=== PATIENT | male | born 1980 | race Caucasian/White ===

== ENCOUNTER → 2016-07-23 | Outpatient (CLI) | payer OTHER ==
[~2016-07-23] MED LIST: CATHETER FLUSH 10 ML SYR IV PRN; CYCL10TA9 PO; FAMO-119 PO; HYDR-3816 PO; IOHEXOL 350 MG/ML 100 ML (OMNIPAQUE 350) VIAL IV ONE; LEVO100T PO; LEVO150T6 PO; LEVO175T5 PO; NAPR-243 PO; NS 100 ML (IVPB) BAG IV ONE; OMEP20CA6 PO; ONDA8TAB13 PO; TRM50T PO
--- NOTE | 2016-07-23 12:20 | Diagnostic Imaging Report ---
PROCEDURE: CT abdomen and pelvis with contrast. TECHNIQUE: Multiple contiguous axial images were obtained through the abdomen and pelvis after administration of intravenous contrast. INDICATION: Pain, reflux. Exam compared to 04/06/2015. FINDINGS: Minute punctate calculi nonobstructing within the lower pole of the right kidney showed no change. The kidneys otherwise normal. There is no hydronephrosis or perinephric edema. The adrenals are negative. Liver, gallbladder, bile ducts, spleen, adrenals and pancreas unremarkable. Aortoiliac and mesenteric vessels patent and nonaneurysmal.. Tiny hemorrhagic cyst off the lower pole cortex of left kidney stable from 2014. There is no appendicitis or diverticulitis. Prostate, seminal vesicles and urinary bladder normal. There is no bowel obstruction. No focal inflammatory process. No mass or adenopathy. Vascular structures patent. Osseous structures and lung bases clear. IMPRESSION: Nonobstructing right renal calculus. Stable left renal cyst. No bowel, biliary or urinary tract obstruction. No inflammatory process or acute-appearing abnormality. Dictated by: Dictated on workstation # [id number]
--- OUTSIDE RECORDS SUMMARY | 2016-07-23 13:31 | XMS REPORT | Continuity of Care Document ---
Author Author [facility] Organization [facility] Address Unknown Phone Unavailable Care Team Providers Care Brass Molder Name Role Phone No Pcp, Na PCP Unavailable Source Comments Some departments are not documenting in the electronic medical record. If you do not see the information that you expected, contact Release of Information in the Health Information Management department at [phone] for further assistance in locating additional records.[facility] Active Allergies and Adverse Reactions Not on File Current Medications Not on file Active Problems Not on file Social History Tobacco Use Types Packs/Day Years Used Date Never Assessed Plan of Care Health Maintenance Due Date Last Done Comments Physical (Comprehensive) 1989 Exam Pertussis Vaccine 1993 Tetanus Vaccine 08/12/1999 Influenza Vaccine 02/01/2016 Results from Last 3 Months Not on file
== END ==
LOC: RAD 10:57
PROVIDERS: ATTEND Nurse Practitioner Family
DX: N20.0 Calculus of kidney (principal); N28.1 Cyst of kidney, acquired
CPT/HCPCS: 74177

== ENCOUNTER 2016-10-17 05:46 | Outpatient (CLI) | payer BC ==
[~2016-10-17] VITALS: Ht 190.5 cm; Wt 91.9 kg
[~2016-10-17 05:46] MED LIST changes: -CATHETER FLUSH 10 ML SYR IV PRN; -IOHEXOL 350 MG/ML 100 ML (OMNIPAQUE 350) VIAL IV ONE; -NS 100 ML (IVPB) BAG IV ONE
== END 2016-10-17 13:14 ==
LOC: PREOP 05:46
PROVIDERS: ATTEND Surgery
DX: Z01.818 Encounter for other preprocedural examination (principal); K21.9 Gastro-esophageal reflux disease without esophagitis; R13.10 Dysphagia, unspecified

== ENCOUNTER → 2016-10-21 | Day surgery (SDC) | payer BC ==
[~2016-10-21] MED LIST changes: +FLUMAZENIL (ROMAZICON) 0.1 MG/ML 5 ML VIAL INJ PRN; +HURRICAINE EXT TUBE (BENZOCAINE) ONE; +HURRICAINE EXT TUBE (BENZOCAINE) XX PRN; +MIDAZOLAM 2 MG/2 ML (VERSED) VIAL ONE; +NALOXONE 0.4 MG/ML 1 ML (NARCAN) VIAL IVP PRN; +NS IV 500 ML 500 ML IV PRN; +NS IV 500 ML 500 ML ONE; +SUCR1TAB36 PO; +fentaNYL INJECTION 100 MCG/2 ML AMP IVP PRN; +fentaNYL INJECTION 100 MCG/2 ML AMP ONE
--- NOTE | 2016-10-21 10:46 | Conscious Sedation/ASA ---
Conscious Sedation Pre-Proced Time Reviewed: 10:46 ASA Class: 2 Airway Mallampati Classification: ([place] mountain appropriate class) I. II. III, IV Lungs Heart ASA score ASA 1: a normal healthy patient ASA 2: a patient with a mild systemic disease (mid diabetes, controlled hypertension, obesity ASA 3: a patient with a severe systemic disease that limits activity (angina , COPD, prior Myocardial infarction) ASA 4: a patient with an incapacitating disease that is a constant threat to life (CHF, renal failure) ASA 5: a moribund patient not expected to survive 24 hrs. (ruptured aneurysm) ASA 6: a declared brain patient whose organs are being harvested. For emergent operations, add the letter E after the classification Grade 2 Sedation Plan: Discussed options with patient/fam Note The patient is an appropriate candidate to undergo the planned procedure, sedation, and anesthesia. The patient immediately re-assessed prior to indication. DURAN AQUINO MD October 21, 2016 10:46 am
[2016-10-21 11:21] VITALS: BP 126/99
[2016-10-21] MEDS: MIDAZOLAM 2 MG/2 ML (VERSED) VIAL IVP PRN ×3 (11:32→11:38)
--- NOTE | 2016-10-21 11:51 | Endoscopy Procedure Report ---
Endoscopy Report Date: October 21, 2016 Preoperative Diagnosis: GERD Study Performed: Upper Endoscopy Procedure Instrument: Endoscope Endo Procedure/Findings Findings 1.: Gastric Ulcer, Ryan's Esophagus Copy Copies To 1: TRACEY GALLEGOS MD, XAVIER M MD October 21, 2016 11:51 am
--- NOTE | 2016-10-21 11:53 | Discharge Inst-Simple/Standard ---
Discharge Inst-Standard Discharge Medications New, Converted or Re-Newed RX: RX on Chart Patient Instructions/Follow Up Plan of Care/Instructions/FU: tto increase omeprazole to twice a day. Follow-up with me in 3 weeks. To avoid nonsteroidals and aspirin Activity as Tolerated: Yes Discharge Diet: No Restrictions DURAN AQUINO MD October 21, 2016 11:53 am
[2016-10-21 12:15] VITALS: BP 129/91
[2016-10-21 13:45] VITALS: BP 129/91
[2016-10-21 13:52] VITALS: BP 116/87
--- NOTE | 2016-10-22 05:43 | OPERATIVE REPORT ---
DATE OF SERVICE: 10/21/2016 PROCEDURE: Upper GI endoscopy with antral biopsy. SURGEON: Duran Aquino. INDICATION FOR PROCEDURE: This gentleman came in for an endoscopic assessment of symptoms of severe reflux disease despite using maximal medical therapy. Informed consent was obtained after reviewing the procedures in detail. DESCRIPTION OF PROCEDURE: He was placed in left lateral decubitus position and his vital signs were monitored. Conscious sedation was achieved using Versed and fentanyl. The flexible gastroscope was then introduced down the esophagus and passed into the stomach, into the proximal duodenum. FINDINGS: ESOPHAGUS: Grade III esophagitis with linear ulcers along the distal end of the esophagus. Photodocumentation was obtained. STOMACH: Multiple ulcers and erosions were found at the antrum. These varied in diameter from 2 to 3 mm. DUODENUM: Changes of severe duodenitis were found along the 1st part. An antral biopsy was obtained for Helicobacter status. He tolerated the procedure well and was taken back to the nursing area in a stable condition. IMPRESSION: Symptoms of reflux. Severe esophagitis. Gastric ulcers and erosions. Duodenitis. Helicobacter status pending. NOTE: If medical therapy continues to be ineffective, consideration for fundoplication would be made. Job ID: [id number] DocumentID: [id number] Dictated Date: 10/21/2016 11:46:59 General Production Laborer Date: 10/22/2016 03:33:34 Dictated By: DURAN AQUINO MD [facility]
== END ==
LOC: ENDO 10:40
PROVIDERS: ATTEND Surgery
DX: K21.0 Gastro-esophageal reflux disease with esophagitis (principal); K25.9 Gastric ulcer, unspecified as acute or chronic, without hemorrhage or perforation; K29.80 Duodenitis without bleeding; I10 Essential (primary) hypertension; E03.9 Hypothyroidism, unspecified; G40.909 Epilepsy, unspecified, not intractable, without status epilepticus; Z79.899 Other long term (current) drug therapy

== ENCOUNTER → 2016-10-29 | Outpatient (CLI) | payer BC ==
[~2016-10-29] MED LIST changes: -FLUMAZENIL (ROMAZICON) 0.1 MG/ML 5 ML VIAL INJ PRN; -HURRICAINE EXT TUBE (BENZOCAINE) ONE; -HURRICAINE EXT TUBE (BENZOCAINE) XX PRN; -MIDAZOLAM 2 MG/2 ML (VERSED) VIAL ONE; -NALOXONE 0.4 MG/ML 1 ML (NARCAN) VIAL IVP PRN; -NS IV 500 ML 500 ML IV PRN; -NS IV 500 ML 500 ML ONE; -fentaNYL INJECTION 100 MCG/2 ML AMP IVP PRN; -fentaNYL INJECTION 100 MCG/2 ML AMP ONE
--- NOTE | 2016-10-29 09:20 | Diagnostic Imaging Report ---
PROCEDURE: US Gallbladder. TECHNIQUE: Multiple real-time grayscale images were obtained over the right upper quadrant in various projections. INDICATION: Right upper quadrant pain. FINDINGS: The visualized portions of the pancreas appear unremarkable. The liver is fairly homogeneous with no focal lesion. It is enlarged, however, measuring in craniocaudal diagonal dimension 23 CM. The portal vein demonstrates hepatopetal flow. The CBD is obscured by bowel gas. No intrahepatic biliary dilatation is evident. The gallbladder demonstrate no stones or wall thickening. The right kidney is 10.4 CM in length with no hydronephrosis or focal lesion. No fluid collection in the upright quadrant seen. Sonographic Ruano sign is reportedly negative. IMPRESSION: Hepatomegaly. Dictated by: Dictated on workstation # [id number]
== END ==
LOC: RAD 07:38
PROVIDERS: ATTEND Surgery
DX: R10.11 Right upper quadrant pain (principal); R16.0 Hepatomegaly, not elsewhere classified
CPT/HCPCS: 76705

== ENCOUNTER 2016-12-18 05:30 | Outpatient (CLI) | payer BC ==
[~2016-12-18] VITALS: Ht 190.5 cm; Wt 91.6 kg
[2016-12-18] MEDS ORDERED: LORA0.5T PO (10:44)
[2016-12-18] MEDS ORDERED: PROP60TA17 PO (10:44)
[2016-12-18] MEDS ORDERED: SUCR1TAB PO (10:44)
== END 2016-12-18 10:50 ==
LOC: PREOP 05:30
PROVIDERS: ATTEND Surgery
DX: Z01.818 Encounter for other preprocedural examination (principal); K21.9 Gastro-esophageal reflux disease without esophagitis

== ENCOUNTER 2016-12-25 08:08 | Inpatient (IN) | payer BC ==
[~2016-12-25] VITALS: Ht 190.5 cm; Wt 91.6 kg
[~2016-12-25 08:08] MED LIST changes: +LORA0.5T PO; +PROP60TA17 PO; +SUCR1TAB PO
[2016-12-25 08:37] LABS: BASOPHILS # (AUTO) 0.1 10^3/uL (0.0-0.1); BASOPHILS % (AUTO) 1 % (0-10); EOSINOPHILS # (AUTO) 0.2 10^3/uL (0.0-0.3); EOSINOPHILS % (AUTO) 3 % (0-10); LYMPHOCYTES # (AUTO) 2.5 X 10^3 (1.0-4.0); LYMPHOCYTES % (AUTO) 37 % (12-44); MEAN CORPUSCULAR HEMOGLOBIN 32 PG (25-34); MEAN CORPUSCULAR HGB CONC 34 G/DL (32-36); MEAN CORPUSCULAR VOLUME 95 FL (80-99); MEAN PLATELET VOLUME 9.4 FL (7.4-10.4); MONOCYTES # (AUTO) 0.6 X 10^3 (0.0-1.0); MONOCYTES % (AUTO) 9 % (0-12); NEUTROPHILS # (AUTO) 3.3 X 10^3 (1.8-7.8); NEUTROPHILS % (AUTO) 50 % (42-75); PLATELET COUNT 321 10^3/uL (130-400); RED BLOOD COUNT 4.46 10^6/uL (4.35-5.85); RED CELL DISTRIBUTION WIDTH 14.3 % (10.0-14.5); WHITE BLOOD COUNT 6.7 10^3/uL (4.3-11.0)
[2016-12-25] MEDS ORDERED: FAMOTIDINE 20MG/2ML IV (PEPCID) ONE (08:39)
[2016-12-25] MEDS ORDERED: ceFAZolin 2 GM/NS 50 ML IV ONE (08:45)
[2016-12-25 08:51] LABS: CALCIUM 8.9 MG/DL (8.5-10.1); CREATININE SERUM 1.69 MG/DL (0.60-1.30); POTASSIUM 4.3 MMOL/L (3.6-5.0)
[2016-12-25 09:03] VITALS: BP 134/101
[2016-12-25] MEDS ORDERED: FAMOTIDINE 20MG/2ML IV (PEPCID) IV ONE (09:15)
[2016-12-25] MEDS: LACTATED RINGERS 1,000 ML IV PRN ×4 (09:23→15:10)
--- NOTE | 2016-12-25 09:54 | Progress Note-Pre Operative ---
Pre-Operative Progress Note H&P Reviewed The H&P was reviewed, patient examined and no changes noted. Date Seen by Provider: Dec 25, 2016 Time Seen by Provider: :53 Date H&P Reviewed: Dec 25, 2016 Time H&P Reviewed: :53 Pre-Operative Diagnosis: iintractable GERD DURAN AQUINO MD Dec 25, 2016 9:54 am
[2016-12-25] MEDS ORDERED: BUP/EPI 0.25% 1:200,000 (MARCAINE) 10 ML VIAL IJ ONE (10:28)
[2016-12-25] MEDS ORDERED: DILTIAZEM 25 MG/5 ML INJ (CARDIZEM) VIAL ONE (10:38)
[2016-12-25] MEDS ORDERED: DEXMEDETOMIDINE 200 MCG/2 ML (PRECEDEX) VIAL IV ONE ×4 (10:41→14:40)
[2016-12-25] MEDS ORDERED: proPOfol 200 MG/20 ML (DIPRIVAN) VIAL IV ONE ×2 (10:45→13:26)
[2016-12-25] MEDS ORDERED: LIDOCAINE PF 2% 5 ML (XYLOCAINE) VIAL ONE (10:45)
[2016-12-25] MEDS ORDERED: ROCURONIUM 50 MG/5 ML (ZEMURON) VIAL IV ONE ×3 (10:45→13:26)
[2016-12-25] MEDS ORDERED: LIDOCAINE JELLY 2% (XYLOCAINE) 5 ML TUBE ONE (10:45)
[2016-12-25] MEDS ORDERED: ONDANSETRON 4 MG/2 ML (SDV) Z0FRAN ONE (10:45)
[2016-12-25] MEDS ORDERED: LACTATED RINGERS 1,000 ML IV ONE ×3 (10:45→13:26)
[2016-12-25] MEDS ORDERED: fentaNYL INJECTION 250 MCG/5 ML AMP ONE (10:47)
[2016-12-25] MEDS ORDERED: SEVOFLURANE (ULTANE) 15 ML INHAL SOLN ONE ×9 (13:27→15:41)
[2016-12-25] MEDS ORDERED: morphine INJ 10 MG/ML 1ML (SYR OR VIAL) ONE (14:50)
--- NOTE | 2016-12-25 15:35 | Operative Report ---
Operative Report Date of Procedure/Surgery Dec 25, 2016 Surgeon (s) DURAN AQUINO MD Appeals Reviewer Veteran (s): not applicable Post-Operative Diagnosis same Procedure Performed robotic assisted fundoplication Description of Procedure Anesthesia Type: General Estimated blood loss (mL): 50 mL Specimen(s) collected/removed none Description of the Procedure Indication for procedure:This gentleman presented with severe and intractable symptoms of gastroesophageal reflux, resistant to maximal medical therapy. Manometry confirmed normal esophageal motility with a shortened distal esophageal sphincter. It was therefore felt reasonable to offer surgical therapy by fundoplication using minimally invasive robotic technique.informed consent was obtained after reviewing the operative details and complications of bleeding, wound infection, cardiorespiratory dysfunction and persistence of symptoms. Description of the procedure: He was placed supine on the operating table and general anesthesia induced using an endotracheal tube. Ancef was administered intravenously as prophylaxis against wound infection. Sequential compression devices were placed around his legs, to minimize the risk of venous thrombosis. A Dumont catheter was placed during surgery. It was removed at the end of the operation. Abdomen was prepared and draped in the usual sterile manner. Pneumoperitoneum was established using a Veress needle introduced along the upper midline, 4 cm cephalad to the umbilicus. Intra-abdominal pressure was maintained at 15 mmHg, using carbon dioxide insufflation. A 12 mm trocar was placed and anatomy visualized using the high definition, 3-dimensional laparoscope associated with [employer] system. Under direct view, I placed an 8 mm trocar over the right side followed by 2 additional 8 mm trocars over the left side to facilitate instrumentation. An additional 12 mm trocar was placed over the right lower quadrant to facilitate using a grasper for passing sutures. As the procedure cart underway, I placed another 5 mm trocar over the right upper quadrant for additional instrumentation.initially, the left lobe of the liver was retracted using a self-retaining Melvin's retractor. However, as would be described later, due to the large nature of the left lobe of the liver, a paddle retractor had to be used twice a day for millimeter trocar over the right lower quadrant quadrant. Patient was then turned into steep reverse Trendelenburg position and the robotic system docked in place. Gastrohepatic omentum was incised using hook cautery, entering the lesser sac. Mobilization of the lesser curve, preserving the vascular arcade was continued in a cephalad fashion using the vessel sealing device. Right vidhya of the diaphragm was identified and delineated. Peritoneum over the gastroesophageal junction was incised using the vessel sealing device, defining the distal end of the esophagus. Fundus of the stomach was then mobilized by controlling the short gastric vessels with the vessel sealing device. It was continued around the cardia, exposing the left vidhya of the diaphragm. Subsequently, an adequate retro-esophageal window was created and the floppy fundus of the stomach brought across, performing the shoeshine maneuver, conforming floppiness of the wrap. Since the crura where rather close enough, I avoided crural repair.fundoplication was performed using 0 Ethibond sutures, one of the sutures incorporating the periesophageal tissue, without any tension. FloSeal was placed over a capsular tear of the left lobe of the liver. The trocars were then removed and the operation was concluded. Incisions were closed using 4-0 Vicryl, in a subcuticular fashion. 0.25 percent Marcaine with epinephrine was infiltrated along the incisions, both pre-M Valeria and at the conclusion of the operation. He tolerated the procedure well, was extubated in the operating room and taken to the recovery room in a stable condition. [place], sponges and instruments were correct at the end of the operation Findings of the Procedure see operative report Allergies and Home Medications Allergies Coded Allergies: No Known Drug Allergies (Verified , 10/21/16) Home Medications Levothyroxine Sodium 175 Mcg Tablet, 175 MCG PO DAILY, (Reported) Lorazepam 0.5 Mg Tablet, 0.5 MG PO DAILY PRN for ANXIETY, (Reported) Omeprazole 20 Mg Capsule.dr, 20 MG PO DAILY, (Reported) Propranolol HCl 60 Mg Tablet, 60 MG PO DAILY, (Reported) Sucralfate 1 Gm Tablet, 1 GM PO TIDAC, (Reported) DURAN AQUINO MD Dec 25, 2016 3:35 pm
[2016-12-25] MEDS ORDERED: GLYCOPYRROLATE 0.2 MG/ML (ROBINUL) 2 ML VIAL ONE (15:42)
[2016-12-25] MEDS ORDERED: NEOSTIGMINE (BLOXIVERZ ) 1 MG/1ML 10 ML VIAL ONE (15:42)
[2016-12-25] MEDS ORDERED: ONDANSETRON 4 MG/2 ML (SDV) Z0FRAN IVP PRN (15:45)
[2016-12-25] MEDS ORDERED: morphine INJ 10 MG/ML 1ML (SYR OR VIAL) IVP PRN (15:45)
[2016-12-25 16:25] VITALS: BP 134/101
[2016-12-25] MEDS: LACTATED RINGERS 1,000 ML IV SCH ×2 (16:50→22:06)
[2016-12-25] MEDS: ONDANSETRON 4 MG/2 ML (SDV) Z0FRAN IVP PRN (16:50)
[2016-12-25 17:00] VITALS: BP 121/80
[2016-12-25] MEDS ORDERED: PROP60CA PO (17:01)
[2016-12-25] MEDS ORDERED: ceFAZolin INJECTION 1,000 MG in NS (IVPB) 50 ML IV SCH (17:15)
[2016-12-25] MEDS: fentaNYL INJECTION 100 MCG/2 ML AMP IV PRN ×5 (17:20→23:10)
[2016-12-25] MEDS: ceFAZolin INJECTION 1,000 MG in NS (IVPB) 50 ML IV SCH (18:56)
[2016-12-25 19:09] VITALS: BP 146/94
[2016-12-25] MEDS ORDERED: KETOROLAC 30 MG/ML VIAL ONE (22:42)
[2016-12-25] MEDS: KETOROLAC 30 MG/ML VIAL IVP PRN (22:50)
[2016-12-26] VITALS: BP 163/91
[2016-12-26] MEDS: ONDANSETRON 4 MG/2 ML (SDV) Z0FRAN IVP PRN ×3 (00:44→14:00)
[2016-12-26] MEDS: fentaNYL INJECTION 100 MCG/2 ML AMP IV PRN ×2 (00:45→02:10)
[2016-12-26] MEDS: ceFAZolin INJECTION 1,000 MG in NS (IVPB) 50 ML IV SCH (02:13)
[2016-12-26] MEDS: HYDROmorphone (DILAUDID) 2 MG/ML VIAL IVP PRN ×8 (03:31→22:31)
[2016-12-26 04:56] VITALS: BP 167/99
[2016-12-26] MEDS: LEVOTHYROXINE 75 MCG (LEVOTHROID) TABLET PO SCH (05:32)
[2016-12-26] MEDS: LEVOTHYROXINE 100 MCG (LEVOTHROID) TAB PO SCH (05:32)
[2016-12-26] MEDS: LACTATED RINGERS 1,000 ML IV SCH ×3 (06:47→22:31)
[2016-12-26 08:00] VITALS: BP 136/83
--- NOTE | 2016-12-26 08:14 | Anesthesia-General Post-Op ---
General Patient Condition Mental Status/LOC: Same as Preop Cardiovascular: Satisfactory Nausea/Vomiting: Absent Respiratory: Satisfactory Pain: Uncontrolled Complications: Absent Post Op Complications Complications None Follow Up Care/Instructions Patient Instructions None needed. Anesthesia/Patient Condition Patient Condition No apparent adverse anesthesia problems. Severe post operative pain reported and observed during rounds. Nursing notified. No complications reported per nursing. DOMINICK VALENTINO CRNA Dec 26, 2016 08:14
[2016-12-26] MEDS: PANTOPRAZOLE 40 MG/10 ML (PROTONIX) VIAL IVP SCH (08:15)
[2016-12-26] MEDS: KETOROLAC 30 MG/ML VIAL IVP PRN (08:16)
[2016-12-26] MEDS ORDERED: NON-FORMULARY MEDICATION 1 EA EA (Propranolol HCl 60 MG) PO SCH (09:00)
--- NOTE | 2016-12-26 10:27 | Progress Note-Standard ---
Standard Progress Note Progress Notes/Assess & Plan Date Seen by Provider: Dec 26, 2016 Time Seen by Provider: 10:26 Progress/Assessment & Plan Reports severe abdominal and L shoulder pain. No tachycardia or fever. Will obtain a CT with oral gastrografin to rule out esophageal disruption Final Diagnosis GERD DURAN AQUINO MD Dec 26, 2016 10:27 am
--- NOTE | 2016-12-26 11:40 | Diagnostic Imaging Report ---
PROCEDURE: CT abdomen without IV, and with oral contrast. TECHNIQUE: Multiple contiguous axial images were obtained through the abdomen without the use of intravenous and with the use of oral contrast. INDICATION: Abdominal pain after recent fundoplication surgery. The study is performed with oral contrast. FINDINGS: There is bibasilar atelectasis in the lung bases and subtle pleural effusion. There is an area of thickening and air bubble around the GE junction probably representing the fundoplication flap around the GE junction. The stomach is moderately distended with air fluid level seen. Oral contrast is seen passing through the GE junction into the stomach without evidence of leakage. The liver, the gallbladder, the spleen, the adrenal glands and the pancreas appear unremarkable. The kidneys demonstrate nonobstructive stones up to 2 mm in size. There is no hydronephrosis. There is an inferiorly projecting exophytic lesion measuring 8 mm from the lower pole of the left kidney, too small to accurately characterize. The abdominal aorta is normal in caliber. The osseous structures appear grossly unremarkable. IMPRESSION: 1. Contrast passes normally through GE junction lumen without evidence of leakage or abnormal fluid collection. 2. There is a significant distention of the stomach with prominent air-fluid level. 3. There are nonobstructive stones up to 2 mm in size in both kidneys with no hydronephrosis. 4. Minimal pleural effusions with bibasilar atelectasis seen. Dictated by: Dictated on workstation # [id number]
--- NOTE | 2016-12-26 11:45 | Progress Note-Standard ---
Standard Progress Note Progress Notes/Assess & Plan Date Seen by Provider: Dec 26, 2016 Time Seen by Provider: 11:44 Progress/Assessment & Plan Reports severe abdominal and L shoulder pain. No tachycardia or fever. Will obtain a CT with oral gastrografin to rule out esophageal disruption. CT negative for any esophageal perforation. Bilateral atelectasis and distended stomach. We'll use Toradol to control his pain and encourage incentive spirometry use. Nasogastric tube to decompress the stomach. Final Diagnosis GERD. Postoperative gastric distention. DURAN AQUINO MD Dec 26, 2016 11:45 am
[2016-12-26 12:00] VITALS: BP 136/88
[2016-12-26] MEDS: METOCLOPRAMIDE INJ 10 MG/2 ML (REGLAN) IVP SCH ×2 (13:07→18:43)
[2016-12-26 16:20] VITALS: BP 138/86
[2016-12-26 20:00] VITALS: BP 146/85
[2016-12-27] VITALS: BP 127/82
[2016-12-27] MEDS: METOCLOPRAMIDE INJ 10 MG/2 ML (REGLAN) IVP SCH ×4 (00:42→17:57)
[2016-12-27] MEDS: HYDROmorphone (DILAUDID) 2 MG/ML VIAL IVP PRN ×5 (02:03→21:42)
[2016-12-27 04:10] VITALS: BP 138/88
[2016-12-27] MEDS: LEVOTHYROXINE 100 MCG (LEVOTHROID) TAB PO SCH (06:20)
[2016-12-27] MEDS: LEVOTHYROXINE 75 MCG (LEVOTHROID) TABLET PO SCH (06:20)
[2016-12-27] MEDS: LACTATED RINGERS 1,000 ML IV SCH ×2 (06:29→15:25)
[2016-12-27 07:40] VITALS: BP 131/84
[2016-12-27] MEDS: PANTOPRAZOLE 40 MG/10 ML (PROTONIX) VIAL IVP SCH (08:25)
[2016-12-27 12:00] VITALS: BP 158/93
--- NOTE | 2016-12-27 15:43 | Progress Note-Standard ---
Standard Progress Note Progress Notes/Assess & Plan Date Seen by Provider: Dec 27, 2016 Time Seen by Provider: 15:42 Progress/Assessment & Plan Reports severe abdominal and L shoulder pain. No tachycardia or fever. Will obtain a CT with oral gastrografin to rule out esophageal disruption. CT negative for any esophageal perforation. Bilateral atelectasis and distended stomach. We'll use Toradol to control his pain and encourage incentive spirometry use. Nasogastric tube to decompress the stomach. pain control much better. Blisters around all the incisions possibly due to allergy to Band-Aids. This will be documented. Tolerating liquid diet. Poor motivation with incentive spirometry and I have encouraged him. Nausea has resolved. Mild postoperative tenderness with no distention. Final Diagnosis GERD. DURAN AQUINO MD Dec 27, 2016 3:43 pm
[2016-12-27 16:37] VITALS: BP 155/88
[2016-12-27] MEDS: HYDROcodone/APAP 7.5MG-325 MG/15 ML (LORTAB) UDC PO PRN (19:42)
[2016-12-27 20:00] VITALS: BP 131/88
[2016-12-28] VITALS: BP 145/88
[2016-12-28] MEDS: METOCLOPRAMIDE INJ 10 MG/2 ML (REGLAN) IVP SCH ×2 (00:17→06:12)
[2016-12-28] MEDS: HYDROmorphone (DILAUDID) 2 MG/ML VIAL IVP PRN (00:21)
[2016-12-28] MEDS: LACTATED RINGERS 1,000 ML IV SCH (02:01)
[2016-12-28 04:00] VITALS: BP 147/90
[2016-12-28] MEDS: KETOROLAC 30 MG/ML VIAL IVP PRN (05:18)
[2016-12-28] MEDS: LEVOTHYROXINE 75 MCG (LEVOTHROID) TABLET PO SCH (06:12)
[2016-12-28] MEDS: LEVOTHYROXINE 100 MCG (LEVOTHROID) TAB PO SCH (06:12)
[2016-12-28] MEDS: HYDROcodone/APAP 7.5MG-325 MG/15 ML (LORTAB) UDC PO PRN (06:15)
[2016-12-28] MEDS ORDERED: PANTOPRAZOLE 40 MG (PROTONIX) TAB PO SCH (07:00)
[2016-12-28 08:00] VITALS: BP 133/86
--- NOTE | 2016-12-28 10:04 | Progress Note-Standard ---
Standard Progress Note Progress Notes/Assess & Plan Date Seen by Provider: Dec 28, 2016 Time Seen by Provider: 09:32 Progress/Assessment & Plan Reports severe abdominal and L shoulder pain. No tachycardia or fever. Will obtain a CT with oral gastrografin to rule out esophageal disruption. CT negative for any esophageal perforation. Bilateral atelectasis and distended stomach. We'll use Toradol to control his pain and encourage incentive spirometry use. Nasogastric tube to decompress the stomach. pain control much better. Blisters around all the incisions possibly due to allergy to Band-Aids. This will be documented. Tolerating liquid diet. Poor motivation with incentive spirometry and I have encouraged him. Nausea has resolved. Mild postoperative tenderness with no distention. much improved. Blistering around the incisions contained. Tolerating liquid diet. Pain control adequate and could be discharged home. Final Diagnosis GERD. DURAN AQUINO MD Dec 28, 2016 10:04 am
--- NOTE | 2016-12-28 10:07 | Discharge Summary ---
Diagnosis/Chief Complaint Date of Admission Dec 26, 2016 at 2:14 pm Date of Discharge Discharge Date: Dec 28, 2016 Discharge Time: 10:05 Admission Diagnosis Admission Diagnosis intractable gastroesophageal reflux disease Discharge Diagnosis same Reason Hospital Visit came in to undergo an elective Esmer fundoplication using robotic assistance. Discharge Summary Procedures uneventful operative procedure. Slow recovery due to gastric distention. CT scan negative for any disruption of the esophagus. Discharge Physical Examination Allergies: Uncoded Allergies: band aids (Allergy, Intermediate, 12/27/16) blisters skin Vitals & I&Os Vital Signs Date Time Temp Pulse Resp B/P (MAP) Pulse Ox O2 Delivery O2 Flow Rate FiO2 12/28/16 08:00 96.8 81 20 133/86 96 Room Air General Appearance: Alert, Oriented X3 Cardiovascular: Regular Rate Abdominal: Soft Hospital Course Labs (last 24 hrs) Laboratory Tests 12/25/16 08:30: White Blood Count 6.7, Red Blood Count 4.46, Hemoglobin 14.3, Hematocrit 42, Mean Corpuscular Volume 95, Mean Corpuscular Hemoglobin 32, Mean Corpuscular Hemoglobin Concent 34, Red Cell Distribution Width 14.3, Platelet Count 321, Mean Platelet Volume 9.4, Neutrophils (%) (Auto) 50, Lymphocytes (%) (Auto) 37, Monocytes (%) (Auto) 9, Eosinophils (%) (Auto) 3, Basophils (%) (Auto) 1, Neutrophils # (Auto) 3.3, Lymphocytes # (Auto) 2.5, Monocytes # (Auto) 0.6, Eosinophils # (Auto) 0.2, Basophils # (Auto) 0.1, Sodium Level 138, Potassium Level 4.3, Chloride Level 109H, Carbon Dioxide Level 21, Anion Gap 8, Blood Urea Nitrogen 19H, Creatinine 1.69H, Estimat Glomerular Filtration Rate 47, BUN/ Creatinine Ratio 11, Glucose Level 117H, Calcium Level 8.9 Microbiology 12/25/16 MRSA Screen - Final, Complete MRSA not isolated Pending Labs Microbiology Date/Time Source Procedure Growth Status 12/25/16 08:25 Nasal MRSA Screen - Final MRSA not isolated Complete Laboratory Tests 12/25/16 08:30: White Blood Count 6.7, Red Blood Count 4.46, Hemoglobin 14.3, Hematocrit 42, Mean Corpuscular Volume 95, Mean Corpuscular Hemoglobin 32, Mean Corpuscular Hemoglobin Concent 34, Red Cell Distribution Width 14.3, Platelet Count 321, Mean Platelet Volume 9.4, Neutrophils (%) (Auto) 50, Lymphocytes (%) (Auto) 37, Monocytes (%) (Auto) 9, Eosinophils (%) (Auto) 3, Basophils (%) (Auto) 1, Neutrophils # (Auto) 3.3, Lymphocytes # (Auto) 2.5, Monocytes # (Auto) 0.6, Eosinophils # (Auto) 0.2, Basophils # (Auto) 0.1, Sodium Level 138, Potassium Level 4.3, Chloride Level 109, Carbon Dioxide Level 21, Anion Gap 8, Blood Urea Nitrogen 19, Creatinine 1.69, Estimat Glomerular Filtration Rate 47, BUN/ Creatinine Ratio 11, Glucose Level 117, Calcium Level 8.9 Discussion & Recommendations the time of discharge, he is tolerating a soft diet and pain is adequately controlled with liquid Lortab. He'll be followed up in the office in about 2 weeks. Discharge Home Medications: Active Scripts Active Reported Propranolol HCl ER (Propranolol HCl) 60 Mg Cap.sa.24h 60 Mg PO DAILY Sucralfate 1 Gm Tablet 1 Gm PO TIDAC LAST FILLED 10/31/16 #30 Lorazepam 0.5 Mg Tablet 0.5 Mg PO DAILY PRN Prilosec (Omeprazole) 20 Mg Capsule.dr 20 Mg PO DAILY Levothyroxine Sodium 175 Mcg Tablet 175 Mcg PO DAILY Instructions to patient/family Please see electonic discharge instructions given to patient. Clinical Quality Measures DVT/VTE Risk/Contraindication: Risk Factor Score Per Nursin RFS Level Per Nursing on Admit: 4+=Very High DURAN AQUINO MD Dec 28, 2016 10:07 am
[2016-12-28] MEDS ORDERED: HYDR473S50 PO (10:08)
--- NOTE | 2016-12-28 10:09 | Discharge Inst-Simple/Standard ---
Discharge Inst-Standard Discharge Medications New, Converted or Re-Newed RX: RX on Chart Patient Instructions/Follow Up Plan of Care/Instructions/FU: triple antibiotic to blisters on his abdomen. Soft diet. Continue using incentive spirometry. Follow-up with me in 3 weeks. Please leave a message at [phone] Activity as Tolerated: Yes Discharge Diet: Soft Diet DURAN AQUINO MD Dec 28, 2016 10:09 am
== END 2016-12-28 11:10 | disposition home or self-care (01) | DRG 327 ==
LOC: SDC 08:08 → 4TH 16:30 → SDC 12-26 14:25 → ENPENDDIS 12-28 10:05
PROVIDERS: ADMIT Surgery; ATTEND Surgery
PROC: 8E0WXCZ Robotic Assisted Procedure of Trunk Region (ICD-10-PCS; 2016-12-25)
PROC: 0DV44ZZ Restriction of Esophagogastric Junction, Percutaneous Endoscopic Approach (ICD-10-PCS; principal; 2016-12-25 11:12)
DX: K21.0 Gastro-esophageal reflux disease with esophagitis (principal); K44.9 Diaphragmatic hernia without obstruction or gangrene; J98.11 Atelectasis; R14.0 Abdominal distension (gaseous); I10 Essential (primary) hypertension; J45.909 Unspecified asthma, uncomplicated; K72.90 Hepatic failure, unspecified without coma; R23.8 Other skin changes
CPT/HCPCS: 36415; 74150; 80048; 85025; 87081; 93005; 94664

== ENCOUNTER 2017-01-05 14:14 | Inpatient (IN) | payer BC ==
[~2017-01-05] VITALS: Ht 188 cm; Wt 110.4 kg
[~2017-01-05 14:14] MED LIST changes: +HYDR473S50 PO; +PROP60CA PO
[2017-01-05] MEDS ORDERED: LACTATED RINGERS 1,000 ML IV ONE (15:30)
[2017-01-05] MEDS ORDERED: fentaNYL INJECTION 100 MCG/2 ML AMP IVP STA ×2 (15:30→17:22)
[2017-01-05] MEDS ORDERED: IOHEXOL 350 MG/ML 150 ML (OMNIPAQUE 350) VIAL IV ONE (15:45)
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
[2017-01-05 15:50] LABS: BASOPHILS # (AUTO) 0.1 10^3/uL (0.0-0.1); BASOPHILS % (AUTO) 1 % (0-10); EOSINOPHILS # (AUTO) 0.4 10^3/uL (0.0-0.3); EOSINOPHILS % (AUTO) 4 % (0-10); LYMPHOCYTES # (AUTO) 2.1 X 10^3 (1.0-4.0); LYMPHOCYTES % (AUTO) 23 % (12-44); MEAN CORPUSCULAR HEMOGLOBIN 32 PG (25-34); MEAN CORPUSCULAR HGB CONC 33 G/DL (32-36); MEAN CORPUSCULAR VOLUME 96 FL (80-99); MEAN PLATELET VOLUME 9.5 FL (7.4-10.4); MONOCYTES # (AUTO) 0.7 X 10^3 (0.0-1.0); MONOCYTES % (AUTO) 8 % (0-12); NEUTROPHILS # (AUTO) 6.1 X 10^3 (1.8-7.8); NEUTROPHILS % (AUTO) 65 % (42-75); PLATELET COUNT 427 10^3/uL (130-400); RED BLOOD COUNT 4.59 10^6/uL (4.35-5.85); RED CELL DISTRIBUTION WIDTH 13.6 % (10.0-14.5); WHITE BLOOD COUNT 9.4 10^3/uL (4.3-11.0)
--- NOTE | 2017-01-05 15:56 | Diagnostic Imaging Report ---
INDICATION: Postoperative fever. EXAMINATION: PA and lateral chest at 4:03 p.m. FINDINGS: The heart size is within normal limits and stable when compared to 05/08/16. In the interval since the prior study, mild atelectasis/infiltrate has developed in the left lung base. There are also two thin strands of increased density about the right hilum and these may be related to atelectasis/infiltrate as well. The upper lungs are clear. The mediastinum is not widened. The osseous structures are intact. IMPRESSION: 1. Mild bibasilar atelectasis/infiltrate has developed since the prior exam. There is greater involvement on the left. 2. There is no acute abnormality identified otherwise. Dictated by: Dictated on workstation # [id number]
[2017-01-05 16:08] LABS: PROTHROMBIN TIME PATIENT 13.2 SEC (12.2-14.7)
[2017-01-05 16:12] LABS: ALBUMIN 4.8 GM/DL (3.2-4.5); BILIRUBIN,TOTAL 0.7 MG/DL (0.1-1.0); CALCIUM 9.9 MG/DL (8.5-10.1); CREATININE SERUM 1.75 MG/DL (0.60-1.30); MAGNESIUM 2.4 MG/DL (1.8-2.4); POTASSIUM 4.2 MMOL/L (3.6-5.0); TOTAL PROTEIN 8.4 GM/DL (6.4-8.2)
--- NOTE | 2017-01-05 16:44 | Diagnostic Imaging Report ---
INDICATION: Chest pain. EXAMINATION: CT of the chest, abdomen and pelvis with and without contrast. Contiguous axial sections were taken through the chest, abdomen and pelvis following administration of intravenous contrast. FINDINGS: The recent CT abdomen exam of 12/26/16 noted significant distention of the stomach by gas, fluid and particulate matter. Those findings are again evident on the study and do not seem to have changed significantly. There is no sign of a mass to suggest a gastric outlet obstruction. Even so, if further study is desired, then either endoscopy or an upper GI exam would be recommended. Also, in the interval since the previous exam, poorly defined areas of distortion of the mesenteric fat have developed in the left upper quadrant and upper abdomen near midline just superior to the umbilicus. These findings are nonspecific but may be secondary to mild edema/inflammation. There is no mass or abscess identified, however. It is my understanding in the interval since the prior exam the patient has undergone a Esmer procedure. These findings could be related to that procedure. The previous exam also noted nonobstructive calculi within both kidneys. Those calculi are not as well visualized on this exam as a pre intravenous contrast series was performed. Both kidneys do show excretion of the contrast and there is no sign of obstruction of either collecting system. The images through the pelvis do show that there is a moderate amount of free fluid present. This is nonspecific. There is no solid pelvic mass or abscess identified. The appendix was not well visualized but there are no indirect signs of acute appendicitis. The urinary bladder and prostate gland are grossly unremarkable. The liver does not appear to be enlarged. The spleen, pancreas, adrenals, gallbladder and inferior vena cava are unremarkable for an acute abnormality. A small area diminished density within the spleen seen previously is again evident and does not appear to change. This finding is of uncertain etiology although most likely benign. The aorta is not abnormally dilated and there is no sign of a dissection. There is no hemodynamically significant stenoses of the aorta either. The recent CT abdomen/pelvis exam did note bibasilar atelectasis/infiltrate. On this study, the lung bases do seem better aerated. There is only a small amount of residual atelectasis/infiltrate in each lung base. The upper lungs are clear. The heart size is within normal limits. There is no defect within the pulmonary arteries to indicate a pulmonary embolus. The aorta is not abnormally dilated and there is no sign of a dissection. There is no mediastinal or hilar adenopathy. The thyroid gland, where visualized, is unremarkable. The bone windows show no sign of a fracture or of a destructive lesion. IMPRESSION: 1. There is persistent distention of the stomach by gas, fluid and particulate matter. There is no sign of a gastric outlet mass to account for this appearance. If further study is desired, then either an upper GI exam or endoscopy would be recommended. 2. The areas of distortion of the mesenteric fat in the left lower quadrant and the upper abdomen near midline are of uncertain etiology are most likely due to edema/inflammation. These could be related to the patient's recent Esmer procedure. There is a moderate amount of free fluid in the pelvis as well. This is nonspecific in appearance but could also be related to the recent procedure. There is no mass or abscess identified. 3. There is no acute abnormality in the abdomen or pelvis otherwise. 4. The lung bases do seem better aerated than on the prior exam. There is still some residual atelectasis/infiltrate present in this area. 5. There is no sign of a pulmonary embolus or a dissection. 6. These results were discussed with Dr. Hi in the ER. Dictated by: Dictated on workstation # [id number]
[2017-01-05 17:09] LABS: BILIRUBIN,URINE NEGATIVE (NEGATIVE); KETONES,URINE NEGATIVE (NEGATIVE); LEUKOCYTE ESTERASE ,URINE NEGATIVE (NEGATIVE); NITRITE,URINE NEGATIVE (NEGATIVE); PH,URINE 5 (5-9); PROTEIN,URINE 1+ (NEGATIVE); UROBILINOGEN,URINE NORMAL (NORMAL)
[2017-01-05] MEDS ORDERED: PIPERACILLIN/TAZO 4.5 GM VIAL (ZOSYN) IV ONE (17:15)
[2017-01-05] MEDS ORDERED: NS (IVPB) 100 ML ONE (17:21)
[2017-01-05 17:33] LABS: SQUAMOUS EPITHELIAL CELL,UR 0-2 /HPF
[2017-01-05 17:48] VITALS: BP 154/107
[2017-01-05] MEDS ORDERED: fentaNYL INJECTION 100 MCG/2 ML AMP IVP PRN (18:30)
[2017-01-05] MEDS ORDERED: ONDANSETRON 4 MG/2 ML (SDV) Z0FRAN IVP PRN (18:30)
[2017-01-05] MEDS: PANTOPRAZOLE 40 MG/10 ML (PROTONIX) VIAL IV SCH (18:33)
[2017-01-05] MEDS: LACTATED RINGERS 1,000 ML IV SCH (18:40)
[2017-01-05] MEDS: HYDROcodone/APAP 7.5 MG/325 MG (LORTAB, LORCET PLUS) TABLET PO PRN (18:52)
[2017-01-05 19:16] VITALS: BP 140/90
[2017-01-05] MEDS: fentaNYL INJECTION 100 MCG/2 ML AMP IVP PRN ×2 (20:01→22:00)
[2017-01-05] MEDS: LEVOFLOXACIN 750 MG/150 ML IV 150 ML IV SCH (20:01)
[2017-01-05] MEDS ORDERED: RT-ALBUTEROL/IPRATROPIUM 3 ML (DUONEB) VIAL INH PRN (20:15)
[2017-01-05 21:05] VITALS: BP 133/81
[2017-01-05] MEDS: PIPERACILLIN/TAZOBACTAM 4.5 GM/NS100 ML IVPB IV SCH ×2 (23:29)
[2017-01-06] VITALS (9 sets, daily range): BP systolic 118–150; BP diastolic 74–99
[2017-01-06] MEDS: fentaNYL INJECTION 100 MCG/2 ML AMP IVP PRN ×8 (00:01→20:17)
[2017-01-06] MEDS: HYDROcodone/APAP 7.5 MG/325 MG (LORTAB, LORCET PLUS) TABLET PO PRN (01:04)
[2017-01-06] MEDS: LACTATED RINGERS 1,000 ML IV SCH ×4 (03:07→17:54)
[2017-01-06 05:32] LABS: BASOPHILS % (AUTO) 0 % (0-10); EOSINOPHILS # (AUTO) 0.3 10^3/uL (0.0-0.3); EOSINOPHILS % (AUTO) 4 % (0-10); LYMPHOCYTES # (AUTO) 1.5 X 10^3 (1.0-4.0); LYMPHOCYTES % (AUTO) 19 % (12-44); MEAN CORPUSCULAR HEMOGLOBIN 32 PG (25-34); MEAN CORPUSCULAR HGB CONC 33 G/DL (32-36); MEAN CORPUSCULAR VOLUME 97 FL (80-99); MEAN PLATELET VOLUME 9.6 FL (7.4-10.4); MONOCYTES # (AUTO) 0.7 X 10^3 (0.0-1.0); MONOCYTES % (AUTO) 9 % (0-12); NEUTROPHILS # (AUTO) 5.4 X 10^3 (1.8-7.8); NEUTROPHILS % (AUTO) 68 % (42-75); PLATELET COUNT 369 10^3/uL (130-400); RED BLOOD COUNT 4.08 10^6/uL (4.35-5.85); RED CELL DISTRIBUTION WIDTH 13.4 % (10.0-14.5); WHITE BLOOD COUNT 7.9 10^3/uL (4.3-11.0)
[2017-01-06 06:13] LABS: ALBUMIN 3.9 GM/DL (3.2-4.5); BILIRUBIN,TOTAL 0.7 MG/DL (0.1-1.0); CALCIUM 8.6 MG/DL (8.5-10.1); CREATININE SERUM 1.62 MG/DL (0.60-1.30); POTASSIUM 4.1 MMOL/L (3.6-5.0); TOTAL PROTEIN 6.7 GM/DL (6.4-8.2)
[2017-01-06] MEDS: RT-ALBUTEROL/IPRATROPIUM 3 ML (DUONEB) VIAL INH SCH ×4 (06:53→19:54)
[2017-01-06] MEDS: PANTOPRAZOLE 40 MG/10 ML (PROTONIX) VIAL IV SCH (08:30)
[2017-01-06] MEDS: LEVOFLOXACIN 750 MG/150 ML IV 150 ML IV SCH (08:30)
[2017-01-06] MEDS ORDERED: OMEP20CA12 PO (09:18)
[2017-01-06] MEDS ORDERED: HYDR118S10 PO (09:23)
[2017-01-06] MEDS: PIPERACILLIN/TAZOBACTAM 4.5 GM/NS100 ML IVPB IV SCH ×6 (09:38→23:11)
[2017-01-06] MEDS: KETOROLAC 15 MG/ML VIAL IVP PRN (17:31)
--- NOTE | 2017-01-06 18:01 | Progress Note-Standard ---
Standard Progress Note Progress Notes/Assess & Plan Date Seen by Provider: Jan 06, 2017 Time Seen by Provider: 16:55 Progress/Assessment & Plan patient underwent robotic-assisted fundoplication a week ago, currently readmitted with left upper quadrant pain and shortness of breath. Evaluation is suggestive of atelectasis with possible early pneumonia. We'll continue IV antibiotics and use incentive spirometry. Abdominal examination is unremarkable. Final Diagnosis postoperative atelectasis and pneumonia. DURAN AQUINO MD Jan 06, 2017 6:01 pm
[2017-01-07] VITALS: BP 128/84
[2017-01-07] MEDS: fentaNYL INJECTION 100 MCG/2 ML AMP IVP PRN ×3 (00:09→13:15)
[2017-01-07] MEDS: LACTATED RINGERS 1,000 ML IV SCH ×2 (00:37→07:06)
[2017-01-07 04:00] VITALS: BP 139/84
[2017-01-07] MEDS: PIPERACILLIN/TAZOBACTAM 4.5 GM/NS100 ML IVPB IV SCH ×6 (06:22→23:16)
[2017-01-07] MEDS: RT-ALBUTEROL/IPRATROPIUM 3 ML (DUONEB) VIAL INH SCH ×4 (06:56→18:51)
[2017-01-07 08:00] VITALS: BP 156/97
[2017-01-07] MEDS: KETOROLAC 15 MG/ML VIAL IVP PRN ×2 (08:13→15:01)
[2017-01-07] MEDS: LEVOFLOXACIN 750 MG/150 ML IV 150 ML IV SCH (08:13)
[2017-01-07] MEDS: PANTOPRAZOLE 40 MG/10 ML (PROTONIX) VIAL IV SCH (08:13)
[2017-01-07] MEDS: HYDROcodone/APAP 7.5 MG/325 MG (LORTAB, LORCET PLUS) TABLET PO PRN ×2 (08:14→15:01)
--- NOTE | 2017-01-07 08:51 | Progress Note-Standard ---
Standard Progress Note Progress Notes/Assess & Plan Date Seen by Provider: Jan 07, 2017 Time Seen by Provider: 07:58 Progress/Assessment & Plan patient underwent robotic-assisted fundoplication a week ago, currently readmitted with left upper quadrant pain and shortness of breath. Evaluation is suggestive of atelectasis with possible early pneumonia. We'll continue IV antibiotics and use incentive spirometry. Abdominal examination is unremarkable. pain control much better. Breath sounds equal on both basis. We'll stop Levaquin and continue Zosyn for now. Possible discharge in a.m. Final Diagnosis postoperative pneumonia DURNA AQUINO MD Jan 07, 2017 8:51 am
[2017-01-07 12:00] VITALS: BP 128/76
[2017-01-07 15:38] VITALS: BP 142/85
[2017-01-07] MEDS ORDERED: MAGNESIUM CITRATE 300 ML BTL PO NR (19:57)
[2017-01-07 20:00] VITALS: BP 142/91
[2017-01-07] MEDS ORDERED: LORazepam 0.5 MG (ATIVAN) TABLET PO PRN (20:00)
[2017-01-08] VITALS: BP 129/92
[2017-01-08] MEDS: HYDROcodone/APAP 7.5 MG/325 MG (LORTAB, LORCET PLUS) TABLET PO PRN (03:42)
[2017-01-08 04:00] VITALS: BP 146/85
[2017-01-08] MEDS: PIPERACILLIN/TAZOBACTAM 4.5 GM/NS100 ML IVPB IV SCH ×4 (06:09→16:36)
[2017-01-08] MEDS ORDERED: PANTOPRAZOLE 40 MG (PROTONIX) TAB PO SCH (07:00)
[2017-01-08] MEDS: RT-ALBUTEROL/IPRATROPIUM 3 ML (DUONEB) VIAL INH SCH (07:00)
[2017-01-08 08:00] VITALS: BP 139/91
[2017-01-08] MEDS ORDERED: RT-LEVALBUTEROL (XOPENEX) 1.25 MG/3 ML NEB NON-FORMULARY INH SCH (15:00)
[2017-01-08 15:46] VITALS: BP 127/86
--- NOTE | 2017-01-08 15:48 | Progress Note-Standard ---
Standard Progress Note Progress Notes/Assess & Plan Date Seen by Provider: Jan 08, 2017 Time Seen by Provider: 15:47 Progress/Assessment & Plan patient underwent robotic-assisted fundoplication a week ago, currently readmitted with left upper quadrant pain and shortness of breath. Evaluation is suggestive of atelectasis with possible early pneumonia. We'll continue IV antibiotics and use incentive spirometry. Abdominal examination is unremarkable. pain control much better. Breath sounds equal on both basis. We'll stop Levaquin and continue Zosyn for now. Possible discharge in a.m. Much improved, constipated. Will use magnesium citrate. Discharge home on augmentin Final Diagnosis Post-op pneumonia DURAN AQUINO MD Jan 08, 2017 3:48 pm
[2017-01-08] MEDS ORDERED: HYDR473S50 PO (15:50)
[2017-01-08] MEDS ORDERED: AMOX-358 PO (15:51)
--- NOTE | 2017-01-08 15:55 | Discharge Inst-Simple/Standard ---
Discharge Inst-Standard Discharge Medications New, Converted or Re-Newed RX: RX on Chart Patient Instructions/Follow Up Plan of Care/Instructions/FU: To return as scheduled for 01/20. To avoid carbonated drinks Activity as Tolerated: Yes Discharge Diet: Soft Diet DURAN AQUINO MD Jan 08, 2017 3:55 pm
[2017-01-08] MEDS ORDERED: MAGNESIUM CITRATE 300 ML BTL PO NR (15:58)
[2017-01-08 17:00] VITALS: BP 127/86
--- NOTE | 2017-01-09 10:02 | DISCHARGE SUMMARY ---
DATE OF ADMISSION: 01/05/2017. DATE OF DISCHARGE: 01/08/2017. DIAGNOSIS: Postoperative atelectasis with pneumonia. This gentleman had undergone robotic assisted fundoplication to manage severe reflux disease a few days ago. He returned with pain over the left side of his chest and was found to have atelectasis with possible early pneumonia. Pulmonary embolism was ruled out. He has since been treated with inhalation therapy along with antibiotics and has made a reasonable recovery. At the time of discharge, he was uncomfortable due to constipation. This has been addressed by oral magnesium citrate. I have instructed him to return for follow-up, that has already been scheduled for January 20. Job ID: [id number] Dictated Date: 01/08/2017 15:53:12 Clinical Informatics Spec Date: 01/09/2017 09:59:09/ramez KRISHNA
== END 2017-01-08 17:00 | disposition home or self-care (01) | DRG 194 ==
LOC: EDUNIT# 14:14 → ER 14:16 → 4TH 17:00
PROVIDERS: ADMIT Surgery; ATTEND Surgery
DX: J18.9 Pneumonia, unspecified organism (principal); J98.11 Atelectasis; G89.18 Other acute postprocedural pain; I12.9 Hypertensive chronic kidney disease with stage 1 through stage 4 chronic kidney disease, or unspecified chronic kidney disease; N18.2 Chronic kidney disease, stage 2 (mild); J45.909 Unspecified asthma, uncomplicated; F43.10 Post-traumatic stress disorder, unspecified; K59.00 Constipation, unspecified; Z87.820 Personal history of traumatic brain injury
CPT/HCPCS: 36415; 71020; 71275; 74177; 80053; 81000; 82150; 82550; 82553; 83605; 83690; 83735; 85025; 85610; 85730; 87040; 93005; 93041; 94010; 94640; 94664; 94760; 96361; 96374; 96375; 96376

== ENCOUNTER → 2018-02-26 | Outpatient (CLI) | payer BC ==
[~2018-02-26] MED LIST changes: +AMOX-358 PO; +HYDR-34 PO; -HYDR-3816 PO; +HYDR118S10 PO; +OMEP20CA12 PO
--- NOTE | 2018-02-26 15:36 | Diagnostic Imaging Report ---
EXAMINATION: Left shoulder at 11:59 a.m. INDICATION: Shoulder pain. FINDINGS: Three views were obtained. There is no fracture, dislocation, or acute bony abnormality evident. The glenohumeral and acromioclavicular joints are fairly well maintained and appear similar to the prior exam of 06/10/2009. The soft tissues are unremarkable. IMPRESSION: 1. There is no evidence for an acute bony abnormality. 2. If there is clinical concern regarding an injury to the rotator cuff or labrum, then MRI will be recommended for additional study. Dictated by: Dictated on workstation # [id number]
== END ==
LOC: RAD 11:14
PROVIDERS: ATTEND Nurse Practitioner Family
DX: M25.512 Pain in left shoulder (principal)
CPT/HCPCS: 73030

== ENCOUNTER → 2018-03-20 | Outpatient (CLI) | payer BC ==
[~2018-03-20] VITALS: Ht 188 cm; Wt 99.8 kg
[~2018-03-20] MED LIST changes: +GADOBUTROL 7.5 MMOL/7.5 ML (GADAVIST) VIAL IV ONE; +IOHEXOL 300 MG/ML 30 ML (OMNIPAQUE 300) VIAL IV ONE; +LIDOCAINE 1% INJ 20 ML 20 ML VIAL INJ ONE
--- NOTE | 2018-03-20 10:10 | Diagnostic Imaging Report ---
INDICATION: Left shoulder instability. PROCEDURE: Patient was brought to the procedure room and placed on the table in the supine position. Skin of the left shoulder was prepped and draped in usual sterile fashion. Small amount of 1% lidocaine was utilized for local anesthesia. 21-gauge needle was advanced into the left shoulder at the rotator interval. 50 mL solution of iodinated contrast, normal saline and gadolinium was injected under fluoroscopic observation. 19 seconds of fluoroscopy was utilized. Needle was withdrawn and hemostasis was obtained. Patient tolerated the procedure well and was sent to MRI in satisfactory condition. IMPRESSION: Successful left shoulder injection of gadolinium contrast solution using fluoroscopy. Dictated by: Dictated on workstation # [id number]
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
== END ==
LOC: RAD 08:45
PROVIDERS: ATTEND Orthopaedic Surgery
DX: M25.512 Pain in left shoulder (principal); M25.312 Other instability, left shoulder; Z87.828 Personal history of other (healed) physical injury and trauma
CPT/HCPCS: 23350; 73040; 73222

== ENCOUNTER 2018-04-21 09:58 | Outpatient (CLI) | payer BC ==
[~2018-04-21] VITALS: Ht 188 cm; Wt 99.8 kg
[~2018-04-21 09:58] MED LIST changes: -GADOBUTROL 7.5 MMOL/7.5 ML (GADAVIST) VIAL IV ONE; -IOHEXOL 300 MG/ML 30 ML (OMNIPAQUE 300) VIAL IV ONE; -LIDOCAINE 1% INJ 20 ML 20 ML VIAL INJ ONE
[2018-04-22] MEDS ORDERED: HYDR473S50 PO (14:06)
== END 2018-04-21 10:53 | disposition home or self-care (01) ==
LOC: PREOP 09:58
PROVIDERS: ATTEND Surgery
DX: Z01.818 Encounter for other preprocedural examination (principal)

== ENCOUNTER 2018-04-22 08:10 | Day surgery (SDC) | payer BC ==
[~2018-04-22] VITALS: Ht 188 cm; Wt 99.8 kg
--- OUTSIDE RECORDS SUMMARY | 2018-04-22 08:13 | XMS REPORT | Clinical Summary ---
Author Author [facility] Organization [facility] Address Unknown Phone Unavailable Care Team Providers Care Sales Representative [employer] Name Role Phone Joaquin Sawyer MD Unavailable Sonia Calderon MD PCP Source Comments Some departments are not documenting in the electronic medical record. If you do not see the information that you expected, contact Release of Information in the Health Information Management department at [phone] for further assistance in locating additional records.[facility] Allergies No Known Allergies Current Medications Prescription Sig. Disp. Refills Start End Date Status Date LORazepam (ATIVAN) 0.5 mg Take 1 tablet by mouth Active tablet daily as needed for Nausea. levothyroxine (SYNTHROID) Take 175 mcg by mouth Active 175 mcg tablet daily 30 minutes before breakfast. propranolol LA (INDERAL Take 60 mg by mouth Active LA) 60 mg capsule daily. Active Problems Not on file Family History Medical History Relation Name Comments Alcohol abuse Father Depression Mother Diabetes Mother Hypertension Mother Kidney Disease Mother Relation Name Status Comments Father Mother Alive Social History Tobacco Use Types Packs/Day Years Used Date Former Smoker Cigarettes 0.5 10 Smokeless Tobacco: Never Used Tobacco Cessation: Counseling Given: No Sex Assigned at Date Recorded Not on file Last Filed Vital Signs Vital Sign Reading Time Taken Blood Pressure 127/79 02/18/2017 2:42 PM CDT Pulse 82 02/18/2017 2:42 PM CDT Temperature - - Respiratory Rate - - Oxygen Saturation - - Inhaled Oxygen - - Concentration Weight 107.5 kg (237 lb) 02/18/2017 2:42 PM CDT Height 187.9 cm (6' 1.98") 02/18/2017 2:42 PM CDT Body Mass Index 30.45 02/18/2017 2:42 PM CDT Plan of Treatment Health Maintenance Due Date Last Done Comments PHYSICAL (COMPREHENSIVE) 1989 EXAM HIV SCREENING 1997 DTAP/TDAP VACCINES (1 - 2000 Tdap) INFLUENZA VACCINE 12/31/2017 Results Not on filefrom Last 3 Months
--- OUTSIDE RECORDS SUMMARY | 2018-04-22 08:13 | XMS REPORT | Clinical Summary ---
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
--- OUTSIDE RECORDS SUMMARY | 2018-04-22 08:17 | XMS REPORT | CCD ---
Author Author [facility] Organization [facility] Address [address] [place] [address] Phone Care Team Providers Care [employer] Name Role Phone PP Unavailable CCM Unavailable Summary Purpose Interface Exchange Insurance Providers Payer name Policy type / Coverage type Covered democrat ID Effective Begin Date Effective End Date Blue Cross Blue [facility] Blue Cross/Blue Shield [id number] 2017 Unknown Family history Runs in the family Diagnosis Age At Onset Diabetes mellitus Type 1 Unknown Breast cancer Unknown Mother Diagnosis Age At Onset Depression Unknown Hypertension Unknown kidney disease Unknown Father Diagnosis Age At Onset Alcoholism Unknown Social History Social History Element Codes Description Effective Dates Marital status Unknown Soheila 11/23/2015 Number of children Unknown 2 11/23/2015 Employment Unknown Currently employed [employer] 11/23/[address]: 2476375 Former smoker Quit 201311/23/[address]: 313604756 Never drinks alcohol 11/23/2015 Has the patient ever used illegal drugs? Unknown Has never used illegal drugs 11/23/2015 Allergies, Adverse Reactions, Alerts Substance Reaction Codes Entered Date Inactivated Date Status * NO KNOWN DRUG ALLERGIES Unknown 11/23/2015 No Inactive Date Active Past Medical History Illness Codes Condition Status Onset Date Resolved Date Pain in left shoulder ICD-9: 719.41 ICD-10: M25.512 Active 02/26/2018 Unknown Encounter for other preprocedural examination ICD-9: V72.83 ICD-10: Z01.818 Active 04/13/2018 Unknown Gout, unspecified ICD- 9: 274.9 ICD-10: M10.9 Active 03/04/2018 Unknown Hypothryroidism Unknown Active 11/12/2017 Unknown Atrophy of thyroid (acquired) ICD-9: 244.8 ICD-10: E03.4 Active 07/02/2016 Unknown Headache ICD-9: 784.0 ICD-10: R51 Active 10/07/2016 Unknown Hypothyroidism, unspecified ICD-9: 244.9 ICD-10: E03.9 Active 06/06/2016 Unknown Other specified hypothyroidism ICD-9: 244.8 ICD-10: E03.8 Active 03/12/2016 Unknown Acute laryngopharyngitis ICD-9: 465.0 ICD-10: J06.0 Active 03/13/2017 Unknown Cough ICD-9: 786.2 ICD-10: R05 Active 03/13/2017 Unknown Other acute sinusitis ICD-9: 461.8 ICD-10: J01.80 Active 03/13/2017 Unknown Other allergic rhinitis ICD-9: 477.8 ICD-10: J30.89 Active 05/21/2016 Unknown Depression Unknown Active 10/07/2016 Unknown Gastro-esophageal reflux disease without esophagitis ICD-9: 530.81 ICD-10: K21.9 Active 03/12/2016 Unknown Generalized anxiety disorder ICD-9: 300.02 ICD-10: F41.1 Active 06/06/2016 Unknown Major depressive disorder, single episode, unspecified ICD-9: 311 ICD-10: F32.9 Active 03/12/2016 Unknown Other muscle spasm ICD -9: 728.85 ICD-10: M62.838 Active 10/02/2016 Unknown Other specified forms of tremor ICD-9: 781.0 ICD-10: G25.2 Active 10/02/2016 Unknown Migraine, unspecified, not intractable, without status migrainosus ICD-9: 346.90 ICD-10: G43.909 Active 10/03/2016 Unknown Epigastric pain ICD-9 : 789.06 ICD-10: R10.13 Active 08/02/2016 Unknown Generalized abdominal pain ICD-9: 789.07 ICD-10: R10.84 Active 07/23/2016 Unknown Nausea ICD-9: 787.02 ICD-10: R11.0 Active 07/04/2016 Unknown Essential (primary) hypertension ICD-9: 401.1 ICD-10: I10 Active 06/06/2016 Unknown Chronic kidney disease, stage 3 (moderate) ICD-9: 585.3 ICD-10: N18.3 Active 05/08/2016 Unknown Nasal congestion ICD-9 : 478.19 ICD-10: R09.81 Active 04/18/2016 Unknown Low back pain ICD-9: 724.2 ICD-10: M54.5 Active 03/26/2016 Unknown Encounter for general adult medical examination with abnormal findings ICD-9: V70.0 ICD-10: Z00.01 Active 11/22/2015 Unknown Problems Condition Codes Effective Dates Condition Status Pain in left shoulder ICD-9: 719.41 ICD-10: M25.512 02/26/2018 Active Encounter for other preprocedural examination ICD-9: V72.83 ICD-10: Z01.818 04/13/2018 Active Gout, unspecified ICD- 9: 274.9 ICD-10: M10.9 03/04/2018 Active Hypothryroidism Unknown 11/12/2017 Active Atrophy of thyroid (acquired) ICD-9: 244.8 ICD-10: E03.4 07/02/2016 Active Headache ICD-9: 784.0 ICD-10: R51 10/07/2016 Active Hypothyroidism, unspecified ICD-9: 244.9 ICD-10: E03.9 06/06/2016 Active Other specified hypothyroidism ICD-9: 244.8 ICD-10: E03.8 03/12/2016 Active Acute laryngopharyngitis ICD-9: 465.0 ICD-10: J06.0 03/13/2017 Active Cough ICD-9: 786.2 ICD-10: R05 03/13/2017 Active Other acute sinusitis ICD-9: 461.8 ICD-10: J01.80 03/13/2017 Active Other allergic rhinitis ICD-9: 477.8 ICD-10: J30.89 05/21/2016 Active Depression Unknown 10/07/2016 Active Gastro-esophageal reflux disease without esophagitis ICD-9: 530.81 ICD-10: K21.9 03/12/2016 Active Generalized anxiety disorder ICD-9: 300.02 ICD-10: F41.1 06/06/2016 Active Major depressive disorder, single episode, unspecified ICD-9: 311 ICD-10: F32.9 03/12/2016 Active Other muscle spasm ICD -9: 728.85 ICD-10: M62.838 10/02/2016 Active Other specified forms of tremor ICD-9: 781.0 ICD-10: G25.2 10/02/2016 Active Migraine, unspecified, not intractable, without status migrainosus ICD-9: 346.90 ICD-10: G43.909 10/03/2016 Active Epigastric pain ICD-9 : 789.06 ICD-10: R10.13 08/02/2016 Active Generalized abdominal pain ICD-9: 789.07 ICD-10: R10.84 07/23/2016 Active Nausea ICD-9: 787.02 ICD-10: R11.0 07/04/2016 Active Essential (primary) hypertension ICD-9: 401.1 ICD-10: I10 06/06/2016 Active Chronic kidney disease, stage 3 (moderate) ICD-9: 585.3 ICD-10: N18.3 05/08/2016 Active Nasal congestion ICD-9 : 478.19 ICD-10: R09.81 04/18/2016 Active Low back pain ICD-9: 724.2 ICD-10: M54.5 03/26/2016 Active Encounter for general adult medical examination with abnormal findings ICD-9: V70.0 ICD-10: Z00.01 11/22/2015 Active Medications Medication Codes Instructions Start Date Stop Date Status Fill Instructions allopurinol 100 mg tablet RxNorm: 026871 1 Tablet(s) PO daily 03/11/2018 07/08/2018 Active allopurinol 100 mg tablet RxNorm: 017192 1 Tablet(s) PO daily 03/11/2018 03/10/2018 Inactive levothyroxine 200 mcg tablet RxNorm: 108131 TAKE ONE TABLET BY MOUTH DAILY ON AN EMPTY STOMACH 03/09/2018 09/04/2018 Active Augmentin 500 mg-125 mg tablet RxNorm: 645773 1 Tablet(s) PO TID 03/09/2018 03/18/2018 Inactive prednisone 10 mg tablet RxNorm: 630004 Tablet(s) PO 03/04/2018 No Stop Date Active 6, 5,4,3,2,1 levothyroxine 200 mcg tablet RxNorm: 098764 Tablet(s) PO TAKE ONE TABLET BY MOUTH DAILY ON AN EMPTY STOMACH 11/17/201702/14 Inactive amitriptyline 25 mg tablet RxNorm: 670397 1 Tablet(s) PO QHS 12/11/2017 Inactive Ativan 0.5 mg tablet RxNorm: 886238 1 Tablet(s) PO daily as needed anxiety 11/04/2017 01/01/2018 Inactive levothyroxine 175 mcg tablet RxNorm: 850091 TAKE ONE TABLET BY MOUTH DAILY ON AN EMPTY STOMACH 09/08/2017 11/16/2017 Inactive levothyroxine 175 mcg tablet RxNorm: 048005 TAKE ONE TABLET BY MOUTH DAILY ON AN EMPTY STOMACH 05/06/2017 09/02/2017 Inactive Ativan 0.5 mg tablet RxNorm: 373714 1 Tablet(s) PO daily as needed anxiety 04/03/2017 06/30/2017 Inactive Augmentin 500 mg-125 mg tablet RxNorm: 416287 1 Tablet(s) PO TID 03/13/2017 03/22/2017 Inactive albuterol sulfate 2.5 mg/3 mL (0.083 %) solution for nebulization RxNorm: 007336 3 Milliliter(s) INH Q4-6H as needed 03/13/2017 02/25/2018 Inactive Kenalog 40 mg/mL suspension for injection RxNorm: 5391732 Milliliter(s) Inj 03/13/2017 03/13/2017 Inactive levothyroxine 175 mcg tablet RxNorm: 332367 TAKE ONE TABLET BY MOUTH DAILY ON AN EMPTY STOMACH 01/15/2017 04/14/2017 Inactive Ativan 0.5 mg tablet RxNorm: 865353 1 Tablet(s) PO daily as needed anxiety 01/15/2017 03/15/2017 Inactive propranolol ER 60 mg capsule,24 hr,extended release RxNorm: 545595 TAKE ONE CAPSULE BY MOUTH DAILY 01/15/20172017 Inactive Ativan 0.5 mg tablet RxNorm: 467362 1 Tablet(s) PO daily as needed anxiety 11/04/2016 01/02/2017 Inactive omeprazole 20 mg capsule,delayed release RxNorm: 655752 TAKE ONE CAPSULE BY MOUTH DAILY 10/30/2016 03/10/2017 Inactive Topamax 50 mg tablet RxNorm: 225642 1 Tablet(s) PO BID 201610/14/2016 Inactive Topamax 50 mg tablet RxNorm: 182307 1 Tablet(s) PO BID 201611/13/2016 Inactive Carafate 1 gram tablet RxNorm: 947479 1 Tablet(s) PO AC & HS 11/05/2016 Inactive ketorolac 60 mg/2 mL intramuscular solution RxNorm: 883205 Milliliter(s) IM 10/07/2016 10/07/2016 Inactive Topamax 25 mg tablet RxNorm: 320660 1 Tablet(s) PO BID 201610/13/2016 Inactive ketorolac 30 mg/mL injection solution RxNorm: 544834 2 Milliliter(s) Inj 10/03/2016 10/03/2016 Inactive Phenergan 25 mg/mL injection solution RxNorm: 030336 1 Milliliter(s) Inj 10/03/2016 10/03/2016 Inactive Topamax 25 mg tablet RxNorm: 590614 1 Tablet(s) PO QHS 201610/31/2016 Inactive levothyroxine 175 mcg tablet RxNorm: 945257 TAKE ONE TABLET BY MOUTH DAILY ON AN EMPTY STOMACH 08/16/2016 12/13/2016 Inactive Carafate 1 gram tablet RxNorm: 941049 1 Gram(s) PO AC & HS 07/201608/15/2016 Inactive Carafate 1 gram tablet RxNorm: 875968 1 Tablet(s) PO AC & HS 08/21/2016 Inactive omeprazole 20 mg capsule,delayed release RxNorm: 374254 TAKE ONE CAPSULE BY MOUTH DAILY 07/17/2016 10/14/2016 Inactive Zofran 4 mg tablet RxNorm: 786390 1 Tablet(s) PO Q6 PRN 07/0402/25/2018 Inactive Ativan 0.5 mg tablet RxNorm: 991705 1/2 Tablet(s) PO BID and a full pill prn anxiety attack 07/02/2016 11/03/2017 Inactive Ativan 0.5 mg tablet RxNorm: 308986 1 Tablet(s) PO QDAY PRN 07/01/2016 Inactive propranolol ER 60 mg capsule,24 hr,extended release RxNorm: 873248 1 Capsule(s) PO daily 06/21/2016 11/17/2016 Inactive ceftriaxone 500 mg solution for injection RxNorm: 1390319 1 Milliliter(s) Inj 05/22/2016 05/22/2016 Inactive amoxicillin 500 mg tablet RxNorm: 126318 1 Tablet(s) PO TID 05/28/2016 Inactive Ativan 0.5 mg tablet RxNorm: 191617 1 Tablet(s) PO QDAY PRN 01/201611/03/2016 Inactive tramadol 50 mg tablet RxNorm: 495081 1 Tablet(s) PO Q6-8H as needed 04/29/2016 09/30/2016 Inactive Kenalog 40 mg/mL suspension for injection RxNorm: 1105488 Milliliter(s) Inj 04/19/2016 04/19/2016 Inactive Flonase Allergy Relief 50 mcg/actuation nasal spray, suspension RxNorm: 5271014 1 Brickeys NASAL daily 04/19/20162015 Inactive levothyroxine 175 mcg tablet RxNorm: 932848 1 Tablet(s) PO daily 04/11/2016 08/08/2016 Inactive Wellbutrin XL 300 mg 24 hr tablet, extended release RxNorm: 325668 1 Tablet(s) PO daily 03/13/2016 07/01/2016 Inactive omeprazole 20 mg capsule,delayed release RxNorm: 965543 1 Capsule(s) PO daily 03/13/2016 07/10/2016 Inactive Augmentin 500 mg-125 mg tablet RxNorm: 278608 1 Tablet(s) PO TID 03/05/2016 03/14/2016 Inactive ceftriaxone 500 mg solution for injection RxNorm: 1285797 Inj 02/01/2016 02/01/2016 Inactive amoxicillin 500 mg tablet RxNorm: 015295 1 Tablet(s) PO TID 01/29/2016 Inactive amoxicillin 500 mg tablet RxNorm: 862284 1 Tablet(s) PO TID 02/05/2016 Inactive propranolol ER 60 mg capsule,24 hr,extended release RxNorm: 441138 1 Capsule(s) PO daily 01/02/2016 04/30/2016 Inactive Wellbutrin XL 150 mg 24 hr tablet, extended release RxNorm: 693162 1 Tablet(s) PO daily 12/12/2015 03/12/2016 Inactive levothyroxine 175 mcg tablet RxNorm: 118363 1 Tablet(s) PO daily 12/12/2015 04/09/2016 Inactive Kenalog 40 mg/mL suspension for injection RxNorm: 5355640 1 Milliliter(s) Inj 12/12/2015 12/12/2015 Inactive prednisone 20 mg tablet RxNorm: 751506 3 Tablet(s) PO daily 05/201612/16/2015 Inactive ibuprofen 800 mg tablet RxNorm: 933052 1 Tablet(s) PO BID 11/2204/20/2016 Inactive Voltaren 1 % topical gel RxNorm: 722824 4 Gram(s) TOP QID 11/2201/21/2016 Inactive buspirone 10 mg tablet RxNorm: 356513 1 Tablet(s) PO BID No Start Date 09/30/2016 Inactive Vitamin D3 5,000 unit tablet RxNorm: 844019 1 Tablet(s) PO daily No Start Date 02/25/2018 Inactive baclofen 20 mg tablet RxNorm: 200355 1 Tablet(s) PO TID No Start Date 09/30/2016 Inactive propranolol 40 mg tablet RxNorm: 807296 1 Tablet(s) PO daily No Start Date 01/01/2016 Inactive levothyroxine 200 mcg tablet RxNorm: 963287 1 Tablet(s) PO daily No Start Date 12/11/2015 Inactive Medication Administered Medication Codes Instructions Start Date Status Kenalog 40 mg/mL suspension for injection RxNorm: 1705833 Milliliter 03/13/2017 No longer Active ketorolac 60 mg/2 mL intramuscular solution RxNorm: 829786 Milliliter 10/07/2016 No longer Active Phenergan 25 mg/mL injection solution RxNorm: 650237 1Milliliter 10/03/2016 No longer Active ketorolac 30 mg/mL injection solution RxNorm: 164953 2Milliliter 10/03/2016 No longer Active ceftriaxone 500 mg solution for injection RxNorm: 2160743 1Milliliter 05/22/2016 No longer Active Kenalog 40 mg/mL suspension for injection RxNorm: 5276143 Milliliter 04/19/2016 No longer Active ceftriaxone 500 mg solution for injection RxNorm: 2498050 02/01/2016 No longer Active Kenalog 40 mg/mL suspension for injection RxNorm: 5715838 1Milliliter 12/12/2015 No longer Active Immunizations No Immunization data Assessments Condition Codes Effective Dates Pain in left shoulder ICD-10: M25.512 ICD-9: 719.41 04/21/2018 Encounter for other preprocedural examination ICD-10: Z01.818 ICD-9: V72.83 04/13/2018 Idiopathic gout, right ankle and foot ICD-10: M10.071 ICD-9: 274.00 03/04/2018 Other specified hypothyroidism ICD-10: E03.8 ICD-9: 244.8 11/12/2017 Headache ICD-10: R51 ICD-9: 784.0 11/12/2017 Other allergic rhinitis ICD-10: J30.89 ICD-9: 477.8 03/13/2017 Cough ICD-10: R05 ICD-9: 786.2 03/13/2017 Acute laryngopharyngitis ICD-10: J06.0 ICD-9: 465.0 03/13/2017 Other acute sinusitis ICD-10: J01.80 ICD-9: 461.8 03/13/2017 Gastro-esophageal reflux disease without esophagitis ICD-10 : K21.9 ICD-9: 530.81 10/07/2016 Other muscle spasm ICD-10: M62.838 ICD-9: 728.85 10/07/2016 Generalized anxiety disorder ICD-10: F41.1 ICD-9: 300.02 10/07/2016 Major depressive disorder, single episode, moderate ICD-10: F32.1 ICD-9: 296.22 10/07/2016 Other specified forms of tremor ICD-10: G25.2 ICD-9: 781.0 10/07/2016 Migraine, unspecified, not intractable, without status migrainosus ICD-10: G43.909 ICD-9: 346.90 10/03/2016 Hypothyroidism, unspecified ICD-10: E03.9 ICD-9: 244.9 09/05/2016 Epigastric pain ICD-10: R10.13 ICD-9: 789.06 08/02/2016 Generalized abdominal pain ICD-10: R10.84 ICD-9: 789.07 07/23/2016 Nausea ICD-10: R11.0 ICD-9: 787.02 07/04/2016 Essential (primary) hypertension ICD-10: I10 ICD-9: 401.1 07/02/2016 Atrophy of thyroid (acquired) ICD-10: E03.4 ICD-9: 244.8 07/02/2016 Chronic kidney disease, stage 3 (moderate) ICD-10: N18.3 ICD-9: 585.3 05/09/2016 Nasal congestion ICD-10: R09.81 ICD-9: 478.19 04/19/2016 Low back pain ICD-10: M54.5 ICD-9: 724.2 03/27/2016 Major depressive disorder, single episode, unspecified ICD- 10: F32.9 ICD-9: 311 03/13/2016 Encounter for general adult medical examination with abnormal findings ICD-10: Z00.01 ICD-9: V70.0 11/23/2015 Reason For Visit Reason For Visit Effective Dates Notes medication follow up 04/21/2018 pre-op/surgery consult 04/13/2018 foot pain 03/04/2018 shoulder pain 02/26/2018 hypothyroid 11/12/2017 sinus congestion 03/13/2017 dyskinesia or tremor 10/07/2016 dyskinesia or tremor 10/02/2016 hypertension 09/05/2016 hypertension 08/02/2016 gastroesophageal reflux 07/23/2016 vomiting 07/04/2016 ~generic 07/02/2016 lump to the left side of neck hypertension 06/07/2016 sinus congestion 05/22/2016 Hospital Follow Up 05/09/2016 cough 04/19/2016 back pain 03/27/2016 hypothyroid 03/13/2016 cough 03/05/2016 cough 01/29/2016 headache 01/02/2016 dysphagia 12/12/2015 hypothyroid 11/23/2015 Results Observation Observation Code Item Item Code Result Date Uric Acid Ord77 Uric A 8.9 mg/dL 03/05/2018 Free T4 Zqa328 FREE T4 0.47 ng/dL 11/12/2017 Lipid Ord30 CHOL 179 mg/dL 11/12/2017 Lipid Ord30 HDL 47.0 mg/dl 11/12/2017 Lipid Ord30 TRIG 156 mg/dL 11/12/2017 Lipid Ord30 LDL 101 mg/dL 11/12/2017 Lipid Ord30 C/HDL 3.8 Ratio 11/12/2017 Cbc With Differential Ord2 WBC 6.30 K/ul 11/12/2017 Cbc With Differential Ord2 RBC 4.81 M/ul 11/12/2017 Cbc With Differential Ord2 HGB 15.7 g/dl 11/12/2017 Cbc With Differential Ord2 Neut% 63.5 % 11/12/2017 Cbc With Differential Ord2 HCT 46.5 % 11/12/2017 Cbc With Differential Ord2 MCV 96.7 fl 11/12/2017 Cbc With Differential Ord2 Lymph% 26.7 % 11/12/2017 Cbc With Differential Ord2 MCH 32.6 pg 11/12/2017 Cbc With Differential Ord2 [place]% 7.6 % 11/12/2017 Cbc With Differential Ord2 MCHC 33.8 pg 11/12/2017 Cbc With Differential Ord2 Eos% 1.9 % 11/12/2017 Cbc With Differential Ord2 Baso% 0.3 % 11/12/2017 Cbc With Differential Ord2 PLT 374 K/ul 11/12/2017 Cbc With Differential Ord2 Neut ABS# 4.00 K/ul 11/12/2017 Cbc With Differential Ord2 RDW 13.9 % 11/12/2017 Cbc With Differential Ord2 Lymph ABS# 1.68 K/ul 11/12/2017 Cbc With Differential Ord2 [place] ABS# 0.5 K/ul 11/12/2017 Cbc With Differential Ord2 Eos ABS# 0.1 K/ul 11/12/2017 Cbc With Differential Ord2 Baso ABS# 0.0 K/ul 11/12/2017 Comp Metabolic Diw167 NA 139 mEq/L 11/12/2017 Comp Metabolic Cga255 K 4.3 mEq/L 11/12/2017 Comp Metabolic Mvr153 CL 102 mEq/L 11/12/2017 Comp Metabolic Wau904 CO2 25.0 mEq/L 11/12/2017 Comp Metabolic Ytx995 ANION GAP 16 11/12/2017 Comp Metabolic Zhf138 GLUCOSE 121 mg/dL 11/12/2017 Comp Metabolic Ukb271 Creat 1.5 mg/dL 11/12/2017 Comp Metabolic Jlg838 eGFR 56 ml/min/1.73m2 11/12/2017 Comp Metabolic Ick065 BUN 15 mg/dL 11/12/2017 Comp Metabolic Oqo811 B/C Ratio 9.9 Ratio 11/12/2017 Comp Metabolic Gvq108 CALCIUM 9.3 mg/dL 11/12/2017 Comp Metabolic Tcb870 ALK PHOS 69 U/L 11/12/2017 Comp Metabolic Wci056 AST(SGOT) 30 U/L 11/12/2017 Comp Metabolic Zrs078 ALT(SGPT) 32 U/L 11/12/2017 Comp Metabolic Wrh008 BILI T 0.3 mg/dL 11/12/2017 Comp Metabolic Fgj247 ALBUMIN 4.8 g/dL 11/12/2017 Comp Metabolic Vnf297 TPRO 7.3 g/dL 11/12/2017 Comp Metabolic Jak007 GLOB 2.5 g/dL 11/12/2017 Comp Metabolic Pni324 A/G Ratio 1.9 Ratio 11/12/2017 Comp Metabolic Vge488 Osmo 280 mOsmo 11/12/2017 Tsh Ord6 TSH (3rd IS) >50.40 uIU/mL 11/12/2017 Cbc With Differential Ord2 WBC 5.64 K/ul 09/05/2016 Cbc With Differential Ord2 RBC 4.67 M/ul 09/05/2016 Cbc With Differential Ord2 HGB 15.0 g/dl 09/05/2016 Cbc With Differential Ord2 HCT 43.6 % 09/05/2016 Cbc With Differential Ord2 Neut% 56.8 % 09/05/2016 Cbc With Differential Ord2 MCV 93.4 fl 09/05/2016 Cbc With Differential Ord2 Lymph% 31.7 % 09/05/2016 Cbc With Differential Ord2 [place]% 8.0 % 09/05/2016 Cbc With Differential Ord2 MCH 32.1 pg 09/05/2016 Cbc With Differential Ord2 Eos% 3.0 % 09/05/2016 Cbc With Differential Ord2 MCHC 34.4 pg 09/05/2016 Cbc With Differential Ord2 PLT 327 K/ul 09/05/2016 Cbc With Differential Ord2 Baso% 0.5 % 09/05/2016 Cbc With Differential Ord2 RDW 13.1 % 09/05/2016 Cbc With Differential Ord2 Neut ABS# 3.20 K/ul 09/05/2016 Cbc With Differential Ord2 Lymph ABS# 1.79 K/ul 09/05/2016 Cbc With Differential Ord2 [place] ABS# 0.5 K/ul 09/05/2016 Cbc With Differential Ord2 Eos ABS# 0.2 K/ul 09/05/2016 Cbc With Differential Ord2 Baso ABS# 0.0 K/ul 09/05/2016 Comp Metabolic Avo012 NA 137 mEq/L 09/05/2016 Comp Metabolic Zlo791 K 4.3 mEq/L 09/05/2016 Comp Metabolic Yws669 CL 104 mEq/L 09/05/2016 Comp Metabolic Pbf438 CO2 25.0 mEq/L 09/05/2016 Comp Metabolic Viy681 ANION GAP 12 09/05/2016 Comp Metabolic Xsb854 GLUCOSE 116 mg/dL 09/05/2016 Comp Metabolic Uck185 Creat 1.2 mg/dL 09/05/2016 Comp Metabolic Lxo370 eGFR 77 ml/min/1.73m2 09/05/2016 Comp Metabolic Lme650 BUN 15 mg/dL 09/05/2016 Comp Metabolic Tih189 B/C Ratio 13.0 Ratio 09/05/2016 Comp Metabolic Hln965 CALCIUM 9.1 mg/dL 09/05/2016 Comp Metabolic All091 ALK PHOS 68 U/L 09/05/2016 Comp Metabolic Wme459 AST(SGOT) 23 U/L 09/05/2016 Comp Metabolic Het058 ALT(SGPT) 33 U/L 09/05/2016 Comp Metabolic Qcd100 BILI T 0.5 mg/dL 09/05/2016 Comp Metabolic Wzh908 ALBUMIN 4.4 g/dL 09/05/2016 Comp Metabolic Zow359 TPRO 6.8 g/dL 09/05/2016 Comp Metabolic Dhp900 GLOB 2.4 g/dL 09/05/2016 Comp Metabolic Ldg785 A/G Ratio 1.8 Ratio 09/05/2016 Comp Metabolic Oim717 Osmo 276 mOsmo 09/05/2016 Tsh Ord6 hTSH II 1.41 uIU/mL 09/05/2016 Total T3 Ord42 TT3 0.88 ng/ml 09/05/2016 Free T4 Bdc212 FREE T4 0.72 ng/dL 09/05/2016 Comp Metabolic Yhx055 NA 139 mEq/L 05/09/2016 Comp Metabolic Aea805 K 4.6 mEq/L 05/09/2016 Comp Metabolic Rnm750 CL 105 mEq/L 05/09/2016 Comp Metabolic Oyc446 CO2 28.0 mEq/L 05/09/2016 Comp Metabolic Qsw975 ANION GAP 11 05/09/2016 Comp Metabolic Shu290 GLUCOSE 108 mg/dL 05/09/2016 Comp Metabolic Mgb774 Creat 1.2 mg/dL 05/09/2016 Comp Metabolic Nwl768 eGFR 71 ml/min/1.73m2 05/09/2016 Comp Metabolic Kxf137 BUN 18 mg/dL 05/09/2016 Comp Metabolic Rta749 B/C Ratio 14.5 Ratio 05/09/2016 Comp Metabolic Qpl638 CALCIUM 9.5 mg/dL 05/09/2016 Comp Metabolic Gra702 ALK PHOS 83 U/L 05/09/2016 Comp Metabolic Pzl010 AST(SGOT) 19 U/L 05/09/2016 Comp Metabolic Drl896 ALT(SGPT) 28 U/L 05/09/2016 Comp Metabolic Iqv566 BILI T 0.7 mg/dL 05/09/2016 Comp Metabolic Hoq747 ALBUMIN 4.7 g/dL 05/09/2016 Comp Metabolic Zhm430 TPRO 7.1 g/dL 05/09/2016 Comp Metabolic Ptu321 GLOB 2.4 g/dL 05/09/2016 Comp Metabolic Urk681 A/G Ratio 1.9 Ratio 05/09/2016 Comp Metabolic Tnx921 Osmo 280 mOsmo 05/09/2016 Cbc With Differential Ord2 WBC 7.44 K/ul 05/09/2016 Cbc With Differential Ord2 RBC 4.46 M/ul 05/09/2016 Cbc With Differential Ord2 HGB 14.6 g/dl 05/09/2016 Cbc With Differential Ord2 HCT 42.9 % 05/09/2016 Cbc With Differential Ord2 Neut% 60.9 % 05/09/2016 Cbc With Differential Ord2 MCV 96.2 fl 05/09/2016 Cbc With Differential Ord2 Lymph% 28.9 % 05/09/2016 Cbc With Differential Ord2 [place]% 8.2 % 05/09/2016 Cbc With Differential Ord2 MCH 32.7 pg 05/09/2016 Cbc With Differential Ord2 Eos% 1.6 % 05/09/2016 Cbc With Differential Ord2 MCHC 34.0 pg 05/09/2016 Cbc With Differential Ord2 PLT 324 K/ul 05/09/2016 Cbc With Differential Ord2 Baso% 0.4 % 05/09/2016 Cbc With Differential Ord2 RDW 13.7 % 05/09/2016 Cbc With Differential Ord2 Neut ABS# 4.53 K/ul 05/09/2016 Cbc With Differential Ord2 Lymph ABS# 2.15 K/ul 05/09/2016 Cbc With Differential Ord2 [place] ABS# 0.6 K/ul 05/09/2016 Cbc With Differential Ord2 Eos ABS# 0.1 K/ul 05/09/2016 Cbc With Differential Ord2 Baso ABS# 0.0 K/ul 05/09/2016 Tsh Ord6 hTSH II 0.99 uIU/mL 05/09/2016 Free T4 Qqq068 FREE T4 0.91 ng/dL 05/09/2016 C RAP A SC [id number] Strep A Negative 03/05/2016 C RAP A SC [id number] Strep A Negative 01/29/2016 Tsh Ord6 hTSH II 0.27 uIU/mL 12/12/2015 Free T4 Mxf417 FREE T4 1.67 ng/dL 12/12/2015 Review of Systems System Result Effective Dates Constitutional No recent illness 2017 Constitutional No chills 04/21/2018 Constitutional No diaphoresis 04/21/2018 Constitutional No fever 04/21/2018 Eyes No eye erythema 04/21/2018 Ears/Nose/Throat/Neck No nasal discharge 04/21/2018 Cardiovascular No chest pain/pressure Respiratory No cough 04/21/2018 Musculoskeletal joint complaint 2017 Dermatologic sores 04/21/2018 Neurologic No alteration of consciousness 04/21/2018 Neurologic No mental status change 2017 Constitutional No recent illness 2017 Constitutional No chills 04/13/2018 Constitutional No diaphoresis 04/13/2018 Constitutional No fever 04/13/2018 Eyes No eye erythema 04/13/2018 Ears/Nose/Throat/Neck No nasal discharge 04/13/2018 Ears/Nose/Throat/Neck nasal allergies 05/2018 Cardiovascular No chest pain/pressure 05/2018 Cardiovascular No dyspnea 04/13/2018 Cardiovascular No edema 04/13/2018 Cardiovascular No syncope 04/13/2018 Cardiovascular No near-syncope/dizziness 04/13/2018 Respiratory No cough 04/13/2018 Respiratory No chest congestion 2017 Respiratory No dyspnea 04/13/2018 Gastrointestinal No abdominal pain 2017 Musculoskeletal joint complaint 2017 Dermatologic No rash 04/13/2018 Neurologic No alteration of consciousness 04/13/2018 Neurologic No mental status change 2017 Constitutional recent illness 03/04/2018 Constitutional No chills 03/04/2018 Constitutional No diaphoresis 03/04/2018 Constitutional No fever 03/04/2018 Eyes No eye erythema 03/04/2018 Ears/Nose/Throat/Neck No nasal discharge 03/04/2018 Ears/Nose/Throat/Neck No nasal allergies 03/04/2018 Cardiovascular No chest pain/pressure 07/2017 Respiratory cough 03/04/2018 Respiratory No chest congestion 2017 Respiratory No dyspnea 03/04/2018 Musculoskeletal joint complaint 2017 Dermatologic erythema 03/04/2018 Neurologic No alteration of consciousness 03/04/2018 Neurologic No mental status change 2017 Constitutional No recent illness 2017 Constitutional No anorexia 02/26/2018 Constitutional No night sweats 2017 Constitutional No chills 02/26/2018 Constitutional No diaphoresis 02/26/2018 Constitutional No fatigue 02/26/2018 Constitutional No fever 02/26/2018 Constitutional No insomnia 02/26/2018 Constitutional No malaise 02/26/2018 Constitutional No weight loss 02/26/2018 Constitutional No weight gain 02/26/2018 Musculoskeletal shoulder pain 02/26/2018 Eyes No eye pain 11/12/2017 Eyes No vision change 11/12/2017 Ears/Nose/Throat/Neck dizziness 2017 Ears/Nose/Throat/Neck headache 2017 Cardiovascular fatigue 11/12/2017 Cardiovascular palpitations 11/12/2017 Respiratory No chest congestion 2017 Respiratory cough 11/12/2017 Gastrointestinal No constipation 2017 Gastrointestinal No diarrhea 11/12/2017 Gastrointestinal No vomiting 11/12/2017 Musculoskeletal No stiffness 11/12/2017 Musculoskeletal No swelling 11/12/2017 Musculoskeletal arthralgia(s) 11/12/2017 Musculoskeletal back pain 11/12/2017 Musculoskeletal joint complaint 2017 Musculoskeletal neck pain 11/12/2017 Dermatologic No rash 11/12/2017 Dermatologic No sores 11/12/2017 Neurologic No alteration of consciousness 11/12/2017 Neurologic headache 11/12/2017 Neurologic pain, back 11/12/2017 Neurologic pain, generalized 11/12/2017 Psychiatric anxiety 11/12/2017 Psychiatric No depression 11/12/2017 Constitutional No recent illness 2017 Constitutional No chills 11/12/2017 Constitutional diaphoresis 11/12/2017 Constitutional fatigue 11/12/2017 Constitutional No fever 11/12/2017 Constitutional malaise 11/12/2017 Cardiovascular No chest pain/pressure Respiratory No dyspnea 11/12/2017 Gastrointestinal No nausea 11/12/2017 Gastrointestinal abdominal pain 2017 Gastrointestinal melena 11/12/2017 Gastrointestinal No hematochezia 2017 Constitutional recent illness 03/13/2017 Constitutional chills 03/13/2017 Constitutional No diaphoresis 03/13/2017 Constitutional fever 03/13/2017 Eyes No eye erythema 03/13/2017 Ears/Nose/Throat/Neck nasal allergies 05/2017 Ears/Nose/Throat/Neck nasal discharge 05/2017 Ears/Nose/Throat/Neck postnasal drip 05/2017 Ears/Nose/Throat/Neck sinus congestion Ears/Nose/Throat/Neck sore throat 2016 Cardiovascular No chest pain/pressure 05/2017 Cardiovascular No dyspnea 03/13/2017 Respiratory productive sputum 03/13/2017 Respiratory chest congestion 03/13/2017 Respiratory cough 03/13/2017 Gastrointestinal No vomiting 03/13/2017 Dermatologic No rash 03/13/2017 Neurologic No alteration of consciousness 03/13/2017 Neurologic No mental status change 2016 Respiratory dyspnea on exertion 2016 Respiratory No dyspnea 03/13/2017 Constitutional recent illness 10/07/2016 Constitutional No chills 10/07/2016 Constitutional No fever 10/07/2016 Constitutional fatigue 10/07/2016 Eyes No eye erythema 10/07/2016 Ears/Nose/Throat/Neck nasal allergies 12/2016 Ears/Nose/Throat/Neck No nasal discharge 10/07/2016 Ears/Nose/Throat/Neck sore throat 2016 Ears/Nose/Throat/Neck headache 2016 Cardiovascular No chest pain/pressure 12/2016 Respiratory cough 10/07/2016 Respiratory No dyspnea 10/07/2016 Musculoskeletal muscle weakness 2016 Dermatologic No rash 10/07/2016 Neurologic No alteration of consciousness 10/07/2016 Neurologic No mental status change 2016 Neurologic dyskinesia or tremor 2016 Neurologic headache 10/07/2016 Neurologic spasms/spasticity 10/07/2016 Psychiatric anxiety 10/07/2016 Psychiatric depression 10/07/2016 Psychiatric No suicidality 10/07/2016 Constitutional recent illness 10/02/2016 Constitutional No chills 10/02/2016 Constitutional No diaphoresis 10/02/2016 Constitutional No fever 10/02/2016 Eyes No eye erythema 10/02/2016 Ears/Nose/Throat/Neck nasal allergies 07/2016 Ears/Nose/Throat/Neck No nasal discharge 10/02/2016 Ears/Nose/Throat/Neck postnasal drip 07/2016 Ears/Nose/Throat/Neck sore throat 2016 Cardiovascular No chest pain/pressure 07/2016 Respiratory No dyspnea 10/02/2016 Respiratory No cough 10/02/2016 Musculoskeletal joint complaint 2016 Musculoskeletal neck pain 10/02/2016 Neurologic No alteration of consciousness 10/02/2016 Neurologic dyskinesia or tremor 2016 Neurologic spasms/spasticity 10/02/2016 Neurologic No mental status change 2016 Psychiatric anxiety 10/02/2016 Psychiatric depression 10/02/2016 Constitutional No recent illness 2016 Constitutional No anorexia 09/05/2016 Constitutional night sweats 09/05/2016 Constitutional chills 09/05/2016 Constitutional fever 09/05/2016 Constitutional fatigue 09/05/2016 Constitutional diaphoresis 09/05/2016 Constitutional insomnia 09/05/2016 Constitutional malaise 09/05/2016 Constitutional weight gain 09/05/2016 Constitutional No weight loss 09/05/2016 Constitutional No obesity 09/05/2016 Eyes No eye pain 09/05/2016 Eyes No vision change 09/05/2016 Ears/Nose/Throat/Neck dizziness 2016 Ears/Nose/Throat/Neck headache 2016 Cardiovascular dyspnea 09/05/2016 Respiratory No chest tightness 2016 Respiratory No chest congestion 2016 Respiratory cough 09/05/2016 Gastrointestinal abdominal pain 2016 Gastrointestinal No constipation 2016 Gastrointestinal No diarrhea 09/05/2016 Gastrointestinal vomiting 09/05/2016 Gastrointestinal nausea 09/05/2016 Genitourinary/Nephrology No anuria/oliguria 09/05/2016 Genitourinary/Nephrology No dysuria 09/05 Musculoskeletal No swelling 09/05/2016 Musculoskeletal No stiffness 09/05/2016 Musculoskeletal arthralgia(s) 09/05/2016 Musculoskeletal back pain 09/05/2016 Dermatologic No rash 09/05/2016 Dermatologic No sores 09/05/2016 Musculoskeletal neck pain 09/05/2016 Musculoskeletal joint complaint 2016 Genitourinary/Nephrology urinary incontinence 09/05/2016 Cardiovascular palpitations 09/05/2016 Cardiovascular fatigue 09/05/2016 Neurologic No alteration of consciousness 09/05/2016 Neurologic headache 09/05/2016 Neurologic pain, back 09/05/2016 Neurologic pain, generalized 09/05/2016 Neurologic vision change 09/05/2016 Psychiatric anxiety 09/05/2016 Psychiatric No depression 09/05/2016 Constitutional recent illness 08/02/2016 Constitutional No anorexia 08/02/2016 Constitutional No night sweats 2016 Constitutional No chills 08/02/2016 Constitutional No diaphoresis 08/02/2016 Constitutional No fatigue 08/02/2016 Constitutional No fever 08/02/2016 Constitutional No insomnia 08/02/2016 Constitutional No malaise 08/02/2016 Constitutional No weight gain 08/02/2016 Constitutional No weight loss 08/02/2016 Eyes No eye discharge 08/02/2016 Eyes No eye erythema 08/02/2016 Ears/Nose/Throat/Neck No dizziness 2016 Cardiovascular No chest pain/pressure 07/2016 Respiratory No cough 08/02/2016 Gastrointestinal abdominal pain 2016 Gastrointestinal No constipation 2016 Gastrointestinal No diarrhea 08/02/2016 Gastrointestinal nausea 08/02/2016 Gastrointestinal No vomiting 08/02/2016 Gastrointestinal gastroesophageal reflux 08/02/2016 Genitourinary/Nephrology No dysuria 08/02 Musculoskeletal No joint complaint 2016 Dermatologic No rash 08/02/2016 Neurologic No alteration of consciousness 08/02/2016 Constitutional No fever 07/23/2016 Eyes No eye erythema 07/23/2016 Ears/Nose/Throat/Neck No nasal allergies 07/23/2016 Ears/Nose/Throat/Neck No nasal discharge 07/23/2016 Cardiovascular No chest pain/pressure Respiratory No cough 07/23/2016 Gastrointestinal gastroesophageal reflux 07/23/2016 Gastrointestinal abdominal pain 2016 Dermatologic No rash 07/23/2016 Neurologic No alteration of consciousness 07/23/2016 Constitutional recent illness 07/04/2016 Constitutional anorexia 07/04/2016 Constitutional night sweats 07/04/2016 Constitutional chills 07/04/2016 Constitutional diaphoresis 07/04/2016 Constitutional fatigue 07/04/2016 Constitutional fever 07/04/2016 Constitutional insomnia 07/04/2016 Constitutional malaise 07/04/2016 Constitutional No weight loss 07/04/2016 Constitutional No weight gain 07/04/2016 Constitutional No obesity 07/04/2016 Eyes No eye pain 07/04/2016 Eyes No vision change 07/04/2016 Ears/Nose/Throat/Neck dizziness 2016 Ears/Nose/Throat/Neck headache 2016 Cardiovascular No chest pain/pressure 07/2016 Cardiovascular No dyspnea 07/04/2016 Respiratory No cigarette smoking 2016 Respiratory No chest tightness 2016 Respiratory No chest congestion 2016 Respiratory No cough 07/04/2016 Respiratory No dyspnea 07/04/2016 Gastrointestinal diarrhea 07/04/2016 Gastrointestinal nausea 07/04/2016 Gastrointestinal vomiting 07/04/2016 Genitourinary/Nephrology No anuria/oliguria 07/04/2016 Genitourinary/Nephrology No dysuria 07/04 Genitourinary/Nephrology No urinary urgency 07/04/2016 Genitourinary/Nephrology No urinary frequency 07/04/2016 Genitourinary/Nephrology No urinary retention/hesitancy 07/04/2016 Genitourinary/Nephrology No urinary incontinence 07/04/2016 Musculoskeletal No stiffness 07/04/2016 Musculoskeletal No swelling 07/04/2016 Musculoskeletal No arthralgia(s) 2016 Musculoskeletal No back pain 07/04/2016 Dermatologic No rash 07/04/2016 Dermatologic No sores 07/04/2016 Neurologic No alteration of consciousness 07/04/2016 Neurologic No headache 07/04/2016 Psychiatric anxiety 07/04/2016 Psychiatric depression 07/04/2016 Hematologic/Lymphatic No abnormal ecchymoses 07/04/2016 Hematologic/Lymphatic No abnormal bleeding and bruising 07/04/2016 Constitutional recent illness 07/02/2016 Constitutional No chills 07/02/2016 Constitutional fatigue 07/02/2016 Constitutional No fever 07/02/2016 Constitutional No insomnia 07/02/2016 Constitutional malaise 07/02/2016 Eyes No blindness 07/02/2016 Eyes No vision change 07/02/2016 Ears/Nose/Throat/Neck No dental pain Ears/Nose/Throat/Neck dizziness 2016 Ears/Nose/Throat/Neck No dysphagia 2016 Ears/Nose/Throat/Neck No headache 2016 Ears/Nose/Throat/Neck No hearing loss Ears/Nose/Throat/Neck No nasal allergies 07/02/2016 Ears/Nose/Throat/Neck No sore throat Ears/Nose/Throat/Neck neck swelling 07/02 Ears/Nose/Throat/Neck No postnasal drip 07/02/2016 Ears/Nose/Throat/Neck No sinus congestion 07/02/2016 Cardiovascular No chest pain/pressure Cardiovascular No dyspnea 07/02/2016 Cardiovascular No edema 07/02/2016 Cardiovascular No exercise intolerance Cardiovascular No fatigue 07/02/2016 Cardiovascular No near-syncope/dizziness 07/02/2016 Respiratory No chest tightness 2016 Respiratory No cough 07/02/2016 Respiratory No dyspnea 07/02/2016 Respiratory No pedal edema 07/02/2016 Gastrointestinal No abdominal pain 2016 Gastrointestinal No constipation 2016 Gastrointestinal No diarrhea 07/02/2016 Gastrointestinal No gastroesophageal reflux 07/02/2016 Gastrointestinal No nausea 07/02/2016 Gastrointestinal No vomiting 07/02/2016 Genitourinary/Nephrology No dysuria 07/02 Genitourinary/Nephrology No nocturia Genitourinary/Nephrology No urinary incontinence 07/02/2016 Musculoskeletal No stiffness 07/02/2016 Musculoskeletal No swelling 07/02/2016 Musculoskeletal No muscle weakness 2016 Musculoskeletal No myalgias 07/02/2016 Dermatologic No rash 07/02/2016 Dermatologic No sores 07/02/2016 Neurologic No dizziness 07/02/2016 Neurologic dyskinesia or tremor 2016 Neurologic No headache 07/02/2016 Neurologic No neck pain 07/02/2016 Neurologic No syncope 07/02/2016 Psychiatric anxiety 07/02/2016 Psychiatric depression 07/02/2016 Constitutional No recent illness 2016 Constitutional No anorexia 06/07/2016 Constitutional night sweats 06/07/2016 Constitutional chills 06/07/2016 Constitutional diaphoresis 06/07/2016 Constitutional fatigue 06/07/2016 Constitutional No fever 06/07/2016 Constitutional No insomnia 06/07/2016 Constitutional No malaise 06/07/2016 Eyes No eye discharge 06/07/2016 Eyes No eye erythema 06/07/2016 Ears/Nose/Throat/Neck headache 2016 Cardiovascular No chest pain/pressure 10/2016 Respiratory No cough 06/07/2016 Musculoskeletal back pain 06/07/2016 Dermatologic No rash 06/07/2016 Neurologic headache 06/07/2016 Psychiatric anxiety 06/07/2016 Psychiatric depression 06/07/2016 Endocrine hair loss 06/07/2016 Constitutional recent illness 05/22/2016 Constitutional chills 05/22/2016 Constitutional No diaphoresis 05/22/2016 Constitutional fever 05/22/2016 Eyes No eye erythema 05/22/2016 Ears/Nose/Throat/Neck nasal allergies Ears/Nose/Throat/Neck nasal discharge Ears/Nose/Throat/Neck postnasal drip Ears/Nose/Throat/Neck sinus congestion Ears/Nose/Throat/Neck sore throat 2015 Cardiovascular No chest pain/pressure Cardiovascular No dyspnea 05/22/2016 Respiratory chest congestion 05/22/2016 Respiratory cough 05/22/2016 Respiratory No dyspnea 05/22/2016 Dermatologic No rash 05/22/2016 Neurologic No alteration of consciousness 05/22/2016 Neurologic No mental status change 2015 Respiratory productive sputum 05/22/2016 Gastrointestinal No vomiting 05/22/2016 Constitutional recent illness 05/09/2016 Constitutional No anorexia 05/09/2016 Constitutional No night sweats 2015 Constitutional No chills 05/09/2016 Constitutional diaphoresis 05/09/2016 Constitutional fatigue 05/09/2016 Constitutional No fever 05/09/2016 Constitutional insomnia 05/09/2016 Constitutional No malaise 05/09/2016 Constitutional No weight loss 05/09/2016 Constitutional No weight gain 05/09/2016 Eyes No eye discharge 05/09/2016 Eyes No eye erythema 05/09/2016 Ears/Nose/Throat/Neck headache 2015 Ears/Nose/Throat/Neck No otalgia 2015 Ears/Nose/Throat/Neck No sinus congestion 05/09/2016 Cardiovascular No chest pain/pressure 01/2016 Cardiovascular No edema 05/09/2016 Respiratory No cough 05/09/2016 Gastrointestinal No abdominal pain 2015 Gastrointestinal No constipation 2015 Gastrointestinal No diarrhea 05/09/2016 Genitourinary/Nephrology No dysuria 05/09 Musculoskeletal No joint complaint 2015 Dermatologic No rash 05/09/2016 Neurologic No alteration of consciousness 05/09/2016 Psychiatric anxiety 05/09/2016 Psychiatric No depression 05/09/2016 Endocrine No dry or coarse skin 2015 Hematologic/Lymphatic No abnormal ecchymoses 05/09/2016 Constitutional fever 04/19/2016 Constitutional No recent illness 2015 Constitutional No anorexia 04/19/2016 Constitutional No night sweats 2015 Constitutional No chills 04/19/2016 Constitutional No diaphoresis 04/19/2016 Constitutional fatigue 04/19/2016 Constitutional No insomnia 04/19/2016 Constitutional No malaise 04/19/2016 Constitutional No weight loss 04/19/2016 Constitutional No weight gain 04/19/2016 Constitutional No obesity 04/19/2016 Eyes eye pain 04/19/2016 Eyes No vision change 04/19/2016 Ears/Nose/Throat/Neck No nasal allergies 04/19/2016 Ears/Nose/Throat/Neck dizziness 2015 Ears/Nose/Throat/Neck headache 2015 Cardiovascular chest pain/pressure 2015 Cardiovascular dyspnea 04/19/2016 Respiratory chest congestion 04/19/2016 Respiratory chest tightness 04/19/2016 Respiratory No cigarette smoking 2015 Respiratory cough 04/19/2016 Respiratory No productive sputum 2015 Gastrointestinal No abdominal pain 2015 Gastrointestinal No nausea 04/19/2016 Gastrointestinal No vomiting 04/19/2016 Gastrointestinal No diarrhea 04/19/2016 Gastrointestinal No constipation 2015 Genitourinary/Nephrology No anuria/oliguria 04/19/2016 Genitourinary/Nephrology No dysuria 04/19 Musculoskeletal swelling 04/19/2016 Musculoskeletal stiffness 04/19/2016 Musculoskeletal arthralgia(s) 04/19/2016 Dermatologic No rash 04/19/2016 Dermatologic No sores 04/19/2016 Neurologic No dizziness 04/19/2016 Neurologic headache 04/19/2016 Psychiatric anxiety 04/19/2016 Psychiatric depression 04/19/2016 Hematologic/Lymphatic No petechiae 2015 Hematologic/Lymphatic No abnormal bleeding and bruising 04/19/2016 Hematologic/Lymphatic No abnormal ecchymoses 04/19/2016 Constitutional No recent illness 2015 Constitutional No fever 03/27/2016 Eyes No eye erythema 03/27/2016 Ears/Nose/Throat/Neck No nasal discharge 03/27/2016 Cardiovascular No chest pain/pressure Respiratory No cough 03/27/2016 Respiratory No dyspnea 03/27/2016 Gastrointestinal No abdominal pain 2015 Musculoskeletal back pain 03/27/2016 Dermatologic No rash 03/27/2016 Neurologic No alteration of consciousness 03/27/2016 Neurologic No mental status change 2015 Constitutional recent illness 03/13/2016 Constitutional No chills 03/13/2016 Constitutional fatigue 03/13/2016 Constitutional No fever 03/13/2016 Constitutional No insomnia 03/13/2016 Constitutional malaise 03/13/2016 Eyes No blindness 03/13/2016 Eyes No vision change 03/13/2016 Ears/Nose/Throat/Neck No dental pain 05/2016 Ears/Nose/Throat/Neck dizziness 2015 Ears/Nose/Throat/Neck No dysphagia 2015 Ears/Nose/Throat/Neck No headache 2015 Ears/Nose/Throat/Neck No hearing loss 05/2016 Ears/Nose/Throat/Neck No nasal allergies 03/13/2016 Ears/Nose/Throat/Neck No sore throat 05/2016 Ears/Nose/Throat/Neck neck swelling 03/13 Ears/Nose/Throat/Neck No postnasal drip 03/13/2016 Ears/Nose/Throat/Neck No sinus congestion 03/13/2016 Cardiovascular No chest pain/pressure 05/2016 Cardiovascular No dyspnea 03/13/2016 Cardiovascular No edema 03/13/2016 Cardiovascular No exercise intolerance Cardiovascular No fatigue 03/13/2016 Cardiovascular No near-syncope/dizziness 03/13/2016 Respiratory No chest tightness 2015 Respiratory No cough 03/13/2016 Respiratory No dyspnea 03/13/2016 Respiratory No pedal edema 03/13/2016 Gastrointestinal No abdominal pain 2015 Gastrointestinal No constipation 2015 Gastrointestinal No diarrhea 03/13/2016 Gastrointestinal No gastroesophageal reflux 03/13/2016 Gastrointestinal No nausea 03/13/2016 Gastrointestinal No vomiting 03/13/2016 Genitourinary/Nephrology No dysuria 03/13 Genitourinary/Nephrology No nocturia 05/2016 Genitourinary/Nephrology No urinary incontinence 03/13/2016 Musculoskeletal No stiffness 03/13/2016 Musculoskeletal No swelling 03/13/2016 Musculoskeletal No muscle weakness 2015 Musculoskeletal No myalgias 03/13/2016 Dermatologic No rash 03/13/2016 Dermatologic No sores 03/13/2016 Dermatologic No scar 03/13/2016 Neurologic No dizziness 03/13/2016 Neurologic dyskinesia or tremor 2015 Neurologic No headache 03/13/2016 Neurologic No syncope 03/13/2016 Psychiatric anxiety 03/13/2016 Psychiatric depression 03/13/2016 Constitutional recent illness 03/05/2016 Eyes No eye erythema 03/05/2016 Eyes No vision change 03/05/2016 Ears/Nose/Throat/Neck postnasal drip 09/2015 Ears/Nose/Throat/Neck sore throat 2015 Cardiovascular No dyspnea 03/05/2016 Respiratory cough 03/05/2016 Respiratory No dyspnea 03/05/2016 Gastrointestinal No abdominal pain 2015 Neurologic No mental status change 2015 Psychiatric anxiety 03/05/2016 Constitutional fever 03/05/2016 Constitutional chills 03/05/2016 Constitutional diaphoresis 03/05/2016 Constitutional malaise 03/05/2016 Respiratory No productive sputum 2015 Respiratory No chest congestion 2015 Gastrointestinal nausea 03/05/2016 Gastrointestinal No vomiting 03/05/2016 Neurologic No alteration of consciousness 03/05/2016 Constitutional recent illness 01/29/2016 Constitutional fatigue 01/29/2016 Eyes No eye erythema 01/29/2016 Eyes No vision change 01/29/2016 Ears/Nose/Throat/Neck sore throat 2015 Ears/Nose/Throat/Neck postnasal drip Cardiovascular No dyspnea 01/29/2016 Respiratory cough 01/29/2016 Respiratory No dyspnea 01/29/2016 Gastrointestinal No abdominal pain 2015 Dermatologic No rash 01/29/2016 Constitutional malaise 01/29/2016 Musculoskeletal No joint complaint 2015 Neurologic No mental status change 2015 Psychiatric anxiety 01/29/2016 Constitutional recent illness 12/12/2015 Constitutional No chills 12/12/2015 Constitutional fatigue 12/12/2015 Constitutional No fever 12/12/2015 Constitutional No insomnia 12/12/2015 Constitutional malaise 12/12/2015 Eyes No blindness 12/12/2015 Eyes No vision change 12/12/2015 Ears/Nose/Throat/Neck No dental pain 05/2016 Ears/Nose/Throat/Neck dizziness 2015 Ears/Nose/Throat/Neck No dysphagia 2015 Ears/Nose/Throat/Neck No headache 2015 Ears/Nose/Throat/Neck No hearing loss 05/2016 Ears/Nose/Throat/Neck No nasal allergies 12/12/2015 Ears/Nose/Throat/Neck No sore throat 05/2016 Ears/Nose/Throat/Neck neck swelling 12/11 Ears/Nose/Throat/Neck No postnasal drip 12/12/2015 Ears/Nose/Throat/Neck No sinus congestion 12/12/2015 Cardiovascular No chest pain/pressure 05/2016 Cardiovascular No dyspnea 12/12/2015 Cardiovascular No edema 12/12/2015 Cardiovascular No exercise intolerance Cardiovascular No fatigue 12/12/2015 Cardiovascular No near-syncope/dizziness 12/12/2015 Respiratory No chest tightness 2015 Respiratory No cough 12/12/2015 Respiratory No dyspnea 12/12/2015 Respiratory No pedal edema 12/12/2015 Gastrointestinal No abdominal pain 2015 Gastrointestinal No constipation 2015 Gastrointestinal No diarrhea 12/12/2015 Gastrointestinal No gastroesophageal reflux 12/12/2015 Gastrointestinal No nausea 12/12/2015 Gastrointestinal No vomiting 12/12/2015 Genitourinary/Nephrology No dysuria 12/11 Genitourinary/Nephrology No nocturia 05/2016 Genitourinary/Nephrology No urinary incontinence 12/12/2015 Musculoskeletal No stiffness 12/12/2015 Musculoskeletal No swelling 12/12/2015 Musculoskeletal No muscle weakness 2015 Musculoskeletal No myalgias 12/12/2015 Dermatologic No rash 12/12/2015 Dermatologic No sores 12/12/2015 Dermatologic No scar 12/12/2015 Neurologic No dizziness 12/12/2015 Neurologic dyskinesia or tremor 2015 Neurologic No headache 12/12/2015 Neurologic No neck pain 12/12/2015 Neurologic No syncope 12/12/2015 Psychiatric No anxiety 12/12/2015 Psychiatric No depression 12/12/2015 Constitutional recent illness 11/23/2015 Constitutional No chills 11/23/2015 Constitutional fatigue 11/23/2015 Constitutional No fever 11/23/2015 Constitutional No insomnia 11/23/2015 Constitutional malaise 11/23/2015 Eyes No blindness 11/23/2015 Eyes No vision change 11/23/2015 Ears/Nose/Throat/Neck No dental pain Ears/Nose/Throat/Neck dizziness 2015 Ears/Nose/Throat/Neck No dysphagia 2015 Ears/Nose/Throat/Neck No headache 2015 Ears/Nose/Throat/Neck No hearing loss Ears/Nose/Throat/Neck No nasal allergies 11/23/2015 Ears/Nose/Throat/Neck No sore throat Ears/Nose/Throat/Neck No postnasal drip 11/23/2015 Ears/Nose/Throat/Neck No sinus congestion 11/23/2015 Cardiovascular No chest pain/pressure Cardiovascular No dyspnea 11/23/2015 Cardiovascular No edema 11/23/2015 Cardiovascular No exercise intolerance Cardiovascular No fatigue 11/23/2015 Cardiovascular No near-syncope/dizziness 11/23/2015 Respiratory No chest tightness 2015 Respiratory No cough 11/23/2015 Respiratory No dyspnea 11/23/2015 Respiratory No pedal edema 11/23/2015 Gastrointestinal No abdominal pain 2015 Gastrointestinal No constipation 2015 Gastrointestinal No diarrhea 11/23/2015 Gastrointestinal No gastroesophageal reflux 11/23/2015 Gastrointestinal No nausea 11/23/2015 Gastrointestinal No vomiting 11/23/2015 Genitourinary/Nephrology No dysuria 11/22 Genitourinary/Nephrology No nocturia Genitourinary/Nephrology No urinary incontinence 11/23/2015 Musculoskeletal No stiffness 11/23/2015 Musculoskeletal No swelling 11/23/2015 Musculoskeletal No muscle weakness 2015 Musculoskeletal No myalgias 11/23/2015 Dermatologic No rash 11/23/2015 Dermatologic No sores 11/23/2015 Dermatologic No scar 11/23/2015 Neurologic No dizziness 11/23/2015 Neurologic No headache 11/23/2015 Neurologic No neck pain 11/23/2015 Neurologic No syncope 11/23/2015 Psychiatric No anxiety 11/23/2015 Psychiatric No depression 11/23/2015 Ears/Nose/Throat/Neck neck swelling 11/22 Neurologic dyskinesia or tremor 2015 Physical Exam Exam Name System Name Item Name Status Result Effective Dates Notes Full Exam - General 1994 Constitutional general appearance Overall: well developed 04/21/2018 None Full Exam - General 1994 Constitutional general appearance Overall: in no acute distress 04/21/2018 None Full Exam - General 1994 Constitutional general appearance Overall: well nourished 04/21/2018 None Full Exam - General 1994 Eyes conjunctiva /eyelids Overall: eyelids normal 04/21/2018 None Full Exam - General 1994 Eyes conjunctiva /eyelids Overall: cornea clear 04/21/2018 None Full Exam - General 1994 Eyes conjunctiva /eyelids Overall: conjunctiva clear 04/21/2018 None Full Exam - General 1994 Ears/Nose/Throat lips/teeth/gingiva Overall: benign lips 04/21/2018 None Full Exam - General 1994 Respiratory respiratory effort/rhythm Overall: normal rate 04/21/2018 None Full Exam - General 1994 Respiratory respiratory effort/rhythm Overall: no retractions 04/21/2018 None Full Exam - General 1994 Respiratory auscultation Overall: breath sounds clear bilaterally 04/21/2018 None Full Exam - General 1994 Cardiovascular auscultation of heart Overall: normal heart sounds 04/21/2018 None Full Exam - General 1994 Cardiovascular auscultation of heart Overall: regular rate 04/21/2018 None Full Exam - General 1994 Musculoskeletal head and neck Overall: head atraumatic 04/21/2018 None Full Exam - General 1994 Integument inspection of skin Location: shoulder 04/21/2018 left - incision sites - edges well approximated, clean and dry. Full Exam - General 1994 Neurologic cranial nerves Overall: crainial nerves 2 - 12 grossly intact 04/21/2018 None Full Exam - General 1994 Psychiatric orientation/consciousness Overall: oriented to person, place and time 04/21/2018 None Full Exam - General 1994 Psychiatric mood and affect Overall: normal mood and affect 04/21/2018 None Full Exam - General 1994 Psychiatric behavior/psychomotor activity Behavior: tics 04/21/2018 None Full Exam - General 1994 Psychiatric behavior/psychomotor activity Behavior: agitation/restlessness 04/21/2018 None Full Exam - General 1994 Psychiatric behavior/psychomotor activity Behavior: gestures 04/21/2018 None Full Exam - General 1994 Constitutional general appearance Overall: well developed 04/13/2018 None Full Exam - General 1994 Constitutional general appearance Overall: in no acute distress 04/13/2018 None Full Exam - General 1994 Constitutional general appearance Overall: well nourished 04/13/2018 None Full Exam - General 1994 Eyes conjunctiva /eyelids Overall: eyelids normal 04/13/2018 None Full Exam - General 1994 Eyes conjunctiva /eyelids Overall: cornea clear 04/13/2018 None Full Exam - General 1994 Eyes conjunctiva /eyelids Overall: conjunctiva clear 04/13/2018 None Full Exam - General 1994 Eyes pupils and irises Overall: pupils equal, round, reactive to light and accomodation 04/13/2018 None Full Exam - General 1994 Ears/Nose/Throat lips/teeth/gingiva Overall: benign lips 04/13/2018 None Full Exam - General 1994 Ears/Nose/Throat oral cavity/pharynx/larynx Overall: oral mucosa clear 04/13/2018 None Full Exam - General 1994 Ears/Nose/Throat oral cavity/pharynx/larynx Overall: oropharyngeal mucosa clear 04/13/2018 None Full Exam - General 1994 Respiratory respiratory effort/rhythm Overall: normal rate 04/13/2018 None Full Exam - General 1994 Respiratory respiratory effort/rhythm Overall: no retractions 04/13/2018 None Full Exam - General 1994 Respiratory auscultation Overall: breath sounds clear bilaterally 04/13/2018 None Full Exam - General 1994 Cardiovascular auscultation of heart Overall: regular rate 04/13/2018 None Full Exam - General 1994 Cardiovascular auscultation of heart Overall: normal heart sounds 04/13/2018 None Full Exam - General 1994 Cardiovascular extremities Overall: no clubbing 04/13/2018 None Full Exam - General 1994 Musculoskeletal head and neck Overall: head atraumatic 04/13/2018 None Full Exam - General 1994 Musculoskeletal gait and station Overall: normal station 04/13/2018 None Full Exam - General 1994 Musculoskeletal gait and station Overall: normal gait 04/13/2018 None Full Exam - General 1994 Neurologic cranial nerves Overall: crainial nerves 2 - 12 grossly intact 04/13/2018 None Full Exam - General 1994 Psychiatric orientation/consciousness Overall: oriented to person, place and time 04/13/2018 None Full Exam - General 1994 Psychiatric mood and affect Overall: normal mood and affect 04/13/2018 None Full Exam - General 1994 Psychiatric appearance Overall: well-groomed, good eye contact 04/13/2018 None Full Exam - General 1994 Constitutional general appearance Overall: well developed 03/04/2018 None Full Exam - General 1994 Constitutional general appearance Overall: well nourished 03/04/2018 None Full Exam - General 1994 Constitutional general appearance Evidence of Distress: anxious 03/04/2018 None Full Exam - General 1994 Constitutional general appearance Evidence of Distress: agitated 03/04/2018 None Full Exam - General 1994 Eyes conjunctiva /eyelids Overall: conjunctiva clear 03/04/2018 None Full Exam - General 1994 Eyes conjunctiva /eyelids Overall: cornea clear 03/04/2018 None Full Exam - General 1994 Eyes conjunctiva /eyelids Overall: eyelids normal 03/04/2018 None Full Exam - General 1994 Ears/Nose/Throat lips/teeth/gingiva Overall: benign lips 03/04/2018 None Full Exam - General 1994 Ears/Nose/Throat oral cavity/pharynx/larynx Overall: oral mucosa clear 03/04/2018 None Full Exam - General 1994 Respiratory auscultation Overall: breath sounds clear bilaterally 03/04/2018 None Full Exam - General 1994 Respiratory respiratory effort/rhythm Overall: no retractions 03/04/2018 None Full Exam - General 1994 Respiratory respiratory effort/rhythm Overall: normal rate 03/04/2018 None Full Exam - General 1994 Respiratory auscultation Diffuse: diminished 03/04/2018 None Full Exam - General 1994 Musculoskeletal head and neck Overall: head atraumatic 03/04/2018 None Full Exam - General 1994 Musculoskeletal lower extremity Inspection - foot: redness 03/04/2018 great toe Full Exam - General 1994 Musculoskeletal lower extremity Inspection - foot: swelling 03/04/2018 great toe Full Exam - General 1994 Neurologic cranial nerves Overall: crainial nerves 2 - 12 grossly intact 03/04/2018 None Full Exam - General 1994 Psychiatric orientation/consciousness Overall: oriented to person, place and time 03/04/2018 None Full Exam - General 1994 Psychiatric mood and affect Mood: anxious 03/04/2018 None Full Exam - General 1994 Psychiatric mood and affect Mood: irritable 03/04/2018 None Full Exam - General 1994 Psychiatric mood and affect Mood: labile mood 03/04/2018 None Full Exam - Orthopedics Constitutional general appearance Overall: well nourished 02/26/2018 None Full Exam - Orthopedics Constitutional general appearance Overall: well developed 02/26/2018 None Full Exam - Orthopedics Constitutional general appearance Overall: in no acute distress 02/26/2018 None Full Exam - Orthopedics Constitutional general appearance Overall: normal body habitus 02/26/2018 None Full Exam - Orthopedics Constitutional general appearance Overall: no deformities 02/26/2018 None Full Exam - Orthopedics Constitutional general appearance Overall: well groomed 02/26/2018 None Full Exam - Orthopedics Constitutional general appearance Overall: no assistive devices 02/26/2018 None Full Exam - Orthopedics Constitutional general appearance Overall: atraumatic 02/26/2018 None Full Exam - Orthopedics Constitutional general appearance Overall: cooperative 02/26/2018 None Full Exam - Orthopedics Constitutional general appearance Overall: healthy appearance 02/26/2018 None Full Exam - Orthopedics Constitutional general appearance Overall: pleasant 02/26/2018 None Full Exam - Orthopedics Constitutional general appearance Overall: relaxed 02/26/2018 None Full Exam - Orthopedics Psychiatric orientation/consciousness Overall: oriented to person, place and time 02/26/2018 None Full Exam - Orthopedics MS: left upper extremity insp & palp - LUE Shoulder: acromioclavicular joint tenderness 02/26/2018 None Full Exam - Orthopedics MS: left upper extremity range of motion - LUE Shoulder: decreased flexion 02/26/2018 None Full Exam - Orthopedics MS: left upper extremity range of motion - LUE Shoulder: decreased extension 02/26/2018 None Full Exam - Orthopedics MS: left upper extremity range of motion - LUE Shoulder: decreased abduction 02/26/2018 None Full Exam - Orthopedics MS: left upper extremity range of motion - LUE Shoulder: decreased adduction 02/26/2018 None Full Exam - Orthopedics MS: left upper extremity range of motion - LUE Shoulder: decreased internal rotation 02/26/2018 None Full Exam - Orthopedics MS: left upper extremity strength & tone - LUE Shoulder strength: flexion weakness with 2/5 strength 02/26/2018 None Full Exam - Orthopedics MS: left upper extremity strength & tone - LUE Shoulder strength: extension weakness with 2/5 strength 02/26/2018 None Full Exam - Orthopedics MS: left upper extremity strength & tone - LUE Shoulder strength: abduction weakness with 2/5 strength 02/26/2018 None Full Exam - Orthopedics MS: left upper extremity strength & tone - LUE Shoulder strength: adduction weakness with 2/5 strength 02/26/2018 None Full Exam - Orthopedics MS: left upper extremity strength & tone - LUE Shoulder strength: internal rotation weakness with 2/5 strength 2017 None Full Exam - Orthopedics MS: left upper extremity strength & tone - LUE Shoulder strength: external rotation weakness with 2/5 strength 2017 None Full Exam - General 1995 Eyes conjunctiva /eyelids Overall: conjunctiva clear 11/12/2017 None Full Exam - General 1994 Eyes conjunctiva /eyelids Overall: cornea clear 11/12/2017 None Full Exam - General 1994 Eyes conjunctiva /eyelids Overall: eyelids normal 11/12/2017 None Full Exam - General 1994 Eyes pupils and irises Overall: pupils equal, round, reactive to light and accomodation 11/12/2017 None Full Exam - General 1994 Ears/Nose/Throat lips/teeth/gingiva Overall: benign lips 11/12/2017 None Full Exam - General 1994 Ears/Nose/Throat lips/teeth/gingiva Teeth: wears dentures 11/12/2017 None Full Exam - General 1994 Ears/Nose/Throat oral cavity/pharynx/larynx Overall: oral mucosa clear 11/12/2017 None Full Exam - General 1994 Neck thyroid Overall: normal size None Full Exam - General 1994 Neck thyroid Overall: normal consistency 11/12/2017 None Full Exam - General 1994 Neck inspection of neck Overall: normal size 11/12/2017 None Full Exam - General 1994 Neck inspection of neck Overall: normal appearance 11/12/2017 None Full Exam - General 1994 Respiratory auscultation Overall: breath sounds clear bilaterally 11/12/2017 None Full Exam - General 1994 Respiratory respiratory effort/rhythm Overall: no retractions 11/12/2017 None Full Exam - General 1994 Respiratory respiratory effort/rhythm Overall: normal rate 11/12/2017 None Full Exam - General 1994 Cardiovascular auscultation of heart Overall: regular rate 11/12/2017 None Full Exam - General 1994 Cardiovascular auscultation of heart Overall: normal heart sounds 11/12/2017 None Full Exam - General 1994 Lymphatic neck nodes Overall: anterior cervical chain benign 11/12/2017 None Full Exam - General 1994 Lymphatic neck nodes Overall: posterior cervical chain benign 11/12/2017 None Full Exam - General 1994 Musculoskeletal gait and station Overall: normal gait 11/12/2017 None Full Exam - General 1994 Musculoskeletal gait and station Overall: normal station 11/12/2017 None Full Exam - General 1994 Musculoskeletal head and neck Overall: head atraumatic 11/12/2017 None Full Exam - General 1994 Musculoskeletal head and neck Overall: cervical spine benign 11/12/2017 None Full Exam - General 1994 Neurologic mental status Overall: alert 11/12/2017 None Full Exam - General 1994 Neurologic mental status Overall: oriented 11/12/2017 None Full Exam - General 1994 Neurologic gait Overall: no ataxia, no unsteadiness 11/12/2017 None Full Exam - General 1994 Psychiatric orientation/consciousness Overall: oriented to person, place and time 11/12/2017 None Full Exam - General 1994 Psychiatric speech Overall: normal quality, no aphasia 11/12/2017 None Full Exam - General 1994 Constitutional general appearance Overall: well developed 11/12/2017 None Full Exam - General 1994 Constitutional general appearance Overall: in no acute distress 11/12/2017 None Full Exam - General 1994 Constitutional general appearance Overall: well nourished 11/12/2017 None Full Exam - General 1994 Ears/Nose/Throat otoscopic exam Overall: external auditory canals clear 11/12/2017 None Full Exam - General 1994 Ears/Nose/Throat otoscopic exam Overall: tympanic membranes clear 11/12/2017 None Full Exam - General 1994 Abdomen abdominal exam Overall: normal bowel sounds 11/12/2017 None Full Exam - General 1994 Psychiatric mood and affect Mood: depressed 11/12/2017 None Full Exam - General 1994 Psychiatric mood and affect Mood: anxious 11/12/2017 None Full Exam - General 1994 Psychiatric mood and affect Mood: labile mood 11/12/2017 None Full Exam - ENT Constitutional general appearance Overall: well nourished 03/13/2017 None Full Exam - ENT Constitutional general appearance Overall: well developed 03/13/2017 None Full Exam - ENT Ears/Nose/Throat otoscopic exam Overall: external auditory canals normal 03/13/2017 None Full Exam - ENT Ears/Nose/Throat otoscopic exam Left tympanic membrane: air -fluid level 03/13/2017 None Full Exam - ENT Ears/Nose/Throat otoscopic exam Right tympanic membrane: air-fluid level 03/13/2017 None Full Exam - ENT Ears/Nose/Throat lips/ teeth/gingiva Overall: benign lips 03/13/2017 None Full Exam - ENT Ears/Nose/Throat oropharynx Overall: oral mucosa clear 03/13/2017 None Full Exam - ENT Ears/Nose/Throat oropharynx Posterior Pharynx: clear post nasal drainage 03/13/2017 None Full Exam - ENT Ears/Nose/Throat oropharynx Posterior Pharynx: erythema 03/13/2017 None Full Exam - ENT Respiratory inspection Overall: no retractions 03/13/2017 None Full Exam - ENT Respiratory inspection Overall: normal rate 05/2017 None Full Exam - ENT Cardiovascular auscultation of heart Rate: normal rate 03/13/2017 None Full Exam - ENT Cardiovascular auscultation of heart Rhythm: regular rhythm 03/13/2017 None Full Exam - ENT Lymphatic palpation of lymph nodes Overall: anterior cervical chain benign 03/13/2017 None Full Exam - ENT Lymphatic palpation of lymph nodes Overall: posterior cervical chain benign 03/13/2017 None Full Exam - ENT Neurologic mood and affect Overall: normal mood 03/13/2017 None Full Exam - ENT Neurologic mood and affect Overall: normal affect 03/13/2017 None Full Exam - ENT Neurologic orientation Overall: oriented to person, place and time 03/13/2017 None Full Exam - ENT Respiratory auscultation Diffuse: diminished None Full Exam - ENT Respiratory auscultation Right lower lung field: expiratory wheezes 03/13/2017 None Full Exam - General 1994 Constitutional general appearance Overall: well developed 10/07/2016 None Full Exam - General 1994 Constitutional general appearance Overall: well nourished 10/07/2016 None Full Exam - General 1994 Constitutional general appearance Evidence of Distress: mild distress 10/07/2016 None Full Exam - General 1994 Constitutional general appearance Evidence of Distress: anxious 10/07/2016 None Full Exam - General 1994 Eyes conjunctiva /eyelids Overall: conjunctiva clear 10/07/2016 None Full Exam - General 1994 Eyes conjunctiva /eyelids Overall: eyelids normal 10/07/2016 None Full Exam - General 1994 Ears/Nose/Throat lips/teeth/gingiva Overall: benign lips 10/07/2016 None Full Exam - General 1994 Ears/Nose/Throat oral cavity/pharynx/larynx Overall: oral mucosa clear 10/07/2016 None Full Exam - General 1994 Respiratory auscultation Overall: breath sounds clear bilaterally 10/07/2016 None Full Exam - General 1994 Respiratory respiratory effort/rhythm Overall: no retractions 10/07/2016 None Full Exam - General 1994 Respiratory respiratory effort/rhythm Overall: normal rate 10/07/2016 None Full Exam - General 1994 Cardiovascular auscultation of heart Overall: regular rate 10/07/2016 None Full Exam - General 1994 Cardiovascular auscultation of heart Overall: normal heart sounds 10/07/2016 None Full Exam - General 1994 Musculoskeletal gait and station Overall: normal gait 10/07/2016 None Full Exam - General 1994 Musculoskeletal gait and station Overall: normal station 10/07/2016 None Full Exam - General 1994 Psychiatric orientation/consciousness Overall: oriented to person, place and time 10/07/2016 None Full Exam - General 1994 Psychiatric mood and affect Mood: flat 10/07/2016 None Full Exam - General 1994 Psychiatric mood and affect Mood: depressed 10/07/2016 None Full Exam - General 1994 Psychiatric mood and affect Mood: anxious 10/07/2016 None Full Exam - General 1994 Psychiatric mood and affect Mood: labile mood 10/07/2016 None Full Exam - General 1994 Constitutional general appearance Evidence of Distress: agitated 10/07/2016 None Full Exam - General 1994 Ears/Nose/Throat oral cavity/pharynx/larynx Posterior Pharynx: clear post nasal drainage 10/07/2016 None Full Exam - General 1994 Ears/Nose/Throat oral cavity/pharynx/larynx Oropharynx: erythema 10/07/2016 mild Full Exam - General 1994 Neurologic cranial nerves Overall: crainial nerves 2 - 12 grossly intact 10/07/2016 None Full Exam - General 1994 Neurologic coordination Tremors: tics 10/07/2016 None Full Exam - General 1994 Constitutional general appearance Overall: well developed 10/02/2016 None Full Exam - General 1994 Constitutional general appearance Overall: well nourished 10/02/2016 None Full Exam - General 1994 Constitutional general appearance Evidence of Distress: mild distress 10/02/2016 None Full Exam - General 1994 Constitutional general appearance Evidence of Distress: anxious 10/02/2016 None Full Exam - General 1994 Eyes conjunctiva /eyelids Overall: conjunctiva clear 10/02/2016 None Full Exam - General 1994 Eyes conjunctiva /eyelids Overall: eyelids normal 10/02/2016 None Full Exam - General 1994 Ears/Nose/Throat lips/teeth/gingiva Overall: benign lips 10/02/2016 None Full Exam - General 1994 Ears/Nose/Throat oral cavity/pharynx/larynx Overall: oral mucosa clear 10/02/2016 None Full Exam - General 1994 Respiratory auscultation Overall: breath sounds clear bilaterally 10/02/2016 None Full Exam - General 1994 Respiratory respiratory effort/rhythm Overall: no retractions 10/02/2016 None Full Exam - General 1994 Respiratory respiratory effort/rhythm Overall: normal rate 10/02/2016 None Full Exam - General 1994 Cardiovascular auscultation of heart Overall: regular rate 10/02/2016 None Full Exam - General 1994 Cardiovascular auscultation of heart Overall: normal heart sounds 10/02/2016 None Full Exam - General 1994 Musculoskeletal gait and station Overall: normal gait 10/02/2016 None Full Exam - General 1994 Musculoskeletal gait and station Overall: normal station 10/02/2016 None Full Exam - General 1994 Psychiatric orientation/consciousness Overall: oriented to person, place and time 10/02/2016 None Full Exam - General 1994 Psychiatric mood and affect Mood: flat 10/02/2016 None Full Exam - General 1994 Psychiatric mood and affect Mood: labile mood 10/02/2016 None Full Exam - General 1994 Psychiatric mood and affect Mood: anxious 10/02/2016 None Full Exam - General 1994 Psychiatric mood and affect Mood: depressed 10/02/2016 None Full Exam - General 1994 Constitutional general appearance Development: well developed 09/05/2016 None Full Exam - General 1994 Constitutional general appearance Development: appears stated age 0409/05/2016 None Full Exam - General 1994 Eyes conjunctiva /eyelids Overall: conjunctiva clear 09/05/2016 None Full Exam - General 1994 Eyes conjunctiva /eyelids Overall: cornea clear 09/05/2016 None Full Exam - General 1994 Eyes conjunctiva /eyelids Overall: eyelids normal 09/05/2016 None Full Exam - General 1994 Eyes pupils and irises Overall: pupils equal, round, reactive to light and accomodation 09/05/2016 None Full Exam - General 1994 Ears/Nose/Throat lips/teeth/gingiva Overall: benign lips 09/05/2016 None Full Exam - General 1994 Ears/Nose/Throat lips/teeth/gingiva Teeth: wears dentures 09/05/2016 None Full Exam - General 1994 Ears/Nose/Throat oral cavity/pharynx/larynx Overall: oral mucosa clear 09/05/2016 None Full Exam - General 1994 Neck thyroid Overall: normal size 10/2016 None Full Exam - General 1994 Neck thyroid Overall: normal consistency 09/05/2016 None Full Exam - General 1994 Neck thyroid Overall: nontender 2016 None Full Exam - General 1994 Neck inspection of neck Overall: normal size 09/05/2016 None Full Exam - General 1994 Neck inspection of neck Overall: normal appearance 09/05/2016 None Full Exam - General 1994 Respiratory auscultation Overall: breath sounds clear bilaterally 09/05/2016 None Full Exam - General 1994 Respiratory respiratory effort/rhythm Overall: no retractions 09/05/2016 None Full Exam - General 1994 Respiratory respiratory effort/rhythm Overall: normal rate 09/05/2016 None Full Exam - General 1994 Cardiovascular auscultation of heart Overall: regular rate 09/05/2016 None Full Exam - General 1994 Cardiovascular auscultation of heart Overall: normal heart sounds 09/05/2016 None Full Exam - General 1994 Abdomen abdominal exam Overall: no tenderness 09/05/2016 None Full Exam - General 1994 Abdomen abdominal exam Overall: normal bowel sounds 09/05/2016 None Full Exam - General 1994 Musculoskeletal gait and station Overall: normal gait 09/05/2016 None Full Exam - General 1994 Musculoskeletal gait and station Overall: normal station 09/05/2016 None Full Exam - General 1994 Musculoskeletal head and neck Overall: head atraumatic 09/05/2016 None Full Exam - General 1994 Musculoskeletal head and neck Overall: cervical spine benign 09/05/2016 None Full Exam - General 1994 Integument inspection of skin Overall: few scattered moles, no gross abnormalities 09/05/2016 None Full Exam - General 1994 Lymphatic neck nodes Overall: anterior cervical chain benign 09/05/2016 None Full Exam - General 1994 Lymphatic neck nodes Overall: posterior cervical chain benign 09/05/2016 None Full Exam - General 1994 Neurologic mental status Overall: alert 09/05/2016 None Full Exam - General 1994 Neurologic mental status Overall: oriented 09/05/2016 None Full Exam - General 1994 Neurologic gait Overall: no ataxia, no unsteadiness 09/05/2016 None Full Exam - General 1994 Psychiatric orientation/consciousness Overall: oriented to person, place and time 09/05/2016 None Full Exam - General 1994 Psychiatric mood and affect Overall: normal mood and affect 09/05/2016 None Full Exam - General 1994 Psychiatric speech Overall: normal quality, no aphasia 09/05/2016 None Full Exam - General 1994 Constitutional general appearance Development: well developed 08/02/2016 None Full Exam - General 1994 Constitutional general appearance Development: appears stated age 0308/02/2016 None Full Exam - General 1994 Eyes conjunctiva /eyelids Overall: conjunctiva clear 08/02/2016 None Full Exam - General 1994 Eyes conjunctiva /eyelids Overall: cornea clear 08/02/2016 None Full Exam - General 1994 Eyes conjunctiva /eyelids Overall: eyelids normal 08/02/2016 None Full Exam - General 1994 Eyes pupils and irises Overall: pupils equal, round, reactive to light and accomodation 08/02/2016 None Full Exam - General 1994 Ears/Nose/Throat lips/teeth/gingiva Overall: benign lips 08/02/2016 None Full Exam - General 1995 Ears/Nose/Throat lips/teeth/gingiva Overall: normal dentition 08/02/2016 None Full Exam - General 1994 Ears/Nose/Throat oral cavity/pharynx/larynx Overall: oral mucosa clear 08/02/2016 None Full Exam - General 1994 Respiratory auscultation Overall: breath sounds clear bilaterally 08/02/2016 None Full Exam - General 1994 Respiratory respiratory effort/rhythm Overall: no retractions 08/02/2016 None Full Exam - General 1994 Respiratory respiratory effort/rhythm Overall: normal rate 08/02/2016 None Full Exam - General 1994 Cardiovascular auscultation of heart Overall: normal heart sounds 08/02/2016 None Full Exam - General 1994 Cardiovascular auscultation of heart Rate: tachycardia 08/02/2016 None Full Exam - General 1994 Abdomen abdominal exam Overall: normal bowel sounds 08/02/2016 None Full Exam - General 1994 Abdomen abdominal exam Contour: rounded 08/02/2016 None Full Exam - General 1994 Integument inspection of skin Overall: few scattered moles, no gross abnormalities 08/02/2016 None Full Exam - General 1994 Neurologic mental status Overall: alert 08/02/2016 None Full Exam - General 1994 Neurologic mental status Overall: oriented 08/02/2016 None Full Exam - General 1994 Neurologic gait Overall: no ataxia, no unsteadiness 08/02/2016 None Full Exam - General 1994 Neurologic motor Overall: normal bulk, tone 08/02/2016 None Full Exam - General 1994 Psychiatric orientation/consciousness Overall: oriented to person, place and time 08/02/2016 None Full Exam - General 1994 Psychiatric mood and affect Overall: normal mood and affect 08/02/2016 None Full Exam - General 1994 Psychiatric appearance Overall: well-groomed, good eye contact 08/02/2016 None Full Exam - General 1994 Psychiatric speech Overall: normal quality, no aphasia 08/02/2016 None Full Exam - General 1994 Psychiatric thought Overall: normal form and content 08/02/2016 None Full Exam - General 1994 Psychiatric cognition/memory Overall: immediate, recent, remote memory intact 08/02/2016 None Full Exam - General 1994 Lymphatic neck nodes Overall: posterior cervical chain benign 08/02/2016 None Full Exam - General 1994 Lymphatic neck nodes Overall: anterior cervical chain benign 08/02/2016 None Full Exam - General 1994 Musculoskeletal gait and station Overall: normal station 08/02/2016 None Full Exam - General 1994 Musculoskeletal gait and station Overall: normal gait 08/02/2016 None Full Exam - General 1994 Constitutional general appearance Evidence of Distress: mild distress 07/23/2016 None Full Exam - General 1994 Constitutional general appearance Evidence of Distress: in distress secondary to pain 07/23/2016 None Full Exam - General 1994 Eyes conjunctiva /eyelids Overall: conjunctiva clear 07/23/2016 None Full Exam - General 1994 Eyes conjunctiva /eyelids Overall: eyelids normal 07/23/2016 None Full Exam - General 1994 Ears/Nose/Throat lips/teeth/gingiva Overall: benign lips 07/23/2016 None Full Exam - General 1994 Ears/Nose/Throat oral cavity/pharynx/larynx Overall: oral mucosa clear 07/23/2016 None Full Exam - General 1994 Respiratory respiratory effort/rhythm Overall: no retractions 07/23/2016 None Full Exam - General 1994 Respiratory respiratory effort/rhythm Overall: normal rate 07/23/2016 None Full Exam - General 1994 Respiratory auscultation Overall: breath sounds clear bilaterally 07/23/2016 None Full Exam - General 1994 Cardiovascular auscultation of heart Overall: regular rate 07/23/2016 None Full Exam - General 1994 Cardiovascular auscultation of heart Overall: normal heart sounds 07/23/2016 None Full Exam - General 1994 Abdomen abdominal exam Overall: normal bowel sounds 07/23/2016 None Full Exam - General 1994 Abdomen abdominal exam Upper quadrant: tender to palpation 07/23/2016 None Full Exam - General 1994 Abdomen abdominal exam Upper quadrant: sharp pain 07/23/2016 None Full Exam - General 1994 Abdomen abdominal exam Upper quadrant: voluntary guarding 07/23/2016 None Full Exam - General 1994 Abdomen abdominal exam Upper quadrant: no rebound tenderness 07/23/2016 None Full Exam - General 1994 Abdomen abdominal exam Upper quadrant: no mass lesions 07/23/2016 None Full Exam - General 1994 Abdomen abdominal exam Upper quadrant: soft 07/23/2016 None Full Exam - General 1994 Abdomen abdominal exam Lower quadrant: tender to palpation 07/23/2016 None Full Exam - General 1994 Abdomen abdominal exam Lower quadrant: sharp pain 07/23/2016 None Full Exam - General 1994 Abdomen abdominal exam Lower quadrant: voluntary guarding 07/23/2016 None Full Exam - General 1994 Abdomen abdominal exam Lower quadrant: no rebound tenderness 07/23/2016 None Full Exam - General 1994 Abdomen abdominal exam Lower quadrant: no mass lesions 07/23/2016 None Full Exam - General 1994 Abdomen abdominal exam Lower quadrant: soft 07/23/2016 None Full Exam - General 1994 Abdomen abdominal exam Epigastric: tender to palpation 07/23/2016 None Full Exam - General 1994 Abdomen abdominal exam Epigastric: sharp pain 07/23/2016 None Full Exam - General 1994 Abdomen abdominal exam Epigastric: voluntary guarding 07/23/2016 None Full Exam - General 1994 Abdomen abdominal exam Epigastric: no rebound tenderness 07/23/2016 None Full Exam - General 1994 Abdomen abdominal exam Epigastric: no mass lesions 07/23/2016 None Full Exam - General 1994 Abdomen abdominal exam Epigastric: soft 07/23/2016 None Full Exam - General 1994 Psychiatric orientation/consciousness Overall: oriented to person, place and time 07/23/2016 None Full Exam - General 1994 Psychiatric mood and affect Mood: anxious 07/23/2016 None Full Exam - General 1994 Psychiatric appearance Grooming: disheveled 07/23/2016 None Full Exam - General 1994 Constitutional general appearance Development: well developed 07/04/2016 None Full Exam - General 1994 Constitutional general appearance Development: appears stated age 0207/04/2016 None Full Exam - General 1994 Eyes conjunctiva /eyelids Overall: conjunctiva clear 07/04/2016 None Full Exam - General 1994 Eyes conjunctiva /eyelids Overall: cornea clear 07/04/2016 None Full Exam - General 1994 Eyes conjunctiva /eyelids Overall: eyelids normal 07/04/2016 None Full Exam - General 1994 Eyes pupils and irises Overall: pupils equal, round, reactive to light and accomodation 07/04/2016 None Full Exam - General 1994 Ears/Nose/Throat lips/teeth/gingiva Overall: benign lips 07/04/2016 None Full Exam - General 1994 Ears/Nose/Throat lips/teeth/gingiva Overall: normal dentition 07/04/2016 None Full Exam - General 1994 Ears/Nose/Throat oral cavity/pharynx/larynx Overall: oral mucosa clear 07/04/2016 None Full Exam - General 1994 Respiratory auscultation Overall: breath sounds clear bilaterally 07/04/2016 None Full Exam - General 1994 Respiratory respiratory effort/rhythm Overall: no retractions 07/04/2016 None Full Exam - General 1994 Respiratory respiratory effort/rhythm Overall: normal rate 07/04/2016 None Full Exam - General 1994 Cardiovascular auscultation of heart Overall: normal heart sounds 07/04/2016 None Full Exam - General 1994 Cardiovascular auscultation of heart Rate: tachycardia 07/04/2016 None Full Exam - General 1994 Abdomen abdominal exam Contour: rounded 07/04/2016 None Full Exam - General 1994 Abdomen abdominal exam Upper quadrant: tender to palpation 07/04/2016 mild Full Exam - General 1994 Abdomen abdominal exam Lower quadrant: tender to palpation 07/04/2016 None Full Exam - General 1994 Abdomen abdominal exam Epigastric: tender to palpation 07/04/2016 None Full Exam - General 1994 Abdomen abdominal exam Periumbilical: tender to palpation 07/04/2016 None Full Exam - General 1994 Abdomen abdominal exam Overall: normal bowel sounds 07/04/2016 None Full Exam - General 1994 Integument inspection of skin Overall: few scattered moles, no gross abnormalities 07/04/2016 None Full Exam - General 1994 Neurologic mental status Overall: alert 07/04/2016 None Full Exam - General 1994 Neurologic mental status Overall: oriented 07/04/2016 None Full Exam - General 1994 Neurologic gait Overall: no ataxia, no unsteadiness 07/04/2016 None Full Exam - General 1994 Neurologic motor Overall: normal bulk, tone 07/04/2016 None Full Exam - General 1994 Psychiatric orientation/consciousness Overall: oriented to person, place and time 07/04/2016 None Full Exam - General 1994 Psychiatric mood and affect Overall: normal mood and affect 07/04/2016 None Full Exam - General 1994 Psychiatric speech Overall: normal quality, no aphasia 07/04/2016 None Full Exam - General 1994 Psychiatric appearance Overall: well-groomed, good eye contact 07/04/2016 None Full Exam - General 1994 Psychiatric thought Overall: normal form and content 07/04/2016 None Full Exam - General 1994 Psychiatric cognition/memory Overall: immediate, recent, remote memory intact 07/04/2016 None Full Exam - General 1994 Constitutional general appearance Development: well developed 07/02/2016 None Full Exam - General 1994 Constitutional general appearance Development: appears stated age 0107/02/2016 None Full Exam - General 1994 Constitutional general appearance Hygiene/Attention to Grooming: good hygiene 07/02/2016 None Full Exam - General 1994 Eyes conjunctiva /eyelids Overall: conjunctiva clear 07/02/2016 None Full Exam - General 1994 Eyes conjunctiva /eyelids Overall: cornea clear 07/02/2016 None Full Exam - General 1994 Eyes conjunctiva /eyelids Overall: eyelids normal 07/02/2016 None Full Exam - General 1994 Eyes pupils and irises Overall: pupils equal, round, reactive to light and accomodation 07/02/2016 None Full Exam - General 1994 Ears/Nose/Throat otoscopic exam Overall: external auditory canals clear 07/02/2016 None Full Exam - General 1994 Ears/Nose/Throat otoscopic exam Overall: tympanic membranes clear 07/02/2016 None Full Exam - General 1994 Ears/Nose/Throat lips/teeth/gingiva Overall: benign lips 07/02/2016 None Full Exam - General 1994 Ears/Nose/Throat lips/teeth/gingiva Overall: normal dentition 07/02/2016 None Full Exam - General 1994 Ears/Nose/Throat oral cavity/pharynx/larynx Overall: oral mucosa clear 07/02/2016 None Full Exam - General 1994 Ears/Nose/Throat oral cavity/pharynx/larynx Overall: oropharyngeal mucosa clear 07/02/2016 None Full Exam - General 1994 Ears/Nose/Throat oral cavity/pharynx/larynx Overall: hypopharynx benign 07/02/2016 None Full Exam - General 1994 Ears/Nose/Throat oral cavity/pharynx/larynx Overall: no masses 07/02/2016 None Full Exam - General 1994 Neck thyroid Palpation: tender 2016 diffusely across neck - pt twitching away from my exam Full Exam - General 1994 Respiratory auscultation Overall: breath sounds clear bilaterally 07/02/2016 None Full Exam - General 1994 Respiratory respiratory effort/rhythm Overall: no retractions 07/02/2016 None Full Exam - General 1994 Respiratory respiratory effort/rhythm Overall: normal rate 07/02/2016 None Full Exam - General 1994 Cardiovascular extremities Overall: no clubbing 07/02/2016 None Full Exam - General 1994 Cardiovascular auscultation of heart Overall: regular rate 07/02/2016 None Full Exam - General 1994 Cardiovascular auscultation of heart Overall: normal heart sounds 07/02/2016 None Full Exam - General 1994 Abdomen abdominal exam Overall: no tenderness 07/02/2016 None Full Exam - General 1994 Abdomen abdominal exam Overall: normal bowel sounds 07/02/2016 None Full Exam - General 1994 Lymphatic neck nodes Overall: anterior cervical chain benign 07/02/2016 None Full Exam - General 1994 Lymphatic neck nodes Overall: posterior cervical chain benign 07/02/2016 None Full Exam - General 1994 Neurologic deep tendon reflexes Overall: deep tendon reflexes intact 07/02/2016 None Full Exam - General 1994 Neurologic cranial nerves Overall: crainial nerves 2 - 12 grossly intact 07/02/2016 None Full Exam - General 1994 Psychiatric orientation/consciousness Overall: oriented to person, place and time 07/02/2016 None Full Exam - General 1994 Psychiatric mood and affect Mood: irritable 07/02/2016 None Full Exam - General 1994 Psychiatric mood and affect Affect: constricted 07/02/2016 None Full Exam - General 1994 Psychiatric appearance Eye contact: intermittent 07/02/2016 None Full Exam - ENT Constitutional general appearance Overall: well nourished 06/07/2016 None Full Exam - ENT Constitutional general appearance Overall: well developed 06/07/2016 None Full Exam - ENT Ears/Nose/Throat lips/ teeth/gingiva Overall: benign lips 06/07/2016 None Full Exam - ENT Ears/Nose/Throat oropharynx Overall: oral mucosa clear 06/07/2016 None Full Exam - ENT Respiratory inspection Overall: no retractions 06/07/2016 None Full Exam - ENT Respiratory inspection Overall: normal rate 10/2016 None Full Exam - ENT Respiratory auscultation Overall: breath sounds clear bilaterally 06/07/2016 None Full Exam - ENT Cardiovascular auscultation of heart Rate: normal rate 06/07/2016 None Full Exam - ENT Cardiovascular auscultation of heart Rhythm: regular rhythm 06/07/2016 None Full Exam - ENT Lymphatic palpation of lymph nodes Overall: anterior cervical chain benign 06/07/2016 None Full Exam - ENT Lymphatic palpation of lymph nodes Overall: posterior cervical chain benign 06/07/2016 None Full Exam - ENT Neurologic mood and affect Overall: normal mood 06/07/2016 None Full Exam - ENT Neurologic mood and affect Overall: normal affect 06/07/2016 None Full Exam - ENT Neurologic orientation Overall: oriented to person, place and time 06/07/2016 None Full Exam - ENT Constitutional general appearance Overall: well nourished 05/22/2016 None Full Exam - ENT Constitutional general appearance Overall: well developed 05/22/2016 None Full Exam - ENT Ears/Nose/Throat otoscopic exam Overall: external auditory canals normal 05/22/2016 None Full Exam - ENT Ears/Nose/Throat otoscopic exam Left tympanic membrane: air -fluid level 05/22/2016 None Full Exam - ENT Ears/Nose/Throat otoscopic exam Right tympanic membrane: air-fluid level 05/22/2016 None Full Exam - ENT Ears/Nose/Throat lips/ teeth/gingiva Overall: benign lips 05/22/2016 None Full Exam - ENT Ears/Nose/Throat oropharynx Overall: oral mucosa clear 05/22/2016 None Full Exam - ENT Ears/Nose/Throat oropharynx Posterior Pharynx: clear post nasal drainage 05/22/2016 None Full Exam - ENT Ears/Nose/Throat oropharynx Posterior Pharynx: erythema 05/22/2016 None Full Exam - ENT Respiratory inspection Overall: no retractions 05/22/2016 None Full Exam - ENT Respiratory inspection Overall: normal rate None Full Exam - ENT Respiratory auscultation Overall: breath sounds clear bilaterally 05/22/2016 None Full Exam - ENT Cardiovascular auscultation of heart Rate: normal rate 05/22/2016 None Full Exam - ENT Cardiovascular auscultation of heart Rhythm: regular rhythm 05/22/2016 None Full Exam - ENT Lymphatic palpation of lymph nodes Overall: anterior cervical chain benign 05/22/2016 None Full Exam - ENT Lymphatic palpation of lymph nodes Overall: posterior cervical chain benign 05/22/2016 None Full Exam - ENT Neurologic mood and affect Overall: normal mood 05/22/2016 None Full Exam - ENT Neurologic mood and affect Overall: normal affect 05/22/2016 None Full Exam - ENT Neurologic orientation Overall: oriented to person, place and time 05/22/2016 None Full Exam - General 1994 Constitutional general appearance Development: well developed 05/09/2016 None Full Exam - General 1994 Constitutional general appearance Development: appears stated age 1205/09/2016 None Full Exam - General 1994 Constitutional general appearance Hygiene/Attention to Grooming: good hygiene 05/09/2016 None Full Exam - General 1994 Eyes conjunctiva /eyelids Overall: conjunctiva clear 05/09/2016 None Full Exam - General 1994 Eyes conjunctiva /eyelids Overall: cornea clear 05/09/2016 None Full Exam - General 1994 Eyes conjunctiva /eyelids Overall: eyelids normal 05/09/2016 None Full Exam - General 1994 Eyes pupils and irises Overall: pupils equal, round, reactive to light and accomodation 05/09/2016 None Full Exam - General 1994 Ears/Nose/Throat lips/teeth/gingiva Overall: benign lips 05/09/2016 None Full Exam - General 1994 Ears/Nose/Throat lips/teeth/gingiva Overall: normal dentition 05/09/2016 None Full Exam - General 1994 Ears/Nose/Throat oral cavity/pharynx/larynx Overall: oral mucosa clear 05/09/2016 None Full Exam - General 1994 Ears/Nose/Throat oral cavity/pharynx/larynx Overall: oropharyngeal mucosa clear 05/09/2016 None Full Exam - General 1994 Ears/Nose/Throat oral cavity/pharynx/larynx Overall: hypopharynx benign 05/09/2016 None Full Exam - General 1994 Ears/Nose/Throat oral cavity/pharynx/larynx Overall: no masses 05/09/2016 None Full Exam - General 1994 Respiratory auscultation Overall: breath sounds clear bilaterally 05/09/2016 None Full Exam - General 1994 Respiratory respiratory effort/rhythm Overall: no retractions 05/09/2016 None Full Exam - General 1994 Respiratory respiratory effort/rhythm Overall: normal rate 05/09/2016 None Full Exam - General 1994 Cardiovascular extremities Overall: no clubbing 05/09/2016 None Full Exam - General 1994 Cardiovascular auscultation of heart Overall: regular rate 05/09/2016 None Full Exam - General 1994 Cardiovascular auscultation of heart Overall: normal heart sounds 05/09/2016 None Full Exam - General 1994 Abdomen abdominal exam Overall: no tenderness 05/09/2016 None Full Exam - General 1994 Abdomen abdominal exam Overall: normal bowel sounds 05/09/2016 None Full Exam - General 1994 Musculoskeletal spine, ribs and pelvis Overall: good posture 05/09/2016 None Full Exam - General 1994 Psychiatric orientation/consciousness Overall: oriented to person, place and time 05/09/2016 None Full Exam - General 1994 Psychiatric mood and affect Affect: constricted 05/09/2016 None Full Exam - General 1994 Psychiatric appearance Eye contact: intermittent 05/09/2016 None Full Exam - General 1994 Ears/Nose/Throat otoscopic exam Overall: external auditory canals clear 05/09/2016 patient twitches with examination of ears Full Exam - ENT Constitutional general appearance Overall: well nourished 04/19/2016 None Full Exam - ENT Constitutional general appearance Overall: well developed 04/19/2016 None Full Exam - ENT Constitutional general appearance Overall: in no acute distress 04/19/2016 None Full Exam - ENT Constitutional communication assessment Overall: normal mode of communication 04/19/2016 None Full Exam - ENT Constitutional communication assessment Overall: normal phonation 04/19/2016 None Full Exam - ENT Ears/Nose/Throat otoscopic exam Overall: external auditory canals normal 04/19/2016 None Full Exam - ENT Ears/Nose/Throat otoscopic exam Overall: tympanic membranes normal 04/19/2016 None Full Exam - ENT Ears/Nose/Throat external ear and nose Overall: normal appearance 04/19/2016 None Full Exam - ENT Ears/Nose/Throat external ear and nose Overall: no masses 04/19/2016 None Full Exam - ENT Ears/Nose/Throat nasal mucosa, septum, turbinates Overall: nasal mucosa clear 04/19/2016 None Full Exam - ENT Ears/Nose/Throat oropharynx Overall: oral mucosa clear 04/19/2016 None Full Exam - ENT Face and Head palpation Left maxillary sinus: tender 04/19/2016 None Full Exam - ENT Face and Head palpation Right maxillary sinus: tender 04/19/2016 None Full Exam - ENT Face and Head palpation Left frontal sinus: tender 04/19/2016 None Full Exam - ENT Face and Head palpation Right frontal sinus: tender 04/19/2016 None Full Exam - ENT Neck inspection of neck Overall: normal size None Full Exam - ENT Neck inspection of neck Overall: normal skin None Full Exam - ENT Neck inspection of neck Overall: normal appearance 04/19/2016 None Full Exam - ENT Neck inspection of neck Overall: no masses None Full Exam - ENT Respiratory inspection Overall: no retractions 04/19/2016 None Full Exam - ENT Respiratory inspection Overall: normal rate None Full Exam - ENT Respiratory auscultation Overall: breath sounds clear bilaterally 04/19/2016 None Full Exam - ENT Cardiovascular auscultation of heart Overall: regular rate 04/19/2016 None Full Exam - ENT Cardiovascular auscultation of heart Overall: normal heart sounds 04/19/2016 None Full Exam - ENT Cardiovascular auscultation of heart Overall: no murmurs 04/19/2016 None Full Exam - ENT Abdomen abdominal exam Overall: no tenderness 04/19/2016 None Full Exam - ENT Abdomen abdominal exam Overall: normal bowel sounds 04/19/2016 None Full Exam - ENT Neurologic mood and affect Overall: normal mood 04/19/2016 None Full Exam - ENT Neurologic mood and affect Overall: normal affect 04/19/2016 None Full Exam - ENT Neurologic orientation Overall: oriented to person, place and time 04/19/2016 None Full Exam - ENT Lymphatic palpation of lymph nodes Overall: anterior cervical chain benign 04/19/2016 None Full Exam - ENT Lymphatic palpation of lymph nodes Overall: posterior cervical chain benign 04/19/2016 None Full Exam - ENT Integument inspection of skin Overall: no rash, lesions 04/19/2016 None Full Exam - Orthopedics Constitutional general appearance Overall: well nourished 03/27/2016 None Full Exam - Orthopedics Constitutional general appearance Overall: well developed 03/27/2016 None Full Exam - Orthopedics Constitutional general appearance Overall: in no acute distress 03/27/2016 None Full Exam - Orthopedics Eyes conjunctiva/ eyelids Overall: conjunctiva clear 03/27/2016 None Full Exam - Orthopedics Eyes conjunctiva/ eyelids Overall: eyelids normal 03/27/2016 None Full Exam - Orthopedics Ears/Nose/Throat lips/teeth/gingiva Overall: benign lips 03/27/2016 None Full Exam - Orthopedics Respiratory respiratory effort/rhythm Overall: no retractions 03/27/2016 None Full Exam - Orthopedics Respiratory respiratory effort/rhythm Overall: normal rate 03/27/2016 None Full Exam - Orthopedics MS: spine/rib/pelvis insp & palp - S/R/P Lumbar spine palpation: tender facet joints 03/27/2016 None Full Exam - Orthopedics MS: spine/rib/pelvis range of motion - S/R/P Lumbar flexion: painful lumbar muscles with flexion 03/27/2016 None Full Exam - Orthopedics MS: spine/rib/pelvis range of motion - S/R/P Lumbar extension: painful lumbar muscles with extension 03/27/2016 None Full Exam - Orthopedics MS: spine/rib/pelvis strength & tone - S/R/P Overall: normal hip bulk and tone 03/27/2016 None Full Exam - Orthopedics MS: spine/rib/pelvis strength & tone - S/R/P Overall: full strength in hips 03/27/2016 None Full Exam - Orthopedics Neurological orientation Overall: oriented to person, place and time 03/27/2016 None Full Exam - Orthopedics Neurological orientation Overall: alert 03/27/2016 None Full Exam - General 1994 Constitutional general appearance Development: well developed 03/13/2016 None Full Exam - General 1994 Constitutional general appearance Development: appears stated age 1003/13/2016 None Full Exam - General 1994 Constitutional general appearance Hygiene/Attention to Grooming: good hygiene 03/13/2016 None Full Exam - General 1994 Eyes conjunctiva /eyelids Overall: conjunctiva clear 03/13/2016 None Full Exam - General 1994 Eyes conjunctiva /eyelids Overall: cornea clear 03/13/2016 None Full Exam - General 1994 Eyes conjunctiva /eyelids Overall: eyelids normal 03/13/2016 None Full Exam - General 1994 Eyes pupils and irises Overall: pupils equal, round, reactive to light and accomodation 03/13/2016 None Full Exam - General 1994 Ears/Nose/Throat otoscopic exam Overall: external auditory canals clear 03/13/2016 None Full Exam - General 1994 Ears/Nose/Throat otoscopic exam Overall: tympanic membranes clear 03/13/2016 None Full Exam - General 1994 Ears/Nose/Throat lips/teeth/gingiva Overall: benign lips 03/13/2016 None Full Exam - General 1994 Ears/Nose/Throat lips/teeth/gingiva Overall: normal dentition 03/13/2016 None Full Exam - General 1994 Ears/Nose/Throat oral cavity/pharynx/larynx Overall: oral mucosa clear 03/13/2016 None Full Exam - General 1994 Ears/Nose/Throat oral cavity/pharynx/larynx Overall: oropharyngeal mucosa clear 03/13/2016 None Full Exam - General 1994 Ears/Nose/Throat oral cavity/pharynx/larynx Overall: hypopharynx benign 03/13/2016 None Full Exam - General 1994 Ears/Nose/Throat oral cavity/pharynx/larynx Overall: no masses 03/13/2016 None Full Exam - General 1994 Neck thyroid Palpation: tender 2015 diffusely across neck - pt twitching away from my exam Full Exam - General 1994 Respiratory auscultation Overall: breath sounds clear bilaterally 03/13/2016 None Full Exam - General 1994 Respiratory respiratory effort/rhythm Overall: no retractions 03/13/2016 None Full Exam - General 1994 Respiratory respiratory effort/rhythm Overall: normal rate 03/13/2016 None Full Exam - General 1994 Cardiovascular extremities Overall: no clubbing 03/13/2016 None Full Exam - General 1994 Cardiovascular auscultation of heart Overall: regular rate 03/13/2016 None Full Exam - General 1994 Cardiovascular auscultation of heart Overall: normal heart sounds 03/13/2016 None Full Exam - General 1994 Abdomen abdominal exam Overall: no tenderness 03/13/2016 None Full Exam - General 1994 Abdomen abdominal exam Overall: normal bowel sounds 03/13/2016 None Full Exam - General 1994 Musculoskeletal spine, ribs and pelvis Overall: good posture 03/13/2016 None Full Exam - General 1994 Psychiatric orientation/consciousness Overall: oriented to person, place and time 03/13/2016 None Full Exam - General 1994 Psychiatric mood and affect Mood: irritable 03/13/2016 None Full Exam - General 1994 Psychiatric mood and affect Affect: constricted 03/13/2016 None Full Exam - General 1994 Psychiatric appearance Eye contact: intermittent 03/13/2016 None Full Exam - General 1994 Constitutional general appearance Evidence of Distress: anxious 03/05/2016 None Full Exam - General 1994 Eyes conjunctiva /eyelids Overall: conjunctiva clear 03/05/2016 None Full Exam - General 1994 Eyes conjunctiva /eyelids Overall: cornea clear 03/05/2016 None Full Exam - General 1994 Eyes conjunctiva /eyelids Overall: eyelids normal 03/05/2016 None Full Exam - General 1994 Ears/Nose/Throat lips/teeth/gingiva Overall: benign lips 03/05/2016 None Full Exam - General 1994 Ears/Nose/Throat lips/teeth/gingiva Overall: normal dentition 03/05/2016 None Full Exam - General 1994 Ears/Nose/Throat oral cavity/pharynx/larynx Posterior Pharynx: clear post nasal drainage 03/05/2016 None Full Exam - General 1994 Ears/Nose/Throat oral cavity/pharynx/larynx Oropharynx: erythema 03/05/2016 None Full Exam - General 1994 Respiratory auscultation Overall: breath sounds clear bilaterally 03/05/2016 None Full Exam - General 1994 Respiratory respiratory effort/rhythm Overall: no retractions 03/05/2016 None Full Exam - General 1994 Respiratory respiratory effort/rhythm Overall: normal rate 03/05/2016 None Full Exam - General 1994 Cardiovascular auscultation of heart Overall: regular rate 03/05/2016 None Full Exam - General 1994 Cardiovascular auscultation of heart Overall: normal heart sounds 03/05/2016 None Full Exam - General 1994 Musculoskeletal head and neck Overall: head atraumatic 03/05/2016 None Full Exam - General 1994 Neurologic cranial nerves Overall: crainial nerves 2 - 12 grossly intact 03/05/2016 None Full Exam - General 1994 Psychiatric orientation/consciousness Overall: oriented to person, place and time 03/05/2016 None Full Exam - General 1994 Psychiatric mood and affect Mood: anxious 03/05/2016 None Full Exam - General 1994 Ears/Nose/Throat otoscopic exam External auditory canal: partial cerumen occlusion 03/05/2016 None Full Exam - General 1994 Ears/Nose/Throat otoscopic exam Tympanic membrane: not visualized 03/05/2016 None Full Exam - General 1994 Lymphatic neck nodes Overall: shotty lymphadenopathy 03/05/2016 None Full Exam - General 1994 Eyes conjunctiva /eyelids Overall: conjunctiva clear 01/29/2016 None Full Exam - General 1994 Eyes conjunctiva /eyelids Overall: cornea clear 01/29/2016 None Full Exam - General 1994 Eyes conjunctiva /eyelids Overall: eyelids normal 01/29/2016 None Full Exam - General 1994 Ears/Nose/Throat otoscopic exam Overall: external auditory canals clear 01/29/2016 None Full Exam - General 1994 Ears/Nose/Throat lips/teeth/gingiva Overall: benign lips 01/29/2016 None Full Exam - General 1994 Ears/Nose/Throat lips/teeth/gingiva Overall: normal dentition 01/29/2016 None Full Exam - General 1994 Respiratory auscultation Overall: breath sounds clear bilaterally 01/29/2016 None Full Exam - General 1994 Respiratory respiratory effort/rhythm Overall: no retractions 01/29/2016 None Full Exam - General 1994 Respiratory respiratory effort/rhythm Overall: normal rate 01/29/2016 None Full Exam - General 1994 Cardiovascular auscultation of heart Overall: regular rate 01/29/2016 None Full Exam - General 1994 Cardiovascular auscultation of heart Overall: normal heart sounds 01/29/2016 None Full Exam - General 1994 Lymphatic neck nodes Overall: anterior cervical chain benign 01/29/2016 None Full Exam - General 1994 Musculoskeletal head and neck Overall: head atraumatic 01/29/2016 None Full Exam - General 1994 Neurologic cranial nerves Overall: crainial nerves 2 - 12 grossly intact 01/29/2016 None Full Exam - General 1994 Psychiatric orientation/consciousness Overall: oriented to person, place and time 01/29/2016 None Full Exam - General 1994 Psychiatric mood and affect Mood: irritable 01/29/2016 None Full Exam - General 1994 Psychiatric mood and affect Affect: constricted 01/29/2016 None Full Exam - General 1994 Constitutional general appearance Evidence of Distress: anxious 01/29/2016 None Full Exam - General 1994 Ears/Nose/Throat otoscopic exam Tympanic membrane: air- fluid level 01/29/2016 None Full Exam - General 1994 Ears/Nose/Throat oral cavity/pharynx/larynx Posterior Pharynx: clear post nasal drainage 01/29/2016 None Full Exam - General 1994 Ears/Nose/Throat oral cavity/pharynx/larynx Oropharynx: erythema 01/29/2016 None Full Exam - General 1994 Lymphatic neck nodes Overall: posterior cervical chain benign 01/29/2016 None Full Exam - General 1994 Psychiatric mood and affect Mood: anxious 01/29/2016 None Full Exam - General 1994 Psychiatric appearance Grooming: disheveled 01/29/2016 None Full Exam - General 1994 Constitutional general appearance Evidence of Distress: agitated 01/29/2016 None Full Exam - General 1994 Constitutional general appearance Development: well developed 12/12/2015 None Full Exam - General 1994 Constitutional general appearance Development: appears stated age 0712/12/2015 None Full Exam - General 1994 Constitutional general appearance Hygiene/Attention to Grooming: good hygiene 12/12/2015 None Full Exam - General 1994 Eyes conjunctiva /eyelids Overall: conjunctiva clear 12/12/2015 None Full Exam - General 1994 Eyes conjunctiva /eyelids Overall: cornea clear 12/12/2015 None Full Exam - General 1994 Eyes conjunctiva /eyelids Overall: eyelids normal 12/12/2015 None Full Exam - General 1994 Eyes pupils and irises Overall: pupils equal, round, reactive to light and accomodation 12/12/2015 None Full Exam - General 1994 Ears/Nose/Throat otoscopic exam Overall: external auditory canals clear 12/12/2015 None Full Exam - General 1994 Ears/Nose/Throat otoscopic exam Overall: tympanic membranes clear 12/12/2015 None Full Exam - General 1994 Ears/Nose/Throat lips/teeth/gingiva Overall: benign lips 12/12/2015 None Full Exam - General 1994 Ears/Nose/Throat lips/teeth/gingiva Overall: normal dentition 12/12/2015 None Full Exam - General 1994 Ears/Nose/Throat oral cavity/pharynx/larynx Overall: oral mucosa clear 12/12/2015 None Full Exam - General 1994 Ears/Nose/Throat oral cavity/pharynx/larynx Overall: oropharyngeal mucosa clear 12/12/2015 None Full Exam - General 1994 Ears/Nose/Throat oral cavity/pharynx/larynx Overall: hypopharynx benign 12/12/2015 None Full Exam - General 1994 Ears/Nose/Throat oral cavity/pharynx/larynx Overall: no masses 12/12/2015 None Full Exam - General 1994 Neck thyroid Palpation: tender 2015 diffusely across neck - pt twitching away from my exam Full Exam - General 1994 Respiratory auscultation Overall: breath sounds clear bilaterally 12/12/2015 None Full Exam - General 1994 Respiratory respiratory effort/rhythm Overall: no retractions 12/12/2015 None Full Exam - General 1994 Respiratory respiratory effort/rhythm Overall: normal rate 12/12/2015 None Full Exam - General 1994 Cardiovascular extremities Overall: no clubbing 12/12/2015 None Full Exam - General 1994 Cardiovascular auscultation of heart Overall: regular rate 12/12/2015 None Full Exam - General 1994 Cardiovascular auscultation of heart Overall: normal heart sounds 12/12/2015 None Full Exam - General 1994 Abdomen abdominal exam Overall: no tenderness 12/12/2015 None Full Exam - General 1994 Abdomen abdominal exam Overall: normal bowel sounds 12/12/2015 None Full Exam - General 1994 Lymphatic neck nodes Overall: anterior cervical chain benign 12/12/2015 None Full Exam - General 1994 Lymphatic neck nodes Overall: posterior cervical chain benign 12/12/2015 None Full Exam - General 1994 Musculoskeletal spine, ribs and pelvis Overall: spine benign 12/12/2015 None Full Exam - General 1994 Musculoskeletal spine, ribs and pelvis Overall: sacroiliac joint benign 12/12/2015 None Full Exam - General 1994 Musculoskeletal spine, ribs and pelvis Overall: good posture 12/12/2015 None Full Exam - General 1994 Musculoskeletal head and neck Overall: head atraumatic 12/12/2015 None Full Exam - General 1994 Musculoskeletal head and neck Overall: cervical spine benign 12/12/2015 None Full Exam - General 1994 Integument inspection of skin Overall: few scattered moles, no gross abnormalities 12/12/2015 None Full Exam - General 1994 Neurologic deep tendon reflexes Overall: deep tendon reflexes intact 12/12/2015 None Full Exam - General 1994 Neurologic cranial nerves Overall: crainial nerves 2 - 12 grossly intact 12/12/2015 None Full Exam - General 1994 Psychiatric orientation/consciousness Overall: oriented to person, place and time 12/12/2015 None Full Exam - General 1994 Psychiatric mood and affect Mood: irritable 12/12/2015 None Full Exam - General 1994 Psychiatric mood and affect Affect: constricted 12/12/2015 None Full Exam - General 1994 Psychiatric appearance Eye contact: intermittent 12/12/2015 None Full Exam - General 1994 Constitutional general appearance Development: well developed 11/23/2015 None Full Exam - General 1994 Constitutional general appearance Development: appears stated age 0611/23/2015 None Full Exam - General 1994 Constitutional general appearance Hygiene/Attention to Grooming: good hygiene 11/23/2015 None Full Exam - General 1994 Eyes conjunctiva /eyelids Overall: conjunctiva clear 11/23/2015 None Full Exam - General 1994 Eyes conjunctiva /eyelids Overall: cornea clear 11/23/2015 None Full Exam - General 1994 Eyes conjunctiva /eyelids Overall: eyelids normal 11/23/2015 None Full Exam - General 1994 Eyes pupils and irises Overall: pupils equal, round, reactive to light and accomodation 11/23/2015 None Full Exam - General 1994 Ears/Nose/Throat otoscopic exam Overall: external auditory canals clear 11/23/2015 None Full Exam - General 1994 Ears/Nose/Throat otoscopic exam Overall: tympanic membranes clear 11/23/2015 None Full Exam - General 1994 Ears/Nose/Throat lips/teeth/gingiva Overall: benign lips 11/23/2015 None Full Exam - General 1994 Ears/Nose/Throat lips/teeth/gingiva Overall: normal dentition 11/23/2015 None Full Exam - General 1994 Ears/Nose/Throat oral cavity/pharynx/larynx Overall: oral mucosa clear 11/23/2015 None Full Exam - General 1994 Ears/Nose/Throat oral cavity/pharynx/larynx Overall: oropharyngeal mucosa clear 11/23/2015 None Full Exam - General 1994 Ears/Nose/Throat oral cavity/pharynx/larynx Overall: hypopharynx benign 11/23/2015 None Full Exam - General 1994 Ears/Nose/Throat oral cavity/pharynx/larynx Overall: no masses 11/23/2015 None Full Exam - General 1994 Respiratory auscultation Overall: breath sounds clear bilaterally 11/23/2015 None Full Exam - General 1994 Respiratory respiratory effort/rhythm Overall: no retractions 11/23/2015 None Full Exam - General 1994 Respiratory respiratory effort/rhythm Overall: normal rate 11/23/2015 None Full Exam - General 1994 Cardiovascular extremities Overall: no clubbing 11/23/2015 None Full Exam - General 1994 Cardiovascular auscultation of heart Overall: regular rate 11/23/2015 None Full Exam - General 1994 Cardiovascular auscultation of heart Overall: normal heart sounds 11/23/2015 None Full Exam - General 1994 Abdomen abdominal exam Overall: no tenderness 11/23/2015 None Full Exam - General 1994 Abdomen abdominal exam Overall: normal bowel sounds 11/23/2015 None Full Exam - General 1994 Lymphatic neck nodes Overall: anterior cervical chain benign 11/23/2015 None Full Exam - General 1994 Lymphatic neck nodes Overall: posterior cervical chain benign 11/23/2015 None Full Exam - General 1994 Musculoskeletal spine, ribs and pelvis Overall: spine benign 11/23/2015 None Full Exam - General 1994 Musculoskeletal spine, ribs and pelvis Overall: sacroiliac joint benign 11/23/2015 None Full Exam - General 1994 Musculoskeletal spine, ribs and pelvis Overall: good posture 11/23/2015 None Full Exam - General 1994 Musculoskeletal head and neck Overall: head atraumatic 11/23/2015 None Full Exam - General 1994 Musculoskeletal head and neck Overall: cervical spine benign 11/23/2015 None Full Exam - General 1994 Integument inspection of skin Overall: few scattered moles, no gross abnormalities 11/23/2015 None Full Exam - General 1994 Neurologic deep tendon reflexes Overall: deep tendon reflexes intact 11/23/2015 None Full Exam - General 1994 Neurologic cranial nerves Overall: crainial nerves 2 - 12 grossly intact 11/23/2015 None Full Exam - General 1994 Psychiatric orientation/consciousness Overall: oriented to person, place and time 11/23/2015 None Full Exam - General 1994 Neck thyroid Palpation: tender 2015 diffusely across neck - pt twitching away from my exam Full Exam - General 1994 Psychiatric mood and affect Mood: irritable 11/23/2015 None Full Exam - General 1994 Psychiatric mood and affect Affect: constricted 11/23/2015 None Full Exam - General 1994 Psychiatric appearance Eye contact: intermittent 11/23/2015 None Procedures Procedure Codes Date THER/PROPH/DIAG INJ SC/IM CPT-4: 12407 03/13/2017 TRIAMCINOLONE ACET INJ NOS CPT-4: J3301 03/13/2017 KETOROLAC TROMETHAMINE INJ CPT-4: J1885 10/07/2016 THER/PROPH/DIAG INJ SC/IM CPT-4: 17267 10/03/2016 KETOROLAC TROMETHAMINE INJ CPT-4: J1885 10/03/2016 PROMETHAZINE HCL INJECTION CPT-4: J2550 10/03/2016 ROCEPHIN, PER 250 MG CPT-4: J0696 05/22/2016 TRIAMCINOLONE ACET INJ NOS CPT-4: J3301 04/19/2016 ROCEPHIN, PER 250 MG CPT-4: J0696 02/01/2016 THER/PROPH/DIAG INJ SC/IM CPT-4: 53655 02/01/2016 TRIAMCINOLONE ACET INJ NOS CPT-4: J3301 12/12/2015 Vital Signs Date Vital 04/21/2018 Blood Pressure 1: 122/64 Code : 8480-6 BMI: 26.5 Code : 31632-5 Heart Rate 1 : 78 bpm Height: 6'3" SpO2: 98% Weight: 212 lbs 04/13/2018 Blood Pressure 1: 122/60 Code : 8480-6 BMI: 27.1 Code : 53917-3 Heart Rate 1 : 93 bpm Height: 6'3" SpO2: 98% Weight: 217 lbs 03/04/2018 Blood Pressure 1: 120/76 Code : 8480-6 BMI: 27.1 Code : 01387-5 Heart Rate 1 : 104 bpm Height: 6'3" SpO2: 98% Weight: 217 lbs 02/26/2018 Blood Pressure 1: 130/86 Code : 8480-6 BMI: 27.1 Code : 18800-7 Heart Rate 1 : 76 bpm Height: 6'3" SpO2: 98% Weight: 217 lbs 11/12/2017 Blood Pressure 1: 128/78 Code : 8480-6 BMI: 28.6 Code : 00795-2 Heart Rate 1 : 92 bpm Height: 6'3" SpO2: 98% Weight: 229 lbs 03/13/2017 Blood Pressure 1: 108/78 Code : 8480-6 BMI: 29.0 Code : 53573-7 Heart Rate 1 : 101 bpm Height: 6'3" SpO2: 98% Temperature: 36.9 (C) / 98.5 (F) Weight: 232 lbs 10/07/2016 Blood Pressure 1: 126/80 Code : 8480-6 BMI: 29.5 Code : 77666-4 Heart Rate 1 : 59 bpm Height: 6'3" SpO2: 98% Weight: 236 lbs 10/02/2016 Blood Pressure 1: 124/80 Code : 8480-6 BMI: 29.5 Code : 40882-6 Heart Rate 1 : 80 bpm Height: 6'3" SpO2: 98% Temperature: 37.1 (C) / 98.8 (F) Weight: 236 lbs 09/05/2016 Blood Pressure 1: 138/80 Code : 8480-6 BMI: 29.6 Code : 44929-2 Heart Rate 1 : 91 bpm Height: 6'3" SpO2: 97% Temperature: 36.8 (C) / 98.3 (F) Weight: 237 lbs 08/02/2016 Blood Pressure 1: 146/80 Code : 8480-6 BMI: 28.7 Code : 54089-9 Heart Rate 1 : 84 bpm Height: 6'3" SpO2: 98% Temperature: 37.2 (C) / 98.9 (F) Weight: 230 lbs 07/23/2016 Blood Pressure 1: 120/72 Code : 8480-6 BMI: 29.2 Code : 06390-8 Heart Rate 1 : 85 bpm Height: 6'3" SpO2: 97% Weight: 234 lbs 07/04/2016 Blood Pressure 1: 118/78 Code : 8480-6 Heart Rate 1: 116 bpm SpO2: 96% Temperature: 36.1 (C) / 96.9 (F) 07/02/2016 Blood Pressure 1: 130/92 Code : 8480-6 Heart Rate 1: 93 bpm SpO2: 98% Weight: 232 lbs 06/07/2016 Blood Pressure 1: 118/88 Code : 8480-6 BMI: 29.6 Code : 55390-7 Heart Rate 1 : 91 bpm Height: 6'3" SpO2: 88% Weight: 237 lbs 05/22/2016 Blood Pressure 1: 152/80 Code : 8480-6 BMI: 29.6 Code : 11824-6 Heart Rate 1 : 114 bpm Height: 6'3" SpO2: 98% Temperature: 37.1 (C) / 98.7 (F) Weight: 237 lbs 05/09/2016 Blood Pressure 1: 124/80 Code : 8480-6 Heart Rate 1: 88 bpm Height: SpO2: 96% Weight: 04/19/2016 Blood Pressure 1: 118/70 Code : 8480-6 Heart Rate 1: 78 bpm SpO2: 96% Temperature: 36.3 (C) / 97.4 (F) 03/27/2016 Blood Pressure 1: 110/80 Code : 8480-6 BMI: 29.7 Code : 42032-9 Heart Rate 1 : 111 bpm Height: 6'3" SpO2: 95% Weight: 238 lbs 03/13/2016 Blood Pressure 1: 136/82 Code : 8480-6 BMI: 30.0 Code : 12607-6 Heart Rate 1 : 90 bpm Height: 6'3" SpO2: 98% Weight: 240 lbs 03/05/2016 Blood Pressure 1: 120/84 Code : 8480-6 BMI: 28.6 Code : 28826-8 Heart Rate 1 : 95 bpm Height: 6'3" SpO2: 98% Temperature: 37.1 (C) / 98.8 (F) Weight: 229 lbs 01/29/2016 Blood Pressure 1: 118/74 Code : 8480-6 BMI: 28.6 Code : 18529-1 Heart Rate 1 : 89 bpm Height: 6'3" SpO2: 98% Temperature: 36.3 (C) / 97.3 (F) Weight: 229 lbs 01/02/2016 Blood Pressure 1: 118/68 Code : 8480-6 BMI: 29.7 Code : 68655-7 Heart Rate 1 : 81 bpm Height: 6'3" SpO2: 98% Weight: 238 lbs 12/12/2015 Blood Pressure 1: 112/80 Code : 8480-6 BMI: 28.7 Code : 84868-5 Heart Rate 1 : 84 bpm Height: 6'3" SpO2: 97% Weight: 230 lbs 11/23/2015 Blood Pressure 1: 118/78 Code : 8480-6 BMI: 28.6 Code : 68135-4 Heart Rate 1 : 85 bpm Height: 6'3" SpO2: 98% Weight: 228 lbs 8 oz Functional Status No Functional Status data History of Present Illness Symptom Name Status Result Effective Date Notes medication follow up Additional Comments medication use 04/21/2018 None medication follow up Location oral intake 04/21/2018 None pre-op/surgery consult Referred by Dr. rueda 04/13/2018 None pre-op/surgery consult Scheduled date of procedure 04/14/2018 04/13/2018 None pre-op/surgery consult Significant Medical Conditions thyroid problem 04/13/2018 None pre-op/surgery consult Pertinent Findings Denies fever 04/13/2018 None foot pain Location on the right 03/04/2018 None foot pain Location at the MP joint of the great toe 03/04/2018 None foot pain Quality sharp pain 03/04/2018 None foot pain Quality stable 03/04/2018 None foot pain Quality tenderness 03/04/2018 None foot pain Quality constant 03/04/2018 None foot pain Onset of Symptom 2 days ago 03/04/2018 None foot pain Limitation on Activities restricts weight bearing activity 03/04/2018 None foot pain Mechanism of injury unknown 03/04/2018 None foot pain Pertinent Findings decreased range of motion 03/04/2018 None foot pain Pertinent Findings pain with movement 03/04/2018 None foot pain Pertinent Findings stiffness 03/04/2018 None foot pain Pertinent Findings swelling 03/04/2018 None shoulder pain Location on the left shoulder 02/26/2018 None shoulder pain Quality constant 02/26/2018 for 2 days shoulder pain Quality chronic 02/26/2018 None shoulder pain Quality worsening 02/26/2018 None shoulder pain Quality mechanical-- popping 02/26/2018 None shoulder pain Onset and Resolution ongoing 02/26/2018 None shoulder pain Onset of Symptom years ago 02/26/2018 but incident occurred 2 days ago shoulder pain Frequency of Episodes daily 02/26/2018 None shoulder pain Limitation on Activities moderately limits activities 02/26/2018 None shoulder pain Mechanism of injury lifting 02/26/2018 his 30 lb son shoulder pain Exacerbating Factors position change 02/26/2018 None shoulder pain Pertinent Findings swelling 02/26/2018 None hypothyroid Onset and Resolution ongoing 11/12/2017 None hypothyroid Pertinent Findings decreased energy 11/12/2017 None hypothyroid Pertinent Findings Denies decreased sweating 11/12/2017 increased sweating hypothyroid Pertinent Findings dysphagia with liquids 11/12/2017 None hypothyroid Pertinent Findings dysphagia with solids 11/12/2017 None hypothyroid Pertinent Findings dyspnea 11/12/2017 None hypothyroid Pertinent Findings edema 11/12/2017 None hypothyroid Pertinent Findings hoarseness 11/12/2017 None hypothyroid Pertinent Findings increased need for sleep 11/12/2017 None hypothyroid Pertinent Findings lethargy 11/12/2017 None hypothyroid Pertinent Findings nervousness 11/12/2017 None headache Location diffusely 11/12/2017 None headache Quality intermittent 11/12/2017 None headache Quality chronic 11/12/2017 None headache Pertinent Findings irritability 11/12/2017 None headache Pertinent Findings Denies facial pain 11/12/2017 None sinus congestion Location on both sides 03/13/2017 None sinus congestion Quality constant 03/13/2017 None sinus congestion Quality fullness 03/13/2017 None sinus congestion Quality pain 03/13/2017 None sinus congestion Quality pressure 03/13/2017 None sinus congestion Onset and Resolution sudden in onset 03/13/2017 None sinus congestion Frequency of Episodes daily 03/13/2017 None sinus congestion Pertinent Findings cough 03/13/2017 None sinus congestion Pertinent Findings decreased energy level 03/13/2017 None sinus congestion Pertinent Findings facial pain 03/13/2017 None sinus congestion Pertinent Findings fever 03/13/2017 None sinus congestion Pertinent Findings hoarseness 03/13/2017 None sinus congestion Pertinent Findings nasal crusting 03/13/2017 None sinus congestion Onset of Symptom 2 days ago 03/13/2017 None dyskinesia or tremor Location diffusely 10/07/2016 None dyskinesia or tremor Quality constant 10/07/2016 None dyskinesia or tremor Onset and Resolution sudden in onset 10/07/2016 None dyskinesia or tremor Onset of Symptom 2 weeks ago 10/07/2016 None dyskinesia or tremor Limitation on Activities moderately limits activities 10/07/2016 None dyskinesia or tremor Frequency of Episodes daily 10/07/2016 None dyskinesia or tremor Location diffusely 10/02/2016 None dyskinesia or tremor Quality constant 10/02/2016 None dyskinesia or tremor Onset and Resolution sudden in onset 10/02/2016 None dyskinesia or tremor Onset of Symptom 2 weeks ago 10/02/2016 None dyskinesia or tremor Frequency of Episodes daily 10/02/2016 None dyskinesia or tremor Limitation on Activities moderately limits activities 10/02/2016 None hypertension Quality acute 09/05/2016 None hypertension Onset and Resolution resolved 09/05/2016 None hypertension Onset of Symptom during adulthood 09/05/2016 None hypertension Blood Pressure Values Stage 2:SBP 160-179 mmHg / DBP 100-109 mmHg 09/05/2016 None hypertension Severity not consistently severe symptoms, the symptoms fluctuate from no symptoms to anxiety and headaches 09/05/2016 None hypertension Frequency of Episodes decreasing 09/05/2016 None hypertension Triggers stress 09/05/2016 None hypertension Alleviating Factors medication 09/05/2016 symptoms improved after receiving ativan hypertension Pertinent Findings dizziness 09/05/2016 None hypertension Pertinent Findings dyspnea 09/05/2016 None hypertension Pertinent Findings edema 09/05/2016 None hypothyroid Onset and Resolution ongoing 09/05/2016 None hypothyroid Pertinent Findings Denies decreased sweating 09/05/2016 increased sweating hypothyroid Pertinent Findings dyspnea 09/05/2016 None hypothyroid Pertinent Findings edema 09/05/2016 None hypothyroid Pertinent Findings increased need for sleep 09/05/2016 None vomiting Quality projectile 09/05/2016 None vomiting Quality acute 09/05/2016 None vomiting Quality dry heaves 09/05/2016 None vomiting Onset and Resolution sudden in onset 09/05/2016 None vomiting Onset of Symptom 3 days ago 09/05/2016 None vomiting Severity severe 09/05/2016 None vomiting Frequency of Episodes unchanged 09/05/2016 None vomiting Triggers no known associated factors 09/05/2016 son was sick et admitted to hospital with similar symptoms vomiting Pertinent Findings abdominal distension 09/05/2016 None vomiting Pertinent Findings chills 09/05/2016 None vomiting Pertinent Findings cough 09/05/2016 None vomiting Pertinent Findings decreased energy level 09/05/2016 None vomiting Pertinent Findings decreased liquid intake 09/05/2016 None vomiting Pertinent Findings feeding poorly 09/05/2016 None vomiting Pertinent Findings fever 09/05/2016 None vomiting Pertinent Findings lightheadedness 09/05/2016 None vomiting Pertinent Findings nausea 09/05/2016 None vomiting Pertinent Findings tachycardic 09/05/2016 None vomiting Pertinent Findings unable to tolerate any liquids 09/05/2016 everything comes right back up hypertension Blood Pressure Values not checking blood pressure at home 09/05/2016 None hypertension Pertinent Findings anxiety 09/05/2016 None hypertension Pertinent Findings heat intolerance 09/05/2016 None hypertension Pertinent Findings decreased energy 09/05/2016 None hypertension Pertinent Findings muscle weakness 09/05/2016 None hypertension Pertinent Findings lethargy 09/05/2016 None hypertension Pertinent Findings palpitations 09/05/2016 None hypertension Pertinent Findings vomiting 09/05/2016 None hypertension Pertinent Findings tachycardia 09/05/2016 None hypertension Pertinent Findings nausea 09/05/2016 None hypothyroid Pertinent Findings decreased energy 09/05/2016 None hypothyroid Pertinent Findings dysphagia with solids 09/05/2016 None hypothyroid Pertinent Findings dysphagia with liquids 09/05/2016 None hypothyroid Pertinent Findings hoarseness 09/05/2016 None hypothyroid Pertinent Findings lethargy 09/05/2016 None hypothyroid Pertinent Findings nervousness 09/05/2016 None hypertension Quality acute 08/02/2016 None hypertension Onset and Resolution resolved 08/02/2016 None hypertension Onset of Symptom during adulthood 08/02/2016 None hypertension Blood Pressure Values Stage 2:SBP 160-179 mmHg / DBP 100-109 mmHg 08/02/2016 None hypertension Severity not consistently severe symptoms, the symptoms fluctuate from no symptoms to anxiety and headaches 08/02/2016 None hypertension Frequency of Episodes decreasing 08/02/2016 None hypertension Triggers stress 08/02/2016 None hypertension Alleviating Factors medication 08/02/2016 symptoms improved after receiving ativan hypothyroid Onset and Resolution ongoing 08/02/2016 None hypertension Pertinent Findings Denies dizziness 08/02/2016 None hypertension Pertinent Findings Denies dyspnea 08/02/2016 None hypertension Pertinent Findings Denies edema 08/02/2016 None hypothyroid Pertinent Findings Denies decreased sweating 08/02/2016 increased sweating hypothyroid Pertinent Findings Denies dyspnea 08/02/2016 None hypothyroid Pertinent Findings Denies edema 08/02/2016 None hypothyroid Pertinent Findings increased need for sleep 08/02/2016 None gastroesophageal reflux Quality constant 07/23/2016 None gastroesophageal reflux Quality heartburn 07/23/2016 None gastroesophageal reflux Quality regurgitation of acid 07/23/2016 None gastroesophageal reflux Onset and Resolution sudden in onset 07/23/2016 None gastroesophageal reflux Onset of Symptom 2 weeks ago 07/23/2016 None gastroesophageal reflux Frequency of Episodes daily 07/23/2016 None gastroesophageal reflux Exacerbating Factors drinking 07/23/2016 None gastroesophageal reflux Exacerbating Factors eating 07/23/2016 None gastroesophageal reflux Pertinent Findings cough 07/23/2016 None vomiting Pertinent Findings nausea 07/04/2016 None vomiting Pertinent Findings tachycardic 07/04/2016 None vomiting Pertinent Findings unable to tolerate any liquids 07/04/2016 everything comes right back up vomiting Pertinent Findings lightheadedness 07/04/2016 None vomiting Pertinent Findings fever 07/04/2016 None vomiting Pertinent Findings feeding poorly 07/04/2016 None vomiting Pertinent Findings decreased liquid intake 07/04/2016 None vomiting Pertinent Findings decreased energy level 07/04/2016 None vomiting Pertinent Findings chills 07/04/2016 None vomiting Pertinent Findings cough 07/04/2016 None vomiting Pertinent Findings abdominal distension 07/04/2016 None vomiting Onset and Resolution sudden in onset 07/04/2016 None vomiting Onset of Symptom 3 days ago 07/04/2016 None vomiting Quality projectile 07/04/2016 None vomiting Quality acute 07/04/2016 None vomiting Quality dry heaves 07/04/2016 None vomiting Severity severe 07/04/2016 None vomiting Triggers no known associated factors 07/04/2016 son was sick et admitted to hospital with similar symptoms vomiting Frequency of Episodes unchanged 07/04/2016 None ~generic Quality constant 07/02/2016 None ~generic Onset of Symptom 4 weeks ago 07/02/2016 None ~generic Onset and Resolution sudden in onset 07/02/2016 None dyskinesia or tremor Location in the fingers of both hands 07/02/2016 None dyskinesia or tremor Quality intermittent 07/02/2016 None dyskinesia or tremor Onset and Resolution sudden in onset 07/02/2016 None dyskinesia or tremor Onset of Symptom 2 weeks ago 07/02/2016 None dyskinesia or tremor Frequency of Episodes daily 07/02/2016 None hypertension Quality acute 06/07/2016 None hypertension Onset and Resolution resolved 06/07/2016 None hypertension Onset of Symptom during adulthood 06/07/2016 None hypertension Blood Pressure Values Stage 2:SBP 160-179 mmHg / DBP 100-109 mmHg 06/07/2016 None hypertension Severity not consistently severe symptoms, the symptoms fluctuate from no symptoms to anxiety and headaches 06/07/2016 None hypertension Frequency of Episodes decreasing 06/07/2016 None hypertension Triggers stress 06/07/2016 None hypertension Alleviating Factors medication 06/07/2016 symptoms improved after receiving ativan hypothyroid Onset and Resolution ongoing 06/07/2016 None sinus congestion Location on both sides 05/22/2016 None sinus congestion Quality fullness 05/22/2016 None sinus congestion Quality constant 05/22/2016 None sinus congestion Quality pain 05/22/2016 None sinus congestion Quality pressure 05/22/2016 None sinus congestion Onset and Resolution sudden in onset 05/22/2016 None sinus congestion Onset of Symptom 4 days ago 05/22/2016 None sinus congestion Frequency of Episodes daily 05/22/2016 None sinus congestion Pertinent Findings cough 05/22/2016 None sinus congestion Pertinent Findings decreased energy level 05/22/2016 None sinus congestion Pertinent Findings facial pain 05/22/2016 None sinus congestion Pertinent Findings fever 05/22/2016 None sinus congestion Pertinent Findings hoarseness 05/22/2016 None sinus congestion Pertinent Findings nasal crusting 05/22/2016 None Hospital Follow Up _ Other: _ 05/09/2016 None Hospital Follow Up Quality acute illness 05/09/2016 None Hospital Follow Up Onset of Symptom 1 days ago 05/09/2016 None Hospital Follow Up Pertinent Findings Denies pain 05/09/2016 None hypertension Quality acute 05/09/2016 None hypertension Onset and Resolution resolved 05/09/2016 None hypertension Onset of Symptom during adulthood 05/09/2016 None hypertension Blood Pressure Values Stage 2:SBP 160-179 mmHg / DBP 100-109 mmHg 05/09/2016 None hypertension Severity not consistently severe symptoms, the symptoms fluctuate from no symptoms to anxiety and headaches 05/09/2016 None hypertension Frequency of Episodes decreasing 05/09/2016 None hypertension Triggers stress 05/09/2016 None hypertension Alleviating Factors medication 05/09/2016 symptoms improved after receiving ativan cough Location in the throat 04/19/2016 None cough Quality dry None cough Onset and Resolution sudden in onset 04/19/2016 None cough Onset of Symptom 1 days ago 04/19/2016 None cough Frequency of Episodes hourly 04/19/2016 None cough Pertinent Findings chest discomfort 04/19/2016 None cough Pertinent Findings dyspnea 04/19/2016 None cough Pertinent Findings Denies fever 04/19/2016 None cough Triggers no known associated factors 04/19/2016 None back pain Location in the right lower back area 03/27/2016 None back pain Quality aching 03/27/2016 None back pain Quality constant 03/27/2016 None back pain Quality pinching 03/27/2016 None back pain Quality worsening 03/27/2016 None back pain Quality tingling 03/27/2016 None back pain Quality radiating 03/27/2016 None back pain Onset and Resolution sudden in onset 03/27/2016 None back pain Onset of Symptom 5 days ago 03/27/2016 None back pain Frequency of Episodes daily 03/27/2016 None back pain Triggers lifting 03/27/2016 None back pain Alleviating Factors medication 03/27/2016 None back pain Mechanism of injury heavy lifting 03/27/2016 None back pain Radiating down the right leg 03/27/2016 None hypothyroid Onset and Resolution ongoing 03/13/2016 None hypothyroid Onset of Symptom 10 years ago 03/13/2016 None hypothyroid Onset of Symptom during adulthood 03/13/2016 None hypothyroid Severity severe 03/13/2016 None hypothyroid Alleviating Factors medication 03/13/2016 None cough Location in the throat 03/05/2016 None cough Quality hacking 03/05/2016 None cough Quality constant 03/05/2016 None cough Onset and Resolution sudden in onset 03/05/2016 None cough Onset of Symptom 4 days ago 03/05/2016 None cough Frequency of Episodes daily 03/05/2016 None cough Pertinent Findings Denies chest discomfort 03/05/2016 None cough Pertinent Findings hoarseness 03/05/2016 None sore throat Location diffusely 03/05/2016 None sore throat Quality constant 03/05/2016 None sore throat Quality burning 03/05/2016 None sore throat Quality aching 03/05/2016 None sore throat Quality scratchy 03/05/2016 None sore throat Quality sharp 03/05/2016 None sore throat Onset and Resolution sudden in onset 03/05/2016 None sore throat Onset of Symptom 4 days ago 03/05/2016 None sore throat Frequency of Episodes daily 03/05/2016 None sore throat Pertinent Findings cough 03/05/2016 None sore throat Pertinent Findings hoarseness 03/05/2016 None sore throat Pertinent Findings vomiting 03/05/2016 None cough Location in the throat 01/29/2016 None cough Quality constant 01/29/2016 None cough Quality hacking 01/29/2016 None cough Onset and Resolution sudden in onset 01/29/2016 None cough Onset of Symptom 3 days ago 01/29/2016 None cough Frequency of Episodes daily 01/29/2016 None sore throat Location diffusely 01/29/2016 None sore throat Quality constant 01/29/2016 None sore throat Quality burning 01/29/2016 None sore throat Quality aching 01/29/2016 None sore throat Onset and Resolution sudden in onset 01/29/2016 None sore throat Onset of Symptom 3 days ago 01/29/2016 None sore throat Frequency of Episodes daily 01/29/2016 None headache Location diffusely 01/02/2016 None headache Quality squeezing 01/02/2016 None headache Onset and Resolution sudden in onset 01/02/2016 None headache Onset of Symptom 1 weeks ago 01/02/2016 None hypothyroid Onset of Symptom 10 years ago 01/02/2016 None nausea Onset and Resolution sudden in onset 01/02/2016 None nausea Onset of Symptom 1 weeks ago 01/02/2016 None nausea Triggers no known associated factors 01/02/2016 None near-syncope/dizziness Quality intermittent 01/02/2016 None near-syncope/dizziness Onset and Resolution sudden in onset 01/02/2016 None near-syncope/dizziness Onset of Symptom 1 weeks ago 01/02/2016 None near-syncope/dizziness Triggers no known associated factors 01/02/2016 None near-syncope/dizziness Pertinent Findings lightheadedness 01/02/2016 None near-syncope/dizziness Pertinent Findings nausea 01/02/2016 None near-syncope/dizziness Pertinent Findings syncope 01/02/2016 None dysphagia Location in the throat 12/12/2015 None dysphagia Quality acute 12/12/2015 None hypothyroid Quality worsening 12/12/2015 None hypothyroid Onset and Resolution ongoing 12/12/2015 None hypothyroid Onset of Symptom 10 years ago 12/12/2015 None hypothyroid Onset of Symptom during adulthood 12/12/2015 None hypothyroid Severity severe 12/12/2015 None hypothyroid Alleviating Factors medication 12/12/2015 None dysphagia Onset and Resolution gradual in onset 12/12/2015 None dysphagia Quality difficulty with all liquids and solids 12/12/2015 None dysphagia Quality sensation of a lump in the throat 12/12/2015 None dysphagia Onset of Symptom 2 days ago 12/12/2015 None dysphagia Limitation on Activities limits oral intake 12/12/2015 None dysphagia Triggers no known associated factors 12/12/2015 None hypothyroid Onset and Resolution ongoing 11/23/2015 None hypothyroid Quality worsening 11/23/2015 None hypothyroid Onset of Symptom 10 years ago 11/23/2015 None hypothyroid Onset of Symptom during adulthood 11/23/2015 None hypothyroid Severity severe 11/23/2015 None hypothyroid Alleviating Factors medication 11/23/2015 None Advance Directives No Advance Directive data Encounters Encounter Performer Location Codes Date EST. PATIENT, LEVEL III Diagnosis: Pain in left shoulder[ICD10: M25.512] Maria G Calderon MD, [facility] CPT-4: 69409 04/21/2018 21506 EST. PATIENT, LEVEL III Diagnosis: Encounter for other preprocedural examination[ICD10: Z01.818] Diagnosis: Pain in left shoulder[ICD10: M25.512] [facility] CPT-[facility]: 93232 04/13/2018 17838 EST. 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 PATIENT, LEVEL III Diagnosis: Pain in left shoulder[ICD10: M25.512] Mary Calderon MD, [facility] CPT-4: 57792 02/26/2018 51686 EST. PATIENT, LEVEL IV Diagnosis: Other specified hypothyroidism[ICD10: E03.8] Diagnosis: Headache[ICD10: R51] Maria G Calderon MD, [facility] CPT-4: 11760 11/12/2017 51296 EST. PATIENT, LEVEL III Diagnosis: Acute laryngopharyngitis[ICD10: J06.0] Diagnosis: Cough[ICD10: R05] Diagnosis: Other allergic rhinitis[ICD10: J30.89] Diagnosis: Other acute sinusitis[ICD10: J01.80] Maria G Calderon MD, [facility] CPT-4: 19979 03/13/2017 25563 EST. PATIENT, LEVEL IV Diagnosis: Headache[ICD10: R51] Diagnosis: Other specified forms of tremor[ICD10: G25.2] Diagnosis: Other muscle spasm[ICD10: M62.838] Diagnosis: Generalized anxiety disorder[ICD10: F41.1] Diagnosis: Major depressive disorder, single episode, moderate[ICD10: F32.1] Diagnosis: Gastro-esophageal reflux disease without esophagitis[ICD10: K21.9] Maria G Calderon MD, [facility] CPT-4: 55396 10/07/2016 28541 EST. PATIENT, LEVEL IV Diagnosis: Other specified forms of tremor[ICD10: G25.2] Diagnosis: Other muscle spasm[ICD10: M62.838] Diagnosis: Gastro-esophageal reflux disease without esophagitis[ICD10: K21.9] Maria G Calderon MD, [facility] CPT-4: 60044 10/02/2016 ([id number]) 71939 EST. PATIENT, LEVEL III Diagnosis: Hypothyroidism, unspecified[ICD10: E03.9] Mary Calderon MD, [facility] CPT-4: 14636 09/05/2016 ([id number]) 08570 EST. PATIENT, LEVEL III Diagnosis: Gastro-esophageal reflux disease without esophagitis[ICD10: K21.9] Diagnosis: Epigastric pain[ICD10: R10.13] Mary Calderon MD, [facility] CPT-4: 93772 08/02/2016 31448 EST. PATIENT, LEVEL IV Diagnosis: Gastro-esophageal reflux disease without esophagitis[ICD10: K21.9] Diagnosis: Generalized abdominal pain[ICD10: R10.84] Maria G Calderon MD, [facility] CPT-4: 68483 07/23/2016 ([id number]) 95991 EST. PATIENT, LEVEL III Diagnosis: Nausea[ICD10: R11.0] Mary Calderon MD, [facility] CPT-4: 01036 07/04/2016 ([id number]) 96850 EST. PATIENT, LEVEL III Diagnosis: Atrophy of thyroid (acquired)[ICD10: E03.4] Diagnosis: Essential (primary) hypertension[ICD10: I10] Sonia Calderon MD, [facility] CPT-4: 00467 07/02/2016 ([id number]) 02211 EST. PATIENT, LEVEL III Diagnosis: Essential (primary) hypertension[ICD10: I10] Diagnosis: Hypothyroidism, unspecified[ICD10: E03.9] Diagnosis: Generalized anxiety disorder[ICD10: F41.1] Mary Calderon MD, [facility] CPT-4: 54358 06/07/2016 41024 EST. PATIENT, LEVEL III Diagnosis: Other allergic rhinitis[ICD10: J30.89] Diagnosis: Acute laryngopharyngitis[ICD10: J06.0] Maria G Calderon MD, [facility] CPT-4: 36974 05/22/2016 ([id number]) 31308 EST. PATIENT, LEVEL IV Diagnosis: Generalized anxiety disorder[ICD10: F41.1] Diagnosis: Chronic kidney disease, stage 3 (moderate)[ICD10: N18.3] Mary Calderon MD , [facility] CPT-4: 77135 05/09/2016 ([id number]) 99484 EST. PATIENT, LEVEL III Diagnosis: Nasal congestion[ICD10: R09.81] Diagnosis: Hypothyroidism, unspecified[ICD10: E03.9] Mary Calderon MD, [facility] CPT-4: 86704 04/19/2016 60622 EST. PATIENT, LEVEL III Diagnosis: Low back pain[ICD10: M54.5] Maria G Calderon MD, [facility] CPT-4 : 68651 03/27/2016 ([id number]) 66114 EST. PATIENT, LEVEL IV Diagnosis: Essential (primary) hypertension[ICD10: I10] Diagnosis: Major depressive disorder, single episode, unspecified[ICD10: F32.9] Diagnosis: Other specified hypothyroidism[ICD10: E03.8] Diagnosis: Gastro-esophageal reflux disease without esophagitis[ICD10: K21.9] Sonia Calderon MD, [facility] CPT-4: 92128 03/13/2016 64288 EST. PATIENT, LEVEL IV Diagnosis: Acute laryngopharyngitis[ICD10: J06.0] Maria G Calderon MD, [facility] CPT-4: 36577 03/05/2016 36796 EST. PATIENT, LEVEL IV Diagnosis: Acute laryngopharyngitis[ICD10: J06.0] Maria G Calderon MD, [facility] CPT-4: 72074 01/29/2016 ([id number]) 23679 EST. PATIENT, LEVEL IV Diagnosis: Essential (primary) hypertension[ICD10: I10] Diagnosis: Hypothyroidism, unspecified[ICD10: E03.9] Diagnosis: Major depressive disorder, single episode, unspecified[ICD10: F32.9] Sonia Calderon MD, [facility] CPT-4: 27636 01/02/2016 ([id number]) 68205 EST. PATIENT, LEVEL IV Diagnosis: Hypothyroidism, unspecified[ICD10: E03.9] Diagnosis: Major depressive disorder, single episode, unspecified[ICD10: F32.9] Sonia Calderon MD, [facility] CPT-4: 58226 12/12/2015 ([id number]) PREV VISIT NEW AGE 18-39 Diagnosis: Encounter for general adult medical examination with abnormal findings[ICD10: Z00.01] Diagnosis: Hypothyroidism, unspecified[ICD10: E03.9] Sonia Claderon MD, [facility] CPT-4: 91028 11/23/2015 Plan of Care Planned Activity Notes Codes Status Date Visit Plan: Pain after shoulder surgery - discussed with Dr. Calderon - pt is to contact his surgeon for any pain medication needed related to his recent surgeries. Pt is to only take medications as directed. 04/21/2018 Patient Education: Patient Medication Summary Completed 04/21/2018 Visit Plan: Surgical clearance - Dr. Calderon in to evaluate pt - [place] for surgery - pt is to update clinic with any changes in current treatment plan, or with any questions or concerns. 04/13/2018 Visit Plan: Surgical clearance - Dr. Calderon in to evaluate pt - [place] for surgery - pt is to update clinic with any changes in current treatment plan, or with any questions or concerns. ADDENDUM: Doctor's eval of the patient - I, Dr. Calderon, personally evaluated the patient with the nurse practitioner. I have reviewed the patient's chart, I have reviewed the patient's past medical history, problem list, medication list, and personal history. I agree with the documentation by the nurse practitioner in the HPI, physical exam, and the assessment and plan. 04/13/2018 Appointment: Maria G Mendez WPtel: [facility] [address] (15 min) Moderate 04/13/2018 Patient Education: Patient Medication Summary Completed 04/13/2018 Visit Plan: Gout Attack - pt given RX for uric Acid Level, and rx for medication for treatment of symptoms. Pt to call if symptoms do not improve, and pt to be given results of labs when available. 03/04/2018 Appointment: Maria G Mendez WPtel: [facility]5 [facility] [address] (15 min) Moderate 03/04/2018 Patient Education: Patient Medication Summary Completed 03/04/2018 Patient Education: Gout Completed 03/04/2018 Visit Plan: Left shoulder pain -xray today - tylenol as needed -rest -will call with xray results 02/26/2018 Appointment: Mary Downey WPtel: [phone] [place] (15 min) Moderate 02/26/2018 Patient Education: Patient Medication Summary Completed 02/26/2018 Appointment: Maria G Mendez WPtel: [address] [place], [place] [phone] [place] (30 min) Complex 12/08/2017 Visit Plan: Hypothyroidism - pt with chronic hypothyroidism , continue with current medication, will monitor pt to signs or symptoms of lack of adequate supplementation. Pt is to continue with current dose of medication unless directed otherwise. Check labs at regular intervals wither q 3 months or q 6 months based on previous levels of control. Migraine Headaches - will send RX - pt is to notify clinic if symptoms do not improve, if they worsen, or with any changes, questions, or concerns. 11/12/2017 Appointment: [facility] G Mendez [facility]Ptel[phone] [facility] (15 min) Moderate 11/12/2017 Patient Education: Patient Medication Summary Completed 11/12/2017 Visit Plan: URI - Pt advised to increase fluids, vitamin C. Discussed natural and expected course of this diagnosis and need to alert me if symptoms do not follow expected course, or if any worse. RX sent to patient' s pharmacy. Sinusitis - Pt has acute infection - pain in face, maxillary region , Pt informed to use decongestant, RX given to patient, sinus rinses also recommended. Call if symptoms do not show improvement. Allergies - chronic - recommended pt to use allergy medication as prescribed. Pt has been counseled as to the appropriate use of the medication. Pt to call if allergy symptoms are not controlled with the medication. If using nasal spray, instructions as follows: Nasal spray- use twice daily, one spray per nostril twice daily, after 30 minutes, rinse out nose with saline spray.. Use opposite hand per nostril to spray in the nasal steroid allergy spray. 03/13/2017 Appointment: Maria G Mendez [facility]el[phone] [phone] (15 min) Moderate 03/13/2017 Patient Education: Patient Medication Summary Completed 03/13/2017 Patient Education: Obesity Completed 03/13/2017 Care Plan: Referral Order SNOMED-CT : [id number] Pending 10/08/2016 Visit Plan: Headaches, tics, tremors - will send RX - will refer to Neurology and psychiatry for evaluation - pt is to notify clinic if symptoms do not improve, if they worsen, or with any questions or concerns. Chronic Depression and anxiety - the pt has symptoms of chronic anxiety and depression that have been fairly well controlled since the last office visit. The pt has expected periods of exacerbation with abatement of the symptoms with change in situational exposure. No change in current medications. Esophageal Reflux - the patient has been counseled against excessive intake of caffeine, spicy foods, peppermint, and cinnamon - all of which can exacerbate esophageal reflux. The patient is to take medications as prescribed and call the office if the symptoms are not improving. 10/07/2016 Visit Plan: Headaches, tics, tremors - will send RX - will refer to Neurology and psychiatry for evaluation - pt is to notify clinic if symptoms do not improve, if they worsen, or with any questions or concerns. Chronic Depression and anxiety - the pt has symptoms of chronic anxiety and depression that have been fairly well controlled since the last office visit. The pt has expected periods of exacerbation with abatement of the symptoms with change in situational exposure. No change in current medications. Esophageal Reflux - the patient has been counseled against excessive intake of caffeine, spicy foods, peppermint, and cinnamon - all of which can exacerbate esophageal reflux. The patient is to take medications as prescribed and call the office if the symptoms are not improving. 10/07/2016 Appointment: Maria G Mendez WPtel: [facility]5 [facility] [address] (30 min) Complex 10/07/2016 Patient Education: Patient Medication Summary Completed 10/07/2016 Appointment: Mary Downey WPtel: [facility] [phone] (15 min) Moderate 10/04/2016 Appointment: [place] 10/03/2016 Patient Education: Patient Medication Summary Completed 10/03/2016 Visit Plan: Esophageal Reflux - the patient has been counseled against excessive intake of caffeine, spicy foods, peppermint, and cinnamon - all of which can exacerbate esophageal reflux. The patient is to take medications as prescribed and call the office if the symptoms are not improving. Anxiety, tremors, headaches - pt states that he has seen a neurologist and that he got no answers from his appointment - Discussed with Dr. Calderon - will start on Topamax - pt is to notify clinic if symptoms do not improve, if they worsen, or with any questions or concerns. 10/02/2016 Appointment: Maria G Mendez WPtel: [phone] [facility] [address] (15 min) Moderate 10/02/2016 Patient Education: Patient Medication Summary Completed 10/02/2016 Patient Education: Obesity Completed 10/02/2016 Visit Plan: Post ablative hypothyroidism-check labs-refer to host/hostess ground 09/05/2016 Patient Education: Patient Medication Summary Completed 09/05/2016 Visit Plan: Esophageal Reflux - the patient has been counseled against excessive intake of caffeine, spicy foods, peppermint, and cinnamon - all of which can exacerbate esophageal reflux. The patient is to take medications as prescribed and call the office if the symptoms are not improving. 08/02/2016 Appointment: Mary Downey WPtel: [facility] [phone] (15 min) Moderate 08/02/2016 Patient Education: Patient Medication Summary Completed 08/02/2016 Patient Education: Obesity Completed 08/02/2016 Care Plan: CT ABD & PELV W/CONTRAST LOINC : 88326-4 Pending 07/28/2016 Visit Plan: Esophageal Reflux - the patient has been counseled against excessive intake of caffeine, spicy foods, peppermint, and cinnamon - all of which can exacerbate esophageal reflux. The patient is to take medications as prescribed and call the office if the symptoms are not improving. Acute abdominal pain - will order CT 07/23/2016 Appointment: Maria G Mendez WPtel: [facility] [place] [address] (30 min) Complex 07/23/2016 Patient Education: Patient Medication Summary Completed 07/23/2016 Patient Education: Obesity Completed 07/23/2016 Appointment: Sonia Calderon WPtel: [address] [place], [place] [id number] (15 min) Moderate 07/09/2016 Visit Plan: Gastroenteritis - discussed need to stay away from milk products while acutely ill with diarrhea and nausea and emesis as it may worsen the symptoms. Liquids initially until the nausea improves, then recommend to advance to bland diet for 1 day, then advance as tolerated. Call if symptoms not improved. START PROBIOTICS TWICE DAILY, ZOFRAN NEEDED CALL IF SYMPTOMS DO NOT RESOLVE OR IF ANY WORSE. 07/04/2016 Appointment: Mary Downey WPtel: [facility] [place] [phone] (30 min) Complex 07/04/2016 Patient Education: Patient Medication Summary Completed 07/04/2016 Appointment: [facility] G [facility]el[phone] (30 min) Complex 07/03/2016 Visit Plan: Hypertension - well controlled - continue with current medications, continue with no added salt diet. Pt has been encouraged to exercise daily. The pt has been advised to call the office if there are any acute concerns about change in blood pressure readings at home. Depression - uncontrolled - Anxiety - uncontrolled - start on ativan. 07/02/2016 Appointment: Sonia Calderon WPtel: [phone] [facility] (15 min) Moderate 07/02/2016 Patient Education: Patient Medication Summary Completed 07/02/2016 Visit Plan: Hypertension - well controlled - continue with current medications, continue with no added salt diet. Pt has been encouraged to exercise daily. The pt has been advised to call the office if there are any acute concerns about change in blood pressure readings at home. Hypothyroidism- appt with [place] [facility] coming up Lzxetcs-MDDN-klvvmbm head injury- patient saw psychiatrist at [facility] but does not want to go back-states he will consider returning but wants to see host/hostess ground first as he feels like his thyroid is his biggest issue. Encouraged him to follow up with the psychiatrist. 06/07/2016 Appointment: Mary Downey WPtel: [phone] (15 min) Moderate 06/07/2016 Patient Education: Patient Medication Summary Completed 06/07/2016 Patient Education: Obesity Completed 06/07/2016 Visit Plan: URI - Pt advised to increase fluids, vitamin C. Discussed natural and expected course of this diagnosis and need to alert me if symptoms do not follow expected course, or if any worse. RX sent to patient' s pharmacy. Allergies - chronic - recommended pt to use allergy medication as prescribed. Pt has been counseled as to the appropriate use of the medication. Pt to call if allergy symptoms are not controlled with the medication. If using nasal spray, instructions as follows: Nasal spray- use twice daily, one spray per nostril twice daily, after 30 minutes, rinse out nose with saline spray.. Use opposite hand per nostril to spray in the nasal steroid allergy spray. 05/22/2016 Appointment: Maria G Mendez WPtel: [facility] (30 min) Complex 05/22/2016 Patient Education: Patient Medication Summary Completed 05/22/2016 Visit Plan: Anxiety -uncontrolled-discussed with Dr Calderon- the patient has uncontrolled anxiety and will benefit from a very low dose ativan to help with acute symptoms of anxiety (tachycardia, overwhelming sensations, stress, insomnia, etc). Pt is aware of the risks and benefits of treatment with the above medications. Chronic renal insufficiency-follow labs 05/09/2016 Appointment: Mary Downey WPtel: [facility] [place] [phone] (30 min) Complex 05/09/2016 Patient Education: Patient Medication Summary Completed 05/09/2016 Visit Plan: Nasal yquemqefpp-EHG-dfcdbzi injection today in the office-start flonase as directed-call if symptoms do not resolve or if any worse Hypothyroidism-check labs 04/19/2016 Appointment: Mary Downey WPtel: [facility] [place] [phone] (30 min) Complex 04/19/2016 Patient Education: Patient Medication Summary Completed 04/19/2016 Visit Plan: Low back pain- The pt is to do exercises as instructed. The pt is to use prn antiinflammatories to manage acute pain. The patient is to call the office if the pain is worsening or does not improve. 03/27/2016 Appointment: Mary Downey WPtel: [facility] [place] [phone] (15 min) Moderate 03/27/2016 Patient Education: Patient Medication Summary Completed 03/27/2016 Patient Education: Obesity Completed 03/27/2016 Visit Plan: Hypertension - well controlled - continue with current medications, continue with no added salt diet. Pt has been encouraged to exercise daily. The pt has been advised to call the office if there are any acute concerns about change in blood pressure readings at home. CONSULT TO [facility] Thyroiditis - continue with treatments/follow up with host/hostess ground. Depression - uncontrolled - medications changed. 03/13/2016 Appointment: Sonia Calderon WPtel: [facility] [place] (15 min) Moderate 03/13/2016 Patient Education: Patient Medication Summary Completed 03/13/2016 Patient Education: Obesity Completed 03/13/2016 Care Plan: Referral Order SNOMED-CT : [id number] Pending 03/13/2016 Visit Plan: URI - Pt advised to increase fluids, vitamin C. Discussed natural and expected course of this diagnosis and need to alert me if symptoms do not follow expected course, or if any worse. RX sent to patient' s pharmacy. Strep throat - pt give rx for antibiotic - sent to pharmacy - pt had swab of throat today - will culture the swab. 03/05/2016 Appointment: Mary Downey WPtel: [facility] [place] [phone] [place] (15 min) Moderate 03/05/2016 Patient Education: Patient Medication Summary Completed 03/05/2016 Patient Education: Obesity Completed 03/05/2016 Appointment: Injection 02/01/2016 Patient Education: Patient Medication Summary Completed 02/01/2016 Visit Plan: URI - Pt advised to increase fluids, vitamin C. Discussed natural and expected course of this diagnosis and need to alert me if symptoms do not follow expected course, or if any worse. RX sent to patient' s pharmacy. Acute anxiety - pt is to continue current medications, increase Buspar to TID 01/29/2016 Appointment: Maria G Mendez WPtel: [facility] [place] [address] [place] (15 min) Moderate 01/29/2016 Patient Education: Patient Medication Summary Completed 01/29/2016 Visit Plan: HTN - chronic and episodic symptoms of thyroid storm - referral to dr. cabello. Depression and anxiety - pt on wellbutrin - continue with treatment - monitor symptoms. 01/02/2016 Appointment: Sonia Calderon WPtel: [facility] [place] (15 min) Moderate 01/02/2016 Patient Education: Patient Medication Summary Completed 01/02/2016 Patient Education: Obesity Completed 01/02/2016 [facility]ointment: [facility] Calder[facility]el[phone] (15 min) Moderate 12/26/2015 Visit Plan: Hypothyroidism - pt with chronic hypothyroidism , continue with current medication, will monitor pt to signs or symptoms of lack of adequate supplementation. Pt is to continue with current dose of medication unless directed otherwise. Check labs at regular intervals wither q 3 months or q 6 months based on previous levels of control. Anxiety - and depression - take wellbutrin 150mg daily after 1 week take the buspirone down to one pill daily then after that week stop the buspirone 12/12/2015 Appointment: María Calderony [facility]Ptel: [phone] (15 min) Moderate 12/12/2015 Patient Education: Patient Medication Summary Completed 12/12/2015 Patient Education: Obesity Completed 12/12/2015 Patient Education: Patient Medication Summary Completed 12/08/2015 Visit Plan: Well Adult - pt was counseled about diet, exercise, and encouraged to follow a heart healthy diet and increase activity level. The patient was instructed to RTC yearly for well adult exams and PRN for acute illnesses. The pt was also instructed to have yearly labs for check of cholesterol, thyroid, chem panel, CBC, and renal functioning. Hypothyroid - question of thyroid nodules - referral to dr. cabello 11/23/2015 Patient Education: Patient Medication Summary Completed 11/23/2015 Patient Education: Obesity Completed 11/23/2015 Referral: External, Ordering Provider Referral Completed Referral: External, Ordering Provider Referred info faxed to [phone] Appointment Requested Referral: [address] they are going to call him with appt time and date Initiated Referral: [address] Referral Initiated Instructions Comment . URI - Pt advised to increase fluids, vitamin C. Discussed natural and expected course of this diagnosis and need to alert me if symptoms do not follow expected course, or if any worse. RX sent to patient's pharmacy. Sinusitis - Pt has acute infection - pain in face, maxillary region, Pt informed to use decongestant, RX given to patient, sinus rinses also recommended. Call if symptoms do not show improvement. Allergies - chronic - recommended pt to use allergy medication as prescribed. Pt has been counseled as to the appropriate use of the medication. Pt to call if allergy symptoms are not controlled with the medication. If using nasal spray, instructions as follows: Nasal spray- use twice daily, one spray per nostril twice daily, after 30 minutes, rinse out nose with saline spray.. Use opposite hand per nostril to spray in the nasal steroid allergy spray. stop propranolol 40mg and start on propranolol 60mg extended release. . HTN - chronic and episodic symptoms of thyroid storm - referral to dr. cabello. Depression and anxiety - pt on wellbutrin - continue with treatment - monitor symptoms. . Hypertension - well controlled - continue with current medications, continue with no added salt diet. Pt has been encouraged to exercise daily. The pt has been advised to call the office if there are any acute concerns about change in blood pressure readings at home. CONSULT TO [facility] [place] Thyroiditis - continue with treatments/follow up with host/hostess ground. Depression - uncontrolled - medications changed. . Low back pain- The pt is to do exercises as instructed. The pt is to use prn antiinflammatories to manage acute pain. The patient is to call the office if the pain is worsening or does not improve. . Gout Attack - pt given RX for uric Acid Level, and rx for medication for treatment of symptoms. Pt to call if symptoms do not improve , and pt to be given results of labs when available. . URI - Pt advised to increase fluids, vitamin C. Discussed natural and expected course of this diagnosis and need to alert me if symptoms do not follow expected course, or if any worse. RX sent to patient's pharmacy. Acute anxiety - pt is to continue current medications, increase Buspar to TID . Hypothyroidism - pt with chronic hypothyroidism, continue with current medication, will monitor pt to signs or symptoms of lack of adequate supplementation. Pt is to continue with current dose of medication unless directed otherwise. Check labs at regular intervals wither q 3 months or q 6 months based on previous levels of control. Migraine Headaches - will send RX - pt is to notify clinic if symptoms do not improve, if they worsen, or with any changes, questions, or concerns. . Headaches, tics, tremors - will send RX - will refer to Neurology and psychiatry for evaluation - pt is to notify clinic if symptoms do not improve, if they worsen, or with any questions or concerns. Chronic Depression and anxiety - the pt has symptoms of chronic anxiety and depression that have been fairly well controlled since the last office visit. The pt has expected periods of exacerbation with abatement of the symptoms with change in situational exposure. No change in current medications. Esophageal Reflux - the patient has been counseled against excessive intake of caffeine, spicy foods, peppermint, and cinnamon - all of which can exacerbate esophageal reflux. The patient is to take medications as prescribed and call the office if the symptoms are not improving. . Headaches, tics, tremors - will send RX - will refer to Neurology and psychiatry for evaluation - pt is to notify clinic if symptoms do not improve, if they worsen, or with any questions or concerns. Chronic Depression and anxiety - the pt has symptoms of chronic anxiety and depression that have been fairly well controlled since the last office visit. The pt has expected periods of exacerbation with abatement of the symptoms with change in situational exposure. No change in current medications. Esophageal Reflux - the patient has been counseled against excessive intake of caffeine, spicy foods, peppermint, and cinnamon - all of which can exacerbate esophageal reflux. The patient is to take medications as prescribed and call the office if the symptoms are not improving. . Gastroenteritis - discussed need to stay away from milk products while acutely ill with diarrhea and nausea and emesis as it may worsen the symptoms. Liquids initially until the nausea improves, then recommend to advance to bland diet for 1 day, then advance as tolerated. Call if symptoms not improved. START PROBIOTICS TWICE DAILY, ZOFRAN NEEDED CALL IF SYMPTOMS DO NOT RESOLVE OR IF ANY WORSE. ADD CARAFATE . Esophageal Reflux - the patient has been counseled against excessive intake of caffeine, spicy foods, peppermint, and cinnamon - all of which can exacerbate esophageal reflux. The patient is to take medications as prescribed and call the office if the symptoms are not improving. . URI - Pt advised to increase fluids, vitamin C. Discussed natural and expected course of this diagnosis and need to alert me if symptoms do not follow expected course, or if any worse. RX sent to patient's pharmacy. Strep throat - pt give rx for antibiotic - sent to pharmacy - pt had swab of throat today - will culture the swab. . Hypertension - well controlled - continue with current medications, continue with no added salt diet. Pt has been encouraged to exercise daily. The pt has been advised to call the office if there are any acute concerns about change in blood pressure readings at home. Depression - uncontrolled - Anxiety - uncontrolled - start on ativan. . Surgical clearance - Dr. Calderon in to evaluate pt - OK for surgery - pt is to update clinic with any changes in current treatment plan , or with any questions or concerns. . Esophageal Reflux - the patient has been counseled against excessive intake of caffeine, spicy foods, peppermint, and cinnamon - all of which can exacerbate esophageal reflux. The patient is to take medications as prescribed and call the office if the symptoms are not improving. Anxiety, tremors, headaches - pt states that he has seen a neurologist and that he got no answers from his appointment - Discussed with Dr. Calderon - will start on Topamax - pt is to notify clinic if symptoms do not improve, if they worsen, or with any questions or concerns. Kenalog 40 mg IM. Flonase sent ePharmacy to [facility]. Notify clinic Friday if symptoms have worsened. . Nasal tuswjdzbdh-OLQ-eprtgsl injection today in the office-start flonase as directed-call if symptoms do not resolve or if any worse Hypothyroidism-check labs . Pain after shoulder surgery - discussed with Dr. Calderon - pt is to contact his surgeon for any pain medication needed related to his recent surgeries. Pt is to only take medications as directed. tylenol 2 tabs three times daily appt with Dr Rueda . Left shoulder pain -xray today - tylenol as needed -rest -will call with xray results LABS TODAY- TSH, FREE T4, TOTAL T3, CBC, CMP WILL CALL WITH RESULTS . Post ablative hypothyroidism-check labs-refer to host/hostess ground . URI - Pt advised to increase fluids, vitamin C. Discussed natural and expected course of this diagnosis and need to alert me if symptoms do not follow expected course, or if any worse. RX sent to patient's pharmacy. Allergies - chronic - recommended pt to use allergy medication as prescribed. Pt has been counseled as to the appropriate use of the medication. Pt to call if allergy symptoms are not controlled with the medication. If using nasal spray, instructions as follows: Nasal spray- use twice daily, one spray per nostril twice daily, after 30 minutes, rinse out nose with saline spray.. Use opposite hand per nostril to spray in the nasal steroid allergy spray. take wellbutrin 150mg daily after 1 week take the buspirone down to one pill daily then after that week stop the buspirone . Hypothyroidism - pt with chronic hypothyroidism, continue with current medication, will monitor pt to signs or symptoms of lack of adequate supplementation. Pt is to continue with current dose of medication unless directed otherwise. Check labs at regular intervals wither q 3 months or q 6 months based on previous levels of control. Anxiety - and depression - take wellbutrin 150mg daily after 1 week take the buspirone down to one pill daily then after that week stop the buspirone . Anxiety -uncontrolled-discussed with Dr Calderon- the patient has uncontrolled anxiety and will benefit from a very low dose ativan to help with acute symptoms of anxiety (tachycardia, overwhelming sensations, stress, insomnia, etc). Pt is aware of the risks and benefits of treatment with the above medications. Chronic renal insufficiency-follow labs . Hypertension - well controlled - continue with current medications, continue with no added salt diet. Pt has been encouraged to exercise daily. The pt has been advised to call the office if there are any acute concerns about change in blood pressure readings at home. Hypothyroidism-appt with [place] [facility] coming up Krxkimm-VHNC-wqwcnco head injury-patient saw psychiatrist at [facility] but does not want to go back-states he will consider returning but wants to see host/hostess ground first as he feels like his thyroid is his biggest issue. Encouraged him to follow up with the psychiatrist. Increase Omeprazole to twice a day. Esophageal Reflux - the patient has been counseled against excessive intake of caffeine, spicy foods , peppermint, and cinnamon - all of which can exacerbate esophageal reflux. The patient is to take medications as prescribed and call the office if the symptoms are not improving. Acute abdominal pain - will order CT . Well Adult - pt was counseled about diet, exercise, and encouraged to follow a heart healthy diet and increase activity level. The patient was instructed to RTC yearly for well adult exams and PRN for acute illnesses. The pt was also instructed to have yearly labs for check of cholesterol, thyroid, chem panel, CBC, and renal functioning. Hypothyroid - question of thyroid nodules - referral to dr. cabello . Surgical clearance - Dr. Calderon in to evaluate pt - [place] for surgery - pt is to update clinic with any changes in current treatment plan , or with any questions or concerns. ADDENDUM: Doctor's eval of the patient - I, Dr. Calderon, personally evaluated the patient with the nurse practitioner. I have reviewed the patient's chart, I have reviewed the patient's past medical history, problem list, medication list, and personal history. I agree with the documentation by the nurse practitioner in the HPI, physical exam, and the assessment and plan.
--- OUTSIDE RECORDS SUMMARY | 2018-04-22 08:19 | XMS REPORT | CCD ---
Author Author [facility] Organization [facility] Address [address] [place] [address] Phone Care Team Providers Care [employer] Sales Representative Name Role Phone PP Unavailable CCM Unavailable Summary Purpose Interface Exchange Insurance Providers Payer name Policy type / Coverage type Covered democrat ID Effective Begin Date Effective End Date Blue Cross Blue [facility] Blue Cross/Blue Shield [id number] 2017 Unknown Family history Runs in the family Diagnosis Age At Onset Diabetes mellitus Type 1 Unknown Breast cancer Unknown Mother Diagnosis Age At Onset Depression Unknown Hypertension Unknown kidney disease Unknown Father Diagnosis Age At Onset Alcoholism Unknown Social History Social History Element Codes Description Effective Dates Marital status Unknown Soheila 11/23/2015 Number of children Unknown 2 11/23/2015 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 Former smoker Quit 201311/23/[address]: 872369379 Never drinks alcohol 11/23/2015 Has the patient [...] Fill Instructions allopurinol 100 mg tablet RxNorm: 281849 1 Tablet(s) PO daily 03/11/2018 07/08/2018 Active allopurinol 100 mg tablet RxNorm: 252305 1 Tablet(s) PO daily 03/11/2018 03/10/2018 Inactive levothyroxine 200 mcg tablet RxNorm: 720215 TAKE ONE TABLET BY MOUTH DAILY ON AN EMPTY STOMACH 03/09/2018 09/04/2018 Active Augmentin 500 mg-125 mg tablet RxNorm: 284345 1 Tablet(s) PO TID 03/09/2018 03/18/2018 Inactive prednisone 10 mg tablet RxNorm: 795686 Tablet(s) PO 03/04/2018 No Stop Date Active 6, 5,4,3,2,1 levothyroxine 200 mcg tablet RxNorm: 972435 Tablet(s) PO TAKE ONE TABLET BY MOUTH DAILY ON AN EMPTY STOMACH 11/17/201702/14 Inactive amitriptyline 25 mg tablet RxNorm: 318618 1 Tablet(s) PO QHS 12/11/2017 Inactive Ativan 0.5 mg tablet RxNorm: 863218 1 Tablet(s) PO daily as needed anxiety 11/04/2017 01/01/2018 Inactive levothyroxine 175 mcg tablet RxNorm: 892841 TAKE ONE TABLET BY MOUTH DAILY ON AN EMPTY STOMACH 09/08/2017 11/16/2017 Inactive levothyroxine 175 mcg tablet RxNorm: 864674 TAKE ONE TABLET BY MOUTH DAILY ON AN EMPTY STOMACH 05/06/2017 09/02/2017 Inactive Ativan 0.5 mg tablet RxNorm: 476251 1 Tablet(s) PO daily as needed anxiety 04/03/2017 06/30/2017 Inactive Augmentin 500 mg-125 mg tablet RxNorm: 540865 1 Tablet(s) PO TID 03/13/2017 03/22/2017 Inactive albuterol sulfate 2.5 mg/3 mL (0.083 %) solution for nebulization RxNorm: 288293 3 Milliliter(s) INH Q4-6H as needed 03/13/2017 02/25/2018 Inactive Kenalog 40 mg/mL suspension for injection RxNorm: 4745525 Milliliter(s) Inj 03/13/2017 03/13/2017 Inactive levothyroxine 175 mcg tablet RxNorm: 405850 TAKE ONE TABLET BY MOUTH DAILY ON AN EMPTY STOMACH 01/15/2017 04/14/2017 Inactive Ativan 0.5 mg tablet RxNorm: 548238 1 Tablet(s) PO daily as needed anxiety 01/15/2017 03/15/2017 Inactive propranolol ER 60 mg capsule,24 hr,extended release RxNorm: 609635 TAKE ONE CAPSULE BY MOUTH DAILY 01/15/20172017 Inactive Ativan 0.5 mg tablet RxNorm: 901102 1 Tablet(s) PO daily as needed anxiety 11/04/2016 01/02/2017 Inactive omeprazole 20 mg capsule,delayed release RxNorm: 066528 TAKE ONE CAPSULE BY MOUTH DAILY 10/30/2016 03/10/2017 Inactive Topamax 50 mg tablet RxNorm: 346172 1 Tablet(s) PO BID 201610/14/2016 Inactive Topamax 50 mg tablet RxNorm: 835672 1 Tablet(s) PO BID 201611/13/2016 Inactive Carafate 1 gram tablet RxNorm: 723040 1 Tablet(s) PO AC & HS 11/05/2016 Inactive ketorolac 60 mg/2 mL intramuscular solution RxNorm: 145750 Milliliter(s) IM 10/07/2016 10/07/2016 Inactive Topamax 25 mg tablet RxNorm: 750105 1 Tablet(s) PO BID 201610/13/2016 Inactive ketorolac 30 mg/mL injection solution RxNorm: 804920 2 Milliliter(s) Inj 10/03/2016 10/03/2016 Inactive Phenergan 25 mg/mL injection solution RxNorm: 863385 1 Milliliter(s) Inj 10/03/2016 10/03/2016 Inactive Topamax 25 mg tablet RxNorm: 215220 1 Tablet(s) PO QHS 201610/31/2016 Inactive levothyroxine 175 mcg tablet RxNorm: 601415 TAKE ONE TABLET BY MOUTH DAILY ON AN EMPTY STOMACH 08/16/2016 12/13/2016 Inactive Carafate 1 gram tablet RxNorm: 325915 1 Gram(s) PO AC & HS 07/201608/15/2016 Inactive Carafate 1 gram tablet RxNorm: 756635 1 Tablet(s) PO AC & HS 08/21/2016 Inactive omeprazole 20 mg capsule,delayed release RxNorm: 895777 TAKE ONE CAPSULE BY MOUTH DAILY 07/17/2016 10/14/2016 Inactive Zofran 4 mg tablet RxNorm: 532430 1 Tablet(s) PO Q6 PRN 07/0402/25/2018 Inactive Ativan 0.5 mg tablet RxNorm: 728929 1/2 Tablet(s) PO BID and a full pill prn anxiety attack 07/02/2016 11/03/2017 Inactive Ativan 0.5 mg tablet RxNorm: 215232 1 Tablet(s) PO QDAY PRN 07/01/2016 Inactive propranolol ER 60 mg capsule,24 hr,extended release RxNorm: 899181 1 Capsule(s) PO daily 06/21/2016 11/17/2016 Inactive ceftriaxone 500 mg solution for injection RxNorm: 3316521 1 Milliliter(s) Inj 05/22/2016 05/22/2016 Inactive amoxicillin 500 mg tablet RxNorm: 492124 1 Tablet(s) PO TID 05/28/2016 Inactive Ativan 0.5 mg tablet RxNorm: 623303 1 Tablet(s) PO QDAY PRN 01/201611/03/2016 Inactive tramadol 50 mg tablet RxNorm: 613188 1 Tablet(s) PO Q6-8H as needed 04/29/2016 09/30/2016 Inactive Kenalog 40 mg/mL suspension for injection RxNorm: 8327873 Milliliter(s) Inj 04/19/2016 04/19/2016 Inactive Flonase Allergy Relief 50 mcg/actuation nasal spray, suspension RxNorm: 4540369 1 [place] NASAL daily 04/19/20162015 Inactive levothyroxine 175 mcg tablet RxNorm: 991634 1 Tablet(s) PO daily 04/11/2016 08/08/2016 Inactive Wellbutrin XL 300 mg 24 hr tablet, extended release RxNorm: 754908 1 Tablet(s) PO daily 03/13/2016 07/01/2016 Inactive omeprazole 20 mg capsule,delayed release RxNorm: 576416 1 Capsule(s) PO daily 03/13/2016 07/10/2016 Inactive Augmentin 500 mg-125 mg tablet RxNorm: 576450 1 Tablet(s) PO TID 03/05/2016 03/14/2016 Inactive ceftriaxone 500 mg solution for injection RxNorm: 7108205 Inj 02/01/2016 02/01/2016 Inactive amoxicillin 500 mg tablet RxNorm: 593114 1 Tablet(s) PO TID 01/29/2016 Inactive amoxicillin 500 mg tablet RxNorm: 672689 1 Tablet(s) PO TID 02/05/2016 Inactive propranolol ER 60 mg capsule,24 hr,extended release RxNorm: 094852 1 Capsule(s) PO daily 01/02/2016 04/30/2016 Inactive Wellbutrin XL 150 mg 24 hr tablet, extended release RxNorm: 475300 1 Tablet(s) PO daily 12/12/2015 03/12/2016 Inactive levothyroxine 175 mcg tablet RxNorm: 550985 1 Tablet(s) PO daily 12/12/2015 04/09/2016 Inactive Kenalog 40 mg/mL suspension for injection RxNorm: 5081810 1 Milliliter(s) Inj 12/12/2015 12/12/2015 Inactive prednisone 20 mg tablet RxNorm: 975262 3 Tablet(s) PO daily 05/201612/16/2015 Inactive ibuprofen 800 mg tablet RxNorm: 383189 1 Tablet(s) PO BID 11/2204/20/2016 Inactive Voltaren 1 % topical gel RxNorm: 841333 4 Gram(s) TOP QID 11/2201/21/2016 Inactive buspirone 10 mg tablet RxNorm: 808662 1 Tablet(s) PO BID No Start Date 09/30/2016 Inactive Vitamin D3 5,000 unit tablet RxNorm: 093748 1 Tablet(s) PO daily No Start Date 02/25/2018 Inactive baclofen 20 mg tablet RxNorm: 465871 1 Tablet(s) PO TID No Start Date 09/30/2016 Inactive propranolol 40 mg tablet RxNorm: 945325 1 Tablet(s) PO daily No Start Date 01/01/2016 Inactive levothyroxine 200 mcg tablet RxNorm: 486046 1 Tablet(s) PO daily No Start Date 12/11/2015 Inactive Medication Administered Medication Codes Instructions Start Date Status Kenalog 40 mg/mL suspension for injection RxNorm: 8776661 Milliliter 03/13/2017 No longer Active ketorolac 60 mg/2 mL intramuscular solution RxNorm: 844941 Milliliter 10/07/2016 No longer Active Phenergan 25 mg/mL injection solution RxNorm: 523522 1Milliliter 10/03/2016 No longer Active ketorolac 30 mg/mL injection solution RxNorm: 140828 2Milliliter 10/03/2016 No longer Active ceftriaxone 500 mg solution for injection RxNorm: 4817869 1Milliliter 05/22/2016 No longer Active Kenalog 40 mg/mL suspension for injection RxNorm: 9572833 Milliliter 04/19/2016 No longer Active ceftriaxone 500 mg solution for injection RxNorm: 5356088 02/01/2016 No longer Active Kenalog 40 mg/mL suspension for injection RxNorm: 8617361 1Milliliter 12/12/2015 No longer Active Immunizations No [...] Uric A 8.9 mg/dL 03/05/2018 Free T4 Ado097 FREE T4 0.47 ng/dL 11/12/2017 Lipid Ord30 [...] 32.6 pg 11/12/2017 Cbc With Differential Ord2 [place]% 7.6 % 11/12/2017 Cbc With Differential Ord2 [...] 1.68 K/ul 11/12/2017 Cbc With Differential Ord2 [place] ABS# 0.5 K/ul 11/12/2017 Cbc With Differential Ord2 Eos ABS# 0.1 K/ul 11/12/2017 Cbc With Differential Ord2 Baso ABS# 0.0 K/ul 11/12/2017 Comp Metabolic Jtr789 NA 139 mEq/L 11/12/2017 Comp Metabolic Vds539 K 4.3 mEq/L 11/12/2017 Comp Metabolic Kjd310 CL 102 mEq/L 11/12/2017 Comp Metabolic Arm049 CO2 25.0 mEq/L 11/12/2017 Comp Metabolic Wxu423 ANION GAP 16 11/12/2017 Comp Metabolic Gum984 GLUCOSE 121 mg/dL 11/12/2017 Comp Metabolic Gpz391 Creat 1.5 mg/dL 11/12/2017 Comp Metabolic Dwd915 eGFR 56 ml/min/1.73m2 11/12/2017 Comp Metabolic Lla679 BUN 15 mg/dL 11/12/2017 Comp Metabolic Lbc716 B/C Ratio 9.9 Ratio 11/12/2017 Comp Metabolic Mjl231 CALCIUM 9.3 mg/dL 11/12/2017 Comp Metabolic Efv114 ALK PHOS 69 U/L 11/12/2017 Comp Metabolic Xfs095 AST(SGOT) 30 U/L 11/12/2017 Comp Metabolic Zko549 ALT(SGPT) 32 U/L 11/12/2017 Comp Metabolic Mrf810 BILI T 0.3 mg/dL 11/12/2017 Comp Metabolic Gtu414 ALBUMIN 4.8 g/dL 11/12/2017 Comp Metabolic Cvm199 TPRO 7.3 g/dL 11/12/2017 Comp Metabolic Lwx239 GLOB 2.5 g/dL 11/12/2017 Comp Metabolic Zih625 A/G Ratio 1.9 Ratio 11/12/2017 Comp Metabolic Nps075 Osmo 280 mOsmo 11/12/2017 Tsh Ord6 TSH [...] 31.7 % 09/05/2016 Cbc With Differential Ord2 [place]% 8.0 % 09/05/2016 Cbc With Differential Ord2 [...] 1.79 K/ul 09/05/2016 Cbc With Differential Ord2 [place] ABS# 0.5 K/ul 09/05/2016 Cbc With Differential Ord2 Eos ABS# 0.2 K/ul 09/05/2016 Cbc With Differential Ord2 Baso ABS# 0.0 K/ul 09/05/2016 Comp Metabolic Dvu828 NA 137 mEq/L 09/05/2016 Comp Metabolic Vao774 K 4.3 mEq/L 09/05/2016 Comp Metabolic Fte829 CL 104 mEq/L 09/05/2016 Comp Metabolic Dce075 CO2 25.0 mEq/L 09/05/2016 Comp Metabolic Qgf029 ANION GAP 12 09/05/2016 Comp Metabolic Mcl806 GLUCOSE 116 mg/dL 09/05/2016 Comp Metabolic Axn638 Creat 1.2 mg/dL 09/05/2016 Comp Metabolic Zzy557 eGFR 77 ml/min/1.73m2 09/05/2016 Comp Metabolic Ajj583 BUN 15 mg/dL 09/05/2016 Comp Metabolic Nlt815 B/C Ratio 13.0 Ratio 09/05/2016 Comp Metabolic Mso186 CALCIUM 9.1 mg/dL 09/05/2016 Comp Metabolic Quv395 ALK PHOS 68 U/L 09/05/2016 Comp Metabolic Uyw152 AST(SGOT) 23 U/L 09/05/2016 Comp Metabolic Xxm638 ALT(SGPT) 33 U/L 09/05/2016 Comp Metabolic Qpm782 BILI T 0.5 mg/dL 09/05/2016 Comp Metabolic Ntt128 ALBUMIN 4.4 g/dL 09/05/2016 Comp Metabolic Qcu513 TPRO 6.8 g/dL 09/05/2016 Comp Metabolic Ddx653 GLOB 2.4 g/dL 09/05/2016 Comp Metabolic Nfl122 A/G Ratio 1.8 Ratio 09/05/2016 Comp Metabolic Oam787 Osmo 276 mOsmo 09/05/2016 Tsh Ord6 hTSH II 1.41 uIU/mL 09/05/2016 Total T3 Ord42 TT3 0.88 ng/ml 09/05/2016 Free T4 Nao144 FREE T4 0.72 ng/dL 09/05/2016 Comp Metabolic Ixg473 NA 139 mEq/L 05/09/2016 Comp Metabolic Gpg780 K 4.6 mEq/L 05/09/2016 Comp Metabolic Rps042 CL 105 mEq/L 05/09/2016 Comp Metabolic Yqb880 CO2 28.0 mEq/L 05/09/2016 Comp Metabolic Lvn470 ANION GAP 11 05/09/2016 Comp Metabolic Lmw560 GLUCOSE 108 mg/dL 05/09/2016 Comp Metabolic Nri624 Creat 1.2 mg/dL 05/09/2016 Comp Metabolic Yoj326 eGFR 71 ml/min/1.73m2 05/09/2016 Comp Metabolic Uqf399 BUN 18 mg/dL 05/09/2016 Comp Metabolic Ikq752 B/C Ratio 14.5 Ratio 05/09/2016 Comp Metabolic Ooe539 CALCIUM 9.5 mg/dL 05/09/2016 Comp Metabolic Dif759 ALK PHOS 83 U/L 05/09/2016 Comp Metabolic Uaw513 AST(SGOT) 19 U/L 05/09/2016 Comp Metabolic Khb172 ALT(SGPT) 28 U/L 05/09/2016 Comp Metabolic Bmn522 BILI T 0.7 mg/dL 05/09/2016 Comp Metabolic Zee609 ALBUMIN 4.7 g/dL 05/09/2016 Comp Metabolic Cos943 TPRO 7.1 g/dL 05/09/2016 Comp Metabolic Wrq033 GLOB 2.4 g/dL 05/09/2016 Comp Metabolic Uxx065 A/G Ratio 1.9 Ratio 05/09/2016 Comp Metabolic Hbi646 Osmo 280 mOsmo 05/09/2016 Cbc With Differential [...] 28.9 % 05/09/2016 Cbc With Differential Ord2 [place]% 8.2 % 05/09/2016 Cbc With Differential Ord2 [...] 2.15 K/ul 05/09/2016 Cbc With Differential Ord2 [place] ABS# 0.6 K/ul 05/09/2016 Cbc With Differential Ord2 Eos ABS# 0.1 K/ul 05/09/2016 Cbc With Differential Ord2 Baso ABS# 0.0 K/ul 05/09/2016 Tsh Ord6 hTSH II 0.99 uIU/mL 05/09/2016 Free T4 Cjt696 FREE T4 0.91 ng/dL 05/09/2016 C RAP A SC [id number] Strep A Negative 03/05/2016 C RAP A SC [id number] Strep A Negative 01/29/2016 Tsh Ord6 hTSH II 0.27 uIU/mL 12/12/2015 Free T4 Vtg446 FREE T4 1.67 ng/dL 12/12/2015 Review of [...] Procedure Codes Date THER/PROPH/DIAG INJ SC/IM CPT-4: 94054 03/13/2017 TRIAMCINOLONE ACET INJ NOS CPT-4: J3301 03/13/2017 KETOROLAC TROMETHAMINE INJ CPT-4: J1885 10/07/2016 THER/PROPH/DIAG INJ SC/IM CPT-4: 31154 10/03/2016 KETOROLAC TROMETHAMINE INJ CPT-4: J1885 10/03/2016 PROMETHAZINE HCL INJECTION CPT-4: J2550 10/03/2016 ROCEPHIN, PER 250 MG CPT-4: J0696 05/22/2016 TRIAMCINOLONE ACET INJ NOS CPT-4: J3301 04/19/2016 ROCEPHIN, PER 250 MG CPT-4: J0696 02/01/2016 THER/PROPH/DIAG INJ SC/IM CPT-4: 30415 02/01/2016 TRIAMCINOLONE ACET INJ NOS CPT-4: J3301 12/12/2015 Vital Signs Date Vital 04/21/2018 Blood Pressure 1: 122/64 Code : 8480-6 BMI: 26.5 Code : 62380-5 Heart Rate 1 : 78 bpm Height: 6'3" SpO2: 98% Weight: 212 lbs 04/13/2018 Blood Pressure 1: 122/60 Code : 8480-6 BMI: 27.1 Code : 81163-7 Heart Rate 1 : 93 bpm Height: 6'3" SpO2: 98% Weight: 217 lbs 03/04/2018 Blood Pressure 1: 120/76 Code : 8480-6 BMI: 27.1 Code : 43878-3 Heart Rate 1 : 104 bpm Height: 6'3" SpO2: 98% Weight: 217 lbs 02/26/2018 Blood Pressure 1: 130/86 Code : 8480-6 BMI: 27.1 Code : 33139-4 Heart Rate 1 : 76 bpm Height: 6'3" SpO2: 98% Weight: 217 lbs 11/12/2017 Blood Pressure 1: 128/78 Code : 8480-6 BMI: 28.6 Code : 09878-5 Heart Rate 1 : 92 bpm Height: 6'3" SpO2: 98% Weight: 229 lbs 03/13/2017 Blood Pressure 1: 108/78 Code : 8480-6 BMI: 29.0 Code : 46796-1 Heart Rate 1 : 101 bpm Height: 6'3" SpO2: 98% Temperature: 36.9 (C) / 98.5 (F) Weight: 232 lbs 10/07/2016 Blood Pressure 1: 126/80 Code : 8480-6 BMI: 29.5 Code : 41415-3 Heart Rate 1 : 59 bpm Height: 6'3" SpO2: 98% Weight: 236 lbs 10/02/2016 Blood Pressure 1: 124/80 Code : 8480-6 BMI: 29.5 Code : 53749-3 Heart Rate 1 : 80 bpm Height: 6'3" SpO2: 98% Temperature: 37.1 (C) / 98.8 (F) Weight: 236 lbs 09/05/2016 Blood Pressure 1: 138/80 Code : 8480-6 BMI: 29.6 Code : 87108-0 Heart Rate 1 : 91 bpm Height: 6'3" SpO2: 97% Temperature: 36.8 (C) / 98.3 (F) Weight: 237 lbs 08/02/2016 Blood Pressure 1: 146/80 Code : 8480-6 BMI: 28.7 Code : 03244-3 Heart Rate 1 : 84 bpm Height: 6'3" SpO2: 98% Temperature: 37.2 (C) / 98.9 (F) Weight: 230 lbs 07/23/2016 Blood Pressure 1: 120/72 Code : 8480-6 BMI: 29.2 Code : 50806-0 Heart Rate 1 : 85 bpm Height: [...] Code : 8480-6 BMI: 29.6 Code : 57625-6 Heart Rate 1 : 91 bpm Height: 6'3" SpO2: 88% Weight: 237 lbs 05/22/2016 Blood Pressure 1: 152/80 Code : 8480-6 BMI: 29.6 Code : 28344-1 Heart Rate 1 : 114 bpm Height: [...] Code : 8480-6 BMI: 29.7 Code : 27405-9 Heart Rate 1 : 111 bpm Height: 6'3" SpO2: 95% Weight: 238 lbs 03/13/2016 Blood Pressure 1: 136/82 Code : 8480-6 BMI: 30.0 Code : 49471-4 Heart Rate 1 : 90 bpm Height: 6'3" SpO2: 98% Weight: 240 lbs 03/05/2016 Blood Pressure 1: 120/84 Code : 8480-6 BMI: 28.6 Code : 09272-3 Heart Rate 1 : 95 bpm Height: 6'3" SpO2: 98% Temperature: 37.1 (C) / 98.8 (F) Weight: 229 lbs 01/29/2016 Blood Pressure 1: 118/74 Code : 8480-6 BMI: 28.6 Code : 42403-8 Heart Rate 1 : 89 bpm Height: 6'3" SpO2: 98% Temperature: 36.3 (C) / 97.3 (F) Weight: 229 lbs 01/02/2016 Blood Pressure 1: 118/68 Code : 8480-6 BMI: 29.7 Code : 95846-6 Heart Rate 1 : 81 bpm Height: 6'3" SpO2: 98% Weight: 238 lbs 12/12/2015 Blood Pressure 1: 112/80 Code : 8480-6 BMI: 28.7 Code : 85694-5 Heart Rate 1 : 84 bpm Height: 6'3" SpO2: 97% Weight: 230 lbs 11/23/2015 Blood Pressure 1: 118/78 Code : 8480-6 BMI: 28.6 Code : 90230-8 Heart Rate 1 : 85 bpm Height: [...] left shoulder[ICD10: M25.512] Maria G Calderon MD, [facility] CPT-4: 11340 04/21/2018 [id number] EST. PATIENT, LEVEL III Diagnosis: Encounter for other preprocedural examination[ICD10: Z01.818] Diagnosis: Pain in left shoulder[ICD10: M25.512] [facility] CPT-4: 42489 04/13/2018 87228 EST. 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 PATIENT, LEVEL III Diagnosis: Pain in left shoulder[ICD10: M25.512] Mary Calderon MD, [facility] CPT-4: 98884 02/26/2018 [id number] EST. PATIENT, LEVEL IV Diagnosis: Other specified hypothyroidism[ICD10: E03.8] Diagnosis: Headache[ICD10: R51] Maria G Calderon MD, [facility] CPT-4: 47141 11/12/2017 50676 EST. PATIENT, LEVEL III Diagnosis: Acute laryngopharyngitis[ICD10: J06.0] Diagnosis: Cough[ICD10: R05] Diagnosis: Other allergic rhinitis[ICD10: J30.89] Diagnosis: Other acute sinusitis[ICD10: J01.80] Maria G Calderon MD, [facility] CPT-4: 49959 03/13/2017 82841 EST. PATIENT, LEVEL IV Diagnosis: Headache[ICD10: R51] Diagnosis: Other specified forms of tremor[ICD10: G25.2] Diagnosis: Other muscle spasm[ICD10: M62.838] Diagnosis: Generalized anxiety disorder[ICD10: F41.1] Diagnosis: Major depressive disorder, single episode, moderate[ICD10: F32.1] Diagnosis: Gastro-esophageal reflux disease without esophagitis[ICD10: K21.9] Maria G Calderon MD, [facility] CPT-4: 82486 10/07/2016 27614 EST. PATIENT, LEVEL IV Diagnosis: Other specified forms of tremor[ICD10: G25.2] Diagnosis: Other muscle spasm[ICD10: M62.838] Diagnosis: Gastro-esophageal reflux disease without esophagitis[ICD10: K21.9] Maria G Calderon MD, [facility] CPT-4: 47964 10/02/2016 ([id number]) 77889 EST. PATIENT, LEVEL III Diagnosis: Hypothyroidism, unspecified[ICD10: E03.9] Mary Calderon MD, [facility] CPT-4: 18975 09/05/2016 ([id number]) 59933 EST. PATIENT, LEVEL III Diagnosis: Gastro-esophageal reflux disease without esophagitis[ICD10: K21.9] Diagnosis: Epigastric pain[ICD10: R10.13] Mary Calderon MD, [facility] CPT-4: 85407 08/02/2016 40986 EST. PATIENT, LEVEL IV Diagnosis: Gastro-esophageal reflux disease without esophagitis[ICD10: K21.9] Diagnosis: Generalized abdominal pain[ICD10: R10.84] Maria G Calderon MD, [facility] CPT-4: 59816 07/23/2016 ([id number]) 11814 EST. PATIENT, LEVEL III Diagnosis: Nausea[ICD10: R11.0] Mary Calderon MD, [facility] CPT-4: 68030 07/04/2016 ([id number]) 88202 EST. PATIENT, LEVEL III Diagnosis: Atrophy of thyroid (acquired)[ICD10: E03.4] Diagnosis: Essential (primary) hypertension[ICD10: I10] Sonia Calderon MD, [facility] CPT-4: 13873 07/02/2016 ([id number]) 75410 EST. PATIENT, LEVEL III Diagnosis: Essential (primary) hypertension[ICD10: I10] Diagnosis: Hypothyroidism, unspecified[ICD10: E03.9] Diagnosis: Generalized anxiety disorder[ICD10: F41.1] Mary Calderon MD, [facility] CPT-4: 47958 06/07/2016 66660 EST. PATIENT, LEVEL III Diagnosis: Other allergic rhinitis[ICD10: J30.89] Diagnosis: Acute laryngopharyngitis[ICD10: J06.0] Maria G Calderon MD, [facility] CPT-4: 40288 05/22/2016 ([id number]) 47198 EST. PATIENT, LEVEL IV Diagnosis: Generalized anxiety disorder[ICD10: F41.1] Diagnosis: Chronic kidney disease, stage 3 (moderate)[ICD10: N18.3] Mary Calderon MD , [facility] CPT-4: 94965 05/09/2016 ([id number]) 69147 EST. PATIENT, LEVEL III Diagnosis: Nasal congestion[ICD10: R09.81] Diagnosis: Hypothyroidism, unspecified[ICD10: E03.9] Mary Calderon MD, [facility] CPT-4: 07199 04/19/2016 43071 EST. PATIENT, LEVEL III Diagnosis: Low back pain[ICD10: M54.5] Maria G Calderon MD, [facility] CPT-4 : 54766 03/27/2016 ([id number]) 66518 EST. PATIENT, LEVEL IV Diagnosis: Essential (primary) hypertension[ICD10: I10] Diagnosis: Major depressive disorder, single episode, unspecified[ICD10: F32.9] Diagnosis: Other specified hypothyroidism[ICD10: E03.8] Diagnosis: Gastro-esophageal reflux disease without esophagitis[ICD10: K21.9] Sonia Calderon MD, [facility] CPT-4: 91558 03/13/2016 58284 EST. PATIENT, LEVEL IV Diagnosis: Acute laryngopharyngitis[ICD10: J06.0] Maria G Calderon MD, [facility] CPT-4: 33606 03/05/2016 56223 EST. PATIENT, LEVEL IV Diagnosis: Acute laryngopharyngitis[ICD10: J06.0] Maria G Calderon MD, [facility] CPT-4: 82022 01/29/2016 ([id number]) 31723 EST. PATIENT, LEVEL IV Diagnosis: Essential (primary) hypertension[ICD10: I10] Diagnosis: Hypothyroidism, unspecified[ICD10: E03.9] Diagnosis: Major depressive disorder, single episode, unspecified[ICD10: F32.9] Sonia Calderon MD, [facility] CPT-4: 96171 01/02/2016 ([id number]) 61533 EST. PATIENT, LEVEL IV Diagnosis: Hypothyroidism, unspecified[ICD10: E03.9] Diagnosis: Major depressive disorder, single episode, unspecified[ICD10: F32.9] Sonia Calderon MD, [facility] CPT-4: 79305 12/12/2015 ([id number]) PREV VISIT NEW AGE 18-39 Diagnosis: Encounter for general adult medical examination with abnormal findings[ICD10: Z00.01] Diagnosis: Hypothyroidism, unspecified[ICD10: E03.9] Sonia Calderon MD, [facility] CPT-4: 03837 11/23/2015 Plan of Care Planned Activity Notes [...] plan. 04/13/2018 Appointment: Maria G Mendez WPtel: [facility]4 [facility] (15 min) Moderate 04/13/2018 Patient Education: Patient Medication Summary Completed 04/13/2018 Visit Plan: Gout Attack - pt given RX for uric Acid Level, and rx for medication for treatment of symptoms. Pt to call if symptoms do not improve, and pt to be given results of labs when available. 03/04/2018 Appointment: Maria G Mendez WPtel: [facility]5 [facility] (15 min) Moderate 03/04/2018 Patient Education: Patient Medication Summary Completed 03/04/2018 Patient Education: Gout Completed 03/04/2018 Visit Plan: Left shoulder pain -xray today - tylenol as needed -rest -will call with xray results 02/26/2018 Appointment: [facility] Downey [facility]Ptel[phone] [place] (15 min) Moderate 02/26/2018 Patient Education: Patient Medication Summary Completed 02/26/2018 Appointment: Maria G Mendez WPtel: [address] [place], [place] [phone] [place] (30 min) Complex 12/08/2017 Visit Plan: [...] 11/12/2017 App[facility]ment: [facility] [phone] [facility] (15 min) Moderate 11/12/2017 Patient Education: Patient [...] 03/13/2017 App[facility]ment: [facility] [phone] [facility] (15 min) Moderate 03/13/2017 Patient Education: Patient Medication Summary Completed 03/13/2017 Patient Education: Obesity Completed 03/13/2017 Care Plan: Referral Order SNOMED-CT : [id number] Pending 10/08/2016 Visit Plan: Headaches, tics, tremors [...] improving. 10/07/2016 Appointment: Maria G Mendez WPtel: [facility] (30 min) Complex 10/07/2016 Patient Education: Patient Medication Summary Completed 10/07/2016 Appointment: Mary Downey WPtel: [phone] (15 min) Moderate 10/04/2016 Appointment: N[place] 10/03/2016 [...] 10/02/2016 Appointment: Maria G Mendez WPtel: [id number] [facility] (15 min) Moderate 10/02/2016 Patient Education: Patient Medication Summary Completed 10/02/2016 Patient Education: Obesity Completed 10/02/2016 Visit Plan: Post ablative hypothyroidism-check labs-refer to formulator compounder 09/05/2016 Patient Education: Patient Medication Summary Completed 09/05/2016 Visit Plan: Esophageal Reflux - the patient has been counseled against excessive intake of caffeine, spicy foods, peppermint, and cinnamon - all of which can exacerbate esophageal reflux. The patient is to take medications as prescribed and call the office if the symptoms are not improving. 08/02/2016 Appointment: Mary Downey WPtel: [facility]1 [phone] (15 min) Moderate 08/02/2016 Patient Education: Patient Medication Summary Completed 08/02/2016 Patient Education: Obesity Completed 08/02/2016 Care Plan: CT ABD & PELV W/CONTRAST LOINC : 49172-8 Pending 07/28/2016 Visit Plan: Esophageal Reflux - the patient has been counseled against excessive intake of caffeine, spicy foods, peppermint, and cinnamon - all of which can exacerbate esophageal reflux. The patient is to take medications as prescribed and call the office if the symptoms are not improving. Acute abdominal pain - will order CT 07/23/2016 Appointment: Maria G Mendez WPtel: [facility]1 [facility] (30 min) Complex 07/23/2016 Patient Education: Patient Medication Summary Completed 07/23/2016 Patient Education: Obesity Completed 07/23/2016 Appointment: Sonia Calderon WPtel: [address] [place], [place] [id number] (15 min) Moderate 07/09/2016 Visit [...] ANY WORSE. 07/04/2016 Appointment: Mary Downey WPtel: [facility]2 [phone] (30 min) Complex 07/04/2016 Patient Education: Patient Medication Summary Completed 07/04/2016 [facility]ment: [phone] (30 min) Complex 07/03/2016 Visit Plan: Hypertension [...] pressure readings at home. Hypothyroidism- appt with [place] coming up Nienkbi-RRMH-muhwwhz head injury- patient saw psychiatrist at [facility] but does not want to go back-states he will consider returning but wants to see formulator compounder first as he feels like his thyroid is his biggest issue. Encouraged him to follow up with the psychiatrist. 06/07/2016 Appointment: [facility] Dow[phone] (15 min) Moderate 06/07/2016 Patient Education: Patient [...] spray. 05/22/2016 Appointment: Maria G Mendez WPtel: [facility] (30 min) Complex 05/22/2016 Patient Education: Patient [...] insufficiency-follow labs 05/09/2016 Appointment: Mary Downey WPtel: [facility]5 [phone] (30 min) Complex 05/09/2016 Patient Education: Patient Medication Summary Completed 05/09/2016 Visit Plan: Nasal bfbjyxwvvu-YDD-igqwrev injection today in the office-start flonase as directed-call if symptoms do not resolve or if any worse Hypothyroidism-check labs 04/19/2016 Appointment: Mary Downey WPtel: [facility]5 [phone] (30 min) Complex 04/19/2016 Patient Education: Patient Medication Summary Completed 04/19/2016 Visit Plan: Low back pain- The pt is to do exercises as instructed. The pt is to use prn antiinflammatories to manage acute pain. The patient is to call the office if the pain is worsening or does not improve. 03/27/2016 Appointment: Mary Downey WPtel: [facility]7 [phone] (15 min) Moderate 03/27/2016 Patient Education: Patient [...] pressure readings at home. CONSULT TO [facility] Thyroiditis - continue with treatments/follow up with formulator compounder. Depression - uncontrolled - medications changed. 03/13/2016 Appointment: Sonia Calderon WPtel: [facility]5 [facility] [place] (15 min) Moderate 03/13/2016 Patient Education: Patient Medication Summary Completed 03/13/2016 Patient Education: Obesity Completed 03/13/2016 Care Plan: Referral Order SNOMED-CT : [id number] Pending 03/13/2016 Visit Plan: URI - Pt [...] the swab. 03/05/2016 Appointment: Mary Downey WPtel: [facility]8 [phone] [place] (15 min) Moderate 03/05/2016 Patient Education: [...] TID 01/29/2016 Appointment: Maria G Mendez WPtel: [facility]0 [facility] [place] (15 min) Moderate 01/29/2016 Patient Education: Patient Medication Summary Completed 01/29/2016 Visit Plan: HTN - chronic and episodic symptoms of thyroid storm - referral to dr. cabello. Depression and anxiety - pt on wellbutrin - continue with treatment - monitor symptoms. 01/02/2016 Appointment: Sonia Calderon WPtel: [facility]0 [facility] [place] (15 min) Moderate 01/02/2016 Patient Education: Patient Medication Summary Completed 01/02/2016 Patient Education: Obesity Completed 01/02/2016 [facility]ment: [phone] (15 min) Moderate 12/26/2015 Visit Plan: [...] buspirone 12/12/2015 Appointment: Mar[facility]ony [facility]el[phone] (15 min) Moderate 12/12/2015 Patient Education: [...] External, Ordering Provider Referred info faxed to [phone] Appointment Requested Referral: [address] they are [...] continue with treatment - monitor symptoms. . Esophageal Reflux - the patient has [...] worsen, or with any questions or concerns. . Surgical clearance - Dr. Calderon in to evaluate pt - OK for surgery - pt is to update clinic with any changes in current treatment plan , or with any questions or concerns. . Surgical clearance - Dr. Calderon in [...] physical exam, and the assessment and plan. . Well Adult - pt was counseled [...] thyroid nodules - referral to dr. cabello Increase Omeprazole to twice a day. Esophageal Reflux - the patient has been counseled against excessive intake of caffeine, spicy foods , peppermint, and cinnamon - all of which can exacerbate esophageal reflux. The patient is to take medications as prescribed and call the office if the symptoms are not improving. Acute abdominal pain - will order CT . Hypertension - well controlled - continue with current medications, continue with no added salt diet. Pt has been encouraged to exercise daily. The pt has been advised to call the office if there are any acute concerns about change in blood pressure readings at home. Depression - uncontrolled - Anxiety - uncontrolled - start on ativan. . Hypertension - well controlled - continue with current medications, continue with no added salt diet. Pt has been encouraged to exercise daily. The pt has been advised to call the office if there are any acute concerns about change in blood pressure readings at home. Hypothyroidism-appt with [facility] coming up Zosqlya-XXJX-jqupwho head injury-patient saw psychiatrist at [facility] but does not want to go back-states he will consider returning but wants to see formulator compounder first as he feels like his thyroid is his biggest issue. Encouraged him to follow up with the psychiatrist. . URI - Pt advised to increase fluids, vitamin C. Discussed natural and expected course of this diagnosis and need to alert me if symptoms do not follow expected course, or if any worse. RX sent to patient's pharmacy. Strep throat - pt give rx for antibiotic - sent to pharmacy - pt had swab of throat today - will culture the swab. ADD CARAFATE . Esophageal Reflux - the [...] DO NOT RESOLVE OR IF ANY WORSE. . Anxiety -uncontrolled-discussed with Dr Calderon- the patient has uncontrolled anxiety and will benefit from a very low dose ativan to help with acute symptoms of anxiety (tachycardia, overwhelming sensations, stress, insomnia, etc). Pt is aware of the risks and benefits of treatment with the above medications. Chronic renal insufficiency-follow labs take wellbutrin 150mg daily after 1 week [...] after that week stop the buspirone . URI - Pt advised to increase [...] spray in the nasal steroid allergy spray. LABS TODAY- TSH, FREE T4, TOTAL T3, CBC, CMP WILL CALL WITH RESULTS . Post ablative hypothyroidism-check labs-refer to formulator compounder tylenol 2 tabs three times daily appt with Dr Rueda . Left shoulder pain -xray today - tylenol as needed -rest -will call with xray results . Pain after shoulder surgery - discussed with Dr. Calderon - pt is to contact his surgeon for any pain medication needed related to his recent surgeries. Pt is to only take medications as directed. . Headaches, tics, tremors - will send [...] if the symptoms are not improving. . Hypothyroidism - pt with chronic hypothyroidism, [...] with any changes, questions, or concerns. . URI - Pt advised to increase fluids, vitamin C. Discussed natural and expected course of this diagnosis and need to alert me if symptoms do not follow expected course, or if any worse. RX sent to patient's pharmacy. Acute anxiety - pt is to continue current medications, increase Buspar to TID . Gout Attack - pt given RX for uric Acid Level, and rx for medication for treatment of symptoms. Pt to call if symptoms do not improve , and pt to be given results of labs when available. . Low back pain- The pt is to do exercises as instructed. The pt is to use prn antiinflammatories to manage acute pain. The patient is to call the office if the pain is worsening or does not improve. . Hypertension - well controlled - continue with current medications, continue with no added salt diet. Pt has been encouraged to exercise daily. The pt has been advised to call the office if there are any acute concerns about change in blood pressure readings at home. CONSULT TO [facility] Thyroiditis - continue with treatments/follow up with formulator compounder. Depression - uncontrolled - medications changed. Kenalog 40 mg IM. Flonase sent ePharmacy to [facility]. Notify clinic Friday if symptoms have worsened. . Nasal xkqraaufdp-WXF-ouokeqa injection today in the office-start flonase as directed-call if symptoms do not resolve or if any worse Hypothyroidism-check labs
--- NOTE | 2018-04-22 08:21 | Progress Note-Pre Operative ---
Pre-Operative Progress Note H&P Reviewed The H&P was reviewed, patient examined and no changes noted. Date Seen by Provider: Apr 20, 2018 Time Seen by Provider: 15:00 Date H&P Reviewed: Apr 22, 2018 Time H&P Reviewed: 08:21 Pre-Operative Diagnosis: gallstone DURAN AQUINO MD Apr 22, 2018 08:21
--- OUTSIDE RECORDS SUMMARY | 2018-04-22 08:22 | XMS REPORT | CCD ---
Author Author [facility] Organization [facility] Address [address] [place] [address] Phone Care Team Providers Care Spanish Interpreter/Translator Name Role Phone PP Unavailable CCM Unavailable Summary Purpose Interface Exchange Insurance Providers Payer name Policy type / Coverage type Covered libertarian ID Effective Begin Date Effective End Date Blue Cross Blue [facility] Blue Cross/Blue Shield [id number] 2017 Unknown Family history Runs in the family Diagnosis Age At Onset Diabetes mellitus Type 1 Unknown Breast cancer Unknown Mother Diagnosis Age At Onset Depression Unknown Hypertension Unknown kidney disease Unknown Father Diagnosis Age At Onset Alcoholism Unknown Social History Social History Element Codes Description Effective Dates Marital status Unknown Soheila 11/23/2015 Number of children Unknown 2 11/23/2015 Employment Unknown Currently employed [email or web address] Photo 11/23/[address]: 1300013 Former smoker Quit 201311/23/[address]: 311828561 Never drinks alcohol 11/23/2015 Has the patient ever used illegal drugs? Unknown Has never used illegal drugs 11/23/2015 Allergies, Adverse Reactions, Alerts Substance Reaction Codes Entered Date Inactivated Date Status * NO KNOWN DRUG ALLERGIES Unknown 11/23/2015 No Inactive Date Active Past Medical History Illness Codes Condition Status Onset Date Resolved Date Encounter for other preprocedural examination ICD-9: V72.83 ICD-10: Z01.818 Active 04/13/2018 Unknown Pain in left shoulder ICD-9: 719.41 ICD-10: M25.512 Active 02/26/2018 Unknown Gout, unspecified ICD- 9: 274.9 ICD-10: [...] Problems Condition Codes Effective Dates Condition Status Encounter for other preprocedural examination ICD-9: V72.83 ICD-10: Z01.818 04/13/2018 Active Pain in left shoulder ICD-9: 719.41 ICD-10: M25.512 02/26/2018 Active Gout, unspecified ICD- 9: 274.9 ICD-10: [...] Fill Instructions allopurinol 100 mg tablet RxNorm: 541693 1 Tablet(s) PO daily 03/11/2018 07/08/2018 Active allopurinol 100 mg tablet RxNorm: 786858 1 Tablet(s) PO daily 03/11/2018 03/10/2018 Inactive levothyroxine 200 mcg tablet RxNorm: 580664 TAKE ONE TABLET BY MOUTH DAILY ON AN EMPTY STOMACH 03/09/2018 09/04/2018 Active Augmentin 500 mg-125 mg tablet RxNorm: 719808 1 Tablet(s) PO TID 03/09/2018 03/18/2018 Inactive prednisone 10 mg tablet RxNorm: 927808 Tablet(s) PO 03/04/2018 No Stop Date Active 6, 5,4,3,2,1 levothyroxine 200 mcg tablet RxNorm: 229496 Tablet(s) PO TAKE ONE TABLET BY MOUTH DAILY ON AN EMPTY STOMACH 11/17/201702/14 Inactive amitriptyline 25 mg tablet RxNorm: 977826 1 Tablet(s) PO QHS 12/11/2017 Inactive Ativan 0.5 mg tablet RxNorm: 034481 1 Tablet(s) PO daily as needed anxiety 11/04/2017 01/01/2018 Inactive levothyroxine 175 mcg tablet RxNorm: 309632 TAKE ONE TABLET BY MOUTH DAILY ON AN EMPTY STOMACH 09/08/2017 11/16/2017 Inactive levothyroxine 175 mcg tablet RxNorm: 573812 TAKE ONE TABLET BY MOUTH DAILY ON AN EMPTY STOMACH 05/06/2017 09/02/2017 Inactive Ativan 0.5 mg tablet RxNorm: 807956 1 Tablet(s) PO daily as needed anxiety 04/03/2017 06/30/2017 Inactive Augmentin 500 mg-125 mg tablet RxNorm: 157847 1 Tablet(s) PO TID 03/13/2017 03/22/2017 Inactive albuterol sulfate 2.5 mg/3 mL (0.083 %) solution for nebulization RxNorm: 541679 3 Milliliter(s) INH Q4-6H as needed 03/13/2017 02/25/2018 Inactive Kenalog 40 mg/mL suspension for injection RxNorm: 0111035 Milliliter(s) Inj 03/13/2017 03/13/2017 Inactive levothyroxine 175 mcg tablet RxNorm: 785885 TAKE ONE TABLET BY MOUTH DAILY ON AN EMPTY STOMACH 01/15/2017 04/14/2017 Inactive Ativan 0.5 mg tablet RxNorm: 793712 1 Tablet(s) PO daily as needed anxiety 01/15/2017 03/15/2017 Inactive propranolol ER 60 mg capsule,24 hr,extended release RxNorm: 194777 TAKE ONE CAPSULE BY MOUTH DAILY 01/15/20172017 Inactive Ativan 0.5 mg tablet RxNorm: 356736 1 Tablet(s) PO daily as needed anxiety 11/04/2016 01/02/2017 Inactive omeprazole 20 mg capsule,delayed release RxNorm: 751671 TAKE ONE CAPSULE BY MOUTH DAILY 10/30/2016 03/10/2017 Inactive Topamax 50 mg tablet RxNorm: 094296 1 Tablet(s) PO BID 201610/14/2016 Inactive Topamax 50 mg tablet RxNorm: 656463 1 Tablet(s) PO BID 201611/13/2016 Inactive Carafate 1 gram tablet RxNorm: 539201 1 Tablet(s) PO AC & HS 11/05/2016 Inactive ketorolac 60 mg/2 mL intramuscular solution RxNorm: 488784 Milliliter(s) IM 10/07/2016 10/07/2016 Inactive Topamax 25 mg tablet RxNorm: 723403 1 Tablet(s) PO BID 201610/13/2016 Inactive ketorolac 30 mg/mL injection solution RxNorm: 960155 2 Milliliter(s) Inj 10/03/2016 10/03/2016 Inactive Phenergan 25 mg/mL injection solution RxNorm: 613099 1 Milliliter(s) Inj 10/03/2016 10/03/2016 Inactive Topamax 25 mg tablet RxNorm: 490882 1 Tablet(s) PO QHS 201610/31/2016 Inactive levothyroxine 175 mcg tablet RxNorm: 605485 TAKE ONE TABLET BY MOUTH DAILY ON AN EMPTY STOMACH 08/16/2016 12/13/2016 Inactive Carafate 1 gram tablet RxNorm: 490390 1 Gram(s) PO AC & HS 07/201608/15/2016 Inactive Carafate 1 gram tablet RxNorm: 337098 1 Tablet(s) PO AC & HS 08/21/2016 Inactive omeprazole 20 mg capsule,delayed release RxNorm: 869474 TAKE ONE CAPSULE BY MOUTH DAILY 07/17/2016 10/14/2016 Inactive Zofran 4 mg tablet RxNorm: 271281 1 Tablet(s) PO Q6 PRN 07/0402/25/2018 Inactive Ativan 0.5 mg tablet RxNorm: 042629 1/2 Tablet(s) PO BID and a full pill prn anxiety attack 07/02/2016 11/03/2017 Inactive Ativan 0.5 mg tablet RxNorm: 840704 1 Tablet(s) PO QDAY PRN 07/01/2016 Inactive propranolol ER 60 mg capsule,24 hr,extended release RxNorm: 407054 1 Capsule(s) PO daily 06/21/2016 11/17/2016 Inactive ceftriaxone 500 mg solution for injection RxNorm: 1862801 1 Milliliter(s) Inj 05/22/2016 05/22/2016 Inactive amoxicillin 500 mg tablet RxNorm: 259544 1 Tablet(s) PO TID 05/28/2016 Inactive Ativan 0.5 mg tablet RxNorm: 476323 1 Tablet(s) PO QDAY PRN 01/201611/03/2016 Inactive tramadol 50 mg tablet RxNorm: 477698 1 Tablet(s) PO Q6-8H as needed 04/29/2016 09/30/2016 Inactive Kenalog 40 mg/mL suspension for injection RxNorm: 9757962 Milliliter(s) Inj 04/19/2016 04/19/2016 Inactive Flonase Allergy Relief 50 mcg/actuation nasal spray, suspension RxNorm: 4481257 1 [place] NASAL daily 04/19/20162015 Inactive levothyroxine 175 mcg tablet RxNorm: 360010 1 Tablet(s) PO daily 04/11/2016 08/08/2016 Inactive Wellbutrin XL 300 mg 24 hr tablet, extended release RxNorm: 607061 1 Tablet(s) PO daily 03/13/2016 07/01/2016 Inactive omeprazole 20 mg capsule,delayed release RxNorm: 690016 1 Capsule(s) PO daily 03/13/2016 07/10/2016 Inactive Augmentin 500 mg-125 mg tablet RxNorm: 906122 1 Tablet(s) PO TID 03/05/2016 03/14/2016 Inactive ceftriaxone 500 mg solution for injection RxNorm: 5879787 Inj 02/01/2016 02/01/2016 Inactive amoxicillin 500 mg tablet RxNorm: 465187 1 Tablet(s) PO TID 01/29/2016 Inactive amoxicillin 500 mg tablet RxNorm: 196185 1 Tablet(s) PO TID 02/05/2016 Inactive propranolol ER 60 mg capsule,24 hr,extended release RxNorm: 749475 1 Capsule(s) PO daily 01/02/2016 04/30/2016 Inactive Wellbutrin XL 150 mg 24 hr tablet, extended release RxNorm: 217917 1 Tablet(s) PO daily 12/12/2015 03/12/2016 Inactive levothyroxine 175 mcg tablet RxNorm: 883690 1 Tablet(s) PO daily 12/12/2015 04/09/2016 Inactive Kenalog 40 mg/mL suspension for injection RxNorm: 0297762 1 Milliliter(s) Inj 12/12/2015 12/12/2015 Inactive prednisone 20 mg tablet RxNorm: 768296 3 Tablet(s) PO daily 05/201612/16/2015 Inactive ibuprofen 800 mg tablet RxNorm: 937742 1 Tablet(s) PO BID 11/2204/20/2016 Inactive Voltaren 1 % topical gel RxNorm: 926352 4 Gram(s) TOP QID 11/2201/21/2016 Inactive buspirone 10 mg tablet RxNorm: 065570 1 Tablet(s) PO BID No Start Date 09/30/2016 Inactive Vitamin D3 5,000 unit tablet RxNorm: 634700 1 Tablet(s) PO daily No Start Date 02/25/2018 Inactive baclofen 20 mg tablet RxNorm: 323791 1 Tablet(s) PO TID No Start Date 09/30/2016 Inactive propranolol 40 mg tablet RxNorm: 831301 1 Tablet(s) PO daily No Start Date 01/01/2016 Inactive levothyroxine 200 mcg tablet RxNorm: 018130 1 Tablet(s) PO daily No Start Date 12/11/2015 Inactive Medication Administered Medication Codes Instructions Start Date Status Kenalog 40 mg/mL suspension for injection RxNorm: 2739410 Milliliter 03/13/2017 No longer Active ketorolac 60 mg/2 mL intramuscular solution RxNorm: 303734 Milliliter 10/07/2016 No longer Active Phenergan 25 mg/mL injection solution RxNorm: 691196 1Milliliter 10/03/2016 No longer Active ketorolac 30 mg/mL injection solution RxNorm: 728152 2Milliliter 10/03/2016 No longer Active ceftriaxone 500 mg solution for injection RxNorm: 3471531 1Milliliter 05/22/2016 No longer Active Kenalog 40 mg/mL suspension for injection RxNorm: 6112886 Milliliter 04/19/2016 No longer Active ceftriaxone 500 mg solution for injection RxNorm: 6892573 02/01/2016 No longer Active Kenalog 40 mg/mL suspension for injection RxNorm: 9797868 1Milliliter 12/12/2015 No longer Active Immunizations No Immunization data Assessments Condition Codes Effective Dates Encounter for other preprocedural examination ICD-10: Z01.818 ICD-9: V72.83 04/13/2018 Pain in left shoulder ICD-10: M25.512 ICD-9: 719.41 04/13/2018 Idiopathic gout, right ankle and foot [...] Visit Reason For Visit Effective Dates Notes pre-op/surgery consult 04/13/2018 foot pain 03/04/2018 shoulder [...] Uric A 8.9 mg/dL 03/05/2018 Free T4 Csp831 FREE T4 0.47 ng/dL 11/12/2017 Lipid Ord30 [...] 32.6 pg 11/12/2017 Cbc With Differential Ord2 [place]% 7.6 % 11/12/2017 Cbc With Differential Ord2 [...] 1.68 K/ul 11/12/2017 Cbc With Differential Ord2 [place] ABS# 0.5 K/ul 11/12/2017 Cbc With Differential Ord2 Eos ABS# 0.1 K/ul 11/12/2017 Cbc With Differential Ord2 Baso ABS# 0.0 K/ul 11/12/2017 Comp Metabolic Qbn899 NA 139 mEq/L 11/12/2017 Comp Metabolic Yte016 K 4.3 mEq/L 11/12/2017 Comp Metabolic Sll648 CL 102 mEq/L 11/12/2017 Comp Metabolic Hwq715 CO2 25.0 mEq/L 11/12/2017 Comp Metabolic Gjf305 ANION GAP 16 11/12/2017 Comp Metabolic Nhh092 GLUCOSE 121 mg/dL 11/12/2017 Comp Metabolic Odj033 Creat 1.5 mg/dL 11/12/2017 Comp Metabolic Uvh364 eGFR 56 ml/min/1.73m2 11/12/2017 Comp Metabolic Vws951 BUN 15 mg/dL 11/12/2017 Comp Metabolic Ssh393 B/C Ratio 9.9 Ratio 11/12/2017 Comp Metabolic Lgb241 CALCIUM 9.3 mg/dL 11/12/2017 Comp Metabolic Kht827 ALK PHOS 69 U/L 11/12/2017 Comp Metabolic Pff101 AST(SGOT) 30 U/L 11/12/2017 Comp Metabolic Gpz112 ALT(SGPT) 32 U/L 11/12/2017 Comp Metabolic Xve555 BILI T 0.3 mg/dL 11/12/2017 Comp Metabolic Unu317 ALBUMIN 4.8 g/dL 11/12/2017 Comp Metabolic Sou276 TPRO 7.3 g/dL 11/12/2017 Comp Metabolic Yes884 GLOB 2.5 g/dL 11/12/2017 Comp Metabolic Awn601 A/G Ratio 1.9 Ratio 11/12/2017 Comp Metabolic Fop393 Osmo 280 mOsmo 11/12/2017 Tsh Ord6 TSH [...] 31.7 % 09/05/2016 Cbc With Differential Ord2 [place]% 8.0 % 09/05/2016 Cbc With Differential Ord2 [...] 1.79 K/ul 09/05/2016 Cbc With Differential Ord2 [place] ABS# 0.5 K/ul 09/05/2016 Cbc With Differential Ord2 Eos ABS# 0.2 K/ul 09/05/2016 Cbc With Differential Ord2 Baso ABS# 0.0 K/ul 09/05/2016 Comp Metabolic Tej376 NA 137 mEq/L 09/05/2016 Comp Metabolic Gbo096 K 4.3 mEq/L 09/05/2016 Comp Metabolic Vcc071 CL 104 mEq/L 09/05/2016 Comp Metabolic Jcq966 CO2 25.0 mEq/L 09/05/2016 Comp Metabolic Rwt206 ANION GAP 12 09/05/2016 Comp Metabolic Xgq511 GLUCOSE 116 mg/dL 09/05/2016 Comp Metabolic Oss275 Creat 1.2 mg/dL 09/05/2016 Comp Metabolic Klt113 eGFR 77 ml/min/1.73m2 09/05/2016 Comp Metabolic Chb418 BUN 15 mg/dL 09/05/2016 Comp Metabolic Iqn008 B/C Ratio 13.0 Ratio 09/05/2016 Comp Metabolic Sap922 CALCIUM 9.1 mg/dL 09/05/2016 Comp Metabolic Sma571 ALK PHOS 68 U/L 09/05/2016 Comp Metabolic Zas381 AST(SGOT) 23 U/L 09/05/2016 Comp Metabolic Ojr420 ALT(SGPT) 33 U/L 09/05/2016 Comp Metabolic Sxn927 BILI T 0.5 mg/dL 09/05/2016 Comp Metabolic Hew710 ALBUMIN 4.4 g/dL 09/05/2016 Comp Metabolic Pni598 TPRO 6.8 g/dL 09/05/2016 Comp Metabolic Jhe459 GLOB 2.4 g/dL 09/05/2016 Comp Metabolic Zvq356 A/G Ratio 1.8 Ratio 09/05/2016 Comp Metabolic Obw679 Osmo 276 mOsmo 09/05/2016 Tsh Ord6 hTSH II 1.41 uIU/mL 09/05/2016 Total T3 Ord42 TT3 0.88 ng/ml 09/05/2016 Free T4 Icn192 FREE T4 0.72 ng/dL 09/05/2016 Comp Metabolic Rso132 NA 139 mEq/L 05/09/2016 Comp Metabolic Zpg537 K 4.6 mEq/L 05/09/2016 Comp Metabolic Qkg019 CL 105 mEq/L 05/09/2016 Comp Metabolic Jmy544 CO2 28.0 mEq/L 05/09/2016 Comp Metabolic Rfj360 ANION GAP 11 05/09/2016 Comp Metabolic Iuw888 GLUCOSE 108 mg/dL 05/09/2016 Comp Metabolic Veq992 Creat 1.2 mg/dL 05/09/2016 Comp Metabolic Yyu016 eGFR 71 ml/min/1.73m2 05/09/2016 Comp Metabolic Ugs662 BUN 18 mg/dL 05/09/2016 Comp Metabolic Nvo590 B/C Ratio 14.5 Ratio 05/09/2016 Comp Metabolic Ufj330 CALCIUM 9.5 mg/dL 05/09/2016 Comp Metabolic Ocz565 ALK PHOS 83 U/L 05/09/2016 Comp Metabolic Swk899 AST(SGOT) 19 U/L 05/09/2016 Comp Metabolic Uou524 ALT(SGPT) 28 U/L 05/09/2016 Comp Metabolic Zfb249 BILI T 0.7 mg/dL 05/09/2016 Comp Metabolic Ypm048 ALBUMIN 4.7 g/dL 05/09/2016 Comp Metabolic Yjn437 TPRO 7.1 g/dL 05/09/2016 Comp Metabolic Uge223 GLOB 2.4 g/dL 05/09/2016 Comp Metabolic Knf054 A/G Ratio 1.9 Ratio 05/09/2016 Comp Metabolic Ezo706 Osmo 280 mOsmo 05/09/2016 Cbc With Differential [...] 28.9 % 05/09/2016 Cbc With Differential Ord2 [place]% 8.2 % 05/09/2016 Cbc With Differential Ord2 [...] 2.15 K/ul 05/09/2016 Cbc With Differential Ord2 [place] ABS# 0.6 K/ul 05/09/2016 Cbc With Differential Ord2 Eos ABS# 0.1 K/ul 05/09/2016 Cbc With Differential Ord2 Baso ABS# 0.0 K/ul 05/09/2016 Tsh Ord6 hTSH II 0.99 uIU/mL 05/09/2016 Free T4 Iqd408 FREE T4 0.91 ng/dL 05/09/2016 C RAP A SC [id number] Strep A Negative 03/05/2016 C RAP A SC 2015891 Strep A Negative 01/29/2016 Tsh Ord6 hTSH II 0.27 uIU/mL 12/12/2015 Free T4 Bvv339 FREE T4 1.67 ng/dL 12/12/2015 Review of [...] lips 04/13/2018 None Full Exam - General 1995 Ears/Nose/Throat oral cavity/pharynx/larynx Overall: oral mucosa clear [...] strength 2017 None Full Exam - General 1994 Eyes conjunctiva /eyelids Overall: conjunctiva clear 11/12/2017 [...] lips 08/02/2016 None Full Exam - General 1994 Ears/Nose/Throat lips/teeth/gingiva Overall: normal dentition 08/02/2016 None [...] rounded 07/04/2016 None Full Exam - General 1995 Abdomen abdominal exam Upper quadrant: tender to [...] lips 07/02/2016 None Full Exam - General 1995 Ears/Nose/Throat lips/teeth/gingiva Overall: normal dentition 07/02/2016 None Full Exam - General 1994 Ears/Nose/Throat oral cavity/pharynx/larynx Overall: oral mucosa clear 07/02/2016 None Full Exam - General 1995 Ears/Nose/Throat oral cavity/pharynx/larynx Overall: oropharyngeal mucosa clear 07/02/2016 None Full Exam - General 1995 Ears/Nose/Throat oral cavity/pharynx/larynx Overall: hypopharynx benign 07/02/2016 [...] Procedure Codes Date THER/PROPH/DIAG INJ SC/IM CPT-4: 16121 03/13/2017 TRIAMCINOLONE ACET INJ NOS CPT-4: J3301 03/13/2017 KETOROLAC TROMETHAMINE INJ CPT-4: J1885 10/07/2016 THER/PROPH/DIAG INJ SC/IM CPT-4: 43552 10/03/2016 KETOROLAC TROMETHAMINE INJ CPT-4: J1885 10/03/2016 PROMETHAZINE HCL INJECTION CPT-4: J2550 10/03/2016 ROCEPHIN, PER 250 MG CPT-4: J0696 05/22/2016 TRIAMCINOLONE ACET INJ NOS CPT-4: J3301 04/19/2016 ROCEPHIN, PER 250 MG CPT-4: J0696 02/01/2016 THER/PROPH/DIAG INJ SC/IM CPT-4: 41416 02/01/2016 TRIAMCINOLONE ACET INJ NOS CPT-4: J3301 12/12/2015 Vital Signs Date Vital 04/13/2018 Blood Pressure 1: 122/60 Code : 8480-6 BMI: 27.1 Code : 82237-1 Heart Rate 1 : 93 bpm Height: 6'3" SpO2: 98% Weight: 217 lbs 03/04/2018 Blood Pressure 1: 120/76 Code : 8480-6 BMI: 27.1 Code : 21366-6 Heart Rate 1 : 104 bpm Height: 6'3" SpO2: 98% Weight: 217 lbs 02/26/2018 Blood Pressure 1: 130/86 Code : 8480-6 BMI: 27.1 Code : 60772-7 Heart Rate 1 : 76 bpm Height: 6'3" SpO2: 98% Weight: 217 lbs 11/12/2017 Blood Pressure 1: 128/78 Code : 8480-6 BMI: 28.6 Code : 58926-1 Heart Rate 1 : 92 bpm Height: 6'3" SpO2: 98% Weight: 229 lbs 03/13/2017 Blood Pressure 1: 108/78 Code : 8480-6 BMI: 29.0 Code : 64088-3 Heart Rate 1 : 101 bpm Height: 6'3" SpO2: 98% Temperature: 36.9 (C) / 98.5 (F) Weight: 232 lbs 10/07/2016 Blood Pressure 1: 126/80 Code : 8480-6 BMI: 29.5 Code : 10861-9 Heart Rate 1 : 59 bpm Height: 6'3" SpO2: 98% Weight: 236 lbs 10/02/2016 Blood Pressure 1: 124/80 Code : 8480-6 BMI: 29.5 Code : 48647-8 Heart Rate 1 : 80 bpm Height: 6'3" SpO2: 98% Temperature: 37.1 (C) / 98.8 (F) Weight: 236 lbs 09/05/2016 Blood Pressure 1: 138/80 Code : 8480-6 BMI: 29.6 Code : 25127-2 Heart Rate 1 : 91 bpm Height: 6'3" SpO2: 97% Temperature: 36.8 (C) / 98.3 (F) Weight: 237 lbs 08/02/2016 Blood Pressure 1: 146/80 Code : 8480-6 BMI: 28.7 Code : 39619-7 Heart Rate 1 : 84 bpm Height: 6'3" SpO2: 98% Temperature: 37.2 (C) / 98.9 (F) Weight: 230 lbs 07/23/2016 Blood Pressure 1: 120/72 Code : 8480-6 BMI: 29.2 Code : 31526-9 Heart Rate 1 : 85 bpm Height: [...] Code : 8480-6 BMI: 29.6 Code : 29030-9 Heart Rate 1 : 91 bpm Height: 6'3" SpO2: 88% Weight: 237 lbs 05/22/2016 Blood Pressure 1: 152/80 Code : 8480-6 BMI: 29.6 Code : 82634-7 Heart Rate 1 : 114 bpm Height: [...] Code : 8480-6 BMI: 29.7 Code : 83847-1 Heart Rate 1 : 111 bpm Height: 6'3" SpO2: 95% Weight: 238 lbs 03/13/2016 Blood Pressure 1: 136/82 Code : 8480-6 BMI: 30.0 Code : 82855-7 Heart Rate 1 : 90 bpm Height: 6'3" SpO2: 98% Weight: 240 lbs 03/05/2016 Blood Pressure 1: 120/84 Code : 8480-6 BMI: 28.6 Code : 83430-1 Heart Rate 1 : 95 bpm Height: 6'3" SpO2: 98% Temperature: 37.1 (C) / 98.8 (F) Weight: 229 lbs 01/29/2016 Blood Pressure 1: 118/74 Code : 8480-6 BMI: 28.6 Code : 86783-4 Heart Rate 1 : 89 bpm Height: 6'3" SpO2: 98% Temperature: 36.3 (C) / 97.3 (F) Weight: 229 lbs 01/02/2016 Blood Pressure 1: 118/68 Code : 8480-6 BMI: 29.7 Code : 60421-0 Heart Rate 1 : 81 bpm Height: 6'3" SpO2: 98% Weight: 238 lbs 12/12/2015 Blood Pressure 1: 112/80 Code : 8480-6 BMI: 28.7 Code : 30865-3 Heart Rate 1 : 84 bpm Height: 6'3" SpO2: 97% Weight: 230 lbs 11/23/2015 Blood Pressure 1: 118/78 Code : 8480-6 BMI: 28.6 Code : 72153-6 Heart Rate 1 : 85 bpm Height: 6'3" SpO2: 98% Weight: 228 lbs 8 oz Functional Status No Functional Status data History of Present Illness Symptom Name Status Result Effective Date Notes pre-op/surgery consult Referred by Dr. rueda 04/13/2018 [...] Codes Date EST. PATIENT, LEVEL III Diagnosis: Encounter for other preprocedural examination[ICD10: Z01.818] Diagnosis: Pain in left shoulder[ICD10: M25.512] Maria G Calderon MD, [facility] CPT-4: 73238 04/13/2018 52130 EST. PATIENT, LEVEL IV Diagnosis: Idiopathic gout, right ankle and foot[ICD10: M10.071] Maria G Calderon MD, [facility] CPT-4: 94002 03/04/2018 ([id number]) 22552 EST. PATIENT, LEVEL III Diagnosis: Pain in left shoulder[ICD10: M25.512] Mary Calderon MD, [facility] CPT-4: 01775 02/26/2018 69186 EST. PATIENT, LEVEL IV Diagnosis: Other specified hypothyroidism[ICD10: E03.8] Diagnosis: Headache[ICD10: R51] Maria G Calderon MD, [facility] CPT-4: 82170 11/12/2017 86168 EST. PATIENT, LEVEL III Diagnosis: Acute laryngopharyngitis[ICD10: J06.0] Diagnosis: Cough[ICD10: R05] Diagnosis: Other allergic rhinitis[ICD10: J30.89] Diagnosis: Other acute sinusitis[ICD10: J01.80] Maria G Calderon MD, [facility] CPT-4: 52650 03/13/2017 30700 EST. PATIENT, LEVEL IV Diagnosis: Headache[ICD10: R51] Diagnosis: Other specified forms of tremor[ICD10: G25.2] Diagnosis: Other muscle spasm[ICD10: M62.838] Diagnosis: Generalized anxiety disorder[ICD10: F41.1] Diagnosis: Major depressive disorder, single episode, moderate[ICD10: F32.1] Diagnosis: Gastro-esophageal reflux disease without esophagitis[ICD10: K21.9] Maria G Calderon MD, [facility] CPT-4: 75544 10/07/2016 60400 EST. PATIENT, LEVEL IV Diagnosis: Other specified forms of tremor[ICD10: G25.2] Diagnosis: Other muscle spasm[ICD10: M62.838] Diagnosis: Gastro-esophageal reflux disease without esophagitis[ICD10: K21.9] Maria G Calderon MD, [facility] CPT-4: 65465 10/02/2016 ([id number]) 36311 EST. PATIENT, LEVEL III Diagnosis: Hypothyroidism, unspecified[ICD10: E03.9] Mary Calderon MD, [facility] CPT-4: 06051 09/05/2016 ([id number]) 26212 EST. PATIENT, LEVEL III Diagnosis: Gastro-esophageal reflux disease without esophagitis[ICD10: K21.9] Diagnosis: Epigastric pain[ICD10: R10.13] Mary Calderon MD, [facility] CPT-4: 62046 08/02/2016 30545 EST. PATIENT, LEVEL IV Diagnosis: Gastro-esophageal reflux disease without esophagitis[ICD10: K21.9] Diagnosis: Generalized abdominal pain[ICD10: R10.84] Maria G Calderon MD, [facility] CPT-4: 94484 07/23/2016 ([id number]) 82707 EST. PATIENT, LEVEL III Diagnosis: Nausea[ICD10: R11.0] Mary Calderon MD, [facility] CPT-4: 09366 07/04/2016 ([id number]) 19462 EST. PATIENT, LEVEL III Diagnosis: Atrophy of thyroid (acquired)[ICD10: E03.4] Diagnosis: Essential (primary) hypertension[ICD10: I10] Sonia Calderon MD, [facility] CPT-4: 13234 07/02/2016 ([id number]) 47426 EST. PATIENT, LEVEL III Diagnosis: Essential (primary) hypertension[ICD10: I10] Diagnosis: Hypothyroidism, unspecified[ICD10: E03.9] Diagnosis: Generalized anxiety disorder[ICD10: F41.1] Mary Calderon MD, [facility] CPT-4: 84085 06/07/2016 30411 EST. PATIENT, LEVEL III Diagnosis: Other allergic rhinitis[ICD10: J30.89] Diagnosis: Acute laryngopharyngitis[ICD10: J06.0] Maria G Calderon MD, [facility] CPT-4: 53536 05/22/2016 ([id number]) 74498 EST. PATIENT, LEVEL IV Diagnosis: Generalized anxiety disorder[ICD10: F41.1] Diagnosis: Chronic kidney disease, stage 3 (moderate)[ICD10: N18.3] Mary Calderon MD , [facility] CPT-4: 48288 05/09/2016 ([id number]) 27113 EST. PATIENT, LEVEL III Diagnosis: Nasal congestion[ICD10: R09.81] Diagnosis: Hypothyroidism, unspecified[ICD10: E03.9] Mary Calderon MD, [facility] CPT-4: 01966 04/19/2016 15164 EST. PATIENT, LEVEL III Diagnosis: Low back pain[ICD10: M54.5] Maria G Calderon MD, [facility] CPT-4 : 28451 03/27/2016 ([id number]) 56888 EST. PATIENT, LEVEL IV Diagnosis: Essential (primary) hypertension[ICD10: I10] Diagnosis: Major depressive disorder, single episode, unspecified[ICD10: F32.9] Diagnosis: Other specified hypothyroidism[ICD10: E03.8] Diagnosis: Gastro-esophageal reflux disease without esophagitis[ICD10: K21.9] Sonia Calderon MD, [facility] CPT-4: 53124 03/13/2016 02010 EST. PATIENT, LEVEL IV Diagnosis: Acute laryngopharyngitis[ICD10: J06.0] Maria G Calderon MD, [facility] CPT-4: 44207 03/05/2016 69958 EST. PATIENT, LEVEL IV Diagnosis: Acute laryngopharyngitis[ICD10: J06.0] [facility] CPT-4: 18847 01/29/2016 ([id number]) 72512 EST. PATIENT, LEVEL IV Diagnosis: Essential (primary) hypertension[ICD10: I10] Diagnosis: Hypothyroidism, unspecified[ICD10: E03.9] Diagnosis: Major depressive disorder, single episode, unspecified[ICD10: F32.9] Sonia Calderon MD, [facility] CPT-4: 59169 01/02/2016 ([id number]) 55129 EST. PATIENT, LEVEL IV Diagnosis: Hypothyroidism, unspecified[ICD10: E03.9] Diagnosis: Major depressive disorder, single episode, unspecified[ICD10: F32.9] Sonia Calderon MD, [facility] CPT-4: 77954 12/12/2015 ([id number]) PREV VISIT NEW AGE 18-39 Diagnosis: Encounter for general adult medical examination with abnormal findings[ICD10: Z00.01] Diagnosis: Hypothyroidism, unspecified[ICD10: E03.9] Sonia Calderon MD, [facility] CPT-4: 88422 11/23/2015 Plan of Care Planned Activity Notes Codes Status Date Visit Plan: Surgical clearance - Dr. Calderon [...] exam, and the assessment and plan. 04/13/2018 Patient Education: Patient Medication Summary Completed 04/13/2018 Visit Plan: Gout Attack - pt given RX for uric Acid Level, and rx for medication for treatment of symptoms. Pt to call if symptoms do not improve, and pt to be given results of labs when available. 03/04/2018 Appointment: Maria G Mendez WPtel: [address] [place], [place] [phone] [place] (15 min) Moderate 03/04/2018 Patient Education: Patient Medication Summary Completed 03/04/2018 Patient Education: Gout Completed 03/04/2018 Visit Plan: Left shoulder pain -xray today - tylenol as needed -rest -will call with xray results 02/26/2018 Appointment: Mary Downey WPtel: [phone] [phone] [place] (15 min) Moderate 02/26/2018 Patient Education: Patient Medication Summary Completed 02/26/2018 Appointment: Maria G Mendez WPtel: [address] [facility] (30 min) Complex 12/08/2017 Visit Plan: Hypothyroidism [...] concerns. 11/12/2017 Appointment: Maria G Mendez WPtel: [facility]5 [facility] [place] (15 min) Moderate 11/12/2017 Patient Education: Patient [...] 03/13/2017 Appointment: Maria G Mendez WPtel: [address] [facility] (15 min) Moderate 03/13/2017 Patient Education: Patient Medication Summary Completed 03/13/2017 Patient Education: Obesity Completed 03/13/2017 Care Plan: Referral Order SNOMED-CT : 154008402 Pending 10/08/2016 Visit Plan: Headaches, tics, tremors [...] improving. 10/07/2016 App[facility]ment: [phone] (30 min) Complex 10/07/2016 Patient Education: Patient Medication Summary Completed 10/07/2016 Appointment: Mary Downey WPtel: [facility]1 [phone] (15 min) Moderate 10/04/2016 Appointment: Injection 10/03/2016 Patient Education: Patient Medication Summary Completed [...] concerns. 10/02/2016 Appointment: Maria G Mendez WPtel: [facility]5 [facility] (15 min) Moderate 10/02/2016 Patient Education: Patient Medication Summary Completed 10/02/2016 Patient Education: Obesity Completed 10/02/2016 Visit Plan: Post ablative hypothyroidism-check labs-refer to area intelligence technician 09/05/2016 Patient Education: Patient Medication Summary Completed 09/05/2016 Visit Plan: Esophageal Reflux - the patient has been counseled against excessive intake of caffeine, spicy foods, peppermint, and cinnamon - all of which can exacerbate esophageal reflux. The patient is to take medications as prescribed and call the office if the symptoms are not improving. 08/02/2016 Appointment: Mary Downey WPtel: [facility]8 [phone] (15 min) Moderate 08/02/2016 Patient Education: Patient Medication Summary Completed 08/02/2016 Patient Education: Obesity Completed 08/02/2016 Care Plan: CT ABD & PELV W/CONTRAST LOINC : 58491-9 Pending 07/28/2016 Visit Plan: Esophageal Reflux - the patient has been counseled against excessive intake of caffeine, spicy foods, peppermint, and cinnamon - all of which can exacerbate esophageal reflux. The patient is to take medications as prescribed and call the office if the symptoms are not improving. Acute abdominal pain - will order CT 07/23/2016 Appointment: Maria G Mendez WPtel: [address] [place], [place] [phone] (30 min) Complex 07/23/2016 Patient Education: Patient Medication Summary Completed 07/23/2016 Patient Education: Obesity Completed 07/23/2016 Appointment: Sonia Calderon WPtel: [address] [place], [place] [phone] (15 min) Moderate 07/09/2016 Visit Plan: Gastroenteritis [...] WORSE. 07/04/2016 Appointment: Mary Downey WPtel: [facility]2 [phone] (30 min) Complex 07/04/2016 Patient Education: Patient Medication Summary Completed 07/04/2016 Appointment: Maria G Mendez WPtel: [facility]1 [facility] (30 min) Complex 07/03/2016 Visit Plan: Hypertension [...] on ativan. 07/02/2016 Appointment: Sonia Calderon WPtel: [facility]2 [facility] (15 min) Moderate 07/02/2016 Patient Education: Patient Medication Summary Completed 07/02/2016 Visit Plan: Hypertension - well controlled - continue with current medications, continue with no added salt diet. Pt has been encouraged to exercise daily. The pt has been advised to call the office if there are any acute concerns about change in blood pressure readings at home. Hypothyroidism- appt with [facility] coming up Wmnosuq-HKTU-sbequgc head injury- patient saw psychiatrist at [facility] but does not want to go back-states he will consider returning but wants to see area intelligence technician first as he feels like his thyroid is his biggest issue. Encouraged him to follow up with the psychiatrist. 06/07/2016 Appointment: Mary Downey WPtel: [facility]6 [phone] (15 min) Moderate 06/07/2016 Patient Education: Patient [...] 05/22/2016 Appointment: Maria G Mendez WPtel: [facility]6 [facility] (30 min) Complex 05/22/2016 Patient Education: Patient [...] labs 05/09/2016 Appointment: Mary Downey WPtel: [facility]2 [phone] [place] (30 min) Complex 05/09/2016 Patient Education: Patient Medication Summary Completed 05/09/2016 Visit Plan: Nasal slziiffhdw-HWF-myzsenn injection today in the office-start flonase as directed-call if symptoms do not resolve or if any worse Hypothyroidism-check labs 04/19/2016 Appointment: Mary Downey WPtel: [facility]6 [phone] [place] (30 min) Complex 04/19/2016 Patient Education: Patient Medication Summary Completed 04/19/2016 Visit Plan: Low back pain- The pt is to do exercises as instructed. The pt is to use prn antiinflammatories to manage acute pain. The patient is to call the office if the pain is worsening or does not improve. 03/27/2016 Appointment: Mary Downey WPtel: [facility]5 [phone] [place] (15 min) Moderate 03/27/2016 Patient Education: Patient [...] readings at home. CONSULT TO [facility] IN [place] Thyroiditis - continue with treatments/follow up with area intelligence technician. Depression - uncontrolled - medications changed. 03/13/2016 Appointment: Sonia Calderon WPtel: [facility]9 [facility] [place] (15 min) Moderate 03/13/2016 Patient Education: Patient Medication Summary Completed 03/13/2016 Patient Education: Obesity Completed 03/13/2016 Care Plan: Referral Order SNOMED-CT : [id number] Pending 03/13/2016 Visit Plan: URI - Pt [...] swab. 03/05/2016 Appointment: Mary Downey WPtel: [facility]8 [phone] [place] (15 min) Moderate 03/05/2016 Patient [...] TID 01/29/2016 Appointment: Maria G Mendez WPtel: [address] [facility] (15 min) Moderate 01/29/2016 Patient Education: Patient Medication Summary Completed 01/29/2016 Visit Plan: HTN - chronic and episodic symptoms of thyroid storm - referral to dr. cabello. Depression and anxiety - pt on wellbutrin - continue with treatment - monitor symptoms. 01/02/2016 Appointment: Sonia Calderon WPtel: [facility]2 [facility] (15 min) Moderate 01/02/2016 Patient Education: Patient Medication Summary Completed 01/02/2016 Patient Education: Obesity Completed 01/02/2016 Appointment: Sonia Calderon WPtel: [facility]0 [facility] (15 min) Moderate 12/26/2015 Visit Plan: Hypothyroidism [...] that week stop the buspirone 12/12/2015 Appointment: Sonia Calderon WPtel: [facility]4 [facility] (15 min) Moderate 12/12/2015 Patient Education: Patient [...] External, Ordering Provider Referred info faxed to [phone] Appointment Requested Referral: [address] they are going to call him with appt time and date Initiated Referral: [address] Referral Initiated Instructions Comment . Surgical clearance - Dr. Calderon in [...] exam, and the assessment and plan. . URI - Pt advised to increase [...] today - will culture the swab. . URI - Pt advised to increase [...] spray in the nasal steroid allergy spray. . Hypertension - well controlled - continue with current medications, continue with no added salt diet. Pt has been encouraged to exercise daily. The pt has been advised to call the office if there are any acute concerns about change in blood pressure readings at home. CONSULT TO [facility] [place] Thyroiditis - continue with treatments/follow up with area intelligence technician. Depression - uncontrolled - medications changed. . Gout Attack - pt given RX [...] office if the symptoms are not improving. tylenol 2 tabs three times daily appt with Dr Rueda . Left shoulder pain -xray today - tylenol as needed -rest -will call with xray results LABS TODAY- TSH, FREE T4, TOTAL T3, CBC, CMP WILL CALL WITH RESULTS . Post ablative hypothyroidism-check labs-refer to area intelligence technician . Gastroenteritis - discussed need to stay [...] if the symptoms are not improving. . Hypertension - well controlled - continue with current medications, continue with no added salt diet. Pt has been encouraged to exercise daily. The pt has been advised to call the office if there are any acute concerns about change in blood pressure readings at home. Depression - uncontrolled - Anxiety - uncontrolled - start on ativan. Increase Omeprazole to twice a day. Esophageal [...] nodules - referral to dr. cabello . Esophageal Reflux - the patient has [...] worsen, or with any questions or concerns. stop propranolol 40mg and start on propranolol 60mg extended release. . HTN - chronic and episodic symptoms of thyroid storm - referral to dr. cabello. Depression and anxiety - pt on wellbutrin - continue with treatment - monitor symptoms. Kenalog 40 mg IM. Flonase sent ePharmacy to [place]. Notify clinic Friday if symptoms have worsened. . Nasal txobgswscg-WIY-fcfckxl injection today in the office-start flonase as directed-call if symptoms do not resolve or if any worse Hypothyroidism-check labs . Low back pain- The pt is to do exercises as instructed. The pt is to use prn antiinflammatories to manage acute pain. The patient is to call the office if the pain is worsening or does not improve. . Headaches, tics, tremors - will send [...] blood pressure readings at home. Hypothyroidism-appt with [facility] coming up Idqljco-EIII-dfulnjk head injury-patient saw psychiatrist at [facility] but does not want to go back-states he will consider returning but wants to see area intelligence technician first as he feels like his thyroid is his biggest issue. Encouraged him to follow up with the psychiatrist.
--- OUTSIDE RECORDS SUMMARY | 2018-04-22 08:25 | XMS REPORT | CCD ---
Author Author [facility] Organization [facility] Address [address] [place] [address] Phone Care Team Providers Care Subassembly Assembler Name Role Phone PP Unavailable CCM Unavailable Summary Purpose Interface Exchange Insurance Providers Payer name Policy type / Coverage type Covered libertarian ID Effective Begin Date Effective End Date Blue Cross Blue Shield [facility] Blue Cross/Blue Shield [id number] 2017 Unknown Family history Runs in the family Diagnosis Age At Onset Diabetes mellitus Type 1 Unknown Breast cancer Unknown Mother Diagnosis Age At Onset Depression Unknown Hypertension Unknown kidney disease Unknown Father Diagnosis Age At Onset Alcoholism Unknown Social History Social History Element Codes Description Effective Dates Marital status Unknown Soheila 11/23/2015 Number of children Unknown 2 11/23/2015 Employment Unknown Currently employed [employer] 11/23/[address]: 5127335 Former smoker Quit 201311/23/[address]: 131669358 Never drinks alcohol 11/23/2015 Has the patient [...] 9: 274.9 ICD-10: M10.9 Active 03/04/2018 Unknown Pain in left shoulder ICD-9: 719.41 ICD-10: M25.512 Active 02/26/2018 Unknown Hypothryroidism Unknown Active 11/12/2017 Unknown Atrophy [...] ICD- 9: 274.9 ICD-10: M10.9 03/04/2018 Active Pain in left shoulder ICD-9: 719.41 ICD-10: M25.512 02/26/2018 Active Hypothryroidism Unknown 11/12/2017 Active Atrophy of [...] Fill Instructions allopurinol 100 mg tablet RxNorm: 266024 1 Tablet(s) PO daily 03/11/2018 07/08/2018 Active allopurinol 100 mg tablet RxNorm: 896759 1 Tablet(s) PO daily 03/11/2018 03/10/2018 Inactive levothyroxine 200 mcg tablet RxNorm: 828354 TAKE ONE TABLET BY MOUTH DAILY ON AN EMPTY STOMACH 03/09/2018 09/04/2018 Active Augmentin 500 mg-125 mg tablet RxNorm: 097791 1 Tablet(s) PO TID 03/09/2018 03/18/2018 Inactive prednisone 10 mg tablet RxNorm: 445533 Tablet(s) PO 03/04/2018 No Stop Date Active 6, 5,4,3,2,1 levothyroxine 200 mcg tablet RxNorm: 841886 Tablet(s) PO TAKE ONE TABLET BY MOUTH DAILY ON AN EMPTY STOMACH 11/17/201702/14 Inactive amitriptyline 25 mg tablet RxNorm: 110046 1 Tablet(s) PO QHS 12/11/2017 Inactive Ativan 0.5 mg tablet RxNorm: 069994 1 Tablet(s) PO daily as needed anxiety 11/04/2017 01/01/2018 Inactive levothyroxine 175 mcg tablet RxNorm: 422391 TAKE ONE TABLET BY MOUTH DAILY ON AN EMPTY STOMACH 09/08/2017 11/16/2017 Inactive levothyroxine 175 mcg tablet RxNorm: 613779 TAKE ONE TABLET BY MOUTH DAILY ON AN EMPTY STOMACH 05/06/2017 09/02/2017 Inactive Ativan 0.5 mg tablet RxNorm: 703932 1 Tablet(s) PO daily as needed anxiety 04/03/2017 06/30/2017 Inactive Augmentin 500 mg-125 mg tablet RxNorm: 243556 1 Tablet(s) PO TID 03/13/2017 03/22/2017 Inactive albuterol sulfate 2.5 mg/3 mL (0.083 %) solution for nebulization RxNorm: 358150 3 Milliliter(s) INH Q4-6H as needed 03/13/2017 02/25/2018 Inactive Kenalog 40 mg/mL suspension for injection RxNorm: 2244123 Milliliter(s) Inj 03/13/2017 03/13/2017 Inactive levothyroxine 175 mcg tablet RxNorm: 750083 TAKE ONE TABLET BY MOUTH DAILY ON AN EMPTY STOMACH 01/15/2017 04/14/2017 Inactive Ativan 0.5 mg tablet RxNorm: 916265 1 Tablet(s) PO daily as needed anxiety 01/15/2017 03/15/2017 Inactive propranolol ER 60 mg capsule,24 hr,extended release RxNorm: 958514 TAKE ONE CAPSULE BY MOUTH DAILY 01/15/20172017 Inactive Ativan 0.5 mg tablet RxNorm: 479986 1 Tablet(s) PO daily as needed anxiety 11/04/2016 01/02/2017 Inactive omeprazole 20 mg capsule,delayed release RxNorm: 340703 TAKE ONE CAPSULE BY MOUTH DAILY 10/30/2016 03/10/2017 Inactive Topamax 50 mg tablet RxNorm: 634824 1 Tablet(s) PO BID 201610/14/2016 Inactive Topamax 50 mg tablet RxNorm: 832339 1 Tablet(s) PO BID 201611/13/2016 Inactive Carafate 1 gram tablet RxNorm: 739441 1 Tablet(s) PO AC & HS 11/05/2016 Inactive ketorolac 60 mg/2 mL intramuscular solution RxNorm: 005848 Milliliter(s) IM 10/07/2016 10/07/2016 Inactive Topamax 25 mg tablet RxNorm: 354932 1 Tablet(s) PO BID 201610/13/2016 Inactive ketorolac 30 mg/mL injection solution RxNorm: 841478 2 Milliliter(s) Inj 10/03/2016 10/03/2016 Inactive Phenergan 25 mg/mL injection solution RxNorm: 982191 1 Milliliter(s) Inj 10/03/2016 10/03/2016 Inactive Topamax 25 mg tablet RxNorm: 510458 1 Tablet(s) PO QHS 201610/31/2016 Inactive levothyroxine 175 mcg tablet RxNorm: 885199 TAKE ONE TABLET BY MOUTH DAILY ON AN EMPTY STOMACH 08/16/2016 12/13/2016 Inactive Carafate 1 gram tablet RxNorm: 729538 1 Gram(s) PO AC & HS 07/201608/15/2016 Inactive Carafate 1 gram tablet RxNorm: 196878 1 Tablet(s) PO AC & HS 08/21/2016 Inactive omeprazole 20 mg capsule,delayed release RxNorm: 612386 TAKE ONE CAPSULE BY MOUTH DAILY 07/17/2016 10/14/2016 Inactive Zofran 4 mg tablet RxNorm: 359072 1 Tablet(s) PO Q6 PRN 07/0402/25/2018 Inactive Ativan 0.5 mg tablet RxNorm: 680280 1/2 Tablet(s) PO BID and a full pill prn anxiety attack 07/02/2016 11/03/2017 Inactive Ativan 0.5 mg tablet RxNorm: 453868 1 Tablet(s) PO QDAY PRN 07/01/2016 Inactive propranolol ER 60 mg capsule,24 hr,extended release RxNorm: 489044 1 Capsule(s) PO daily 06/21/2016 11/17/2016 Inactive ceftriaxone 500 mg solution for injection RxNorm: 7172331 1 Milliliter(s) Inj 05/22/2016 05/22/2016 Inactive amoxicillin 500 mg tablet RxNorm: 688632 1 Tablet(s) PO TID 05/28/2016 Inactive Ativan 0.5 mg tablet RxNorm: 025217 1 Tablet(s) PO QDAY PRN 01/201611/03/2016 Inactive tramadol 50 mg tablet RxNorm: 322221 1 Tablet(s) PO Q6-8H as needed 04/29/2016 09/30/2016 Inactive Kenalog 40 mg/mL suspension for injection RxNorm: 7507768 Milliliter(s) Inj 04/19/2016 04/19/2016 Inactive Flonase Allergy Relief 50 mcg/actuation nasal spray, suspension RxNorm: 2807678 1 [place] NASAL daily 04/19/20162015 Inactive levothyroxine 175 mcg tablet RxNorm: 592742 1 Tablet(s) PO daily 04/11/2016 08/08/2016 Inactive Wellbutrin XL 300 mg 24 hr tablet, extended release RxNorm: 675956 1 Tablet(s) PO daily 03/13/2016 07/01/2016 Inactive omeprazole 20 mg capsule,delayed release RxNorm: 716816 1 Capsule(s) PO daily 03/13/2016 07/10/2016 Inactive Augmentin 500 mg-125 mg tablet RxNorm: 453744 1 Tablet(s) PO TID 03/05/2016 03/14/2016 Inactive ceftriaxone 500 mg solution for injection RxNorm: 5012009 Inj 02/01/2016 02/01/2016 Inactive amoxicillin 500 mg tablet RxNorm: 377381 1 Tablet(s) PO TID 01/29/2016 Inactive amoxicillin 500 mg tablet RxNorm: 647577 1 Tablet(s) PO TID 02/05/2016 Inactive propranolol ER 60 mg capsule,24 hr,extended release RxNorm: 780288 1 Capsule(s) PO daily 01/02/2016 04/30/2016 Inactive Wellbutrin XL 150 mg 24 hr tablet, extended release RxNorm: 667313 1 Tablet(s) PO daily 12/12/2015 03/12/2016 Inactive levothyroxine 175 mcg tablet RxNorm: 395597 1 Tablet(s) PO daily 12/12/2015 04/09/2016 Inactive Kenalog 40 mg/mL suspension for injection RxNorm: 2573734 1 Milliliter(s) Inj 12/12/2015 12/12/2015 Inactive prednisone 20 mg tablet RxNorm: 934918 3 Tablet(s) PO daily 05/201612/16/2015 Inactive ibuprofen 800 mg tablet RxNorm: 916388 1 Tablet(s) PO BID 11/2204/20/2016 Inactive Voltaren 1 % topical gel RxNorm: 921522 4 Gram(s) TOP QID 11/2201/21/2016 Inactive buspirone 10 mg tablet RxNorm: 752456 1 Tablet(s) PO BID No Start Date 09/30/2016 Inactive Vitamin D3 5,000 unit tablet RxNorm: 579869 1 Tablet(s) PO daily No Start Date 02/25/2018 Inactive baclofen 20 mg tablet RxNorm: 533773 1 Tablet(s) PO TID No Start Date 09/30/2016 Inactive propranolol 40 mg tablet RxNorm: 387931 1 Tablet(s) PO daily No Start Date 01/01/2016 Inactive levothyroxine 200 mcg tablet RxNorm: 285151 1 Tablet(s) PO daily No Start Date 12/11/2015 Inactive Medication Administered Medication Codes Instructions Start Date Status Kenalog 40 mg/mL suspension for injection RxNorm: 2428781 Milliliter 03/13/2017 No longer Active ketorolac 60 mg/2 mL intramuscular solution RxNorm: 646650 Milliliter 10/07/2016 No longer Active Phenergan 25 mg/mL injection solution RxNorm: 312383 1Milliliter 10/03/2016 No longer Active ketorolac 30 mg/mL injection solution RxNorm: 399187 2Milliliter 10/03/2016 No longer Active ceftriaxone 500 mg solution for injection RxNorm: 6219344 1Milliliter 05/22/2016 No longer Active Kenalog 40 mg/mL suspension for injection RxNorm: 2327252 Milliliter 04/19/2016 No longer Active ceftriaxone 500 mg solution for injection RxNorm: 9220990 02/01/2016 No longer Active Kenalog 40 mg/mL suspension for injection RxNorm: 8128640 1Milliliter 12/12/2015 No longer Active Immunizations No Immunization data Assessments Condition Codes Effective Dates Encounter for other preprocedural examination ICD-10: Z01.818 ICD-9: V72.83 04/13/2018 Idiopathic gout, right ankle and foot ICD-10: M10.071 ICD-9: 274.00 03/04/2018 Pain in left shoulder ICD-10: M25.512 ICD-9: 719.41 02/26/2018 Other specified hypothyroidism ICD-10: E03.8 ICD-9: 244.8 [...] Uric A 8.9 mg/dL 03/05/2018 Free T4 Hko789 FREE T4 0.47 ng/dL 11/12/2017 Lipid Ord30 [...] 32.6 pg 11/12/2017 Cbc With Differential Ord2 [place]% 7.6 % 11/12/2017 Cbc With Differential Ord2 [...] 1.68 K/ul 11/12/2017 Cbc With Differential Ord2 [place] ABS# 0.5 K/ul 11/12/2017 Cbc With Differential Ord2 Eos ABS# 0.1 K/ul 11/12/2017 Cbc With Differential Ord2 Baso ABS# 0.0 K/ul 11/12/2017 Comp Metabolic Vpk802 NA 139 mEq/L 11/12/2017 Comp Metabolic Pfl396 K 4.3 mEq/L 11/12/2017 Comp Metabolic Ctn646 CL 102 mEq/L 11/12/2017 Comp Metabolic Ett591 CO2 25.0 mEq/L 11/12/2017 Comp Metabolic Drt860 ANION GAP 16 11/12/2017 Comp Metabolic Xnt919 GLUCOSE 121 mg/dL 11/12/2017 Comp Metabolic Axk892 Creat 1.5 mg/dL 11/12/2017 Comp Metabolic Cqe624 eGFR 56 ml/min/1.73m2 11/12/2017 Comp Metabolic Irm820 BUN 15 mg/dL 11/12/2017 Comp Metabolic Lnk990 B/C Ratio 9.9 Ratio 11/12/2017 Comp Metabolic Niy500 CALCIUM 9.3 mg/dL 11/12/2017 Comp Metabolic Fes060 ALK PHOS 69 U/L 11/12/2017 Comp Metabolic Env901 AST(SGOT) 30 U/L 11/12/2017 Comp Metabolic Ezr448 ALT(SGPT) 32 U/L 11/12/2017 Comp Metabolic Rus508 BILI T 0.3 mg/dL 11/12/2017 Comp Metabolic Avp417 ALBUMIN 4.8 g/dL 11/12/2017 Comp Metabolic Wmd104 TPRO 7.3 g/dL 11/12/2017 Comp Metabolic Xuj831 GLOB 2.5 g/dL 11/12/2017 Comp Metabolic Aea092 A/G Ratio 1.9 Ratio 11/12/2017 Comp Metabolic Koi739 Osmo 280 mOsmo 11/12/2017 Tsh Ord6 TSH [...] 31.7 % 09/05/2016 Cbc With Differential Ord2 [place]% 8.0 % 09/05/2016 Cbc With Differential Ord2 [...] 1.79 K/ul 09/05/2016 Cbc With Differential Ord2 [place] ABS# 0.5 K/ul 09/05/2016 Cbc With Differential Ord2 Eos ABS# 0.2 K/ul 09/05/2016 Cbc With Differential Ord2 Baso ABS# 0.0 K/ul 09/05/2016 Comp Metabolic Rro873 NA 137 mEq/L 09/05/2016 Comp Metabolic Eqg897 K 4.3 mEq/L 09/05/2016 Comp Metabolic Jeu101 CL 104 mEq/L 09/05/2016 Comp Metabolic Qwd059 CO2 25.0 mEq/L 09/05/2016 Comp Metabolic Fda307 ANION GAP 12 09/05/2016 Comp Metabolic Ron170 GLUCOSE 116 mg/dL 09/05/2016 Comp Metabolic Gtj556 Creat 1.2 mg/dL 09/05/2016 Comp Metabolic Htl985 eGFR 77 ml/min/1.73m2 09/05/2016 Comp Metabolic Hoz632 BUN 15 mg/dL 09/05/2016 Comp Metabolic Fra435 B/C Ratio 13.0 Ratio 09/05/2016 Comp Metabolic Ogq392 CALCIUM 9.1 mg/dL 09/05/2016 Comp Metabolic Ifw675 ALK PHOS 68 U/L 09/05/2016 Comp Metabolic Gja019 AST(SGOT) 23 U/L 09/05/2016 Comp Metabolic Sdg923 ALT(SGPT) 33 U/L 09/05/2016 Comp Metabolic Vmd187 BILI T 0.5 mg/dL 09/05/2016 Comp Metabolic Mcu482 ALBUMIN 4.4 g/dL 09/05/2016 Comp Metabolic Jcx903 TPRO 6.8 g/dL 09/05/2016 Comp Metabolic Lmv562 GLOB 2.4 g/dL 09/05/2016 Comp Metabolic Nun671 A/G Ratio 1.8 Ratio 09/05/2016 Comp Metabolic Tpm290 Osmo 276 mOsmo 09/05/2016 Tsh Ord6 hTSH II 1.41 uIU/mL 09/05/2016 Total T3 Ord42 TT3 0.88 ng/ml 09/05/2016 Free T4 Kmv843 FREE T4 0.72 ng/dL 09/05/2016 Comp Metabolic Rik484 NA 139 mEq/L 05/09/2016 Comp Metabolic Pgf262 K 4.6 mEq/L 05/09/2016 Comp Metabolic Eln469 CL 105 mEq/L 05/09/2016 Comp Metabolic Eat908 CO2 28.0 mEq/L 05/09/2016 Comp Metabolic Sct164 ANION GAP 11 05/09/2016 Comp Metabolic Twm413 GLUCOSE 108 mg/dL 05/09/2016 Comp Metabolic Ene520 Creat 1.2 mg/dL 05/09/2016 Comp Metabolic Yid773 eGFR 71 ml/min/1.73m2 05/09/2016 Comp Metabolic Kie574 BUN 18 mg/dL 05/09/2016 Comp Metabolic Nhl595 B/C Ratio 14.5 Ratio 05/09/2016 Comp Metabolic Ddo501 CALCIUM 9.5 mg/dL 05/09/2016 Comp Metabolic Mcl288 ALK PHOS 83 U/L 05/09/2016 Comp Metabolic Boe124 AST(SGOT) 19 U/L 05/09/2016 Comp Metabolic Jpp479 ALT(SGPT) 28 U/L 05/09/2016 Comp Metabolic Far016 BILI T 0.7 mg/dL 05/09/2016 Comp Metabolic Dmc324 ALBUMIN 4.7 g/dL 05/09/2016 Comp Metabolic Yqx135 TPRO 7.1 g/dL 05/09/2016 Comp Metabolic Wjc897 GLOB 2.4 g/dL 05/09/2016 Comp Metabolic Bvi857 A/G Ratio 1.9 Ratio 05/09/2016 Comp Metabolic Wwy139 Osmo 280 mOsmo 05/09/2016 Cbc With Differential [...] 28.9 % 05/09/2016 Cbc With Differential Ord2 [place]% 8.2 % 05/09/2016 Cbc With Differential Ord2 [...] 2.15 K/ul 05/09/2016 Cbc With Differential Ord2 [place] ABS# 0.6 K/ul 05/09/2016 Cbc With Differential Ord2 Eos ABS# 0.1 K/ul 05/09/2016 Cbc With Differential Ord2 Baso ABS# 0.0 K/ul 05/09/2016 Tsh Ord6 hTSH II 0.99 uIU/mL 05/09/2016 Free T4 Nfu911 FREE T4 0.91 ng/dL 05/09/2016 C RAP A SC [id number] Strep A Negative 03/05/2016 C RAP A SC [id number] Strep A Negative 01/29/2016 Tsh Ord6 hTSH II 0.27 uIU/mL 12/12/2015 Free T4 Tnu949 FREE T4 1.67 ng/dL 12/12/2015 Review of [...] Procedure Codes Date THER/PROPH/DIAG INJ SC/IM CPT-4: 90218 03/13/2017 TRIAMCINOLONE ACET INJ NOS CPT-4: J3301 03/13/2017 KETOROLAC TROMETHAMINE INJ CPT-4: J1885 10/07/2016 THER/PROPH/DIAG INJ SC/IM CPT-4: 23927 10/03/2016 KETOROLAC TROMETHAMINE INJ CPT-4: J1885 10/03/2016 PROMETHAZINE HCL INJECTION CPT-4: J2550 10/03/2016 ROCEPHIN, PER 250 MG CPT-4: J0696 05/22/2016 TRIAMCINOLONE ACET INJ NOS CPT-4: J3301 04/19/2016 ROCEPHIN, PER 250 MG CPT-4: J0696 02/01/2016 THER/PROPH/DIAG INJ SC/IM CPT-4: 24004 02/01/2016 TRIAMCINOLONE ACET INJ NOS CPT-4: J3301 12/12/2015 Vital Signs Date Vital 04/13/2018 Blood Pressure 1: 122/60 Code : 8480-6 BMI: 27.1 Code : 00030-1 Heart Rate 1 : 93 bpm Height: 6'3" SpO2: 98% Weight: 217 lbs 03/04/2018 Blood Pressure 1: 120/76 Code : 8480-6 BMI: 27.1 Code : 06552-5 Heart Rate 1 : 104 bpm Height: 6'3" SpO2: 98% Weight: 217 lbs 02/26/2018 Blood Pressure 1: 130/86 Code : 8480-6 BMI: 27.1 Code : 75243-4 Heart Rate 1 : 76 bpm Height: 6'3" SpO2: 98% Weight: 217 lbs 11/12/2017 Blood Pressure 1: 128/78 Code : 8480-6 BMI: 28.6 Code : 42766-7 Heart Rate 1 : 92 bpm Height: 6'3" SpO2: 98% Weight: 229 lbs 03/13/2017 Blood Pressure 1: 108/78 Code : 8480-6 BMI: 29.0 Code : 84856-8 Heart Rate 1 : 101 bpm Height: 6'3" SpO2: 98% Temperature: 36.9 (C) / 98.5 (F) Weight: 232 lbs 10/07/2016 Blood Pressure 1: 126/80 Code : 8480-6 BMI: 29.5 Code : 00390-0 Heart Rate 1 : 59 bpm Height: 6'3" SpO2: 98% Weight: 236 lbs 10/02/2016 Blood Pressure 1: 124/80 Code : 8480-6 BMI: 29.5 Code : 40767-9 Heart Rate 1 : 80 bpm Height: 6'3" SpO2: 98% Temperature: 37.1 (C) / 98.8 (F) Weight: 236 lbs 09/05/2016 Blood Pressure 1: 138/80 Code : 8480-6 BMI: 29.6 Code : 01329-1 Heart Rate 1 : 91 bpm Height: 6'3" SpO2: 97% Temperature: 36.8 (C) / 98.3 (F) Weight: 237 lbs 08/02/2016 Blood Pressure 1: 146/80 Code : 8480-6 BMI: 28.7 Code : 32233-2 Heart Rate 1 : 84 bpm Height: 6'3" SpO2: 98% Temperature: 37.2 (C) / 98.9 (F) Weight: 230 lbs 07/23/2016 Blood Pressure 1: 120/72 Code : 8480-6 BMI: 29.2 Code : 57772-0 Heart Rate 1 : 85 bpm Height: [...] Code : 8480-6 BMI: 29.6 Code : 71306-8 Heart Rate 1 : 91 bpm Height: 6'3" SpO2: 88% Weight: 237 lbs 05/22/2016 Blood Pressure 1: 152/80 Code : 8480-6 BMI: 29.6 Code : 12149-5 Heart Rate 1 : 114 bpm Height: [...] Code : 8480-6 BMI: 29.7 Code : 58496-8 Heart Rate 1 : 111 bpm Height: 6'3" SpO2: 95% Weight: 238 lbs 03/13/2016 Blood Pressure 1: 136/82 Code : 8480-6 BMI: 30.0 Code : 36532-7 Heart Rate 1 : 90 bpm Height: 6'3" SpO2: 98% Weight: 240 lbs 03/05/2016 Blood Pressure 1: 120/84 Code : 8480-6 BMI: 28.6 Code : 59569-0 Heart Rate 1 : 95 bpm Height: 6'3" SpO2: 98% Temperature: 37.1 (C) / 98.8 (F) Weight: 229 lbs 01/29/2016 Blood Pressure 1: 118/74 Code : 8480-6 BMI: 28.6 Code : 29329-0 Heart Rate 1 : 89 bpm Height: 6'3" SpO2: 98% Temperature: 36.3 (C) / 97.3 (F) Weight: 229 lbs 01/02/2016 Blood Pressure 1: 118/68 Code : 8480-6 BMI: 29.7 Code : 29912-2 Heart Rate 1 : 81 bpm Height: 6'3" SpO2: 98% Weight: 238 lbs 12/12/2015 Blood Pressure 1: 112/80 Code : 8480-6 BMI: 28.7 Code : 61988-8 Heart Rate 1 : 84 bpm Height: 6'3" SpO2: 97% Weight: 230 lbs 11/23/2015 Blood Pressure 1: 118/78 Code : 8480-6 BMI: 28.6 Code : 32132-5 Heart Rate 1 : 85 bpm Height: [...] Diagnosis: Encounter for other preprocedural examination[ICD10: Z01.818] Maria G Calderon MD , [facility] CPT-4: 91543 04/13/2018 [id number] EST. PATIENT, LEVEL IV Diagnosis: Idiopathic gout, right ankle and foot[ICD10: M10.071] Maria G Calderon MD, [facility] CPT-4: 57376 03/04/2018 ([id number]) 58834 EST. PATIENT, LEVEL III Diagnosis: Pain in left shoulder[ICD10: M25.512] Mary Calderon MD, [facility] CPT-4: 10334 02/26/2018 [id number] EST. PATIENT, LEVEL IV Diagnosis: Other specified hypothyroidism[ICD10: E03.8] Diagnosis: Headache[ICD10: R51] Maria G Calderon MD, [facility] CPT-4: 00416 11/12/2017 26939 EST. PATIENT, LEVEL III Diagnosis: Acute laryngopharyngitis[ICD10: J06.0] Diagnosis: Cough[ICD10: R05] Diagnosis: Other allergic rhinitis[ICD10: J30.89] Diagnosis: Other acute sinusitis[ICD10: J01.80] Maria G Calderon MD, [facility] CPT-4: 36022 03/13/2017 [id number] EST. PATIENT, LEVEL IV Diagnosis: Headache[ICD10: R51] Diagnosis: Other specified forms of tremor[ICD10: G25.2] Diagnosis: Other muscle spasm[ICD10: M62.838] Diagnosis: Generalized anxiety disorder[ICD10: F41.1] Diagnosis: Major depressive disorder, single episode, moderate[ICD10: F32.1] Diagnosis: Gastro-esophageal reflux disease without esophagitis[ICD10: K21.9] Maria G Calderon MD, [facility] CPT-4: 80559 10/07/2016 03772 EST. PATIENT, LEVEL IV Diagnosis: Other specified forms of tremor[ICD10: G25.2] Diagnosis: Other muscle spasm[ICD10: M62.838] Diagnosis: Gastro-esophageal reflux disease without esophagitis[ICD10: K21.9] Maria G Calderon MD, [facility] CPT-4: 24144 10/02/2016 ([id number]) 50714 EST. PATIENT, LEVEL III Diagnosis: Hypothyroidism, unspecified[ICD10: E03.9] Mary Calderon MD, [facility] CPT-4: 52421 09/05/2016 ([id number]) 36975 EST. PATIENT, LEVEL III Diagnosis: Gastro-esophageal reflux disease without esophagitis[ICD10: K21.9] Diagnosis: Epigastric pain[ICD10: R10.13] Mary Calderon MD, [facility] CPT-4: 08972 08/02/2016 46548 EST. PATIENT, LEVEL IV Diagnosis: Gastro-esophageal reflux disease without esophagitis[ICD10: K21.9] Diagnosis: Generalized abdominal pain[ICD10: R10.84] Maria G Calderon MD, [facility] CPT-4: 92899 07/23/2016 ([id number]) 47450 EST. PATIENT, LEVEL III Diagnosis: Nausea[ICD10: R11.0] Mary Calderon MD, [facility] CPT-4: 02346 07/04/2016 ([id number]) 12401 EST. PATIENT, LEVEL III Diagnosis: Atrophy of thyroid (acquired)[ICD10: E03.4] Diagnosis: Essential (primary) hypertension[ICD10: I10] Sonia Calderon MD, [facility] CPT-4: 77273 07/02/2016 ([id number]) 41899 EST. PATIENT, LEVEL III Diagnosis: Essential (primary) hypertension[ICD10: I10] Diagnosis: Hypothyroidism, unspecified[ICD10: E03.9] Diagnosis: Generalized anxiety disorder[ICD10: F41.1] Mary Calderon MD, [facility] CPT-4: 13088 06/07/2016 04018 EST. PATIENT, LEVEL III Diagnosis: Other allergic rhinitis[ICD10: J30.89] Diagnosis: Acute laryngopharyngitis[ICD10: J06.0] Maria G Calderon MD, [facility] CPT-4: 10614 05/22/2016 ([id number]) 20214 EST. PATIENT, LEVEL IV Diagnosis: Generalized anxiety disorder[ICD10: F41.1] Diagnosis: Chronic kidney disease, stage 3 (moderate)[ICD10: N18.3] Mary Calderon MD , [facility] CPT-4: 22060 05/09/2016 ([id number]) 94564 EST. PATIENT, LEVEL III Diagnosis: Nasal congestion[ICD10: R09.81] Diagnosis: Hypothyroidism, unspecified[ICD10: E03.9] Mary Calderon MD, [facility] CPT-4: 53719 04/19/2016 91948 EST. PATIENT, LEVEL III Diagnosis: Low back pain[ICD10: M54.5] Maria G Calderon MD, [facility] CPT-4 : 10338 03/27/2016 ([id number]) 47048 EST. PATIENT, LEVEL IV Diagnosis: Essential (primary) hypertension[ICD10: I10] Diagnosis: Major depressive disorder, single episode, unspecified[ICD10: F32.9] Diagnosis: Other specified hypothyroidism[ICD10: E03.8] Diagnosis: Gastro-esophageal reflux disease without esophagitis[ICD10: K21.9] Sonia Calderon MD, [facility] CPT-4: 77193 03/13/2016 96680 EST. PATIENT, LEVEL IV Diagnosis: Acute laryngopharyngitis[ICD10: J06.0] Maria G Calderon MD, [facility] CPT-4: 63912 03/05/2016 23700 EST. PATIENT, LEVEL IV Diagnosis: Acute laryngopharyngitis[ICD10: J06.0] Maria G Calderon MD, [facility] CPT-4: 26428 01/29/2016 ([id number]) 61724 EST. PATIENT, LEVEL IV Diagnosis: Essential (primary) hypertension[ICD10: I10] Diagnosis: Hypothyroidism, unspecified[ICD10: E03.9] Diagnosis: Major depressive disorder, single episode, unspecified[ICD10: F32.9] Sonia Calderon MD, [facility] CPT-4: 97581 01/02/2016 ([id number]) 90891 EST. PATIENT, LEVEL IV Diagnosis: Hypothyroidism, unspecified[ICD10: E03.9] Diagnosis: Major depressive disorder, single episode, unspecified[ICD10: F32.9] [facility] CPT-4: 63268 12/12/2015 ([id number]) PREV VISIT NEW AGE 18-39 Diagnosis: Encounter for general adult medical examination with abnormal findings[ICD10: Z00.01] Diagnosis: Hypothyroidism, unspecified[ICD10: E03.9] [facility] CPT-4: 73612 11/23/2015 Plan of Care Planned Activity Notes Codes Status Date Visit Plan: Surgical clearance - Dr. Calderon in to evaluate pt - OK for surgery - pt is to update clinic with any changes in current treatment plan, or with any questions or concerns. 04/13/2018 Patient Education: Patient Medication Summary Completed 04/13/2018 Visit Plan: Gout Attack - pt given RX for uric Acid Level, and rx for medication for treatment of symptoms. Pt to call if symptoms do not improve, and pt to be given results of labs when available. 03/04/2018 Appointment: Maria G Mendez WPtel: [address] [place] [address] (15 min) Moderate 03/04/2018 Patient Education: Patient Medication Summary Completed 03/04/2018 Patient Education: Gout Completed 03/04/2018 Visit Plan: Left shoulder pain -xray today - tylenol as needed -rest -will call with xray results 02/26/2018 Appointment: Mary Downey WPtel: [facility] (15 min) Moderate 02/26/2018 Patient Education: Patient Medication Summary Completed 02/26/2018 Appointment: [facility] G [facility] [phone] [facility] (30 min) Complex 12/08/2017 Visit Plan: Hypothyroidism [...] concerns. 11/12/2017 Appointment: [facility] G Mendez [facility]el[facility] [phone] [facility] (15 min) Moderate 11/12/2017 Patient Education: Patient [...] spray. 03/13/2017 Appointment: [facility] G Mendez [facility]el[facility] [phone] [facility] (15 min) Moderate 03/13/2017 Patient Education: Patient Medication Summary Completed 03/13/2017 Patient Education: Obesity Completed 03/13/2017 Care Plan: Referral Order SNOMED-CT : [id number] Pending 10/08/2016 Visit Plan: Headaches, tics, tremors [...] improving. 10/07/2016 Appointment: Maria G Mendez WPtel: [id number] (30 min) [facility] 10/07/2016 Patient Education: Patient Medication Summary Completed 10/07/2016 Appointment: Mary Downey WPtel: [facility]5 [phone] (15 min) Moderate 10/04/2016 Appointment: [place] 10/03/2016 [...] concerns. 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 The patient is to take medications as prescribed and call the office if the symptoms are not improving. 08/02/2016 Appointment: Mary Downey WPtel: [facility]3 [phone] [place] (15 min) Moderate 08/02/2016 Patient Education: Patient Medication Summary Completed 08/02/2016 Patient Education: Obesity Completed 08/02/2016 Care Plan: CT ABD & PELV W/CONTRAST LOINC : 59281-2 Pending 07/28/2016 Visit Plan: Esophageal Reflux - the patient has been counseled against excessive intake of caffeine, spicy foods, peppermint, and cinnamon - all of which can exacerbate esophageal reflux. The patient is to take medications as prescribed and call the office if the symptoms are not improving. Acute abdominal pain - will order CT 07/23/2016 Appointment: Maria G Mendez WPtel: [facility]1 [phone] (30 min) Complex 07/23/2016 Patient Education: Patient Medication Summary Completed 07/23/2016 Patient Education: Obesity Completed 07/23/2016 Appointment: Sonia Calderon WPtel: [facility]9 [phone] [place] (15 min) Moderate 07/09/2016 Visit Plan: Gastroenteritis [...] ANY WORSE. 07/04/2016 Appointment: Mary Downey WPtel: [phone] [phone] (30 min) Complex 07/04/2016 Patient Education: Patient Medication Summary Completed 07/04/2016 Appointment: Maria G Mendez WPtel: [facility]1 [phone] (30 min) Complex 07/03/2016 Visit Plan: Hypertension [...] ativan. 07/02/2016 Appointment: Sonia Calderon WPtel: [phone] [facility]66[facility] (15 min) Moderate 07/02/2016 Patient Education: Patient Medication Summary Completed 07/02/2016 Visit Plan: Hypertension - well controlled - continue with current medications, continue with no added salt diet. Pt has been encouraged to exercise daily. The pt has been advised to call the office if there are any acute concerns about change in blood pressure readings at home. Hypothyroidism- appt with [facility] coming up Pmbyqgj-LPVK-cxaxydq head injury- patient saw psychiatrist at [facility] but does not want to go back-states he will consider returning but wants to see orthopedic radiologic technologist first as he feels like his thyroid is his biggest issue. Encouraged him to follow up with the psychiatrist. 06/07/2016 Appointment: Mary Downey WPtel: [phone] [phone] (15 min) Moderate 06/07/2016 Patient Education: Patient [...] spray. 05/22/2016 Appointment: Maria G Mendez WPtel: [phone] [phone] (30 min) Complex 05/22/2016 Patient Education: Patient [...] insufficiency-follow labs 05/09/2016 Appointment: Mary Downey WPtel: [facility]4 [phone] (30 min) Complex 05/09/2016 Patient Education: Patient Medication Summary Completed 05/09/2016 Visit Plan: Nasal dsclwudiiy-FDS-vlcyojq injection today in the office-start flonase as directed-call if symptoms do not resolve or if any worse Hypothyroidism-check labs 04/19/2016 Appointment: Mary Downey WPtel: [facility]8 [phone] (30 min) Complex 04/19/2016 Patient Education: Patient Medication Summary Completed 04/19/2016 Visit Plan: Low back pain- The pt is to do exercises as instructed. The pt is to use prn antiinflammatories to manage acute pain. The patient is to call the office if the pain is worsening or does not improve. 03/27/2016 Appointment: Mary Downey WPtel: [phone] [phone] (15 min) Moderate 03/27/2016 Patient Education: Patient [...] readings at home. CONSULT TO [facility] [place] Thyroiditis - continue with treatments/follow up with orthopedic radiologic technologist. Depression - uncontrolled - medications changed. 03/13/2016 Appointment: Sonia Calderon WPtel: [facility]1 [facility]66[facility] (15 min) Moderate 03/13/2016 Patient Education: Patient Medication Summary Completed 03/13/2016 Patient Education: Obesity Completed 03/13/2016 Care Plan: Referral Order SNOMED-CT : [id number] Pending 03/13/2016 Visit Plan: URI - Pt [...] the swab. 03/05/2016 Appointment: Mary Downey WPtel: [facility]9 [phone] [place] (15 min) Moderate 03/05/2016 Patient Education: [...] TID 01/29/2016 Appointment: Maria G Mendez WPtel: [phone] [phone] (15 min) Moderate 01/29/2016 Patient Education: Patient Medication Summary Completed 01/29/2016 Visit Plan: HTN - chronic and episodic symptoms of thyroid storm - referral to dr. cabello. Depression and anxiety - pt on wellbutrin - continue with treatment - monitor symptoms. 01/02/2016 Appointment: Sonia Calderon WPtel: [phone] [phone] (15 min) Moderate 01/02/2016 Patient Education: Patient Medication Summary Completed 01/02/2016 Patient Education: Obesity Completed 01/02/2016 Appointment: Sonia Calderon WPtel: [phone] [phone] (15 min) Moderate 12/26/2015 Visit Plan: Hypothyroidism [...] the buspirone 12/12/2015 Appointment: Sonia Calderon WPtel: [facility]5 [phone] (15 min) Moderate 12/12/2015 Patient Education: Patient [...] External, Ordering Provider Referred info faxed to [phone] Appointment Requested Referral: [address] they are [...] or with any questions or concerns. . Well Adult - pt was counseled [...] home. Hypothyroidism-appt with [facility] coming up Khmgukr-SQNV-lnsthjt head injury-patient saw psychiatrist at [facility] but does not want to go back-states he will consider returning but wants to see orthopedic radiologic technologist first as he feels like his thyroid [...] RESULTS . Post ablative hypothyroidism-check labs-refer to orthopedic radiologic technologist tylenol 2 tabs three times daily appt with Dr Rueda . Left shoulder pain -xray today - tylenol as needed -rest -will call with xray results . Headaches, tics, tremors - will send [...] readings at home. CONSULT TO [facility] [place] Thyroiditis - continue with treatments/follow up with orthopedic radiologic technologist. Depression - uncontrolled - medications changed. Kenalog 40 mg IM. Flonase sent ePharmacy to [facility]. Notify clinic Friday if symptoms have worsened. . Nasal zflnqssdal-ASP-kuxkgdq injection today in the office-start flonase as directed-call if symptoms do not resolve or if any worse Hypothyroidism-check labs
--- OUTSIDE RECORDS SUMMARY | 2018-04-22 08:29 | XMS REPORT | Continuity of Care Document ---
Author Author [facility] Address Unknown Phone Unavailable Allergies Active Description Code Type Severity Reaction Onset Reported/Identified Relationship to Patient Clinical Status Yes NO KNOWN DRUG ALLERGIES UNKNOWN NO KNOWN DRUG ALLERG Yes NKANo Known Allergies NKA Miscellaneous Allergy Mild N/A 01/23/2015 Yes No Known Drug Allergies [id number] Drug Allergy Unknown N/A 10/21/2016 Yes band aids band aids Moderate N/A 12/27/2016 Yes latex [id number] Drug Allergy Unknown N/A 01/05/2017 Medications Medication Packaging Start Date Stop Date Route Dosage Sig NORMAL SALINE 1000CC IV BAG INJ 0.9 % (NS 1000CC IV BAG) ml 04/16/2018 04/16/2018 [id number] FENTANYL INJ 100 MCG/2CC VIAL MCG 04/16/2018 04/16/2018 [id number] Problems Date Dx Coded Attending Type Code Diagnosis Diagnosed By 10/04/2009 466.0 Bronchitis, Acute 10/04/2009 493.90 ASTHMA UNSPECIFIED 10/04/2009 VAN ORDAZ APRN 466.0 Bronchitis, Acute 10/04/2009 VAN ORDAZ APRNH 493.90 ASTHMA UNSPECIFIED 10/04/2009 VAN ORDAZ APRN 466.0 Bronchitis, Acute 10/04/2009 VAN ORDAZ APRNH 493.90 ASTHMA UNSPECIFIED 10/04/2009 JULISA FOREMAN DO 466.0 Bronchitis, Acute 10/04/2009 JULISA FOREMAN DO 493.90 ASTHMA UNSPECIFIED 10/04/2009 SUE COMPLIANCE PARALEGAL, JOSIAH R 466.0 Bronchitis, Acute 10/04/2009 SUE COMPLIANCE PARALEGAL, JOSIAH R 493.90 ASTHMA UNSPECIFIED 10/04/2009 SUE COMPLIANCE PARALEGAL, JOSIAH R 466.0 Bronchitis, Acute 10/04/2009 SUE COMPLIANCE PARALEGAL, JOSIAH R 493.90 ASTHMA UNSPECIFIED 10/04/2009 SUE COMPLIANCE PARALEGAL, JOSIAH R 466.0 Bronchitis, Acute 10/04/2009 SUE COMPLIANCE PARALEGAL, JOSIAH R 493.90 ASTHMA UNSPECIFIED 10/04/2009 MADL COMPLIANCE PARALEGAL, JOSE L 466.0 Bronchitis, Acute 10/04/2009 MADL COMPLIANCE PARALEGAL, JOSE L 493.90 ASTHMA UNSPECIFIED 10/04/2009 FOREMAN DO, JULISA K 466.0 Bronchitis, Acute 10/04/2009 FOREMAN DO, JULISA K 493.90 ASTHMA UNSPECIFIED 10/04/2009 SUE COMPLIANCE PARALEGAL, JOSIAH R 466.0 Bronchitis, Acute 10/04/2009 SUE COMPLIANCE PARALEGAL, JOSIAH R 493.90 ASTHMA UNSPECIFIED 10/11/2009 244.9 HYPOTHYROIDISM 10/11/2009 477.9 RHINITIS 10/11/2009 ORDAZ COMPLIANCE PARALEGAL, VAN SHIPMAN 244.9 HYPOTHYROIDISM 10/11/2009 ORDAZ COMPLIANCE PARALEGAL, VAN SHIPMAN 477.9 RHINITIS 10/11/2009 ORDAZ COMPLIANCE PARALEGAL, VAN SHIPMAN 244.9 HYPOTHYROIDISM 10/11/2009 ORDAZ COMPLIANCE PARALEGAL, VAN SHIPMAN 477.9 RHINITIS 10/11/2009 FOREMAN DO, JULISA K 244.9 HYPOTHYROIDISM 10/11/2009 FOREMAN DO, JULISA K 477.9 RHINITIS 10/11/2009 SUE COMPLIANCE PARALEGAL, JOSIAH R 244.9 HYPOTHYROIDISM 10/11/2009 SUE COMPLIANCE PARALEGAL, JOSIAH R 477.9 RHINITIS 10/11/2009 SUE COMPLIANCE PARALEGAL, JOSIAH R 244.9 HYPOTHYROIDISM 10/11/2009 SUE COMPLIANCE PARALEGAL, JOSIAH R 477.9 RHINITIS 10/11/2009 SUE COMPLIANCE PARALEGAL, JOSIAH R 244.9 HYPOTHYROIDISM 10/11/2009 SUE COMPLIANCE PARALEGAL, JOSIAH R 477.9 RHINITIS 10/11/2009 MADL COMPLIANCE PARALEGAL, JOSE L 244.9 HYPOTHYROIDISM 10/11/2009 MADL COMPLIANCE PARALEGAL, JOSE L 477.9 RHINITIS 10/11/2009 FOREMAN DO, JULISA K 244.9 HYPOTHYROIDISM 10/11/2009 FOREMAN DO, JULISA K 477.9 RHINITIS 10/11/2009 SUE COMPLIANCE PARALEGAL, JOSIAH R 244.9 HYPOTHYROIDISM 10/11/2009 SUE COMPLIANCE PARALEGAL, JOSIAH R 477.9 RHINITIS 10/23/2009 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 10/23/2009 389.9 HEARING LOSS UNSPEC 10/23/2009 599.70 HEMATURIA, UNSPECIFIED 10/23/2009 788.1 DYSURIA 10/23/2009 SUSHMA SNIDER, VAN SHIPMAN 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 10/23/2009 SUSHMA CROWEN, VAN SHIPMAN 389.9 HEARING LOSS UNSPEC 10/23/2009 SUSHMA CROWEN, VAN SHIPMAN 599.70 HEMATURIA, UNSPECIFIED 10/23/2009 SUSHMA CROWEN, VAN SHIPMAN 788.1 DYSURIA 10/23/2009 SUSHMA CROWEN, VAN SHIPMAN 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 10/23/2009 SUSHMA CROWEN, AVN SHIPMAN 389.9 HEARING LOSS UNSPEC 10/23/2009 SUSHMA CROWEN, VAN SHIPMAN 599.70 HEMATURIA, UNSPECIFIED 10/23/2009 SUSHMA CROWEN, VAN SHIPMAN 788.1 DYSURIA 10/23/2009 FOREMAN DO, JULISA K 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 10/23/2009 FOREMAN DO, JULISA K 389.9 HEARING LOSS UNSPEC 10/23/2009 FOREMAN DO, JULISA K 599.70 HEMATURIA, UNSPECIFIED 10/23/2009 FOREMAN DO, JULISA K 788.1 DYSURIA 10/23/2009 SUE COMPLIANCE PARALEGAL, JOSIAH R 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 10/23/2009 SUE COMPLIANCE PARALEGAL, JOSIAH R 389.9 HEARING LOSS UNSPEC 10/23/2009 SUE COMPLIANCE PARALEGAL, JOSIAH R 599.70 HEMATURIA, UNSPECIFIED 10/23/2009 SUE COMPLIANCE PARALEGAL, JOSIAH R 788.1 DYSURIA 10/23/2009 SUE COMPLIANCE PARALEGAL, JOSIAH R 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 10/23/2009 SUE COMPLIANCE PARALEGAL, JOSIAH R 389.9 HEARING LOSS UNSPEC 10/23/2009 SUE COMPLIANCE PARALEGAL, JOSIAH R 599.70 HEMATURIA, UNSPECIFIED 10/23/2009 SUE COMPLIANCE PARALEGAL, JOSIAH R 788.1 DYSURIA 10/23/2009 SUE COMPLIANCE PARALEGAL, JOSIAH R 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 10/23/2009 SUE COMPLIANCE PARALEGAL, JOSIAH R 389.9 HEARING LOSS UNSPEC 10/23/2009 SUE COMPLIANCE PARALEGAL, JOSIAH R 599.70 HEMATURIA, UNSPECIFIED 10/23/2009 SUE COMPLIANCE PARALEGAL, JOSIAH R 788.1 DYSURIA 10/23/2009 MADL COMPLIANCE PARALEGAL, JOSE L 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 10/23/2009 MADL COMPLIANCE PARALEGAL, JOSE L 389.9 HEARING LOSS UNSPEC 10/23/2009 MADL COMPLIANCE PARALEGAL, JOSE L 599.70 HEMATURIA, UNSPECIFIED 10/23/2009 CEASAR CROWEN, JOSE L 788.1 DYSURIA 10/23/2009 FOREMAN DO, JULISA K 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 10/23/2009 FOREMAN DO, JULISA K 389.9 HEARING LOSS UNSPEC 10/23/2009 FOREMAN DO, JULISA K 599.70 HEMATURIA, UNSPECIFIED 10/23/2009 FOREMAN DO, JULISA K 788.1 DYSURIA 10/23/2009 SUE SNIDER JOSIAH R 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 10/23/2009 SUE COMPLIANCE PARALEGAL, JOSIAH R 389.9 HEARING LOSS UNSPEC 10/23/2009 SUE CROWEN JOSIAH R 599.70 HEMATURIA, UNSPECIFIED 10/23/2009 SUE SNIDER JOSIAH R 788.1 DYSURIA 07/11/2010 780.79 MALAISE AND FATIGUE 07/11/2010 VAN ORDAZ APRN 780.79 MALAISE AND FATIGUE 07/11/2010 VAN ORDAZ APRN 780.79 MALAISE AND FATIGUE 07/11/2010 JESUS FOREMAN DOA K 780.79 MALAISE AND FATIGUE 07/11/2010 SUE SNIDER JOSIAH R 780.79 MALAISE AND FATIGUE 07/11/2010 SUE SNIDER JOSIAH R 780.79 MALAISE AND FATIGUE 07/11/2010 SUE SNIDER JOSIAH R 780.79 MALAISE AND FATIGUE 07/11/2010 JOSE MCDONOUGH APRN L 780.79 MALAISE AND FATIGUE 07/11/2010 FOREMAN DOJESUSA K 780.79 MALAISE AND FATIGUE 07/11/2010 SUE SNIDER JOSIAH R 780.79 MALAISE AND FATIGUE 11/25/2011 719.41 PAIN IN JOINT INVOLVING SHOULDER REGION 11/25/2011 VAN ORDAZ APRN 719.41 PAIN IN JOINT INVOLVING SHOULDER REGION 11/25/2011 VAN ORDAZ APRN 719.41 PAIN IN JOINT INVOLVING SHOULDER REGION 11/25/2011 JESUS FOREMAN DOA K 719.41 PAIN IN JOINT INVOLVING SHOULDER REGION 11/25/2011 JOSIAH ORGERS APRN R 719.41 PAIN IN JOINT INVOLVING SHOULDER REGION 11/25/2011 JOSIAH ROGERS APRN R 719.41 PAIN IN JOINT INVOLVING SHOULDER REGION 11/25/2011 PATRICIA ROGERS APRNINA R 719.41 PAIN IN JOINT INVOLVING SHOULDER REGION 11/25/2011 BRUCEL PINA SNIDERA L 719.41 PAIN IN JOINT INVOLVING SHOULDER REGION 11/25/2011 FOREMAN DO JULISA K 719.41 PAIN IN JOINT INVOLVING SHOULDER REGION 11/25/2011 SUE SNIDER JOSIAH R 719.41 PAIN IN JOINT INVOLVING SHOULDER REGION 11/26/2011 593.9 RENAL INSUFFICIENCY 11/26/2011 790.4 ABNORMAL LFT ( ELEVATED) 11/26/2011 ORDAZ COMPLIANCE PARALEGAL, VAN SHIPMAN 593.9 RENAL INSUFFICIENCY 11/26/2011 ORDAZ COMPLIANCE PARALEGAL, VAN SHIPMAN 790.4 ABNORMAL LFT (ELEVATED) 11/26/2011 ORDAZ COMPLIANCE PARALEGAL, VAN SHIPMAN 593.9 RENAL INSUFFICIENCY 11/26/2011 ORDAZ COMPLIANCE PARALEGAL, VAN SHIPMAN 790.4 ABNORMAL LFT (ELEVATED) 11/26/2011 FOREMAN DO JULISA K 593.9 RENAL INSUFFICIENCY 11/26/2011 KELLEN CHÁVEZ JULISA K 790.4 ABNORMAL LFT (ELEVATED) 11/26/2011 SUE COMPLIANCE PARALEGAL, JOSIAH R 593.9 RENAL INSUFFICIENCY 11/26/2011 SUE SNIDER, JOSIAH R 790.4 ABNORMAL LFT (ELEVATED) 11/26/2011 SUE SNIDER JOSIAH R 593.9 RENAL INSUFFICIENCY 11/26/2011 SUE SNIDER JOSIAH R 790.4 ABNORMAL LFT (ELEVATED) 11/26/2011 SUE TYLOR JOSIAH R 593.9 RENAL INSUFFICIENCY 11/26/2011 SUE SNIDER JOSIAH R 790.4 ABNORMAL LFT (ELEVATED) 11/26/2011 BRUCEL COMPLIANCE PARALEGALMANI LiveJOSE L 593.9 RENAL INSUFFICIENCY 11/26/2011 MADL COMPLIANCE PARALEGAL, JOSE L 790.4 ABNORMAL LFT (ELEVATED) 11/26/2011 FOREMAN DO JULISA K 593.9 RENAL INSUFFICIENCY 11/26/2011 FOREMAN DO JULISA K 790.4 ABNORMAL LFT (ELEVATED) 11/26/2011 SUE SNIDER JOSIAH R 593.9 RENAL INSUFFICIENCY 11/26/2011 SUE TYLOR JOSIAH R 790.4 ABNORMAL LFT (ELEVATED) 01/07/2012 309.81 AN PTSD 01/07/2012 SUSHMA CROWENVAN 309.81 AN PTSD 01/07/2012 SUSHMA SNIDER, VAN SHIPMAN 309.81 AN PTSD 01/07/2012 JESUS FOREMAN DOA K 309.81 AN PTSD 01/07/2012 SUE COMPLIANCE PARALEGAL, JOSIAH R 309.81 AN PTSD 01/07/2012 SUE COMPLIANCE PARALEGAL, JOSIAH R 309.81 AN PTSD 01/07/2012 SUE COMPLIANCE PARALEGAL, JOSIAH R 309.81 AN PTSD 01/07/2012 JOSE MCDONOUGH APRN 309.81 AN PTSD 01/07/2012 JULISA FOREMAN DO K 309.81 AN PTSD 01/07/2012 SUE COMPLIANCE PARALEGAL, JOSIAH R 309.81 AN PTSD 02/04/2012 241.0 NONTOXIC UNINODULAR GOITER 02/04/2012 245.9 THYROIDITIS UNSPECIFIED 02/04/2012 466.0 BRONCHITIS, ACUTE 02/04/2012 SUSHMA CROWEN, VAN SHIPMAN 241.0 NONTOXIC UNINODULAR GOITER 02/04/2012 ORDAZ COMPLIANCE PARALEGAL, VAN SHIPMAN 245.9 THYROIDITIS UNSPECIFIED 02/04/2012 ORDAZ COMPLIANCE PARALEGAL, VAN SHIPMAN 466.0 BRONCHITIS, ACUTE 02/04/2012 ORDAZ COMPLIANCE PARALEGAL, VAN SHIPMAN 241.0 NONTOXIC UNINODULAR GOITER 02/04/2012 SUSHMA CROWEN, VAN SHIPMAN 245.9 THYROIDITIS UNSPECIFIED 02/04/2012 ORDAZ COMPLIANCE PARALEGAL, VAN SHIPMAN 466.0 BRONCHITIS, ACUTE 02/04/2012 JESUS FOREMAN DOA K 241.0 NONTOXIC UNINODULAR GOITER 02/04/2012 KELLEN CHÁVEZJESUSA K 245.9 THYROIDITIS UNSPECIFIED 02/04/2012 FOREMAN , JULISA K 466.0 BRONCHITIS, ACUTE 02/04/2012 SUE COMPLIANCE PARALEGAL, JOSIAH R 241.0 NONTOXIC UNINODULAR GOITER 02/04/2012 SUE COMPLIANCE PARALEGAL, JOSIAH R 245.9 THYROIDITIS UNSPECIFIED 02/04/2012 SUE COMPLIANCE PARALEGAL, JOSIAH R 466.0 BRONCHITIS, ACUTE 02/04/2012 SUE COMPLIANCE PARALEGAL, JOSIAH R 241.0 NONTOXIC UNINODULAR GOITER 02/04/2012 SUE COMPLIANCE PARALEGAL, JOSIAH R 245.9 THYROIDITIS UNSPECIFIED 02/04/2012 SUE COMPLIANCE PARALEGAL, JOSIAH R 466.0 BRONCHITIS, ACUTE 02/04/2012 SUE COMPLIANCE PARALEGAL, JOSIAH R 241.0 NONTOXIC UNINODULAR GOITER 02/04/2012 SUE SNIDER, JOSIAH R 245.9 THYROIDITIS UNSPECIFIED 02/04/2012 SUE SNIDER, JOSIAH R 466.0 BRONCHITIS, ACUTE 02/04/2012 MADL COMPLIANCE PARALEGAL, JOSE L 241.0 NONTOXIC UNINODULAR GOITER 02/04/2012 MADL COMPLIANCE PARALEGALMALCOLM LiveNYA L 245.9 THYROIDITIS UNSPECIFIED 02/04/2012 MADL COMPLIANCE PARALEGAL, JOSE L 466.0 BRONCHITIS, ACUTE 02/04/2012 FOREMAN DO, JULISA K 241.0 NONTOXIC UNINODULAR GOITER 02/04/2012 FOREMAN DO, JULISA K 245.9 THYROIDITIS UNSPECIFIED 02/04/2012 FOREMAN DO, JULISA K 466.0 BRONCHITIS, ACUTE 02/04/2012 SUE SNIDER JOSIAH R 241.0 NONTOXIC UNINODULAR GOITER 02/04/2012 SUE SNIDER JOSIAH R 245.9 THYROIDITIS UNSPECIFIED 02/04/2012 SUE SNIDER JOSIAH R 466.0 BRONCHITIS, ACUTE 02/20/2012 726.10 DISORDERS OF BURSAE AND TENDONS IN SHOULDER REGION UNSPECIFIED 02/20/2012 VAN ORDAZ APRN 726.10 DISORDERS OF BURSAE AND TENDONS IN SHOULDER REGION UNSPECIFIED 02/20/2012 VAN ORDAZ APRN 726.10 DISORDERS OF BURSAE AND TENDONS IN SHOULDER REGION UNSPECIFIED 02/20/2012 KELLEN DO, JULISA K 726.10 DISORDERS OF BURSAE AND TENDONS IN SHOULDER REGION UNSPECIFIED 02/20/2012 SUE SNIDER JOSIAH R 726.10 DISORDERS OF BURSAE AND TENDONS IN SHOULDER REGION UNSPECIFIED 02/20/2012 SUE SNIDER JOSIAH R 726.10 DISORDERS OF BURSAE AND TENDONS IN SHOULDER REGION UNSPECIFIED 02/20/2012 SUE SNIDER JOSIAH R 726.10 DISORDERS OF BURSAE AND TENDONS IN SHOULDER REGION UNSPECIFIED 02/20/2012 PINA MCDONOUGH APRNA L 726.10 DISORDERS OF BURSAE AND TENDONS IN SHOULDER REGION UNSPECIFIED 02/20/2012 FOREMAN DO, JULISA K 726.10 DISORDERS OF BURSAE AND TENDONS IN SHOULDER REGION UNSPECIFIED 02/20/2012 SUE SNIDER JOSIAH R 726.10 DISORDERS OF BURSAE AND TENDONS IN SHOULDER REGION UNSPECIFIED 02/25/2012 297.1 P DELUSIONAL DIS 02/25/2012 ORDAZ TYLOR VAN SHIPMAN 297.1 P DELUSIONAL DIS 02/25/2012 ORDAZ TYLOR VAN SHIPMAN 297.1 P DELUSIONAL DIS 02/25/2012 JULISA FOREMAN DO K 297.1 P DELUSIONAL DIS 02/25/2012 SUE SNIDER JOSIAH R 297.1 P DELUSIONAL DIS 02/25/2012 SUE SNIDER JOSIAH R 297.1 P DELUSIONAL DIS 02/25/2012 SUE SNIDER JOSIAH R 297.1 P DELUSIONAL DIS 02/25/2012 JOSE MCDONOUGH APRN 297.1 P DELUSIONAL DIS 02/25/2012 JULISA FOREMAN DO K 297.1 P DELUSIONAL DIS 02/25/2012 SUE SNIDER JOSIAH R 297.1 P DELUSIONAL DIS 03/16/2012 Ot 718.81 [facility]2012 Ot V57.1 PHYSICAL THERAPY [facility] 06/01/2012 ORDAZ TYLOR VAN SHIPMAN 298.9 P PSYCHOSIS NOS 06/01/2012 ORDAZ TYLOR VAN SHIPMAN 298.9 P PSYCHOSIS NOS 06/01/2012 SUE SNIDER, JOSIAH R 298.9 P PSYCHOSIS NOS 06/01/2012 SUE SNIDER, JOSIAH R 298.9 P PSYCHOSIS NOS 06/01/2012 SUE SNIDER JOSIAH R 298.9 P PSYCHOSIS NOS 06/01/2012 JOSE MCDONOUGH APRN L 298.9 P PSYCHOSIS NOS 06/01/2012 JULISA FOREMAN DO K 298.9 P PSYCHOSIS NOS 06/01/2012 SUE SNIDER, JOSIAH R 298.9 P PSYCHOSIS NOS 07/31/2012 SUSHMA SNIDER VAN RAMONITA 346.90 HEADACHE, MIGRAINE 07/31/2012 SUE SNIDER JOSIAH R 346.90 HEADACHE, MIGRAINE 07/31/2012 SUE SNIDER JOSIAH R 346.90 HEADACHE, MIGRAINE 07/31/2012 SUE SNIDER JOSIAH R 346.90 HEADACHE, MIGRAINE 07/31/2012 JOSE MCDONOUGH APRN L 346.90 HEADACHE, MIGRAINE 07/31/2012 JULISA FOREMAN DO K 346.90 HEADACHE, MIGRAINE 07/31/2012 SUE COMPLIANCE PARALEGAL, JOSIAH R 346.90 HEADACHE, MIGRAINE 02/25/2014 SUE COMPLIANCE PARALEGAL, JOSIAH R 356.9 UNSPECIFIED IDIOPATHIC PERIPHERAL NEUROPATHY 02/25/2014 SUE COMPLIANCE PARALEGAL, JOSIAH R 782.3 EDEMA 02/25/2014 SUE COMPLIANCE PARALEGAL, JOSIAH R 785.1 PALPITATIONS 02/25/2014 SUE COMPLIANCE PARALEGAL, JOSIAH R 356.9 UNSPECIFIED IDIOPATHIC PERIPHERAL NEUROPATHY 02/25/2014 SUE COMPLIANCE PARALEGAL, JOSIAH R 782.3 EDEMA 02/25/2014 SUE COMPLIANCE PARALEGAL, JOSIAH R 785.1 PALPITATIONS 02/25/2014 SUE COMPLIANCE PARALEGAL, JOSIAH R 356.9 UNSPECIFIED IDIOPATHIC PERIPHERAL NEUROPATHY 02/25/2014 SUE COMPLIANCE PARALEGAL, JOSIAH R 782.3 EDEMA 02/25/2014 SUE COMPLIANCE PARALEGAL, JOSIAH R 785.1 PALPITATIONS 02/25/2014 MADL COMPLIANCE PARALEGAL, JOSE L 356.9 UNSPECIFIED IDIOPATHIC PERIPHERAL NEUROPATHY 02/25/2014 MAD COMPLIANCE PARALEGAL, JOSE L 782.3 EDEMA 02/25/2014 MADL COMPLIANCE PARALEGAL, JOSE L 785.1 PALPITATIONS 02/25/2014 FOREMAN DO, JULISA K 356.9 UNSPECIFIED IDIOPATHIC PERIPHERAL NEUROPATHY 02/25/2014 FOREMAN DO, JULISA K 782.3 EDEMA 02/25/2014 FOREMAN DO, JULISA K 785.1 PALPITATIONS 02/25/2014 SUE COMPLIANCE PARALEGAL, JOSIAH R 356.9 UNSPECIFIED IDIOPATHIC PERIPHERAL NEUROPATHY 02/25/2014 SUE COMPLIANCE PARALEGAL, JOSIAH R 782.3 EDEMA 02/25/2014 SUE CROWEN, JOSIAH R 785.1 PALPITATIONS 05/30/2014 MADL COMPLIANCE PARALEGAL, JOSE L 465.9 UPPER RESPIRATORY INFECTION 05/30/2014 FOREMAN DO, JULISA K 465.9 UPPER RESPIRATORY INFECTION 05/30/2014 SUE CROWEN, JOSIAH R 465.9 UPPER RESPIRATORY INFECTION 06/06/2014 FOREMAN DO JULISA K V65.42 COUNSELING - SMOKING CESSATION 06/06/2014 SUE CROWEN JOSIAH R V65.42 COUNSELING - SMOKING CESSATION 01/23/2015 Ot 242.00 01/23/2015 Ot 593.9 01/23/2015 Ot 790.5 01/25/2015 KELLEN CHÁVEZ JULISA K Ot 244.1 POSTABLAT HYPOTHYR NEC 01/25/2015 JULISA FOREMAN DO Ot 309.81 POSTTRAUMATIC STRESS DISORDER 01/25/2015 JULISA FOREMAN DO Ot 403.90 HYPTNSV CHR KID DIS, UNSPEC, W CHR KD ST 01/25/2015 JULISA FOREMNA DO Ot 584.9 ACUTE RENAL FAILURE, UNSPECIFIED 01/25/2015 JULISA FOREMAN DO Ot 585.2 CHRONIC KIDNEY DISEASE, STAGE II (MILD) 01/25/2015 JULISA FOREMAN DO Ot 592.0 CALCULUS OF KIDNEY 01/25/2015 JULISA FOREMAN DO Ot 781.0 ABN INVOLUN MOVEMENT NEC 01/25/2015 JULISA FOREMAN DO Ot V15.81 HX OF PAST NONCOMPLIANCE 01/25/2015 JULISA FOREMAN DO Ot V15.82 HISTORY OF TOBACCO USE 01/25/2015 JULISA FOREMAN DO Ot V58.69 OTH MED,LT,CURRENT USE 01/27/2015 Ot 242.00 01/27/2015 Ot 593.9 01/27/2015 Ot 790.5 01/27/2015 NAHEED RAMÍREZ, TAL Henderson Ot 244.9 HYPOTHYROIDISM NOS 01/27/2015 NAHEED RAMÍREZ, TAL Henderson Ot 584.9 ACUTE RENAL FAILURE, UNSPECIFIED 01/27/2015 NAHEED RAMÍREZ, TAL Henderson Ot 585.9 CHRONIC KIDNEY DISEASE, UNSPECIFIED 01/27/2015 NAHEED RAMÍREZ, TAL Henderson Ot 780.79 OTH MALAISE FATIGUE 01/27/2015 NAHEED RAMÍREZ, TAL Henderson Ot V58.69 OTH MED,LT,CURRENT USE 04/06/2015 FANTASMA AUGUSTIN Ot F17.210 NICOTINE DEPENDENCE, CIGARETTES, UNCOMPL 04/06/2015 FANTASMA AUGUSTIN Ot N20.0 CALCULUS OF KIDNEY 04/06/2015 FANTASMA AUGUSTIN Ot R07.81 PLEURODYNIA 04/06/2015 FANTASMA AUGUSTIN Ot R10.84 GENERALIZED ABDOMINAL PAIN 05/09/2015 SHARMILA MCGREGOR MD Ot E03.9 HYPOTHYROIDISM, UNSPECIFIED 05/09/2015 SHARMILA MCGREGOR MD Ot M62.838 OTHER MUSCLE SPASM 05/09/2015 SHARMILA MCGREGOR MD Ot R31.9 HEMATURIA, UNSPECIFIED 05/09/2015 SHARMILA MCGREGOR MD, Ot Z79.899 OTHER CARE HOME (CURRENT) DRUG THERAPY 05/09/2015 BALBIR RAMÍREZ, SHARMILA Pickett Ot Z87.442 PERSONAL HISTORY OF URINARY CALCULI 08/29/2015 ISIDRO CHÁVEZ, SKYLER L Ot E03.9 08/29/2015 ISIDRO CHÁVEZ, SKYLER L Ot R40.1 09/27/2015 Ot 593.9 RENAL URETERAL DIS NOS 09/27/2015 Ot 790.5 ABN SERUM ENZY LEVEL NEC 09/27/2015 ALEKSANDER HERNANDEZ 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 Ot M54.9 DORSALGIA, UNSPECIFIED 09/27/2015 ALEKSANDER HERNANDEZ M 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 Ot R20.9 UNSPECIFIED DISTURBANCES OF SKIN SENSATI 09/27/2015 ALEXEYNDER DO, DONTAE S Ot R05 COUGH 09/27/2015 ALEXEYNDER DO, DONTAE S Ot R07.81 PLEURODYNIA 09/27/2015 ALEKSANDER HERNANDEZ 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 Ot E07.9 DISORDER OF THYROID, UNSPECIFIED 09/27/2015 ISIDRO CHÁVEZ, SKYLER L Ot E03.9 HYPOTHYROIDISM, UNSPECIFIED 09/27/2015 ISIDRO DO, SKYLER L Ot G62.9 POLYNEUROPATHY, UNSPECIFIED 09/27/2015 ALEXEYNDTHOMAS , DONTAE S Ot M41.9 SCOLIOSIS, UNSPECIFIED 09/27/2015 ISIDRO DO, SKYLER L Ot E03.9 HYPOTHYROIDISM, UNSPECIFIED 09/27/2015 ISIDRO DO, SKYLER L Ot R40.1 STUPOR 09/28/2015 CLARICE RAMÍREZ, RAMANDEEP S Ot D64.9 ANEMIA, UNSPECIFIED 09/28/2015 CLARICE RAMÍREZ, RAMANDEEP S Ot E03.9 HYPOTHYROIDISM, UNSPECIFIED 09/28/2015 CLARICE RAMÍREZ, RAMANDEEP S Ot E78.2 MIXED HYPERLIPIDEMIA 09/28/2015 CLARICE RAMÍREZ, RAMANDEEP S Ot I12.9 HYPERTENSIVE CHRONIC KIDNEY DISEASE W ST 09/28/2015 CLARICE RAMÍREZ, RAMANDEEP S Ot N18.2 CHRONIC KIDNEY DISEASE, STAGE 2 (MILD) 09/28/2015 CLARICE RAMÍREZ, RAMANDEEP S Ot R31.9 HEMATURIA, UNSPECIFIED 09/28/2015 CLARICE RAMÍREZ, AHMED S Ot R80.9 PROTEINURIA, UNSPECIFIED 10/11/2015 FELIX DO, SKYLER L Ot E03.9 HYPOTHYROIDISM, UNSPECIFIED 10/11/2015 FELIX DO, SKYLER L Ot R40.1 STUPOR 11/10/2015 CLARICE RAMÍREZ, RAMANDEEP S Ot D64.9 ANEMIA, UNSPECIFIED 11/10/2015 CLARICE RAMÍREZ, RAMANDEEP S Ot E03.9 HYPOTHYROIDISM, UNSPECIFIED 11/10/2015 CLARICE RAMÍREZ, MIRANDAMED S Ot E78.2 MIXED HYPERLIPIDEMIA 11/10/2015 CLARICE RAMÍREZ, MIRANDAMED S Ot I12.9 HYPERTENSIVE CHRONIC KIDNEY DISEASE W ST 11/10/2015 CLARICE RAMÍREZ, RAMANDEEP S Ot N18.2 CHRONIC KIDNEY DISEASE, STAGE 2 (MILD) 11/10/2015 CLARICE RAMÍREZ, RAMANDEEP S Ot R31.9 HEMATURIA, UNSPECIFIED 11/10/2015 CLARICE RAMÍREZ, RAMANDEEP S Ot R80.9 PROTEINURIA, UNSPECIFIED 11/19/2015 FELIX DO, SKYLER L Ot E03.9 HYPOTHYROIDISM, UNSPECIFIED 11/19/2015 FELIX DO, SKYLER L Ot R40.1 STUPOR 11/22/2015 FELIX DO, SKYLER L Ot E03.9 HYPOTHYROIDISM, UNSPECIFIED 11/22/2015 FELIX DO, SKYLER L Ot R40.1 STUPOR 01/29/2016 FREDERICK RAMÍREZ, GABRIELA Cardozo Ot E05.00 THYROTOXICOSIS W DIFFUSE GOITER W/O THYR 01/29/2016 FREDERICK RAMÍREZ, GABRIELA Cardozo Ot M54.2 CERVICALGIA 01/31/2016 FREDERICK RAMÍREZ, GABRIELA Cardozo Ot E05.00 THYROTOXICOSIS W DIFFUSE GOITER W/O THYR 01/31/2016 FREDERICK RAMÍREZ, GABRIELA Cardozo Ot M54.2 CERVICALGIA 02/25/2016 GABRIELA MACK MD Ot E05.00 THYROTOXICOSIS W DIFFUSE GOITER W/O THYR 02/25/2016 FREDERICK RAMÍREZ, GABRIELA Cardozo Ot M54.2 CERVICALGIA 05/08/2016 ADOLPH RANGEL APRN Ot E03.9 HYPOTHYROIDISM, UNSPECIFIED 05/08/2016 ADOLPH RANGEL APRN Ot F43.10 POST-TRAUMATIC STRESS DISORDER, UNSPECIF 05/08/2016 RANGEL, PETER J COMPLIANCE PARALEGAL Ot I12.9 HYPERTENSIVE CHRONIC KIDNEY DISEASE W ST 05/08/2016 ADOLPH RANGEL COMPLIANCE PARALEGAL Ot N18.2 CHRONIC KIDNEY DISEASE, STAGE 2 (MILD) 05/08/2016 ADOLPH RANGEL COMPLIANCE PARALEGAL Ot R07.89 OTHER CHEST PAIN 05/08/2016 ADOLPH RANGEL COMPLIANCE PARALEGAL Ot R25.1 TREMOR, UNSPECIFIED 05/08/2016 ADOLPH RANGEL COMPLIANCE PARALEGAL Ot R51 HEADACHE 05/08/2016 ADOLPH RANGEL COMPLIANCE PARALEGAL Ot Z79.899 OTHER DRAPERY INSTALLER (CURRENT) DRUG THERAPY 05/08/2016 ADOLPH RANGEL COMPLIANCE PARALEGAL Ot Z87.442 PERSONAL HISTORY OF URINARY CALCULI 05/08/2016 Ot 593.9 RENAL URETERAL DIS NOS 05/08/2016 Ot 790.5 ABN SERUM ENZY LEVEL NEC 05/08/2016 ALEKSANDER HERNANDEZ 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 Ot M54.9 DORSALGIA, UNSPECIFIED 05/08/2016 ALEKSANDER HERNANDEZ 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 Ot R20.9 UNSPECIFIED DISTURBANCES OF SKIN SENSATI 05/08/2016 ALEXEYNDER DO DONTAE S Ot R05 COUGH 05/08/2016 ALEXEYNDER , DONTAE S Ot R07.81 PLEURODYNIA 05/08/2016 ALEKSANDER HERNANDEZ 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 Ot E07.9 DISORDER OF THYROID, UNSPECIFIED 05/08/2016 ISIDRO CHÁVEZ, SKYLER L Ot E03.9 HYPOTHYROIDISM, UNSPECIFIED 05/08/2016 ISIDRO CHÁVEZ, SKYLER L Ot G62.9 POLYNEUROPATHY, UNSPECIFIED 05/08/2016 HUBER CHÁVEZ DONTAE S Ot M41.9 SCOLIOSIS, UNSPECIFIED 05/08/2016 CLARICE RAMÍREZ, RAMANDEEP S Ot D64.9 ANEMIA, UNSPECIFIED 05/08/2016 CLARICE RAMÍREZ, RAMANDEEP S Ot E03.9 HYPOTHYROIDISM, UNSPECIFIED 05/08/2016 CLARICE RAMÍREZ, RAMANDEEP S Ot E78.2 MIXED HYPERLIPIDEMIA 05/08/2016 CLARICE RAMÍREZ, RAMANDEEP S Ot I12.9 HYPERTENSIVE CHRONIC KIDNEY DISEASE W ST 05/08/2016 CLARICE RAMÍREZ, RAMANDEEP S Ot N18.2 CHRONIC KIDNEY DISEASE, STAGE 2 (MILD) 05/08/2016 CLARICE RAMÍREZ, RAMANDEEP S Ot R31.9 HEMATURIA, UNSPECIFIED 05/08/2016 CLARICE RAMÍREZ, MIRANDAMED S Ot R80.9 PROTEINURIA, UNSPECIFIED 05/08/2016 NEW, PAYAM Rodriguez [employer] CERTIFIED ORTHOTIST-C Ot D64.9 ANEMIA, UNSPECIFIED 05/08/2016 NEW, PAYAM Rodriguez [employer] CERTIFIED ORTHOTIST-C Ot E03.9 HYPOTHYROIDISM, UNSPECIFIED 05/08/2016 NEW, PAYAM Rodriguez [employer] CERTIFIED ORTHOTIST-C Ot E78.2 MIXED HYPERLIPIDEMIA 05/08/2016 NEW, PAYAM Rodriguez [employer] CERTIFIED ORTHOTIST-C Ot I12.9 HYPERTENSIVE CHRONIC KIDNEY DISEASE W ST 05/08/2016 NEW, PAYAM Rodriguez [employer] CERTIFIED ORTHOTIST-C Ot N18.2 CHRONIC KIDNEY DISEASE, STAGE 2 (MILD) 05/08/2016 NEW, PAYAM Rodriguez [employer] CERTIFIED ORTHOTIST-C Ot R31.9 HEMATURIA, UNSPECIFIED 05/08/2016 NEW, PAYAM Rodriguez [employer] CERTIFIED ORTHOTIST-C Ot R80.9 PROTEINURIA, UNSPECIFIED 05/08/2016 Ot E03.9 HYPOTHYROIDISM, UNSPECIFIED 05/08/2016 Ot R40.1 STUPOR 05/08/2016 FREDERICK RAMÍREZ, GABRIELA Cardozo Ot E05.00 THYROTOXICOSIS W DIFFUSE GOITER W/O THYR 05/08/2016 GABRIELA MACK MD Ot M54.2 CERVICALGIA 05/09/2016 ADOLPH RANGEL APRN Ot E03.9 HYPOTHYROIDISM, UNSPECIFIED 05/09/2016 ADOLPH RANGEL APRN Ot F43.10 POST-TRAUMATIC STRESS DISORDER, UNSPECIF 05/09/2016 ADOLPH RANGEL APRN Ot I12.9 HYPERTENSIVE CHRONIC KIDNEY DISEASE W ST 05/09/2016 ADOLPH RANGEL APRN Ot N18.2 CHRONIC KIDNEY DISEASE, STAGE 2 (MILD) 05/09/2016 ADOLPH RANGEL APRN Ot R07.89 OTHER CHEST PAIN 05/09/2016 ADOLPH RANGEL APRN Ot R25.1 TREMOR, UNSPECIFIED 05/09/2016 ADOLPH RANGEL APRN Ot R51 HEADACHE 05/09/2016 ADOLPH RANGEL APRN Ot Z79.899 OTHER CARE HOME (CURRENT) DRUG THERAPY 05/09/2016 ADOLPH RANGEL APRN Ot Z87.442 PERSONAL HISTORY OF URINARY CALCULI 07/24/2016 SHIRAZ DENIS APRN Ot N20.0 CALCULUS OF KIDNEY 07/24/2016 CIRA SHIRAZ Ranjan COMPLIANCE PARALEGAL Ot N28.1 CYST OF KIDNEY, ACQUIRED 07/24/2016 CIRASARAIIE Ranjan COMPLIANCE PARALEGAL Ot N20.0 CALCULUS OF KIDNEY 07/24/2016 CIRA SHIRAZ Ranjan COMPLIANCE PARALEGAL Ot N28.1 CYST OF KIDNEY, ACQUIRED 07/25/2016 SARAI DENISIE Ranjan COMPLIANCE PARALEGAL Ot N20.0 CALCULUS OF KIDNEY 07/25/2016 SHIRAZ DENIS COMPLIANCE PARALEGAL Ot N28.1 CYST OF KIDNEY, ACQUIRED 10/16/2016 Ot 593.9 RENAL URETERAL DIS NOS 10/16/2016 Ot 790.5 ABN SERUM ENZY LEVEL NEC 10/16/2016 ALEKSANDER HERNANDEZ 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 Ot M54.9 DORSALGIA, UNSPECIFIED 10/16/2016 ALEKSANDER HERNANDEZ 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 Ot R20.9 UNSPECIFIED DISTURBANCES OF SKIN SENSATI 10/16/2016 ALEXEYNDER DONTAE CHÁVEZ S Ot R05 COUGH 10/16/2016 ALEXEYNDER DONTAE CHÁVEZ S Ot R07.81 PLEURODYNIA 10/16/2016 ALEKSANDER HERNANDEZ 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 Ot E07.9 DISORDER OF THYROID, UNSPECIFIED 10/16/2016 FELIX DO SKYLER L Ot E03.9 HYPOTHYROIDISM, UNSPECIFIED 10/16/2016 FELIX DO SKYLER L Ot G62.9 POLYNEUROPATHY, UNSPECIFIED 10/16/2016 ALEXEYNDER CAMPBELL CHÁVEZLINE S Ot M41.9 SCOLIOSIS, UNSPECIFIED 10/16/2016 CLARICE RAMÍREZ, RAMANDEEP S Ot D64.9 ANEMIA, UNSPECIFIED 10/16/2016 CLARICE RAMÍREZ, MIRANDAMED S Ot E03.9 HYPOTHYROIDISM, UNSPECIFIED 10/16/2016 CLARICE RAMÍREZ, MIRANDAMED S Ot E78.2 MIXED HYPERLIPIDEMIA 10/16/2016 CLARICE RAMÍREZ, RAMANDEEP S Ot I12.9 HYPERTENSIVE CHRONIC KIDNEY DISEASE W ST 10/16/2016 CLARICE RAMÍREZ, MIRANDAMED S Ot N18.2 CHRONIC KIDNEY DISEASE, STAGE 2 (MILD) 10/16/2016 CLARICE RAMÍREZ, MIRNADAMED S Ot R31.9 HEMATURIA, UNSPECIFIED 10/16/2016 CLARICE RAMÍREZ, MIRANDAMED S Ot R80.9 PROTEINURIA, UNSPECIFIED 10/16/2016 NEW, PAYAM Rodriguez [employer] CERTIFIED ORTHOTIST-C Ot D64.9 ANEMIA, UNSPECIFIED 10/16/2016 NEW, PAYAM Rodriguez AMER[employer] CERTIFIED ORTHOTIST-C Ot E03.9 HYPOTHYROIDISM, UNSPECIFIED 10/16/2016 NEW, PAYAM Rodriguez AMERICAN BOARD CERTIFIED ORTHOTIST-C Ot E78.2 MIXED HYPERLIPIDEMIA 10/16/2016 NEW, PAYAM Rodriguez AMERICAN BOARD CERTIFIED ORTHOTIST-C Ot I12.9 HYPERTENSIVE CHRONIC KIDNEY DISEASE W ST 10/16/2016 NEW, PAYAM oRdriguez [employer] CERTIFIED ORTHOTIST-C Ot N18.2 CHRONIC KIDNEY DISEASE, STAGE 2 (MILD) 10/16/2016 NEW, PAYAM Rodriguez AMER[employer]ARD CERTIFIED ORTHOTIST-C Ot R31.9 HEMATURIA, UNSPECIFIED 10/16/2016 NEW, PAYAM Rodriguez AMER[employer] BOARD CERTIFIED ORTHOTIST-C Ot R80.9 PROTEINURIA, UNSPECIFIED 10/16/2016 Ot E03.9 HYPOTHYROIDISM, UNSPECIFIED 10/16/2016 Ot R40.1 STUPOR 10/16/2016 FREDERICK RAMÍREZ, GABRIELA Cardozo Ot E05.00 THYROTOXICOSIS W DIFFUSE GOITER W/O THYR 10/16/2016 FREDERICK RAMÍREZ, GABRIELA Cardozo Ot M54.2 CERVICALGIA 10/16/2016 SHIRAZ DENIS COMPLIANCE PARALEGAL Ot N20.0 CALCULUS OF KIDNEY 10/16/2016 SHIRAZ DENIS COMPLIANCE PARALEGAL Ot N28.1 CYST OF KIDNEY, ACQUIRED 10/17/2016 Ot E03.9 HYPOTHYROIDISM, UNSPECIFIED 10/17/2016 Ot R40.1 STUPOR 10/17/2016 MILES RAMÍREZ, DURAN Woodruff Ot K21.9 GASTRO-ESOPHAGEAL REFLUX DISEASE WITHOUT 10/17/2016 MILES RAMÍREZ, DURAN Woodruff Ot R13.10 DYSPHAGIA, UNSPECIFIED 10/17/2016 MILES RAMÍREZ, DURAN Woodruff Ot Z01.818 ENCOUNTER FOR OTHER PREPROCEDURAL EXAMIN 10/21/2016 Ot E03.9 HYPOTHYROIDISM, UNSPECIFIED 10/21/2016 Ot R40.1 STUPOR 10/23/2016 MILES RAMÍREZ, DURAN Woodruff Ot E03.9 HYPOTHYROIDISM, UNSPECIFIED 10/23/2016 MILES RAMÍREZ, DURAN Woodruff Ot G40.909 EPILEPSY, UNSP, NOT INTRACTABLE, WITHOUT 10/23/2016 MILES RAMÍREZ, DURAN Woodruff Ot I10 ESSENTIAL (PRIMARY) HYPERTENSION 10/23/2016 MILES RAMÍREZ, DURAN Woodruff Ot K21.0 GASTRO-ESOPHAGEAL REFLUX DISEASE WITH ES 10/23/2016 MILES RAMÍREZ, DURAN M Ot K25.9 GASTRIC ULCER, UNSP ACUTE OR CHRONIC, 10/23/2016 MILES RAMÍREZ, DURAN M Ot K29.80 DUODENITIS WITHOUT BLEEDING 10/23/2016 MILES RAMÍREZ, DURAN M Ot Z79.899 OTHER CARE HOME (CURRENT) DRUG THERAPY 11/01/2016 DURAN AQUINO MD M Ot E03.9 HYPOTHYROIDISM, UNSPECIFIED 11/01/2016 DURAN AQUINO MD M Ot G40.909 EPILEPSY, UNSP, NOT INTRACTABLE, WITHOUT 11/01/2016 DURAN AQUINO MD M Ot I10 ESSENTIAL (PRIMARY) HYPERTENSION 11/01/2016 MILES RAMÍREZ, DURAN M Ot K21.0 GASTRO-ESOPHAGEAL REFLUX DISEASE WITH ES 11/01/2016 DURAN AQUINO MD Ot K25.9 GASTRIC ULCER, UNSP ACUTE OR CHRONIC, 11/01/2016 MILES RAMÍREZ, DURAN M Ot K29.80 DUODENITIS WITHOUT BLEEDING 11/01/2016 DURAN AQUINO MD M Ot Z79.899 OTHER CARE HOME (CURRENT) DRUG THERAPY 11/04/2016 DURAN AQUINO MD Ot E03.9 HYPOTHYROIDISM, UNSPECIFIED 11/04/2016 DURAN AQUINO MD Ot G40.909 EPILEPSY, UNSP, NOT INTRACTABLE, WITHOUT 11/04/2016 DURAN AQUINO MD Ot I10 ESSENTIAL (PRIMARY) HYPERTENSION 11/04/2016 DURAN AQUINO MD Ot K21.0 GASTRO-ESOPHAGEAL REFLUX DISEASE WITH ES 11/04/2016 DURAN AQUINO MD Ot K25.9 GASTRIC ULCER, UNSP ACUTE OR CHRONIC, 11/04/2016 MILES RAMÍREZ, DURAN M Ot K29.80 DUODENITIS WITHOUT BLEEDING 11/04/2016 DURAN AQUINO MD M Ot Z79.899 OTHER CARE HOME (CURRENT) DRUG THERAPY 11/13/2016 DURAN AQUINO MD Ot E03.9 HYPOTHYROIDISM, UNSPECIFIED 11/13/2016 MILES RAMÍREZ, DURAN M Ot G40.909 EPILEPSY, UNSP, NOT INTRACTABLE, WITHOUT 11/13/2016 MILES RAMÍREZ, DURAN M Ot I10 ESSENTIAL (PRIMARY) HYPERTENSION 11/13/2016 MILES RAMÍREZ, DURAN M Ot K21.0 GASTRO-ESOPHAGEAL REFLUX DISEASE WITH ES 11/13/2016 DURAN AQUINO MD Ot K25.9 GASTRIC ULCER, UNSP ACUTE OR CHRONIC, 11/13/2016 DURAN AQUINO MD Ot K29.80 DUODENITIS WITHOUT BLEEDING 11/13/2016 DURAN AQUINO MD Ot Z79.899 OTHER DRAPERY INSTALLER (CURRENT) DRUG THERAPY 11/13/2016 DURAN AQUINO MD Ot R10.11 RIGHT UPPER QUADRANT PAIN 11/13/2016 DURAN AQUINO MD Ot R16.0 HEPATOMEGALY, NOT ELSEWHERE CLASSIFIED 12/18/2016 DURAN AQUINO MD Ot K21.9 GASTRO-ESOPHAGEAL REFLUX DISEASE WITHOUT 12/18/2016 DURAN AQUINO MD Ot Z01.818 ENCOUNTER FOR OTHER PREPROCEDURAL EXAMIN 12/27/2016 Ot E03.9 HYPOTHYROIDISM, UNSPECIFIED 12/27/2016 Ot R40.1 STUPOR 12/27/2016 DURAN AQUINO MD Ot I10 ESSENTIAL (PRIMARY) HYPERTENSION 12/27/2016 DURAN AQUINO MD Ot J45.909 UNSPECIFIED ASTHMA, UNCOMPLICATED 12/27/2016 DURAN AQUINO MD Ot J98.11 ATELECTASIS 12/27/2016 DURAN AQUINO MD Ot K21.0 GASTRO-ESOPHAGEAL REFLUX DISEASE WITH ES 12/27/2016 DURAN AQUINO MD Ot K44.9 DIAPHRAGMATIC HERNIA WITHOUT OBSTRUCTION 12/27/2016 DURAN AQUINO MD Ot K72.90 HEPATIC FAILURE, UNSPECIFIED WITHOUT COM 12/27/2016 DURAN AQUINO MD Ot R14.0 ABDOMINAL DISTENSION (GASEOUS) 12/28/2016 DURAN AQUINO MD Ot I10 ESSENTIAL (PRIMARY) HYPERTENSION 12/28/2016 DURAN AQUINO MD Ot J45.909 UNSPECIFIED ASTHMA, UNCOMPLICATED 12/28/2016 DURAN AQUINO MD Ot J98.11 ATELECTASIS 12/28/2016 DURAN AQUINO MD Ot K21.0 GASTRO-ESOPHAGEAL REFLUX DISEASE WITH ES 12/28/2016 DURAN AQUINO MD Ot K44.9 DIAPHRAGMATIC HERNIA WITHOUT OBSTRUCTION 12/28/2016 DURAN AQUINO MD Ot K72.90 HEPATIC FAILURE, UNSPECIFIED WITHOUT COM 12/28/2016 DURAN AQUINO MD Ot R14.0 ABDOMINAL DISTENSION (GASEOUS) 12/28/2016 MILES RAMÍREZ, DURAN Woodruff Ot R23.8 OTHER SKIN CHANGES 01/05/2017 Ot E03.9 HYPOTHYROIDISM, UNSPECIFIED 01/05/2017 Ot R40.1 STUPOR 01/06/2017 MILES RAMÍREZ, DURAN Woodruff Ot F43.10 POST-TRAUMATIC STRESS DISORDER, UNSPECIF 01/06/2017 MILES RAMÍREZ, DURAN Woodruff Ot G89.18 OTHER ACUTE POSTPROCEDURAL PAIN 01/06/2017 MILES RAMÍREZ, DURAN Woodruff Ot I12.9 HYPERTENSIVE CHRONIC KIDNEY DISEASE W ST 01/06/2017 MILES RAMÍREZ, DURAN Woodruff Ot J45.909 UNSPECIFIED ASTHMA, UNCOMPLICATED 01/06/2017 MILES RAMÍREZ, DURAN Woodruff Ot N18.2 CHRONIC KIDNEY DISEASE, STAGE 2 (MILD) 01/06/2017 MILES RAMÍREZ, DURAN Woodruff Ot Z87.820 PERSONAL HISTORY OF TRAUMATIC BRAIN INJU 01/07/2017 DURAN AQUINO MD Ot F43.10 POST-TRAUMATIC STRESS DISORDER, UNSPECIF 01/07/2017 MILES RAMÍREZ, DURAN Woodruff Ot G89.18 OTHER ACUTE POSTPROCEDURAL PAIN 01/07/2017 DURAN AQUINO MD Ot I12.9 HYPERTENSIVE CHRONIC KIDNEY DISEASE W ST 01/07/2017 DURAN AQUINO MD Ot J45.909 UNSPECIFIED ASTHMA, UNCOMPLICATED 01/07/2017 MILES RAMÍREZ, DURAN Woodruff Ot N18.2 CHRONIC KIDNEY DISEASE, STAGE 2 (MILD) 01/07/2017 DURAN AQUINO MD M Ot Z87.820 PERSONAL HISTORY OF TRAUMATIC BRAIN INJU 01/08/2017 DURAN AQUINO MD Ot F43.10 POST-TRAUMATIC STRESS DISORDER, UNSPECIF 01/08/2017 DURAN AQUINO MD Ot G89.18 OTHER ACUTE POSTPROCEDURAL PAIN 01/08/2017 DURAN AQUINO MD Ot I12.9 HYPERTENSIVE CHRONIC KIDNEY DISEASE W ST 01/08/2017 DURAN AQUINO MD Ot J18.9 PNEUMONIA, UNSPECIFIED ORGANISM 01/08/2017 DURAN AQUINO MD Ot J45.909 UNSPECIFIED ASTHMA, UNCOMPLICATED 01/08/2017 MILES RAMÍREZ, DURAN Woodruff Ot J98.11 ATELECTASIS 01/08/2017 DURAN AQUINO MD Ot K59.00 CONSTIPATION, UNSPECIFIED 01/08/2017 MILES RAMÍREZ, DURAN Woodruff Ot N18.2 CHRONIC KIDNEY DISEASE, STAGE 2 (MILD) 01/08/2017 MILES RAMÍREZ, DURAN Woodruff Ot Z87.820 PERSONAL HISTORY OF TRAUMATIC BRAIN INJU 02/26/2018 ALEKSANDER HERNANDEZ 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 Ot M54.9 DORSALGIA, UNSPECIFIED 02/26/2018 ALEKSANDER HERNANDEZ 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 Ot R20.9 UNSPECIFIED DISTURBANCES OF SKIN SENSATI 02/26/2018 ORENDER DO, DONTAE S Ot R05 COUGH 02/26/2018 ORENDER DO, DONTAE S Ot R07.81 PLEURODYNIA 02/26/2018 VANALEKSANDER MAYES 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 Ot E07.9 DISORDER OF THYROID, UNSPECIFIED 02/26/2018 FELIX DO, SKYLER L Ot E03.9 HYPOTHYROIDISM, UNSPECIFIED 02/26/2018 FELIX DO, SKYLER L Ot G62.9 POLYNEUROPATHY, UNSPECIFIED 02/26/2018 ORENDER DO, DONTAE S Ot M41.9 SCOLIOSIS, UNSPECIFIED 02/26/2018 CLARICE RAMÍREZ, MIRANDAMED S Ot D64.9 ANEMIA, UNSPECIFIED 02/26/2018 CLARICE RAMÍREZ, AHMED S Ot E03.9 HYPOTHYROIDISM, UNSPECIFIED 02/26/2018 CLARICE RAMÍREZ, AHMED S Ot E78.2 MIXED HYPERLIPIDEMIA 02/26/2018 CLARICE RAMÍREZ, AHMED S Ot I12.9 HYPERTENSIVE CHRONIC KIDNEY DISEASE W 02/26/2018 CLARICE RAMÍREZ, AHMED S Ot N18.2 CHRONIC KIDNEY DISEASE, STAGE 2 (MILD) 02/26/2018 CLARICE RAMÍREZ, AHMED S Ot R31.9 HEMATURIA, UNSPECIFIED 02/26/2018 CLARICE RAMÍREZ, AHMED S Ot R80.9 PROTEINURIA, UNSPECIFIED 02/26/2018 PAYAM LEE [employer] CERTIFIED ORTHOTIST-C Ot D64.9 ANEMIA, UNSPECIFIED 02/26/2018 PAYAM LEE [employer] CERTIFIED ORTHOTIST-C Ot E03.9 HYPOTHYROIDISM, UNSPECIFIED 02/26/2018 PAYAM LEE AMER[employer]ARD CERTIFIED ORTHOTIST-C Ot E78.2 MIXED HYPERLIPIDEMIA 02/26/2018 PAYAM LEE AMER[employer]ARD CERTIFIED ORTHOTIST-C Ot I12.9 HYPERTENSIVE CHRONIC KIDNEY DISEASE W 02/26/2018 JESUSPAYAMRayshawn AMERICAN BOARD CERTIFIED ORTHOTIST-C Ot N18.2 CHRONIC KIDNEY DISEASE, STAGE 2 (MILD) 02/26/2018 JESUS PAYAM HuRayshawn AMERICAN BOARD CERTIFIED ORTHOTIST-C Ot R31.9 HEMATURIA, UNSPECIFIED 02/26/2018 JESUS PAYAM HuRayshawn AMERICAN BOARD CERTIFIED ORTHOTIST-C Ot R80.9 PROTEINURIA, UNSPECIFIED 02/26/2018 Ot E03.9 HYPOTHYROIDISM, UNSPECIFIED 02/26/2018 Ot R40.1 STUPOR 02/26/2018 FREDERICK RAMÍREZ, GABRIELA Cardozo Ot E05.00 THYROTOXICOSIS W DIFFUSE GOITER W/O THYR 02/26/2018 FREDERICK RAMÍREZ, GABRIELA Cardozo Ot M54.2 CERVICALGIA 02/26/2018 SHIRAZ DENIS APRN Ot N20.0 CALCULUS OF KIDNEY 02/26/2018 SHIRAZ DENIS APRN Ot N28.1 CYST OF KIDNEY, ACQUIRED 02/26/2018 MILES RAMÍREZ, DURAN Woodruff Ot E03.9 HYPOTHYROIDISM, UNSPECIFIED 02/26/2018 MILES RAMÍREZ, DURAN Woodruff Ot G40.909 EPILEPSY, UNSP, NOT INTRACTABLE, WITHOUT 02/26/2018 MILES RAMÍREZ, DURAN Woodruff Ot I10 ESSENTIAL (PRIMARY) HYPERTENSION 02/26/2018 MILES RAMÍREZ, DURAN Woodruff Ot K21.0 GASTRO-ESOPHAGEAL REFLUX DISEASE WITH ES 02/26/2018 MILES RAMÍREZ, DURAN Woodruff Ot K25.9 GASTRIC ULCER, UNSP ACUTE OR CHRONIC, 02/26/2018 MILES RAMÍREZ, DURAN Woodruff Ot K29.80 DUODENITIS WITHOUT BLEEDING 02/26/2018 MILES RAMÍREZ, DURAN Woodruff Ot Z79.899 OTHER CARE HOME (CURRENT) DRUG THERAPY 02/26/2018 MILES RAMÍREZ, DURAN Woodruff Ot R10.11 RIGHT UPPER QUADRANT PAIN 02/26/2018 MILES RAMÍREZ, DURAN Woodruff Ot R16.0 HEPATOMEGALY, NOT ELSEWHERE CLASSIFIED 03/11/2018 GUNNER AVILAP Ot M25.512 PAIN IN LEFT SHOULDER 03/19/2018 VANEHELAEALEKSANDER AYALA M 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 Ot M54.9 DORSALGIA, UNSPECIFIED 03/19/2018 VANBECELAEREARMANDOSA M 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 Ot R20.9 UNSPECIFIED DISTURBANCES OF SKIN SENSATI 03/19/2018 DONTAE NGO DO S Ot R05 COUGH 03/19/2018 ORENDER DO, DONTAE S Ot R07.81 PLEURODYNIA 03/19/2018 MARYALEKSANDER 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 Ot E07.9 DISORDER OF THYROID, UNSPECIFIED 03/19/2018 FELIX DO, SKYLER L Ot E03.9 HYPOTHYROIDISM, UNSPECIFIED 03/19/2018 FELIX DO, SKYLER L Ot G62.9 POLYNEUROPATHY, UNSPECIFIED 03/19/2018 ORENDER DO, DONTAE S Ot M41.9 SCOLIOSIS, UNSPECIFIED 03/19/2018 CLARICE RAMÍREZ, AHMED S Ot D64.9 ANEMIA, UNSPECIFIED 03/19/2018 CLARICE RAMÍREZ, AHMED S Ot E03.9 HYPOTHYROIDISM, UNSPECIFIED 03/19/2018 CLARICE RAMÍREZ, AHMED S Ot E78.2 MIXED HYPERLIPIDEMIA 03/19/2018 CLARICE RAMÍREZ, AHMED S Ot I12.9 HYPERTENSIVE CHRONIC KIDNEY DISEASE W ST 03/19/2018 CLARICE RAMÍREZ, AHMED S Ot N18.2 CHRONIC KIDNEY DISEASE, STAGE 2 (MILD) 03/19/2018 CLARICE RAMÍREZ, AHMED S Ot R31.9 HEMATURIA, UNSPECIFIED 03/19/2018 CLARICE RAMÍREZ, AHMED S Ot R80.9 PROTEINURIA, UNSPECIFIED 03/19/2018 NEW, PAYAM Rodriguez [employer] CERTIFIED ORTHOTIST-C Ot D64.9 ANEMIA, UNSPECIFIED 03/19/2018 NEW, PAYAM Rodriguez AMERICAN BOARD CERTIFIED ORTHOTIST-C Ot E03.9 HYPOTHYROIDISM, UNSPECIFIED 03/19/2018 NEW, PAYAM Rodriguez AMERICAN BOARD CERTIFIED ORTHOTIST-C Ot E78.2 MIXED HYPERLIPIDEMIA 03/19/2018 NEW, PAYAM Rodriguez AMERICAN BOARD CERTIFIED ORTHOTIST-C Ot I12.9 HYPERTENSIVE CHRONIC KIDNEY DISEASE W ST 03/19/2018 NEW, PAYAM Rodriguez AMERICAN BOARD CERTIFIED ORTHOTIST-C Ot N18.2 CHRONIC KIDNEY DISEASE, STAGE 2 (MILD) 03/19/2018 NEW, PAYAM Rodriguez AMERICAN BOARD CERTIFIED ORTHOTIST-C Ot R31.9 HEMATURIA, UNSPECIFIED 03/19/2018 NEW, PAYAM Rodriguez AMERICAN BOARD CERTIFIED ORTHOTIST-C Ot R80.9 PROTEINURIA, UNSPECIFIED 03/19/2018 Ot E03.9 HYPOTHYROIDISM, UNSPECIFIED 03/19/2018 Ot R40.1 STUPOR 03/19/2018 FREDERICK RAMÍREZ, GABRIELA Cardozo Ot E05.00 THYROTOXICOSIS W DIFFUSE GOITER W/O THYR 03/19/2018 FREDERICK RAMÍREZ, GABRIELA Cardozo Ot M54.2 CERVICALGIA 03/19/2018 SHIRAZ DENIS APRN Ot N20.0 CALCULUS OF KIDNEY 03/19/2018 SHIRAZ DENIS APRN Ot N28.1 CYST OF KIDNEY, ACQUIRED 03/19/2018 MILES RAMÍREZ, DURAN Woodruff Ot E03.9 HYPOTHYROIDISM, UNSPECIFIED 03/19/2018 MILES RAMÍREZ, DURAN Woodruff Ot G40.909 EPILEPSY, UNSP, NOT INTRACTABLE, WITHOUT 03/19/2018 MILES RAMÍREZ, DURAN Woodruff Ot I10 ESSENTIAL (PRIMARY) HYPERTENSION 03/19/2018 MILES RAMÍREZ, DURAN Woodruff Ot K21.0 GASTRO-ESOPHAGEAL REFLUX DISEASE WITH ES 03/19/2018 MILES RAMÍREZ, DURAN Woodruff Ot K25.9 GASTRIC ULCER, UNSP ACUTE OR CHRONIC, 03/19/2018 MILES RAMÍREZ, DURAN Woodruff Ot K29.80 DUODENITIS WITHOUT BLEEDING 03/19/2018 MILES RAMÍREZ, DURAN Woodruff Ot Z79.899 OTHER DRAPERY INSTALLER (CURRENT) DRUG THERAPY 03/19/2018 MILES RAMÍREZ, DURAN Woodruff Ot R10.11 RIGHT UPPER QUADRANT PAIN 03/19/2018 MILES RAMÍREZ, DURAN Woodruff Ot R16.0 HEPATOMEGALY, NOT ELSEWHERE CLASSIFIED 03/19/2018 GUNNER AVILA Ot M25.512 PAIN IN LEFT SHOULDER 03/24/2018 GABRIELA TROTTER MD Ot M25.312 OTHER INSTABILITY, LEFT SHOULDER 03/24/2018 GABRIELA TROTTER MD Ot M25.512 PAIN IN LEFT SHOULDER 03/24/2018 SERGO RAMÍREZ, GABRIELA Cardozo Ot Z87.828 PERSONAL HISTORY OF OTH (HEALED) PHYSICA 04/16/2018 Kalli Perdue-Yesica W 338.18 OTHER ACUTE POSTOPERATIVE PAIN 04/16/2018 Iron, Kalli-Yesica W 564.00 CONSTIPATION, UNSPECIFIED 04/16/2018 Iron, Kalli-Yesica W 574.10 CALCULUS OF GALLBLADDER WITH OTHER CHOLECYSTITIS, WITHOUT MENTION OF OBSTRUCTION 04/16/2018 Iron Kalli-Yesica W 585.3 CHRONIC KIDNEY DISEASE, STAGE III (MODERATE) 04/16/2018 Iron Kalli-Yesica W 592.0 04/16/2018 Iron Kalli-Yesica W 719.41 PAIN IN JOINT INVOLVING SHOULDER REGION 04/16/2018 Betzaida Perdue A 789.03 04/16/2018 Betzaida Perdue W G89.18 OTHER ACUTE POSTPROCEDURAL PAIN 04/16/2018 Betzaida Perdue W K59.00 CONSTIPATION, UNSPECIFIED 04/16/2018 Betzaida Perdue W K80.20 CALCULUS OF GALLBLADDER W/O CHOLECYSTITIS W/O OBSTRUCTION 04/16/2018 Betzaida Perdue W M25.512 PAIN IN LEFT SHOULDER 04/16/2018 Iron, Betzaida W N18.3 CHRONIC KIDNEY DISEASE, STAGE 3 (MODERATE) 04/16/2018 Betzaida Perdue W N20.0 CALCULUS OF KIDNEY 04/16/2018 Betzaida Perdue A R10.31 RIGHT LOWER QUADRANT PAIN Procedures Code [place] [address] INDIV PSYTX 45/50 MIN 06/03/2012 69401 ROUTINE VENIPUNCTURE 02/28/2014 NEPHROLOG RAO NEPHROLOGY, 02/28/2014 50695 CBC 02/28/2014 45811 URINE DRUG SCREEN (IN-HOUSE ) 02/28/2014 73463 MICRO ALBUMIN-IN HOUSE 02/28/2014 [id number] GFR CALC (RESULT ONLY) 02/28/2014 96914 CMP 02/28/2014 54852 LIPID PANEL 02/28/2014 55606 MAGNESIUM 02/28/2014 41387 T4 FREE 02/28/2014 37889 TSH 02/28/2014 10368 T3 TOTAL 02/28/2014 98250 BNP 03/01/2014 NEPHROLOG MCKAY NEPHROLOGY, 03/25/2014 07273 CBC 03/25/2014 [id number] GFR CALC (RESULT ONLY) 03/25/2014 06245 RENAL PROFILE 03/25/2014 47901 ROUTINE VENIPUNCTURE 04/07/2014 PRO/CRE URINE PROTEIN TO CREATNINE RATIO 04/07/2014 81962 T4 FREE 04/07/2014 71550 TSH 04/07/2014 95359 T3 TOTAL 04/07/2014 95845 OXIMETRY 05/30/2014 [id number] RESTRICTION OF ESOPHAGOGASTRIC JUNCTION, 12/25/2016 [id number] ROBOTIC ASSISTED PROCEDURE OF TRUNK WILLIE 12/25/2016 Results Test Result Range Complete blood count (CBC) with automated white blood cell (WBC) differential - 05/08/16 18:15 Blood leukocytes automated count (number/volume) 9.2 10*3/uL 4.3-11.0 Blood erythrocytes automated count (number/volume) 4.71 10*6/uL 4.35-5.85 Venous blood hemoglobin measurement (mass/volume) 15.3 g/dL 13.3-17.7 Blood hematocrit (volume fraction) 44 % 40-54 Automated erythrocyte mean corpuscular volume 93 [foz_us] 80-99 Automated erythrocyte mean corpuscular hemoglobin (mass per erythrocyte) 33 pg 25-34 Automated erythrocyte mean corpuscular hemoglobin concentration measurement ( mass/volume) 35 g/dL 32-36 Automated erythrocyte distribution width ratio 13.3 % 10.0-14.5 Automated blood platelet count (count/volume) 364 10*3/uL 130-400 Automated blood platelet mean volume measurement 9.5 [foz_us] 7.4-10.4 Automated blood neutrophils/100 leukocytes 59 % 42-75 Automated blood lymphocytes/100 leukocytes 29 % 12-44 Blood monocytes/100 leukocytes 10 % 0-12 Automated blood eosinophils/100 leukocytes 2 % 0-10 Automated blood basophils/100 leukocytes 0 % 0-10 Blood neutrophils automated count (number/volume) 5.4 10*3 1.8-7.8 Blood lymphocytes automated count (number/volume) 2.7 10*3 1.0-4.0 Blood monocytes automated count (number/volume) 0.9 10*3 0.0-1.0 Automated eosinophil count 0.2 10*3/uL 0.0-0.3 Automated blood basophil count (count/volume) 0.0 10*3/uL 0.0-0.1 Comprehensive metabolic panel - 05/08/16 18:15 Serum or plasma sodium measurement (moles/volume) 142 mmol/L 135-145 Serum or plasma potassium measurement (moles/volume) 4.3 mmol/L 3.6-5.0 Serum or plasma chloride measurement (moles/volume) 110 mmol/L 98-107 Carbon dioxide 19 mmol/L 21-32 Serum or plasma anion gap determination (moles/volume) 13 mmol/L 5-14 Serum or plasma urea nitrogen measurement (mass/volume) 21 mg/dL 7-18 Serum or plasma creatinine measurement (mass/volume) 1.43 mg/dL 0.60-1.30 Serum or plasma urea nitrogen/creatinine mass ratio 15 NRG Serum or plasma creatinine measurement with calculation of estimated glomerular filtration rate 57 NRG Serum or plasma glucose measurement (mass/volume) 81 mg/dL 70-105 Serum or plasma calcium measurement (mass/volume) 9.5 mg/dL 8.5-10.1 Serum or plasma total bilirubin measurement (mass/volume) 0.3 mg/dL 0.1-1.0 Serum or plasma alkaline phosphatase measurement (enzymatic activity/volume) 100 U/L 40-136 Serum or plasma aspartate aminotransferase measurement (enzymatic activity/ volume) 26 U/L 5-34 Serum or plasma alanine aminotransferase measurement (enzymatic activity/volume ) 36 U/L 0-55 Serum or plasma protein measurement (mass/volume) 7.5 g/dL 6.4-8.2 Serum or plasma albumin measurement (mass/volume) 4.9 g/dL 3.2-4.5 Serum or plasma troponin i.cardiac measurement (mass/volume) - 05/08/16 18:15 Serum or plasma troponin i.cardiac measurement (mass/volume) < ng/ mL <0.30 Serum or plasma lithium measurement (moles/volume) - 05/08/16 18:15 BNP level < pg/mL <100.0 THYROID STIMULATING HORMONE - 05/08/16 18:15 THYROID STIMULATING HORMONE 1.65 u[iU]/mL 0.35-4.94 Serum or plasma thyroxine (T4) free measurement (mass/volume) - 05/08/16 18:15 Serum or plasma thyroxine (T4) free measurement (mass/volume) 1.23 ng/dL 0.70-1.48 Serum or plasma ethanol measurement (mass/volume) - 05/08/16 18:15 Serum or plasma ethanol measurement (mass/volume) < mg/dL <10 Methicillin resistant Staphylococcus aureus (MRSA) screening culture - 08:25 Methicillin resistant Staphylococcus aureus (MRSA) screening culture NEG NR Complete blood count (CBC) with automated white blood cell (WBC) differential - 12/25/16 08:30 Blood leukocytes automated count (number/volume) 6.7 10*3/uL 4.3-11.0 Blood erythrocytes automated count (number/volume) 4.46 10*6/uL 4.35-5.85 Venous blood hemoglobin measurement (mass/volume) 14.3 g/dL 13.3-17.7 Blood hematocrit (volume fraction) 42 % 40-54 Automated erythrocyte mean corpuscular volume 95 [foz_us] 80-99 Automated erythrocyte mean corpuscular hemoglobin (mass per erythrocyte) 32 pg 25-34 Automated erythrocyte mean corpuscular hemoglobin concentration measurement ( mass/volume) 34 g/dL 32-36 Automated erythrocyte distribution width ratio 14.3 % 10.0-14.5 Automated blood platelet count (count/volume) 321 10*3/uL 130-400 Automated blood platelet mean volume measurement 9.4 [foz_us] 7.4-10.4 Automated blood neutrophils/100 leukocytes 50 % 42-75 Automated blood lymphocytes/100 leukocytes 37 % 12-44 Blood monocytes/100 leukocytes 9 % 0-12 Automated blood eosinophils/100 leukocytes 3 % 0-10 Automated blood basophils/100 leukocytes 1 % 0-10 Blood neutrophils automated count (number/volume) 3.3 10*3 1.8-7.8 Blood lymphocytes automated count (number/volume) 2.5 10*3 1.0-4.0 Blood monocytes automated count (number/volume) 0.6 10*3 0.0-1.0 Automated eosinophil count 0.2 10*3/uL 0.0-0.3 Automated blood basophil count (count/volume) 0.1 10*3/uL 0.0-0.1 Whole blood basic metabolic panel - 12/25/16 08:30 Serum or plasma sodium measurement (moles/volume) 138 mmol/L 135-145 Serum or plasma potassium measurement (moles/volume) 4.3 mmol/L 3.6-5.0 Serum or plasma chloride measurement (moles/volume) 109 mmol/L 98-107 Carbon dioxide 21 mmol/L 21-32 Serum or plasma anion gap determination (moles/volume) 8 mmol/L 5-14 Serum or plasma urea nitrogen measurement (mass/volume) 19 mg/dL 7-18 Serum or plasma creatinine measurement (mass/volume) 1.69 mg/dL 0.60-1.30 Serum or plasma urea nitrogen/creatinine mass ratio 11 NRG Serum or plasma creatinine measurement with calculation of estimated glomerular filtration rate 47 NRG Serum or plasma glucose measurement (mass/volume) 117 mg/dL 70-105 Serum or plasma calcium measurement (mass/volume) 8.9 mg/dL 8.5-10.1 Complete blood count (CBC) with automated white blood cell (WBC) differential - 01/05/17 15:41 Blood leukocytes automated count (number/volume) 9.4 10*3/uL 4.3-11.0 Blood erythrocytes automated count (number/volume) 4.59 10*6/uL 4.35-5.85 Venous blood hemoglobin measurement (mass/volume) 14.6 g/dL 13.3-17.7 Blood hematocrit (volume fraction) 44 % 40-54 Automated erythrocyte mean corpuscular volume 96 [foz_us] 80-99 Automated erythrocyte mean corpuscular hemoglobin (mass per erythrocyte) 32 pg 25-34 Automated erythrocyte mean corpuscular hemoglobin concentration measurement ( mass/volume) 33 g/dL 32-36 Automated erythrocyte distribution width ratio 13.6 % 10.0-14.5 Automated blood platelet count (count/volume) 427 10*3/uL 130-400 Automated blood platelet mean volume measurement 9.5 [foz_us] 7.4-10.4 Automated blood neutrophils/100 leukocytes 65 % 42-75 Automated blood lymphocytes/100 leukocytes 23 % 12-44 Blood monocytes/100 leukocytes 8 % 0-12 Automated blood eosinophils/100 leukocytes 4 % 0-10 Automated blood basophils/100 leukocytes 1 % 0-10 Blood neutrophils automated count (number/volume) 6.1 10*3 1.8-7.8 Blood lymphocytes automated count (number/volume) 2.1 10*3 1.0-4.0 Blood monocytes automated count (number/volume) 0.7 10*3 0.0-1.0 Automated eosinophil count 0.4 10*3/uL 0.0-0.3 Automated blood basophil count (count/volume) 0.1 10*3/uL 0.0-0.1 PT panel in platelet poor plasma by coagulation assay - 01/05/17 15:41 Prothrombin time (PT) in platelet poor plasma by coagulation assay 13.2 s 12.2-14.7 INR in platelet poor plasma or blood by coagulation assay 1.0 0.8-1.4 Activated partial thromboplastin time (aPTT) in platelet poor plasma bycoagulation assay - 01/05/17 15:41 Activated partial thromboplastin time (aPTT) in platelet poor plasma bycoagulation assay 35 s 24-35 Comprehensive metabolic panel - 01/05/17 15:41 Serum or plasma sodium measurement (moles/volume) 139 mmol/L 135-145 Serum or plasma potassium measurement (moles/volume) 4.2 mmol/L 3.6-5.0 Serum or plasma chloride measurement (moles/volume) 102 mmol/L 98-107 Carbon dioxide 24 mmol/L 21-32 Serum or plasma anion gap determination (moles/volume) 13 mmol/L 5-14 Serum or plasma urea nitrogen measurement (mass/volume) 18 mg/dL 7-18 Serum or plasma creatinine measurement (mass/volume) 1.75 mg/dL 0.60-1.30 Serum or plasma urea nitrogen/creatinine mass ratio 10 NRG Serum or plasma creatinine measurement with calculation of estimated glomerular filtration rate 45 NRG Serum or plasma glucose measurement (mass/volume) 79 mg/dL 70-105 Serum or plasma calcium measurement (mass/volume) 9.9 mg/dL 8.5-10.1 Serum or plasma total bilirubin measurement (mass/volume) 0.7 mg/dL 0.1-1.0 Serum or plasma alkaline phosphatase measurement (enzymatic activity/volume) 111 U/L 40-136 Serum or plasma aspartate aminotransferase measurement (enzymatic activity/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
[2018-04-22 08:30] VITALS: BP 131/106
[2018-04-22] MEDS ORDERED: ceFAZolin 2 GM IV Premixed 50 ML IV ONE (08:30)
[2018-04-22] MEDS ORDERED: metroNIDAZOLE 500MG/100ML IVPB 100 ML IV ONE (08:30)
[2018-04-22] MEDS ORDERED: CATHETER FLUSH 10 ML SYR IV PRN (08:30)
[2018-04-22 08:42] LABS: BASOPHILS % (AUTO) 0 % (0-10); EOSINOPHILS # (AUTO) 0.2 10^3/uL (0.0-0.3); EOSINOPHILS % (AUTO) 2 % (0-10); HEMATOCRIT 48 % (40-54); HEMOGLOBIN 16.1 G/DL (13.3-17.7); LYMPHOCYTES # (AUTO) 2.2 X 10^3 (1.0-4.0); LYMPHOCYTES % (AUTO) 27 % (12-44); MEAN CORPUSCULAR HEMOGLOBIN 31 PG (25-34); MEAN CORPUSCULAR HGB CONC 34 G/DL (32-36); MEAN CORPUSCULAR VOLUME 91 FL (80-99); MEAN PLATELET VOLUME 9.8 FL (7.4-10.4); MONOCYTES # (AUTO) 0.7 X 10^3 (0.0-1.0); MONOCYTES % (AUTO) 9 % (0-12); NEUTROPHILS % (AUTO) 62 % (42-75); PLATELET COUNT 366 10^3/uL (130-400); RED BLOOD COUNT 5.27 10^6/uL (4.35-5.85); WHITE BLOOD COUNT 8.2 10^3/uL (4.3-11.0)
[2018-04-22] MEDS: LACTATED RINGERS 1,000 ML IV PRN ×3 (08:45→13:57)
[2018-04-22] MEDS ORDERED: LACTATED RINGERS 1,000 ML IV PRN (08:49)
[2018-04-22] MEDS ORDERED: BUP/EPI 0.5% 1:200,000 (SENSORCAINE) 30 ML VIAL ONE (08:53)
[2018-04-22] MEDS ORDERED: MIDAZOLAM 2 MG/2 ML (VERSED) VIAL ONE (08:58)
[2018-04-22] MEDS ORDERED: fentaNYL INJECTION 100 MCG/2 ML AMP ONE ×2 (09:07→13:58)
[2018-04-22] MEDS ORDERED: proPOfol 200 MG/20 ML (DIPRIVAN) VIAL IV ONE ×2 (09:16→13:39)
[2018-04-22] MEDS ORDERED: LIDOCAINE PF 2% 5 ML (XYLOCAINE) VIAL ONE (09:16)
[2018-04-22] MEDS ORDERED: ONDANSETRON 4 MG/2 ML (SDV) Z0FRAN ONE (09:43)
[2018-04-22] MEDS ORDERED: DEXAMETHASONE 10 MG/ML (DECADRON) 1 ML VIAL ONE (09:43)
[2018-04-22] MEDS ORDERED: SEVOFLURANE (ULTANE) 15 ML INHAL SOLN ONE ×6 (09:43→14:21)
[2018-04-22] MEDS ORDERED: ROCURONIUM 10 MG/ML 5 ML SYRINGE IV ONE ×3 (09:46→14:26)
[2018-04-22] MEDS ORDERED: MIDAZOLAM 2 MG/2 ML (VERSED) VIAL IVP ONE (12:00)
[2018-04-22] MEDS ORDERED: PHENYLEPHRINE INJ 10 MG/ML (NEO-SYNEPHRINE 1%) ONE (13:39)
[2018-04-22] MEDS ORDERED: PHENYLEPHRINE 100 MCG/ML 10 ML (ANESTHESIA) SYR ONE (13:55)
[2018-04-22] MEDS ORDERED: GLYCOPYRROLATE 0.2 MG/ML (ROBINUL) 2 ML VIAL ONE (13:56)
[2018-04-22] MEDS ORDERED: NEOSTIGMINE 1 MG/ML 5 ML SYRINGE ONE (13:56)
[2018-04-22] MEDS ORDERED: KETOROLAC 30 MG/ML VIAL ONE (13:58)
--- NOTE | 2018-04-22 14:04 | Operative Report ---
Operative Report Date of Procedure/Surgery Apr 22, 2018 Surgeon (s) DURAN AQUINO MD Boiler Erector (s): N/A Post-Operative Diagnosis Same Procedure Performed Robotic-assisted cholecystectomy Description of Procedure Anesthesia Type: General Estimated blood loss (mL): Minimal Specimen(s) collected/removed Gallbladder Description of the Procedure Indication for the procedure: This gentleman presented with symptomatic cholelithiasis with a 2.1 cm stone impacted at the neck of the gallbladder. He was offered prompt cholecystectomy using minimally invasive technique with the robotic assistance. Informed consent was obtained after reviewing the operative details and complications of wound infection and bile leak. Description of the procedure: He was placed supine on the operative table and general anesthesia induced. 2 g of Ancef and 500 mg of Flagyl were administered intravenously as prophylaxis against wound infection. Sequential compression devices were placed around his legs, to minimize the risk of venous thrombosis. Abdomen was prepared and draped in the usual sterile manner. Due to previous upper abdominal surgery involving fundoplication, I elected to establish pneumoperitoneum using a Veress needle introduced over the left subcostal region. Intra-abdominal pressure was maintained at 15 mmHg, using carbon dioxide insufflation. A 5 mm trocar was placed and anatomy visualized using the conventional, 5 mm, 30 laparoscope. Gastric fundus was adherent to the abdominal wall, adjacent to the falciform ligament. Under direct view, I placed an 8 mm trocar over the left-sided abdomen and took down the gastric fundus using laparoscopic scissors. Subsequently, I placed in 12 mm trocar over the subumbilical region followed by another 8 mm trocar over the right- sided abdomen. We, then, switch to the robotic system. The patient was turned in the reverse Trendelenburg position with the right side tilted up. The robotic system was then docked in place. The fundus of the gallbladder was retracted cephalad and the infundibulum grasped with Cadiere forceps. Peritoneum overlying Calot's triangle was incised using hook cautery, delineating the cystic duct and artery. Both were controlled between locking clips. Cholecystectomy was then completed using hook cautery. Subhepatic space was then irrigated with saline and the gallbladder placed in an Endo Catch bag, being removed via the subumbilical trocar site. The fascia over this incision was closed using #1 Vicryl, using the Ruy Ashley device, under direct view. Skin incisions were closed using 4-0 Vicryl, in a subcuticular fashion. 0.5 percent Marcaine with epinephrine was infiltrated along the incisions, both preemptively and at the conclusion of the operation. He tolerated the procedure well, was extubated in the operating room and taken to the recovery room in a stable condition Findings of the Procedure See op report Allergies and Home Medications Allergies Coded Allergies: latex (Verified Allergy, Unknown, 01/05/17) Uncoded Allergies: band aids (Allergy, Intermediate, 12/27/16) blisters skin Home Medications Levothyroxine Sodium 175 Mcg Tablet, 175 MCG PO DAILY, (Reported) Patient Home Medication List Home Medication List Reviewed: Yes DURAN AQUINO MD Apr 22, 2018 14:04
[2018-04-22] MEDS ORDERED: HYDR473S50 PO (14:06)
--- NOTE | 2018-04-22 14:07 | Discharge Inst-Simple/Standard ---
Discharge Inst-Standard Discharge Medications New, Converted or Re-Newed RX: RX on Chart Patient Instructions/Follow Up Plan of Care/Instructions/FU: Band-Aids off in 48 hours. Incentive Spirometry. Follow-up in 3 weeks. Activity as Tolerated: Yes Discharge Diet: No Restrictions DURAN AQUINO MD Apr 22, 2018 14:07
[2018-04-22] MEDS ORDERED: ONDANSETRON 4 MG/2 ML (SDV) Z0FRAN IVP PRN (14:15)
[2018-04-22] MEDS ORDERED: MEPERIDINE (DEMEROL) INJ 50 MG/ML IVP ONE (14:15)
[2018-04-22] MEDS ORDERED: morphine INJ 10 MG/ML 1ML (SYR OR VIAL) IVP ONE (14:15)
[2018-04-22] MEDS ORDERED: KETOROLAC 30 MG/ML VIAL IVP ONE (14:15)
[2018-04-22] MEDS ORDERED: fentaNYL INJECTION 100 MCG/2 ML AMP IVP ONE (14:15)
[2018-04-22] MEDS ORDERED: HYDROmorphone 2 MG/ML VIAL (DILAUDID) IV ONE (14:15)
[2018-04-22] MEDS ORDERED: morphine INJ 10 MG/ML 1ML (SYR OR VIAL) ONE (14:24)
[2018-04-22 15:50] VITALS: BP 148/99
[2018-04-22 16:20] VITALS: BP 137/92
[2018-04-22 16:50] VITALS: BP 131/90
[2018-04-22] MEDS ORDERED: HYDROcodone/APAP 7.5MG-325 MG/15 ML (LORTAB) UDC ONE (17:21)
[2018-04-22] MEDS ORDERED: HYDROcodone/APAP 7.5MG-325 MG/15 ML (LORTAB) UDC PO PRN (17:30)
[2018-04-22 17:45] VITALS: BP 131/90
== END 2018-04-22 17:45 | disposition home or self-care (01) ==
LOC: SDC 08:10
PROVIDERS: ATTEND Surgery
DX: K80.20 Calculus of gallbladder without cholecystitis without obstruction (principal); Z11.2 Encounter for screening for other bacterial diseases; E06.3 Autoimmune thyroiditis; I12.9 Hypertensive chronic kidney disease with stage 1 through stage 4 chronic kidney disease, or unspecified chronic kidney disease; N18.2 Chronic kidney disease, stage 2 (mild); F43.10 Post-traumatic stress disorder, unspecified; F31.9 Bipolar disorder, unspecified; Z79.899 Other long term (current) drug therapy; Z87.891 Personal history of nicotine dependence
CPT/HCPCS: 36415; 85025; 87081; 88304; 94664

== ENCOUNTER 2018-10-06 16:12 | Emergency (ER) | payer BC ==
[~2018-10-06] VITALS: Ht 185.4 cm; Wt 91.6 kg
[~2018-10-06 16:12] MED LIST changes: -HYDR118S10 PO; +HYDR15SO6 PO
[2018-10-06] MEDS ORDERED: LEVO200T6 (16:28)
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
[2018-10-06 16:52] VITALS: BP 145/93
== END 2018-10-06 16:52 | disposition home or self-care (01) ==
LOC: EDUNIT# 16:12 → ER 16:13
DX: T81.31XA Disruption of external operation (surgical) wound, not elsewhere classified, initial encounter (principal); J45.909 Unspecified asthma, uncomplicated; I10 Essential (primary) hypertension; G43.909 Migraine, unspecified, not intractable, without status migrainosus; K21.9 Gastro-esophageal reflux disease without esophagitis; E03.9 Hypothyroidism, unspecified; E05.90 Thyrotoxicosis, unspecified without thyrotoxic crisis or storm; F41.9 Anxiety disorder, unspecified; F31.9 Bipolar disorder, unspecified; F43.10 Post-traumatic stress disorder, unspecified; Z87.19 Personal history of other diseases of the digestive system; Z87.820 Personal history of traumatic brain injury; Z91.040 Latex allergy status; Z82.49 Family history of ischemic heart disease and other diseases of the circulatory system; Z91.048 Other nonmedicinal substance allergy status; Z87.891 Personal history of nicotine dependence; Z90.49 Acquired absence of other specified parts of digestive tract; Z98.890 Other specified postprocedural states
CPT/HCPCS: 99282

== ENCOUNTER → 2019-12-17 | Outpatient (CLI) | payer BC, OTHER ==
[~2019-12-17] MED LIST changes: +LEVO200T6; -OMEP20CA12 PO; +OMEP20CA18 PO
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
== END ==
LOC: RAD 09:48
PROVIDERS: ATTEND Surgery
DX: Z02.71 Encounter for disability determination (principal); M25.512 Pain in left shoulder; V29.9XXD Motorcycle rider (driver) (passenger) injured in unspecified traffic accident, subsequent encounter
CPT/HCPCS: 73030

== ENCOUNTER 2020-01-14 05:46 | Outpatient (RCR) | payer SELFPAY ==
[~2020-01-14] VITALS: Ht 195.6 cm; Wt 95.9 kg
[~2020-01-14 05:46] MED LIST changes: +BUPR1PAT TD; +DULO30CA49 PO; +LAMO200T5 PO; -LEVO200T6; +LEVO200T6 PO; +MIRT15TA6 PO; +PANT40TA3 PO; +PRAZ5CAP2 PO
== END 2020-01-14 09:28 | disposition home or self-care (01) ==
LOC: PREOP 05:46
PROVIDERS: ATTEND Surgery
DX: Z01.812 Encounter for preprocedural laboratory examination (principal); K21.9 Gastro-esophageal reflux disease without esophagitis; Z20.828 Contact with and (suspected) exposure to other viral communicable diseases
CPT/HCPCS: 87635

== ENCOUNTER 2020-01-17 08:07 | Day surgery (SDC) | payer SELFPAY ==
[~2020-01-17] VITALS: Ht 195.6 cm; Wt 95.9 kg
[2020-01-17] VITALS (7 sets, daily range): BP systolic 115–127; BP diastolic 68–92
[2020-01-17] MEDS ORDERED: LACTATED RINGERS 1,000 ML IV ONE (08:14)
[2020-01-17] MEDS ORDERED: LACTATED RINGERS 1,000 ML IV STA (08:38)
[2020-01-17] MEDS ORDERED: HURRICAINE EXT TUBE (BENZOCAINE) XX PRN (08:45)
[2020-01-17] MEDS ORDERED: PROPOFOL INJECTION 50 ML IV ONE (09:12)
[2020-01-17] MEDS ORDERED: MIDAZOLAM 2 MG/2 ML (VERSED) VIAL ONE (09:13)
--- NOTE | 2020-01-17 09:40 | Progress Note-Post Operative ---
Post-Operative Progess Note Surgeon (s)/Road Builder (s) Surgeon DARREN MOORE DO Road Builder: none Pre-Operative Diagnosis Gastritis, Dysphagia, Wt loss Post-Operative Diagnosis Gastritis Hiatal Hernia Gastric implantation Procedure & Operative Findings Date of Procedure 01/17/20 Procedure Performed/Findings EGD with bx Anesthesia Type IV sedation by L D RN Estimated Blood Loss Estimated blood loss (mL): scant Specimens/Packing Specimens Removed antral bx body of stomach bx GE jxn bx upper esophagus bx DARREN MOORE DO Jan 17, 2020 09:39
--- NOTE | 2020-01-17 09:41 | Endoscopy Discharge Instruct ---
Endo Procedure/Findings Findings 1.: Gastritis 2.: Hiatal Hernia Discharge Instructions - Activity: You might feel a little sleepy until tomorrow. This is due to the medicine you received to relax you. Until tomorrow, you should: NOT drive a car, operate machinery or power tools. NOT drink any alcoholic beverages. NOT make any important decisions or sign importortant papers. Do not return to work until tomorrow, unless otherwise instructed. Resume previous activities tomorrow. Diet: Start by taking liquids. If you tolerate liquids, advance to solid food. make an appointment for one week 1.: EGD in 1 year Notify Physician - If you experience excessive bleeding, unusual abdominal pain, fever, or chest pain, contact your doctor immediately. DARREN MOORE DO Jan 17, 2020 09:41
--- NOTE | 2020-01-17 10:52 | Anesthesia-General Post-Op ---
MAC Patient Condition Mental Status/LOC: Same as Preop Cardiovascular: Satisfactory Nausea/Vomiting: Absent Respiratory: Satisfactory Pain: Controlled Complications: Absent Post Op Complications Complications None Follow Up Care/Instructions Patient Instructions None needed. Anesthesiology Discharge Order Discharge Order Patient is doing well, no complaints, stable vital signs, no apparent adverse anesthesia problems. No complications reported per nursing. LETITIA TORRES CRNA Jan 17, 2020 10:52
--- NOTE | 2020-01-18 01:03 | OPERATIVE REPORT ---
DATE OF SERVICE: PREOPERATIVE DIAGNOSES: Dysphagia, gastritis, weight loss. POSTOPERATIVE DIAGNOSES: Gastritis and hiatal hernia as well as questionable gastric implant in the esophagus. PROCEDURE: EGD with biopsy. SURGEON: Dannie Johnson DO HUMAN RESOURCE INTERN: None. ANESTHESIA: IV sedation by the [employer] OFFICER. SPECIMEN: Biopsy from the antrum, body of stomach, GE junction and upper esophagus. BLOOD LOSS: Scant. FLUIDS: Per anesthesia. POSTOPERATIVE CONDITION: Stable. INDICATION FOR PROCEDURE: The patient is a 39-year-old male who has been having some dysphagia, gastritis and weight loss, needed a workup. FINDINGS: The patient had gastritis, hiatal hernia and what looked like a gastric implant in the upper esophagus. PROCEDURE NOTE: After informed consent was obtained, the patient was brought to the endoscopy suite, placed in bed in left lateral decubitus position. He was administered IV sedation by the [employer] OFFICER who then monitored his vitals the entire time, heart rate, blood pressure and pulse ox and the scope was inserted down the mouth through the esophagus and into the stomach. Upon entering the stomach, noted some mild gastritis, took a picture of this and then pushing into the duodenum, duodenum looked fine, took a picture. Pulled back and did a biopsy of the antrum. Retroflexed the scope, again saw some mild gastritis and a small hiatal hernia, did a biopsy of the body and , pulled the scope into the GE junction, did a biopsy, pushed the scope back into the stomach, suctioned all the air out and then pulled the scope up the esophagus. On the way up the esophagus at the upper portion, saw what looked like a gastric implantation in the upper esophagus. Elected to do a biopsy of this and then pulled the scope out of the esophagus into the mouth and out. The patient tolerated the procedure, recovered in endoscopy suite. Job ID: [id number] DocumentID: [id number] Dictated Date: 01/17/2020 15:08:31 Bushel Girl Date: 01/18/2020 01:01:45 Dictated By: DANNIE JOHNSON DO
== END 2020-01-17 10:35 | disposition home or self-care (01) ==
LOC: ENDO 08:07
PROVIDERS: ATTEND Surgery
DX: K29.50 Unspecified chronic gastritis without bleeding (principal); K21.0 Gastro-esophageal reflux disease with esophagitis; K44.9 Diaphragmatic hernia without obstruction or gangrene; I10 Essential (primary) hypertension; J45.909 Unspecified asthma, uncomplicated; F31.9 Bipolar disorder, unspecified; F41.9 Anxiety disorder, unspecified; F43.10 Post-traumatic stress disorder, unspecified; Z91.040 Latex allergy status; Z79.899 Other long term (current) drug therapy; Z87.820 Personal history of traumatic brain injury
CPT/HCPCS: 88305

== ENCOUNTER → 2020-03-17 | Outpatient (CLI) | payer MEDICAID ==
[~2020-03-17] MED LIST changes: +HOLD METFORMIN - RECEIVED CONTRAST 20 ML VIAL IV SCH; +IOHEXOL 350 MG/ML 100 ML (OMNIPAQUE 350) VIAL IV ONE; +NS 100 ML (IVPB) BAG IV ONE; -PANT40TA3 PO; +PANT40TA52 PO
--- NOTE | 2020-03-17 09:51 | Diagnostic Imaging Report ---
PROCEDURE: CT abdomen and pelvis with contrast. TECHNIQUE: Multiple contiguous axial images were obtained through the abdomen and pelvis after administration of intravenous contrast. Auto Exposure Controls were utilized during the CT exam to meet ALARA standards for radiation dose reduction. All CT scans use one or more of the following dose optimizing techniques: automated exposure control, MA and/or KvP adjustment based on patient size and exam type or iterative reconstruction. INDICATION: Abdominal pain. Patient has had multiple gastric surgeries. Correlation is made with prior CT from 01/05/2017. FINDINGS: Lung bases are free of acute infiltrates. There is linear scarring or atelectasis both lower lobes. No discrete liver mass is identified. Gallbladder appears to be surgically absent. No biliary ductal dilatation is seen. Pancreas and spleen are unremarkable. No adrenal mass is detected. Left kidney does contain a 5 mm nonobstructing calculus. Right kidney is unremarkable. No hydronephrosis is seen. Aorta is non-aneurysmal. Bowel loops are non-dilated. There is no obstruction. Moderate stool within the colon is noted, perhaps owing to constipation. No free fluid or fluid collection is seen. No abdominal or pelvic lymphadenopathy is identified. Bladder and prostate are unremarkable. IMPRESSION: Unremarkable CT of the abdomen and pelvis apart from a nonobstructing left renal calculus. No acute feature is seen. There is moderate stool suggestive of constipation. Dictated by: Dictated on workstation # [id number]
== END ==
LOC: RAD 09:15
PROVIDERS: ATTEND Surgery
DX: R10.816 Epigastric abdominal tenderness (principal); N20.0 Calculus of kidney
CPT/HCPCS: 74177